=== PATIENT | male | born 1955 | race Hispanic/Latino ===

== ENCOUNTER 2017-06-09 18:10 | Emergency (ER) | payer BC, OTHER ==
[~2017-06-09 18:10] MED LIST: ISOVUE-370 76%-LOCM 1 ML ONE
[2017-06-09 18:44] LABS: #Basophils 0.1 thou/uL (0.0-0.2); #Eosinphils 0.1 thou/uL (0.0-0.7); #Lymphocytes 2.6 thou/uL (1.20-3.40); #Monocytes 0.5 thou/uL (0.11-0.59); #Neutrophils 3.2 thou/uL (1.40-6.50); %Basophils 1.1 % (0.0-1.0); %Eosinophils 1.5 % (0.0-10.0); Mean Platelet Volume 8.3 fL (7.4-10.4); Red Blood Cell (RBC) Count 4.06 mill/uL (4.70-6.10); White Blood Cell (WBC) Count 6.4 thou/uL (4.8-10.8)
[2017-06-09] MEDS ORDERED: Ondansetron HCl/PF 4 MG/2 ML Vial ONE ×2 (18:57→20:51)
[2017-06-09] MEDS ORDERED: Morphine 4 MG/ML VIAL ONE (18:57)
[2017-06-09 19:00] LABS: Bilirubin Negative (Negative); Blood, Urine Negative (Negative); Glucose, Urine (Dipstick) 100 mg/dL (Negative); Ketone, Urine Negative (Negative); Nitrite Negative (Negative); Protein, Urine (Dipstick) Negative (Neg-Trace)
--- NOTE | 2017-06-09 19:00 | RAD ---
CHEST ONE VIEW 06/09/17 HISTORY: Chest pain. COMPARISON: 05/25/14. FINDINGS: The cardiac silhouette and pulmonary vasculature are unremarkable. Mediastinum is midline with aortic calcification and a single lead left subclavian cardiac electronic device. No lobar consolidation or evidence of pneumothorax. IMPRESSION: No active cardiopulmonary abnormalities are demonstrated. POS: [facility]
[2017-06-09 19:09] LABS: ALT (SGPT) 24 U/L (8-55); AST (SGOT) 17 U/L (5-34); Alkaline Phosphatase 68 U/L (40-150); Anion Gap 15 mmol/L (10-20); BUN (Urea Nitrogen) 16 mg/dL (8.4-25.7); Bilirubin, Total 0.4 mg/dL (0.2-1.2); CK (CPK) 75 U/L (30-200); Calc. Creatinine Clearance 0 mL/min (70-130); Calcium 9.5 mg/dL (7.8-10.44); Carbon Dioxide 24 mmol/L (23-31); Chloride 105 mmol/L (98-107); Estimated GFR-MDRD 87; Globulin 3.6 g/dL (2.4-3.5); Protein, Total 7.7 g/dL (5.8-8.1)
[2017-06-09 19:19] LABS: Troponin I Less than 0.010 ng/mL (< 0.028)
[2017-06-09 19:45] LABS: Magnesium 2.2 mg/dL (1.6-2.6)
--- NOTE | 2017-06-09 20:04 | CT ---
CT ABDOMEN AND PELVIS WITH IV CONTRAST 06/09/17 HISTORY: Abdominal pain. FINDINGS: Compared to 12/04/15. The lung bases are clear. Several tiny calcific densities are present at the level of the common bile duct which is not significantly dilated. No stones are apparent within the gallbladder lumen. The sp kathie, kidneys, adrenal glands and pancreas are within normal limits. Urinary bladder is unremarkable. Lack of oral contrast limits evaluation of the bowel. There is no evidence of obstruction. IMPRESSION: Tiny calcific densities at the expected location of the nondilated common duct. Clinical correlation regarding other signs and symptoms of biliary colic and choledocholithiasis is required. POS: [facility]
[2017-06-09] MEDS ORDERED: Morphine 2 mg/2ml in 0.9% NaCl PF SYRINGE ONE (20:51)
--- NOTE | 2017-07-16 13:40 | EKG ---
Test Reason : Blood Pressure : / mmHG Vent. Rate : 084 BPM Atrial Rate : 084 BPM P-R Int : 132 ms QRS Dur : 082 ms QT Int : 348 ms P-R-T Axes : 058 -39 043 degrees QTc Int : 411 ms Sinus rhythm with Premature atrial complexes Left axis deviation Possible Anterior infarct , age undetermined Abnormal ECG Confirmed by DENIZ WRIGHT ([id number]), scientific editor THIEN CLANCY ([id number]) on 07/16/2017 1:40:16 PM Referred By: Confirmed By:DENIZ WRIGHT
== END 2017-06-09 21:40 | disposition home or self-care (01) ==
LOC: ERS 18:10
DX: M54.41 Lumbago with sciatica, right side (principal); R10.31 Right lower quadrant pain; I10 Essential (primary) hypertension; J45.909 Unspecified asthma, uncomplicated; F31.9 Bipolar disorder, unspecified; Z87.891 Personal history of nicotine dependence; Z79.82 Long term (current) use of aspirin; Z79.899 Other long term (current) drug therapy
CPT/HCPCS: 36415; 71010; 74177; 80053; 81003; 82553; 83690; 83735; 84484; 85025; 93005; 94760; 96374; 96375; 96376; J2270; J2405

== ENCOUNTER 2017-07-16 18:26 | Emergency (ER) | payer BC, OTHER ==
[2017-07-16 21:47] LABS: #Basophils 0.1 thou/uL (0.0-0.2); #Eosinphils 0.1 thou/uL (0.0-0.7); #Lymphocytes 1.9 thou/uL (1.20-3.40); #Monocytes 0.5 thou/uL (0.11-0.59); %Eosinophils 1.3 % (0.0-10.0); %Monocytes 8.3 % (0.0-10.0); %Neutrophils 54.4 % (42.0-75.0); Hemoglobin 15.2 g/dL (14.0-18.0); Mean Corpuscular HGB CONC 35.2 g/dL (32.0-36.0); Mean Corpuscular Hemoglobin 36.1 pg (27.0-31.0); Mean Platelet Volume 7.9 fL (7.4-10.4); Platelet Count 179 thou/uL (130-400); RBC Distribution Width 12.1 % (11.5-14.5); White Blood Cell (WBC) Count 5.5 thou/uL (4.8-10.8)
--- NOTE | 2017-07-16 21:51 | RAD ---
CHEST TWO VIEWS 07/16/17 HISTORY: Cough. COMPARISON: 02/02/14, 06/09/17. FINDINGS: Chest two views: Stable single lead defibrillator. Atherosclerosis of the aorta is noted. Normal cardiac silhouette. P ulmonary vessels and hilum are normal. Costophrenic angles are clear. No masses or consolidation. No pneumothorax or osseous abnormalities. IMPRESSION: No acute cardiopulmonary process. POS: [facility]
[2017-07-16 22:07] LABS: ALT (SGPT) 27 U/L (8-55); AST (SGOT) 19 U/L (5-34); Albumin 4.5 g/dL (3.4-4.8); Alkaline Phosphatase 72 U/L (40-150); Anion Gap 12 mmol/L (10-20); BUN (Urea Nitrogen) 19 mg/dL (8.4-25.7); Bilirubin, Total 0.8 mg/dL (0.2-1.2); Calc. Creatinine Clearance 0 mL/min (70-130); Calcium 9.5 mg/dL (7.8-10.44); Carbon Dioxide 26 mmol/L (23-31); Chloride 103 mmol/L (98-107); Estimated GFR-MDRD 88; Globulin 3.5 g/dL (2.4-3.5); Glucose 120 mg/dL (80-115); Lipase 120 U/L (8-78); Potassium 3.7 mmol/L (3.5-5.1); Sodium 137 mmol/L (136-145)
[2017-07-16 22:12] LABS: CKMB 1.7 ng/mL (0-6.6); Troponin I Less than 0.010 ng/mL (< 0.028)
--- NOTE | 2017-08-10 22:41 | EKG ---
Test Reason : Blood Pressure : / mmHG Vent. Rate : 065 BPM Atrial Rate : 065 BPM P-R Int : 144 ms QRS Dur : 086 ms QT Int : 386 ms P-R-T Axes : 065 -52 033 degrees QTc Int : 401 ms Normal sinus rhythm Left axis deviation Cannot rule out Inferior infarct , age undetermined Abnormal ECG Confirmed by DENIZ WRIGHT ([id number]), assignment editor RANJIT BARCLAY ([id number]) on 08/10/2017 10:40:31 PM Referred By: Confirmed By:DENIZ WRIGHT
== END 2017-07-16 23:25 | disposition home or self-care (01) ==
LOC: ERS 18:26
DX: J11.1 Influenza due to unidentified influenza virus with other respiratory manifestations (principal); E11.9 Type 2 diabetes mellitus without complications; I10 Essential (primary) hypertension; J45.909 Unspecified asthma, uncomplicated; M10.9 Gout, unspecified; F31.9 Bipolar disorder, unspecified; Z87.891 Personal history of nicotine dependence
CPT/HCPCS: 36415; 71046; 80053; 82553; 83605; 83690; 84484; 85025; 85379; 93005

== ENCOUNTER 2017-08-07 07:29 | Observation (INO) | payer BC, OTHER ==
[2017-08-07 08:02] LABS: #Eosinphils 0.1 thou/uL (0.0-0.7); #Lymphocytes 1.5 thou/uL (1.20-3.40); #Monocytes 0.6 thou/uL (0.11-0.59); #Neutrophils 8.3 thou/uL (1.40-6.50); %Basophils 0.3 % (0.0-1.0); %Eosinophils 0.6 % (0.0-10.0); %Lymphocytes 14.3 % (21.0-51.0); %Monocytes 6.1 % (0.0-10.0); %Neutrophils 78.7 % (42.0-75.0); Hemoglobin 15.9 g/dL (14.0-18.0); Mean Corpuscular HGB CONC 34.1 g/dL (32.0-36.0); Mean Corpuscular Hemoglobin 34.7 pg (27.0-31.0); Mean Platelet Volume 8.4 fL (7.4-10.4); Platelet Count 187 thou/uL (130-400); RBC Distribution Width 11.7 % (11.5-14.5); White Blood Cell (WBC) Count 10.6 thou/uL (4.8-10.8)
--- NOTE | 2017-08-07 08:13 | RAD ---
CHEST ONE VIEW: History: Chest and back pain. Comparison: 07-16-17 FINDINGS: Cardiac silhouette is magnified by projection. Pulmonary vasculature is unremarkable. Mediastinum is midline with a single lead left subclavian cardiac defibrillator. There is no lobar consolidation or evidence of pneumothorax. lunchroom monitor leads overlie the chest. IMPRESSION: 1. No active cardiopulmonary abnormalities are demonstrated. POS: [facility]
[2017-08-07 08:18] LABS: ALT (SGPT) 29 U/L (8-55); AST (SGOT) 17 U/L (5-34); Albumin 4.4 g/dL (3.4-4.8); Alkaline Phosphatase 72 U/L (40-150); Anion Gap 14 mmol/L (10-20); BUN (Urea Nitrogen) 13 mg/dL (8.4-25.7); CK (CPK) 65 U/L (30-200); Calc. Creatinine Clearance 0 mL/min (70-130); Calcium 9.7 mg/dL (7.8-10.44); Carbon Dioxide 24 mmol/L (23-31); Chloride 104 mmol/L (98-107); Estimated GFR-MDRD 90; Globulin 3.4 g/dL (2.4-3.5); Glucose 183 mg/dL (80-115); Potassium 3.9 mmol/L (3.5-5.1); Protein, Total 7.8 g/dL (5.8-8.1); Sodium 138 mmol/L (136-145)
[2017-08-07 08:23] LABS: CKMB 1.4 ng/mL (0-6.6); Troponin I Less than 0.010 ng/mL (< 0.028)
[2017-08-07 08:47] LABS: Bilirubin Negative (Negative); Blood, Urine Negative (Negative); Clarity CLEAR (Clear); Glucose, Urine (Dipstick) 250 mg/dL (Negative); Leukocyte Negative (Negative); Nitrite Negative (Negative); Protein, Urine (Dipstick) Negative (Neg-Trace); Specific Gravity, Urine 1.022 (1.002-1.036); Urobilinogen 0.2 mg/dL (0.2-1.0)
[2017-08-07] MEDS ORDERED: Aspirin 325 MG TAB ONE (08:51)
[2017-08-07] MEDS ORDERED: diphenhydrAMINE 50 MG/ML VIAL ONE (08:51)
[2017-08-07] MEDS ORDERED: Metoclopramide HCl 10 MG/2 ML VIAL ONE (08:51)
[2017-08-07 08:56] LABS: Medtox Reader # READER 4; THC/Cannabinoid Screen Detected (NotDetected); Tricyclic Screen Detected (NotDetected)
[2017-08-07 08:57] LABS: Amphetamine Not Detected (NotDetected); Barbiturates Screen Not Detected (NotDetected); Benzodiazepine Screen Not Detected (NotDetected); Cocaine Metabolite Screen Not Detected (NotDetected); Medtox Control Line Valid? VALID (VALID); Methadone Not Detected (NotDetected); Methamphetamine Not Detected (NotDetected); Opiate Screen Detected (NotDetected); Oxycodone Screen Not Detected (NotDetected); Phencyclidine (PCP) Not Detected (NotDetected)
--- NOTE | 2017-08-07 09:17 | CT ---
CT BRAIN WITHOUT CONTRAST: HISTORY: Headache. Pain. Migraine. COMPARISON: CT brain 2007. FINDINGS: No acute hemorrhage or infarct. No midline shift or mass effect. Ventricular size and extraaxial CS F spaces are normal. There are benign senile calcifications of the basal ganglia. The calvarium is intact. Paranasal sin uses and mastoids are clear. IMPRESSION: No acute intracranial abnormality. No significant change. POS: [facility]
[2017-08-07 12:08] LABS: Troponin I Less than 0.010 ng/mL (< 0.028)
[2017-08-07] MEDS ORDERED: Dextrose 5% in Water 1,000 ML IV PRN (12:59)
[2017-08-07] MEDS ORDERED: Dextrose 50% Abboject 50 ML SYRINGE SLOW IVP PRN (12:59)
[2017-08-07] MEDS ORDERED: HumaLOG 300 UNITS/3 ML VIAL SC PRN ×2 (12:59)
[2017-08-07] MEDS ORDERED: Nitroglycerin 0.4 MG TAB (25 Tab Bottle) PO PRN (12:59)
[2017-08-07 13:16] VITALS: BMI 25.0
[2017-08-07] MEDS: Sodium Chloride 0.9% 1,000 ML IV SCH ×2 (13:30→20:57)
[2017-08-07] MEDS: Acetaminophen 325 MG TAB PO PRN (13:43)
[2017-08-07] MEDS ORDERED: FLU VACC QS2017-18 36 mo. & older 0.5 ML SYRINGE IM ONE (13:45)
[2017-08-07 15:31] LABS: Troponin I Less than 0.010 ng/mL (< 0.028)
[2017-08-07] MEDS ORDERED: Clopidogrel Bisulfate 300 MG TAB PO SCH (17:00)
--- NOTE | 2017-08-07 19:40 | HP ---
CHIEF COMPLAINT: Chest pain. HISTORY OF PRESENT ILLNESS: Mr. Kim is a pleasant 61-year-old male patient who beginning s everal days ago having chest pain and shortness of breath. This became particularly worse during the last 48 hours when he was having upper chest pain, left arm pain that radiated into his upper and po sterior neck. This became acutely worse at 3 o'clock this morning and kept him up most of the night. By the food product inspector, he was in enough discomfort. He asked his family to bring him to the emergen cy room. Of note is the fact that Mr. Kim evidently had a heart catheterization in 2013 following an abnormal stress test. He, however, at that time did not receive any stents are certainly did not have bypass . He was lost to follow up after that time. PHYSICAL EXAMINATION: VITAL SIGNS: His blood pressure is 137/80, he is afebrile, his pulse rate is 73 and regular, respira tions 16, his room air O2 sat is 98%. GENERAL: He is awake, alert, pleasant, in no acute distress. EARS, NOSE, AND THROAT: No erythema or exudate. NECK: Supple. There is no JVD. No carotid bruits. CARDIAC: His heart rhythm is regular. No gallop. No murmur noted. LUNGS: Clear to auscultation without rales or wheezes. ABDOMEN: Flat and soft. No guarding, rebound or rigidity. EXTREMITIES: No cyanosis or edema. NEUROLOGIC: No focal deficits. LABORATORY DATA: CBC: White count is 10,600, hemoglobin 15.9, hematocrit is 46.7 with an MCV of 102 . Chemistries: Sodium 138, potassium 3.9, chloride 104, bicarbonate 24, BUN 13, creatinine 0.86. R andom glucose 183. His troponins are less than 0.01 x3. Liver enzymes are normal. Toxicology scree n is positive for opiates, tricyclics, and cannabinoids. EKG shows no acute ST segment changes. No significant ischemic changes. ASSESSMENT: Atypical chest pain in a patient with history of abnormal stress test and cardiac cathet erization in 2013. PLAN: Admit. We will consult Cardiology as they may want to go ahead catheterization this gentleman in the morning. Currently, he is clinically stable.
[2017-08-07] MEDS: Ibuprofen 800 MG TAB PO PRN (20:20)
[2017-08-07] MEDS ORDERED: Ondansetron ODT 4 MG TAB PO PRN (20:29)
[2017-08-07] MEDS ORDERED: Ondansetron HCl/PF 4 MG/2 ML Vial IVP PRN (20:29)
[2017-08-07] MEDS ORDERED: Insulin Detemir 100 UNITS/ML 18 UNITS in Pre-Filled Syringe 1 EACH SC SCH (21:00)
--- NOTE | 2017-08-07 21:27 | CON ---
DATE OF CONSULTATION: 08/07/2017 HISTORY OF PRESENT ILLNESS: This is a very unfortunate 61-year-old gentleman who apparently had a sy ncopal episode about 6 days ago. He did not report to the hospital at that time. He now has reporte d to the hospital after awakening this morning with neck pain. He describes being sharp pain to the neck, radiating to the chest area. He has had some pain yesterday as well as the day before. He als o complains of shortness of breath and some mild diaphoresis associated with the pain. He also compl ains occasions some left hand numbness and tingling with radiation of pain up the arm and into the ch est area. He has been seen in the past and underwent cardiac catheterization in 01/[address] Joan boyce, at which time he was found to have a normal left main with the left anterior descending artery as well as the left circumflex, obtuse marginal branch, and the right coronary were all 30% occluded. Thad croft also has small distal vessels. Ejection fraction at that time was about 55%. Apparently, he has n ot followed up very well. He did also undergo an AICD implant in 2008. This also has not been seen in followup for the last couple of years and was interrogated today and was found to have normal func tion, but has only less than 2 years left on the device. He has had 3 episodes in the past of V-tach range; however, the last event was, I believe, in 04/2017. His events were pace terminated. Otherw ise, he has had no significant complaints or problems associated with the AICD. He has had no shocks from the device. PAST MEDICAL HISTORY: Significant for hypertension, diabetes, hypercholesterolemia, asthma, apparent ly he had ventricular arrhythmias for which he underwent an AICD implant. He has coronary artery dis ease. He has had right hand surgery. SOCIAL HISTORY: He denies any tobacco abuse, but he was positive for cannabis. ALLERGIES: He is allergic to SENG INHIBITORS, METFORMIN, PENICILLIN, ABILIFY. REVIEW OF SYSTEMS: He complains of occasional blurred vision. He has frequent nausea. Otherwise, 1 2 point review of systems unremarkable except what was noted in the history of present illness. MEDICATIONS PRIOR TO ADMISSION: Included Seroquel, Norvasc, Lantus insulin and also nebulizer inhale r. He has also been taking pain pills for his right wrist. He did have a positive drug screen for o piates, tricyclics, and cannabis. PHYSICAL EXAMINATION: VITAL SIGNS: Reveals a blood pressure 137/79, heart rate is 73. He is afebrile. HEENT: Shows head to be normocephalic and atraumatic. Carotid pulses are present. There were no br uits. No JVD. Thyroid is not enlarged. CHEST: Clear to auscultation without rales, rhonchi or wheezing. There is a well-healed surgical in cision on the left infraclavicular area after an AICD implant. His chest is clear to auscultation. CARDIOVASCULAR: Regular rate and rhythm. Normal S1, S2. I cannot hear any significant murmurs, hea ves, thrills, bruits or rubs. ABDOMEN: Soft and nontender. Positive bowel sounds are present. EXTREMITIES: Showed no clubbing, cyanosis or edema. Pedal pulses are present. NEUROLOGIC: The patient appears to be intact. SKIN: Warm and dry. LABORATORY: EKG indicates a normal sinus rhythm with no acute changes. No indication for ischemia. Cardiac enzymes also were negative for any evidence of myocardial infarction. His remaining laborat ory data is unremarkable for any acute abnormalities. He does have evidence of diabetes. The blood sugar was 183. Chest x-ray was unremarkable. IMPRESSION: 1. A 61-year-old gentleman with known coronary artery disease with small distal vessels and 30% sten osis in all major arteries. He may need to undergo repeat cardiac catheterization as a definitive to ol to evaluate his coronary artery status, but again, there is no indication that this is a myocardia l infarction. Enzymes remained negative and we will discuss this with Dr. Martinez when he sees the marcela hendrickson. He can make that decision. We will keep patient n.p.o. tonight for possible cardiac catheter ization tomorrow. His ejection fraction was normal in the past in 2013. 2. History of ventricular arrhythmias, for which he underwent an AICD implant in 2008, interrogation today showed the device to be functioning normally and he will need to get reestablishment with the fuse cup expander for continuing care of the AICD. 3. Diabetes, will be dealt by the primary care service. 4. Hypertension. This is under good control at this time. We will continue the same medications.
--- NOTE | 2017-08-08 00:05 | HP-2 ---
DATE OF ADMISSION: 08/07/2017 RESIDENT: Rodger Neff D.O. ATTENDING: Johann Garcia MD PRIMARY CARE PHYSICIAN: [facility]. CODE STATUS: FULL. CHIEF COMPLAINT: Chest pain, headaches. HISTORY OF PRESENT ILLNESS: The patient is a 61-year-old male with past medical history of dysrhythmia, status post AICD in 2009, type 2 diabetes, and hypertension presenting with chest pain. The patient reports chest pain started about 8 days ago. He was at his job stocking shelves at [employer] when he was sitting on the ground and felt dizzy and passed out. The patient is not sure how long he was out but denies any aura or any seizing per coworkers who had gathered around. Denies any head trauma as well. He reports he experienced chest pain during this episode, which was described as midsternal, squeezing, radiating to the right neck. The patient reports continued chest pain since that time throughout the day randomly, sometimes at rest, sometimes during activities. Pain will always improve with Nitrostat. The patient also reports 2 days ago his AICD was "acting funny" with associated tingling down his left arm. He also reports shortness of breath last night. The patient was last seen at [facility] on 08/01/2017. During that visit, the patient tested positive for cocaine in his urine. The patient also was treated for influenza last month and was treated with Tamiflu. EMERGENCY ROOM COURSE: Aspirin 324 mg, Reglan 10 mg, Benadryl 125 mg. PAST MEDICAL HISTORY: Hypertension, type 2 diabetes, arrhythmias, bipolar depression. PAST SURGICAL HISTORY: 1. AICD in 2009. 2. Cardiac catheterization, 01/2014. 3. Wrist surgery for fracture of his right wrist. ALLERGIES: ABILIFY, SENG INHIBITORS, METFORMIN, PENICILLIN. MEDICATIONS: 1. Lantus 18 units at bedtime. 2. Seroquel 100 mg p.o. at bedtime. 3. Norvasc 10 mg p.o. daily. 4. Nitrostat sublingual p.r.n. FAMILY HISTORY: Mom, type 2 diabetes; both parents of various cancers, the patient is unable to verbalize any further. SOCIAL HISTORY: The patient is a former tobacco smoker, 1 pack per week for 35 years, quit approximately 10 years ago. Alcohol 2-3 beers per night. Drug use , denies. Occupation, [employer]. REVIEW OF SYSTEMS: GENERAL: Denies fevers or chills. EYES: Endorses blurry vision and he is scheduled to see an eye doctor but has not been yet. RESPIRATORY: Endorses shortness of breath. CARDIOVASCULAR: Endorses chest pain. GASTROINTESTINAL: Endorses nausea, denies vomiting or diarrhea. SKIN: Denies lesions or itching. MUSCULOSKELETAL: Endorses right foot swelling. NEUROLOGIC: Endorses numbness, syncope, and headaches. PSYCHIATRIC: Denies suicidal ideation or homicidal ideation, though he reports he has had two attempts in the past, none in the last year. PHYSICAL EXAMINATION: VITAL SIGNS: Blood pressure 147/70, pulse 82, respiratory rate 20, T-max 98.7, pulse ox 99% on room air. Current weight 76 kilograms. GENERAL: Alert and oriented x3, in no acute distress, appropriately interactive. EYES: PERRLA, EOMI. ENT: Oropharynx within normal limits. NECK: Supple with no lymphadenopathy, no JVD. CARDIOVASCULAR: Regular rate and rhythm with no murmurs or gallops. Radial and pedal pulses symmetric bilaterally. RESPIRATORY: Normal effort, no retractions, clear to auscultation bilaterally. ABDOMEN: Soft and nontender with bowel sounds in all 4 quadrants. MUSCULOSKELETAL: Structure and tone within normal limits. Full range of motion in all joints. NEUROLOGIC: No focal deficits. Sensation is within normal limits. LABORATORY DATA: 1. White count 10.6, hemoglobin 15.9, hematocrit 46.7, platelets 187. 2. Sodium 138, potassium 3.9, chloride 104, bicarbonate 24, BUN 13, creatinine 0.86, glucose 183, calcium 0.17. 3. Protein 7.8, albumin 4.4, total bilirubin 1.0, AST 17, ALT 29, alkaline phosphatase 72. 4. CK 65, CK-MB 1.4, troponin 0.010. 5. UA negative except for glucose which was 250. 6. UDS positive for TCAs, opiates, THC. IMAGING STUDIES: EKG: No ST segment changes or T-wave inversions. Chest x-ray : No acute cardiopulmonary process. CT of the head shows no acute process. ASSESSMENT AND PLAN: This is a 61-year-old male presenting with: 1. Typical chest pain. With the patient's history of catheterization 3-2 years ago, we will consult Cardiology to determine catheterization versus stress test. We will continue to trend troponins with a negative troponin initially. 2. Dysrhythmia with AICD. We will request interrogation and Cardiology has been consulted. EKG shows regular rate and rhythm at this time. 3. Polysubstance abuse, possibly source of his chest pain with a positive UDS of cocaine approximately 1 week ago in our clinic records. We will director counseling bureau for cessation and warn about adverse effects. 4. Hypertension. Continue home medications. We will hold any beta blockers at this time. 5. Type 2 diabetes. Hemoglobin A1c in the office last week was 6.9. We will continue with Levemir 18 units at bedtime, mild sliding scale, and Accu-Cheks q.c. and at bedtime as the patient was initially elevated at 183 glucose. 6. Psychiatric history of bipolar. We will continue Seroquel. 7. Deep vein thrombosis prophylaxis. We will start on sequential compression devices and Lovenox. DISPOSITION AND LENGTH OF HOSPITAL STAY: Telemetry observation for possibly one day. Symptomatic measures will be provided. History and physical exam, as well as management, discussed with Dr. Garcia. NOE
[2017-08-08 04:40] LABS: Anion Gap 9 mmol/L (10-20); BUN (Urea Nitrogen) 11 mg/dL (8.4-25.7); Calc. Creatinine Clearance 103 mL/min (70-130); Carbon Dioxide 26 mmol/L (23-31); Cardiac Risk 3.4 (Less than 4.5); Chloride 108 mmol/L (98-107); Cholesterol 105 mg/dl (< 200 Desired); Estimated GFR-MDRD Greater than 90; Glucose 138 mg/dL (80-115); HDL Cholesterol 31 mg/dL (>60 Neg Risk); LDL Cholesterol, Calculated 55 mg/dL; Potassium 4.2 mmol/L (3.5-5.1); Sodium 139 mmol/L (136-145); Triglycerides 97 mg/dL (Less than 150)
[2017-08-08] MEDS: Sodium Chloride 0.9% 1,000 ML IV SCH ×2 (05:22→14:06)
[2017-08-08] MEDS: Ibuprofen 800 MG TAB PO PRN (07:35)
[2017-08-08] MEDS ORDERED: Aspirin 325 MG TAB PO SCH (09:00)
[2017-08-08] MEDS ORDERED: Amlodipine 5 MG TAB PO SCH (09:00)
[2017-08-08] MEDS ORDERED: Clopidogrel Bisulfate 75 MG TAB PO SCH (09:00)
--- NOTE | 2017-08-08 11:00 | PDOC.FM ---
- Subjective Subjective: Patient slept well overnight. Only complaint is QUINN. Neck pain still present, but improved. No SOB, CP, N/V at this time. - Objective MAR Reviewed: Yes Vital Signs & Weight: Vital Signs (12 hours) Temp Pulse Resp BP BP Pulse Ox 08/08/17 07:35 69 141/78 H 08/08/17 07:30 97.3 F L 69 16 08/08/17 07:10 97.3 F L 70 18 141/78 H 100 08/08/17 03:01 98.4 F 69 16 115/54 L 95 08/07/17 23:00 74 15 129/71 99 Weight Weight 76.702 kg I&O: 08/07/17 08/08/17 08/09/17 06:59 06:59 06:59 Intake Total 203 Output Total 525 Balance 1510 Result Diagrams: 08/07/17 07:50 08/08/17 03:55 <Rodger Neff - Last Filed: 08/08/17 10:58> - Objective Vital Signs & Weight: Vital Signs (12 hours) Temp Pulse Resp BP BP Pulse Ox 08/08/17 07:35 69 141/78 H 08/08/17 07:30 97.3 F L 69 16 08/08/17 07:10 97.3 F L 70 18 141/78 H 100 08/08/17 03:01 98.4 F 69 16 115/54 L 95 Weight Weight 76.702 kg I&O: 08/07/17 08/08/17 08/09/17 06:59 06:59 06:59 Intake Total 2034 Output Total 525 Balance 1510 Result Diagrams: 08/07/17 07:50 08/08/17 03:55 <Lauryn Welch - Last Filed: 08/08/17 11:07> Phys Exam - Physical Examination Constitutional: NAD Respiratory: no wheezing, clear to auscultation bilateral Cardiovascular: RRR, no significant murmur Gastrointestinal: soft, non-tender, positive bowel sounds Musculoskeletal: no edema, pulses present Neurological: normal sensation, moves all 4 limbs Psychiatric: normal affect, A&O x 3 <Rodger Neff - Last Filed: 08/08/17 10:58> Dx/Plan (1) Chest pain, rule out acute myocardial infarction Code(s): R07.9 - CHEST PAIN, UNSPECIFIED Status: Acute Plan: Dr. Haddad consulted, recs appreciated Patient to get stress test today (2) CAD (coronary artery disease) Code(s): I25.10 - ATHSCL HEART DISEASE OF [place] CORONARY ARTERY W/O ANG PCTRS Status: Chronic (3) Hyperlipidemia Code(s): E78.5 - HYPERLIPIDEMIA, UNSPECIFIED Status: Chronic (4) Hypertensive disease Code(s): I10 - ESSENTIAL (PRIMARY) HYPERTENSION Status: Chronic Plan: continue home meds (5) Type 2 diabetes mellitus Status: Chronic Plan: continue home regimen mild ssi accuchecks qACHS <Rodger Neff - Last Filed: 08/08/17 10:58> Attending Addendum - Attending Addendum I personally evaluated the patient and discussed the management with Dr. Neff. I agree with the History, Examination, Assessment and Plan documented above with any addition or exceptions noted below. The patient is seen at stress test. Appreciate cardiology recs. Further management pending stress test results. <Lauryn Welch - Last Filed: 08/08/17 11:07>
[2017-08-08] MEDS ORDERED: Regadenoson 0.4 MG/5 ML SYRINGE ONE (12:17)
--- NOTE | 2017-08-08 13:40 | NM ---
NUCLEAR MEDICINE CARDIAC STRESS WITH EJECTION FRACTION AND WALL MOTION: HISTORY: Chest pain. COMPARISON: 02/25/15. TECHNIQUE: The patient was administered 9 mCi of technetium-99m sestamibi for rest imaging and 27 mCi of technet ium-99m sestamibi for stress imaging. Cardiac gating is performed. FINDINGS: There is homogeneous distribution of the radiotracer in the left ventricle on the stress images. Ther e is no evidence of reversibility. No evidence of a fixed defect. TID is 1.06. End-diastolic volume is 101 mL. End-systolic volume is 46 mL. CARDIAC GATING: Normal motion and thickening. Ejection fraction is 55%. IMPRESSION: 1. No reversibility. No fixed defect. 2. Ejection fraction is 55%. POS: [facility]
[2017-08-08] MEDS: Acetaminophen 325 MG TAB PO PRN (15:07)
[2017-08-08 15:43] VITALS: BP 148/78; TEMP 97.9
--- NOTE | 2017-08-08 17:39 | PRG ---
DATE OF SERVICE: 08/08/2017 SUBJECTIVE: Mr. Kim is doing better, not having chest pain. He has headache. Overall, feels well, however. Stress test was normal. OBJECTIVE: VITAL SIGNS: Blood pressure 148/78, pulse 66 regular. LUNGS: Clear. CARDIAC: Normal S1 and S2. I have reviewed the patient's records, he did undergo cardiac catheterization in 01/2014 and at that time, he was found to have nonobstructive plaque in the coronaries, but slow antegrade flow likely co mpatible with microvascular disease. The patient had no ischemia on stress testing today. ASSESSMENT: 1. Chest pain, possibly related to microvascular angina. 2. No evidence of any flow-limiting disease on stress testing. 3. Diabetes. 4. Hypertension. PLAN: 1. Resume amlodipine. He was on that previously, but it stopped. 2. Continue to treat diabetes. 3. We would recommend statin therapy. You know that his LDL cholesterol is not elevated. It is 55. He does have some mild atherosclerosis and there is some benefit in all likelihood to driving it fu rther lower. 4. Aspirin. 5. Plavix. 6. See him in 3 or 4 weeks if chest pain continues, could repeat cardiac catheterization, but most l ikely this represents microvascular angina based on the above.
[2017-08-08] MEDS ORDERED: Rosuvastatin 10 MG TAB PO SCH (21:00)
--- NOTE | 2017-08-09 17:29 | DIS-2 ---
DATE OF ADMISSION: 08/07/2017 DATE OF DISCHARGE: 08/08/2017 RESIDENT: Rodger Neff D.O. ADMITTING ATTENDING: Johann Garcia M.D. DISCHARGE ATTENDING: Lauryn Welch M.D. CONSULTATIONS: Dr. Haddad and Dr. Martinez of Cardiology. PROCEDURES: Stress test showing no reversible ischemia. PRIMARY DIAGNOSIS: Chest pain, rule out acute coronary syndrome. SECONDARY DIAGNOSES: Coronary artery disease status post automatic implantable cardioverter defibrillator, bipolar disorder, history of ventricular tachycardia , asthma, type 2 diabetes, elevated triglycerides, hypertension, gout, and polysubstance abuse. DISCHARGE MEDICATIONS: 1. Rosuvastatin 20 mg p.o. daily 2. Quetiapine fumarate 150 mg p.o. at bedtime. 3. Nitrostat 0.4 mg p.o. q. 5 minutes p.r.n. chest pain. 4. [id number] units subcutaneous at bedtime. 5. Amlodipine 5 mg p.o. daily. 6. Ranexa 500 mg p.o. t.i.d. 7. Plavix 75 mg p.o. daily. 8. Tylenol with codeine #3 one to two tabs p.o. p.r.n. pain. DISCONTINUED MEDICATIONS: None. HISTORY OF PRESENT ILLNESS AND HOSPITAL COURSE: The patient is a 61-year-old male, who presented with 8-day history of chest pain due to his history of ventricular tachycardia with AICD placement as well as a cardiac catheterization back in 2013 as well as patient's history with Cardiology team here at [place]. Dr. Haddad was consulted as patient had been previously cathed by Dr. Martinez. Dr. Martinez evaluated the patient the following day, indeterminate stress test to be most beneficial. Stress test was unremarkable. Therefore, patient was discharged home on Ranexa as well as Crestor and Plavix as well as his other blood pressure medications including beta lópez. During hospitalization, patient's troponins were trended and negative x3. Additionally, EKG findings were unremarkable. It is worth noting the patient had a urine drug screen, which was positive for opiates, tricyclics, and cannabinoids. Also worth noting at [facility], a UDS had been performed a week before admission at [facility] and had cocaine in the urine. This could have possibly contributed to current episode. Also of note, the patient had an A1c 6.9 at least clinic visit or the week before this hospital visit. DISPOSITION: Stable. DISCHARGE INSTRUCTIONS: 1. Location: Home. 2. Diet: Heart healthy and consistent carbohydrates. 3. Activity: As tolerated. 4. Followup: Followup visit with [facility] in the next 7-[address] Martinez in the next 2-3 weeks. NOE
== END 2017-08-08 19:00 | disposition home or self-care (01) ==
LOC: ERS 07:29 → 2SW 11:48
PROVIDERS: ADMIT Family Medicine; ATTEND Family Medicine
DX: R07.2 Precordial pain (principal); I25.10 Atherosclerotic heart disease of native coronary artery without angina pectoris; F31.9 Bipolar disorder, unspecified; J45.909 Unspecified asthma, uncomplicated; E11.9 Type 2 diabetes mellitus without complications; E78.1 Pure hyperglyceridemia; I10 Essential (primary) hypertension; E78.00 Pure hypercholesterolemia, unspecified; F19.10 Other psychoactive substance abuse, uncomplicated; E66.9 Obesity, unspecified; Z68.25 Body mass index [BMI] 25.0-25.9, adult; Z87.891 Personal history of nicotine dependence; Z79.01 Long term (current) use of anticoagulants; Z79.4 Long term (current) use of insulin; Z79.899 Other long term (current) drug therapy; Z88.0 Allergy status to penicillin; Z88.8 Allergy status to other drugs, medicaments and biological substances; Z80.9 Family history of malignant neoplasm, unspecified; Z95.810 Presence of automatic (implantable) cardiac defibrillator; Z98.890 Other specified postprocedural states
CPT/HCPCS: 36415; 36416; 70450; 71045; 78452; 80048; 80053; 80061; 80306; 80307; 81003; 82553; 84484; 85025; 90471; 90682; 93005; 93017; 94760; 96361; 96365; 96375; A9500; G0008; G0378; J1200; J1815; J2405; J2765; J2785; Q2036

== ENCOUNTER 2017-11-19 09:51 | Emergency (ER) | payer BC, OTHER ==
[2017-11-19] MEDS ORDERED: Ketorolac Tromethamine 30 MG/ML VIAL ONE (11:03)
[2017-11-19] MEDS ORDERED: HYDROcodone/Acetaminophen 5/325 mg Tablet ONE (11:03)
[2017-11-19 11:09] LABS: #Basophils 0.1 thou/uL (0.0-0.2); #Eosinphils 0.1 thou/uL (0.0-0.7); #Lymphocytes 1.9 thou/uL (1.20-3.40); #Monocytes 0.4 thou/uL (0.11-0.59); #Neutrophils 4.8 thou/uL (1.40-6.50); %Eosinophils 2.1 % (0.0-10.0); %Lymphocytes 26.2 % (21.0-51.0); %Monocytes 5.2 % (0.0-10.0); %Neutrophils 65.6 % (42.0-75.0); Hemoglobin 14.2 g/dL (14.0-18.0); Mean Corpuscular HGB CONC 35.2 g/dL (32.0-36.0); Mean Corpuscular Hemoglobin 35.4 pg (27.0-31.0); Mean Platelet Volume 8.6 fL (7.4-10.4); Platelet Count 149 thou/uL (130-400); RBC Distribution Width 12.2 % (11.5-14.5); Red Blood Cell (RBC) Count 4.02 mill/uL (4.70-6.10); White Blood Cell (WBC) Count 7.3 thou/uL (4.8-10.8)
--- NOTE | 2017-11-19 11:37 | RAD ---
THREE VIEWS OF THE LEFT WRIST: COMPARISON: 12/15/12. HISTORY: Left wrist pain that radiates to the left arm. FINDINGS: Three views left wrist show no evidence of acute fracture or dislocation. There are small stable ero sions involving the carpal bones. Mild surrounding soft tissue swelling is seen. IMPRESSION: 1. No evidence of acute osseous abnormality. 2. Nonspecific erosions involving the carpal bones could be secondary to an inflammatory arthropathy . POS: [facility]
[2017-11-19 11:46] LABS: ALT (SGPT) 16 U/L (8-55); AST (SGOT) 17 U/L (5-34); Albumin 4.2 g/dL (3.4-4.8); Alkaline Phosphatase 73 U/L (40-150); Anion Gap 14 mmol/L (10-20); BUN (Urea Nitrogen) 16 mg/dL (8.4-25.7); Bilirubin, Total 0.6 mg/dL (0.2-1.2); Calc. Creatinine Clearance 0 mL/min (70-130); Calcium 9.3 mg/dL (7.8-10.44); Carbon Dioxide 22 mmol/L (23-31); Chloride 106 mmol/L (98-107); Estimated GFR-MDRD 88; Globulin 3.1 g/dL (2.4-3.5); Glucose 129 mg/dL (80-115); Protein, Total 7.3 g/dL (5.8-8.1); Sodium 138 mmol/L (136-145); Uric Acid 4.5 mg/dL (3.5-7.2)
== END 2017-11-19 13:06 | disposition home or self-care (01) ==
LOC: ERS 09:51
DX: M79.89 Other specified soft tissue disorders (principal); E11.9 Type 2 diabetes mellitus without complications; I10 Essential (primary) hypertension; J45.909 Unspecified asthma, uncomplicated; Z87.891 Personal history of nicotine dependence; Z79.899 Other long term (current) drug therapy
CPT/HCPCS: 36415; 80053; 84550; 85025; 96372; J1885

== ENCOUNTER 2018-01-25 11:18 | Emergency (ER) | payer BC, OTHER ==
[2018-01-25] MEDS ORDERED: ISOVUE-370 76%-LOCM 1 ML ONE (12:25)
[2018-01-25 12:37] LABS: #Eosinphils 0.1 thou/uL (0.0-0.7); #Lymphocytes 1.6 thou/uL (1.20-3.40); #Monocytes 0.4 thou/uL (0.11-0.59); #Neutrophils 2.8 thou/uL (1.40-6.50); %Eosinophils 1.3 % (0.0-10.0); %Lymphocytes 33.1 % (21.0-51.0); %Monocytes 7.9 % (0.0-10.0); %Neutrophils 56.7 % (42.0-75.0); Hemoglobin 15.5 g/dL (14.0-18.0); Mean Corpuscular HGB CONC 36.4 g/dL (32.0-36.0); Mean Corpuscular Hemoglobin 36.1 pg (27.0-31.0); Mean Platelet Volume 8.1 fL (7.4-10.4); Platelet Count 148 thou/uL (130-400); RBC Distribution Width 11.9 % (11.5-14.5); White Blood Cell (WBC) Count 4.9 thou/uL (4.8-10.8)
[2018-01-25 12:47] LABS: ALT (SGPT) 21 U/L (8-55); AST (SGOT) 13 U/L (5-34); Albumin 4.4 g/dL (3.4-4.8); Alkaline Phosphatase 68 U/L (40-150); Anion Gap 12 mmol/L (10-20); BUN (Urea Nitrogen) 15 mg/dL (8.4-25.7); Bilirubin, Total 1.1 mg/dL (0.2-1.2); Calc. Creatinine Clearance 0 mL/min (70-130); Calcium 9.8 mg/dL (7.8-10.44); Carbon Dioxide 25 mmol/L (23-31); Chloride 102 mmol/L (98-107); Estimated GFR-MDRD Greater than 90; Globulin 3.1 g/dL (2.4-3.5); Glucose 286 mg/dL (80-115); Potassium 3.9 mmol/L (3.5-5.1); Protein, Total 7.5 g/dL (5.8-8.1); Sodium 135 mmol/L (136-145)
[2018-01-25 12:52] LABS: CKMB 1.7 ng/mL (0-6.6); Troponin I Less than 0.010 ng/mL (< 0.028)
--- NOTE | 2018-01-25 13:47 | RAD ---
PORTABLE CHEST: Date: 01/25/18 PROVIDED CLINICAL HISTORY: Cough. FINDINGS: Comparison with 08/07/17. Cardiac and mediastinal silhouette is within normal limits. Lungs appear clear. No pleural fluid or p neumothorax apparent. Left subclavian cardiac pacing device is again noted. IMPRESSION: No evidence for an acute cardiopulmonary process. POS: [facility]
--- NOTE | 2018-01-25 13:47 | RAD ---
RIGHT SHOULDER 3 VIEWS: Date: 01/25/18 HISTORY: 62-year-old male with history of bilateral shoulder pain for 3 months. FINDINGS: AC and glenohumeral joint arthrosis changes are noted. No fracture or dislocation. IMPRESSION: Degenerative changes without fracture or dislocation. POS: [facility]
--- NOTE | 2018-01-25 13:48 | RAD ---
LEFT SHOULDER 3 VIEWS: Date: 01/25/18 PROVIDED CLINICAL HISTORY: Shoulder pain. FINDINGS: No evidence for fracture or other acute osseous abnormality. Subacromial space appears preserved. Gle nohumeral relationship appears normal. Visualized left lung field appears clear. Acromioclavicular abdon int osteoarthrosis is noted. IMPRESSION: No evidence for an acute osseous abnormality. If there is persistent clinical concern, conservative m anagement and follow-up imaging advised. POS: [facility]
--- NOTE | 2018-01-25 14:37 | CT ---
CT PULMONARY ANGIOGRAM WITH IV CONTRAST AND 3D MIP RECONSTRUCTIONS: Date: 01/25/18 PROVIDED CLINICAL HISTORY: Dyspnea. FINDINGS: There is no evidence for central or segmental pulmonary embolus. The systemic arterial system is not sufficiency opacified for comment. Vascular calcification including coronary calcium is seen. The dez gs are free of significant opacity. There is no pleural fluid or pneumothorax apparent. The airway ap pears patent and of normal caliber. There is no evidence for thoracic lymph node enlargement. The vi sualized portions of the upper abdomen appear unremarkable. The osseous structures demonstrate no lyt ic or blastic lesions. Left subclavian cardiac pacing device is noted with lead tip within the right ventricle. IMPRESSION: No evidence for central or segmental pulmonary embolus. POS: [facility]
== END 2018-01-25 14:20 | disposition home or self-care (01) ==
LOC: ERS 11:18
DX: M25.512 Pain in left shoulder (principal); M25.511 Pain in right shoulder; I10 Essential (primary) hypertension; E11.9 Type 2 diabetes mellitus without complications; M10.9 Gout, unspecified; Z87.891 Personal history of nicotine dependence; Z79.899 Other long term (current) drug therapy
CPT/HCPCS: 71045; 71275; 80053; 82553; 83880; 84484; 85025; 85379; 93005

== ENCOUNTER 2018-03-19 10:48 | Inpatient (IN) | payer BC, OTHER ==
--- NOTE | 2018-03-19 11:59 | RAD ---
SINGLE VIEW CHEST: Date: 03/19/18 COMPARISON: 01/25/18. HISTORY: Chest pain and shoulder pain. FINDINGS: Single view of the chest shows a normal sized cardiomediastinal silhouette. A pacemaker is seen with its lead in the right ventricle. There is no evidence of consolidation, mass, or pleural effusion. IMPRESSION: No evidence of acute cardiopulmonary disease. POS: [facility]
[2018-03-19 12:08] LABS: #Basophils 0.1 thou/uL (0.0-0.2); #Eosinphils 0.1 thou/uL (0.0-0.7); #Lymphocytes 1.6 thou/uL (1.20-3.40); #Monocytes 0.4 thou/uL (0.11-0.59); #Neutrophils 2.9 thou/uL (1.40-6.50); %Basophils 1.1 % (0.0-1.0); %Eosinophils 1.4 % (0.0-10.0); %Lymphocytes 32.4 % (21.0-51.0); %Monocytes 7.9 % (0.0-10.0); %Neutrophils 57.3 % (42.0-75.0); Hemoglobin 15.4 g/dL (14.0-18.0); Mean Corpuscular HGB CONC 35.9 g/dL (32.0-36.0); Mean Corpuscular Hemoglobin 36.4 pg (27.0-31.0); Mean Platelet Volume 9.5 fL (7.4-10.4); Platelet Count 142 thou/uL (130-400); RBC Distribution Width 11.5 % (11.5-14.5); Red Blood Cell (RBC) Count 4.24 mill/uL (4.70-6.10)
[2018-03-19 12:29] LABS: ALT (SGPT) 22 U/L (8-55); AST (SGOT) 18 U/L (5-34); Albumin 4.4 g/dL (3.4-4.8); Alkaline Phosphatase 66 U/L (40-150); Anion Gap 13 mmol/L (10-20); BUN (Urea Nitrogen) 15 mg/dL (8.4-25.7); Bilirubin, Total 1.6 mg/dL (0.2-1.2); CK (CPK) 210 U/L (30-200); Calc. Creatinine Clearance 0 mL/min (70-130); Calcium 9.3 mg/dL (7.8-10.44); Carbon Dioxide 22 mmol/L (23-31); Chloride 105 mmol/L (98-107); Estimated GFR-MDRD 88; Globulin 3.1 g/dL (2.4-3.5); Glucose 174 mg/dL (80-115); Potassium 3.9 mmol/L (3.5-5.1); Protein, Total 7.5 g/dL (5.8-8.1); Sodium 136 mmol/L (136-145)
[2018-03-19 12:33] LABS: CKMB 3.3 ng/mL (0-6.6); Troponin I Less than 0.010 ng/mL (< 0.028)
[2018-03-19] MEDS ORDERED: Ondansetron HCl/PF 4 MG/2 ML Vial ONE (12:48)
[2018-03-19 15:16] LABS: Troponin I Less than 0.010 ng/mL (< 0.028)
[2018-03-19] MEDS ORDERED: HYDROcodone/Acetaminophen 5/325 mg Tablet ONE (16:33)
--- NOTE | 2018-03-19 17:55 | PDOC.FPRHP ---
- History of Present Illness Chief Complaint: Chest pain History of Present Illness: 62 year old male with a 4 day history of intermittent chest pain. Pain relieved with time. Patient never took any medications. Pain described as pressure in center of chest extending to epigastric region. The pain is worse with deep breath. He also complains of worsening bilateral shoulder pain and some associated weakness in upper extremities at times. Pain in chest was reportedly 10/10 this AM. Patient states he was given "some pain medications last time" which helped relieve his pain. He states he does have an ICD due to arrhythmias. It has been in place for 10 years. He has never had it interrogated. Patient has presented to the ED on several occasions with chest pain. He was told to follow up for a cardiac workup outpatient and failed to do so. He does not follow with a PCP or willower. He takes no medications. He has a history of DM, HTN. He is a former smoker but quit 10 years ago. ED Course: [place] 5/325 mg, Zofran 4 mg IV - Allergies/Adverse Reactions Allergies Allergy/AdvReac Type Severity Reaction Status Date / Time Penicillins Allergy Mild Stomach Verified 03/19/18 19:27 Ache SENG Inhibitors Allergy Verified 03/19/18 19:27 aripiprazole [From Abilify] Allergy Verified 03/19/18 19:27 aspirin Allergy Verified 03/19/18 19:27 metformin Allergy Verified 03/19/18 19:27 - Home Medications Medication Instructions Recorded Confirmed Type QUEtiapine Fumarate [SEROquel] 150 mg PO HS 05/25/14 03/19/18 History - History PMHx: DM, HTN, Migraines, Hx of arrhythmia s/p AICD placement, Asthma, Previous inpatient psych admissions PSHx: ICD placement 10 years ago, Right hand surgery, Cardiac cath 01/2014 FHx: FH lung cancer, liver cancer, and esophageal cancer Social: Patient quit smoking 10 years ago. He smoked 2 packs per week for 20 years. He endorses occasional alcohol use. He denies drug use. - Review of Systems General: denies: fever/chills, weight/appetite/sleep changes Eyes: denies: eye pain ENT: denies: nasal congestion, rhinorrhea Respiratory: reports: cough (with bloody sputum), congestion. denies: shortness of breath Cardiovascular: reports: chest pain. denies: palpitation, edema, paroxysmal nocturnal dyspnea Gastrointestinal: denies: nausea, vomiting, diarrhea, constipation, abdominal pain Genitourinary: denies: incontinence, polyuria Skin: denies: rashes, lesions Musculoskeletal: reports: pain, tenderness, stiffness, arthritis/arthralgias Neurological: reports: numbness, weakness (upper extremities). denies: syncope , seizure Psychological: denies: depression - Vital signs BP: 131/76 HR: 69 RR: 20 Tmax: 98.7 F Pox: 98% on RA Wt: 75.251 kg - Physical Exam Constitutional: NAD, awake, alert and oriented, well developed HEENT: PERRLA, EOMI Neck: supple -Chest: Tender to palpation over mid chest and in bilateral shoulder joints Heart: RRR, no murmurs/rubs/gallops Lungs: CTAB, no respiratory distress, no wheezing Abdomen: soft, non-tender, bowel sounds present, no masses/distention -Musculoskeletal: Strength 5/5 in upper extremities with good effort; exam limited due to pain Neurological: no focal deficit Skin: capillary refill <2 seconds Heme/Lymphatic: no unusual bruising or bleeding -Psychiatric: Poor insight FMR H&P: Results - Labs Result Diagrams: 03/19/18 11:56 03/19/18 11:56 Lab results: WBC 5.0 thou/uL (4.8-10.8) 03/19/18 11:56 Hgb 15.4 g/dL (14.0-18.0) 03/19/18 11:56 Hct 43.0 % (42.0-52.0) 03/19/18 11:56 MCV 102.0 fL (78.0-98.0) H 03/19/18 11:56 Plt Count 142 thou/uL (130-400) 03/19/18 11:56 Neutrophils % 57.3 % (42.0-75.0) 03/19/18 11:56 Sodium 136 mmol/L (136-145) 03/19/18 11:56 Potassium 3.9 mmol/L (3.5-5.1) 03/19/18 11:56 Chloride 105 mmol/L (98-107) 03/19/18 11:56 Carbon Dioxide 22 mmol/L (23-31) L 03/19/18 11:56 BUN 15 mg/dL (8.4-25.7) 03/19/18 11:56 Creatinine 0.88 mg/dL (0.6-1.3) 03/19/18 11:56 Glucose 174 mg/dL (80-115) H 03/19/18 11:56 Calcium 9.3 mg/dL (7.8-10.44) 03/19/18 11:56 Total Bilirubin 1.6 mg/dL (0.2-1.2) H 03/19/18 11:56 AST 18 U/L (5-34) 03/19/18 11:56 ALT 22 U/L (8-55) 03/19/18 11:56 Alkaline Phosphatase 66 U/L (40-150) 03/19/18 11:56 Creatine Kinase 180 U/L (30-200) 03/19/18 14:38 CK-MB (CK-2) 3.3 ng/mL (0-6.6) 03/19/18 11:56 Serum Total Protein 7.5 g/dL (5.8-8.1) 03/19/18 11:56 Albumin 4.4 g/dL (3.4-4.8) 03/19/18 11:56 - EKG Interpretation EKG: Sinus rhythms with PVCs - Radiology Interpretation Chest x-ray Status: image reviewed by me, report reviewed by me Additional comment: No acute respiratory disease FMR H&P: A/P - Problem List (1) Atypical chest pain Current Visit: No Status: Acute Code(s): R07.89 - OTHER CHEST PAIN (2) HTN (hypertension) Current Visit: No Status: Chronic Code(s): I10 - ESSENTIAL (PRIMARY) HYPERTENSION (3) Asthma Current Visit: No Status: Chronic Code(s): J45.909 - UNSPECIFIED ASTHMA, UNCOMPLICATED (4) Osteoarthritis Current Visit: No Status: Chronic Code(s): M19.90 - UNSPECIFIED OSTEOARTHRITIS, UNSPECIFIED SITE (5) Type 2 diabetes mellitus Current Visit: No Status: Chronic - Plan 62 year old male with history of AICD placement for arrhythmia, HTN, DM type II that presents with chest pain and shortness of breath 1. Atypical chest pain - Patient admitted 07/2017 for chest pain - Stress test done 07/2017; No ischemia - Seen by Dr. Martinez 07/2017; recommendations at that time were to resume amlodipine, treat DM, statin therapy, ASA, Plavix. Recommendations at that time were to possibly repeat cardiac cath but thought the chest pain was microvascular angia - Cardiac cath in 01/2014 found to have nonobstructive plaque in the coronaries, but slow antegrade flow likely compatible with microvascular disease - Patient non-compliant with medications - Consider cardiology consult in AM vs suggesting further workup as outpatient; possible stress test AM - Heart score of 3 - GI cocktail for possible GERD - Pantoprazole IV - Troponin neg x3 - EKG sinus rhythm with PVC's - Risk stratification labs (HgA1c, TSH, FLP, Mg, P) - NPO at midnight - HH diet - Check lipase 2. Hemoptysis - Questionable based on patient's history; may represent more of hematemesis, patient with epigastric pain - CXR showed no consolidations or infiltrates - FOBT pending for possible hematemesis - Denies alcohol use or taking NSAIDs 3. Osteoarthritis - Bilateral shoulder pain, worse with movement - Bilateral shoulder xrays performed 01/2018 which showed some degenerative changes - Weakness in upper extremities may represent degree of stenosis in cervical spine - Spurling's not performed; may evaluate tomorrow 4. HTN - IV BP medications PRN for SBP >180 mmHg 5. DM type II - Mild SSI - HgA1c - ACHS Accuchecks - CC carb diet - Depending on patient's insulin needs, will start on medication 6. Tobacco use disorder hx - Quit 10 years ago - Screening for AAA recommended 7. Elevated total bilirubin - Will order direct bilirubin to further investigate Dispo: Stable. Obs/tele. Anticipate LOS <48 hours. FMR H&P: Upper Level - Plan Date/Time: 03/19/18 [id number] I, [], have evaluated this patient and agree with findings/plan as outlined by product development intern resident. Pertinent changes/additions are listed here. Attending Addendum - Attending Addendum Date/Time: 03/19/182126 I personally evaluated the patient and discussed the management with Dr. Mota. I agree with the History, Examination, Assessment and Plan documented above with any addition or exceptions noted below. Patient notes pain in neck and shoulder and arms that sounds like nerve impingement related pain. He has been referred to neuro but hasn't been able to secure an appt. Advised out patient follow-up with the PCP of his choice to help arrange diagnosis and treatment of his neck and shoulder pain. For now cardiac workup in place.
[2018-03-19 18:19] LABS: Troponin I Less than 0.010 ng/mL (< 0.028)
[2018-03-19 19:04] VITALS: BMI 24.5
[2018-03-19] MEDS ORDERED: Ondansetron HCl/PF 4 MG/2 ML Vial IVP PRN (19:11)
[2018-03-19] MEDS ORDERED: Ondansetron ODT 4 MG TAB SL PRN (19:11)
[2018-03-19] MEDS ORDERED: Acetaminophen 325 MG TAB PO PRN (19:11)
[2018-03-19] MEDS ORDERED: hydrALAZINE 20 MG/ML VIAL SLOW IVP PRN (19:22)
[2018-03-19] MEDS ORDERED: HumaLOG 300 UNITS/3 ML VIAL SC PRN ×2 (19:22)
[2018-03-19] MEDS ORDERED: Dextrose 5% in Water 1,000 ML IV PRN (19:22)
[2018-03-19] MEDS ORDERED: Nitroglycerin 0.4 MG TAB (25 Tab Bottle) SL PRN (19:22)
[2018-03-19] MEDS ORDERED: Dextrose 50% Abboject 50 ML SYRINGE SLOW IVP PRN (19:22)
[2018-03-19] MEDS ORDERED: Lidocaine 2% Viscous Solution 10 ML, Aluminum & Magnesium Hydroxide 30 ML SSW SCH (19:30)
[2018-03-19] MEDS ORDERED: Enoxaparin Sodium 30 MG/0.3 ML SYRINGE SC SCH (19:30)
[2018-03-19 20:17] LABS: Bilirubin, Direct 0.5 mg/dL (0.1-0.3); Magnesium 2.1 mg/dL (1.6-2.6); Phosphorus 2.7 mg/dL (2.3-4.7)
[2018-03-19 20:33] LABS: Hemoglobin A1c 6.8 % (4.0-6.0)
[2018-03-19 20:56] LABS: Amphetamine Not Detected (NotDetected); Barbiturates Screen Not Detected (NotDetected); Benzodiazepine Screen Not Detected (NotDetected); Cocaine Metabolite Screen Not Detected (NotDetected); Medtox Control Line Valid? VALID (VALID); Medtox Reader # READER 1; Methadone Not Detected (NotDetected); Methamphetamine Not Detected (NotDetected); Opiate Screen Detected (NotDetected); Oxycodone Screen Not Detected (NotDetected); Phencyclidine (PCP) Not Detected (NotDetected); THC/Cannabinoid Screen Detected (NotDetected); Tricyclic Screen Detected (NotDetected)
[2018-03-19 21:17] LABS: Troponin I Less than 0.010 ng/mL (< 0.028)
[2018-03-19] MEDS: traMADol HCl 50 MG TAB PO PRN (22:14)
[2018-03-20 05:03] LABS: Anion Gap 11 mmol/L (10-20); BUN (Urea Nitrogen) 18 mg/dL (8.4-25.7); Calc. Creatinine Clearance 85 mL/min (70-130); Calcium 8.9 mg/dL (7.8-10.44); Carbon Dioxide 24 mmol/L (23-31); Cardiac Risk 4.6 (Less than 4.5); Chloride 105 mmol/L (98-107); Cholesterol 137 mg/dl (< 200 Desired); Estimated GFR-MDRD 80; Glucose 131 mg/dL (80-115); HDL Cholesterol 30 mg/dL (>60 Neg Risk); LDL Cholesterol, Calculated 67 mg/dL; Potassium 3.7 mmol/L (3.5-5.1); Sodium 136 mmol/L (136-145); Triglycerides 198 mg/dL (Less than 150)
[2018-03-20 05:41] LABS: Band 1 % (5-11); Eosinophils 1 % (0-10); Hemoglobin 14.4 g/dL (14.0-18.0); Lymphocytes 61 % (21-51); MDiff Complete? YES; Mean Corpuscular HGB CONC 36.3 g/dL (32.0-36.0); Mean Corpuscular Hemoglobin 36.9 pg (27.0-31.0); Mean Platelet Volume 9.4 fL (7.4-10.4); Monocytes 4 % (0-10); Neutrophil 32 % (42-75); PLT Morphology Comment Appears Adequate; Platelet Count 124 thou/uL (130-400); RBC Distribution Width 11.5 % (11.5-14.5); Red Blood Cell (RBC) Count 3.89 mill/uL (4.70-6.10); White Blood Cell (WBC) Count 4.6 thou/uL (4.8-10.8)
[2018-03-20] MEDS: traMADol HCl 50 MG TAB PO PRN ×3 (05:44→18:36)
--- NOTE | 2018-03-20 06:48 | PDOC.FM ---
- Subjective Subjective: Patient doing well this AM. He states he is still having chest pain, although it is improved. He has not gotten any nitro since being admitted. He states the chest pain was associated with shortness of breath and dizziness. 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 It is located in the center of his chest but does not radiate. - Objective MAR Reviewed: Yes Vital Signs & Weight: Vital Signs (12 hours) Temp Pulse Resp BP BP Pulse Ox 03/20/18 04:22 98.3 F 73 14 115/69 97 03/19/18 20:00 98.7 F 69 20 03/19/18 18:47 98.7 F 69 20 131/76 98 Weight Weight 74.661 kg I&O: 03/18/18 03/19/18 03/20/18 06:59 06:59 06:59 Intake Total 450 Output Total 350 Balance 100 Result Diagrams: 03/20/18 04:05 03/20/18 04:05 EKG Reviewed by me: Yes Radiology Reviewed by me: Yes <Rosetta Whyte - Last Filed: 03/20/18 12:58> - Objective Vital Signs & Weight: Vital Signs (12 hours) Temp Pulse Resp BP BP Pulse Ox 03/20/18 08:20 98.3 F 73 14 128/77 97 03/20/18 04:22 98.3 F 73 14 115/69 97 Weight Weight 74.661 kg I&O: 03/19/18 03/20/18 03/21/18 06:59 06:59 06:59 Intake Total 450 Output Total 350 Balance 100 Result Diagrams: 03/20/18 04:05 03/20/18 04:05 <Brijesh Resendiz - Last Filed: 03/20/18 16:21> Phys Exam - Physical Examination Constitutional: NAD HEENT: moist MMs Neck: supple Respiratory: clear to auscultation bilateral Cardiovascular: RRR Gastrointestinal: soft, positive bowel sounds Musculoskeletal: no edema Neurological: non-focal Psychiatric: A&O x 3 Skin: cap refill <2 seconds <Rosetta Whyte - Last Filed: 03/20/18 12:58> Dx/Plan (1) Atypical chest pain Code(s): R07.89 - OTHER CHEST PAIN Status: Acute (2) HTN (hypertension) Code(s): I10 - ESSENTIAL (PRIMARY) HYPERTENSION Status: Chronic (3) Asthma Code(s): J45.909 - UNSPECIFIED ASTHMA, UNCOMPLICATED Status: Chronic (4) Osteoarthritis Code(s): M19.90 - UNSPECIFIED OSTEOARTHRITIS, UNSPECIFIED SITE Status: Chronic (5) Type 2 diabetes mellitus Status: Chronic - Plan Plan: 62 year old male with history of AICD placement for arrhythmia, HTN, DM type II that presents with chest pain and shortness of breath 1. Atypical chest pain - Patient admitted 07/2017 for chest pain - Stress test done 07/2017; No ischemia - Seen by Dr. Martinez 07/2017; recommendations at that time were to resume amlodipine, treat DM, statin therapy, ASA, Plavix. Recommendations at that time were to possibly repeat cardiac cath but thought the chest pain was microvascular angia - Cardiac cath in 01/2014 found to have nonobstructive plaque in the coronaries, but slow antegrade flow likely compatible with microvascular disease - Patient non-compliant with medications - Heart score of 3 - GI cocktail for possible GERD - Pantoprazole IV - Troponin neg x3 - EKG sinus rhythm with PVC's - Risk stratification labs (HgA1c 6.8, TSH 1.37, FLP wnl, Mg 2.1, P 2.7) - Lipase 17 - Stress test 12/2017 negative for any reversible ischemia - UDS positive for opiates, cannabinoids, and trycyclics - Cardiology consulted; appreciate recs 2. Hemoptysis - Questionable based on patient's history; may represent more of hematemesis, patient with epigastric pain - CXR showed no consolidations or infiltrates - FOBT pending for possible hematemesis - Denies alcohol use or taking NSAIDs 3. Osteoarthritis - Bilateral shoulder pain, worse with movement - Bilateral shoulder xrays performed 01/2018 which showed some degenerative changes - Weakness in upper extremities may represent degree of stenosis in cervical spine - Tramadol PRN for pain 4. HTN - IV BP medications PRN for SBP >180 mmHg - Start patient back on amlodipine 5. DM type II - Mild SSI - HgA1c 6.8 - ACHS Accuchecks - CC carb diet - Will start on metformin 6. Tobacco use disorder hx - Quit 10 years ago - Screening for AAA recommended 7. Elevated total bilirubin - Total 1.5, direct 0.5 Dispo: Stable. Obs/tele. Cardiology consulted. Plan for cath today per cardiology. <Rosetta Whyte - Last Filed: 03/20/18 12:58> Attending Addendum - Attending Addendum Date/Time: 03/20/18 1620 I personally evaluated the patient and discussed the management with Dr. Whyte. I agree with and repeated the History, Examination, Assessment and Plan documented above with any addition or exceptions noted below. CP a/w nausea/diaphoresis/sob/lightheadedness. Will consult cardiology. <Brijesh Resendiz - Last Filed: 03/20/18 16:21>
[2018-03-20] MEDS: Pantoprazole 40 MG VIAL IVP SCH (10:54)
[2018-03-20] MEDS ORDERED: Fentanyl 100 MCG/2 ML VIAL ONE (12:53)
[2018-03-20] MEDS ORDERED: Lidocaine 1% (PF) 30 ML VIAL ONE (12:53)
[2018-03-20] MEDS ORDERED: Midazolam HCl 2 mg/2 ml Vial ONE (12:53)
[2018-03-20] MEDS ORDERED: Diazepam 5 MG TAB PO SCH (13:00)
[2018-03-20] MEDS ORDERED: Communication Order-Pharmacy FS SCH (13:00)
[2018-03-20] MEDS ORDERED: Nitroglycerin 100MG/250ML BOT 250 ML ONE (13:49)
[2018-03-20] MEDS ORDERED: Iopamidol 370 76% 100 ML VIAL ONE (13:51)
[2018-03-20] MEDS ORDERED: Acetaminophen/Codeine 30-300mg Tablet PO PRN (14:17)
[2018-03-20] MEDS ORDERED: Nitroglycerin 0.4 MG TAB (25 Tab Bottle) SL PRN (14:17)
[2018-03-20] MEDS ORDERED: traMADol HCl 50 MG TAB PO PRN (14:17)
[2018-03-20] MEDS ORDERED: Sodium Chloride 0.9% 200 ML IV SCH (14:30)
--- NOTE | 2018-03-20 17:21 | CON ---
DATE OF CONSULTATION: 03/20/2018 REASON FOR CONSULTATION: Intractable chest pain. HISTORY OF PRESENT ILLNESS: Mr. Cornelio Kim is a 62-year-old man. He previously underwent cardiac cat heterization in 2013 and was found to have nonobstructive disease in the epicardial vessels with slow flow indicating microvascular angina. The patient has not been very good about taking his medicines over the years. He was in the hospital in July with chest pain and had a normal stress test. He said he has been doing relatively well and he works at [employer], sometimes doing physical exertion an d has not been having chest pain, but for the last few days, especially since Saturday, he has been hav ing severe pain in the middle of his chest and across his chest. Finally, he came here to the [facility]. The patient was taking no medications. He was prescribed statins and clopidogrel and also blood pres sure medicine, but he is not taking any medicine. He has not followed up with a physician. REVIEW OF SYSTEMS: Constitutional: Positive for weakness and fatigue. Vision: No changes. Hearin g: No changes. Pulmonary: No cough or wheezing. Cardiac: As outlined above. Gastrointestinal: No nausea, vomiting, diarrhea. Skin: No rashes. Neurologic: No unilateral weakness or numbness. Psychiatric: No unusual depression or anxiety. ALLERGIES: 1.He said he is "allergic" to ASPIRIN, but when asked about what he means by that, he means it upsets his stomach and causes burning. 2. SENG INHIBITORS. 3. PENICILLIN. 4. METFORMIN. PHYSICAL EXAMINATION: GENERAL: This is a thin 62-year-old gentleman in no distress in terms of severe pain, but he is stil l having ongoing chest pain. VITAL SIGNS: Blood pressure is 115/69, pulse 72 and regular. EYES: Sclerae are nonicteric. MOUTH: Mucous membranes are moist. NECK: Supple. No lymphadenopathy. LUNGS: Clear. CARDIOVASCULAR: Normal S1, normal S2. There is no murmur, rub or gallop. ABDOMEN: Soft, nontender. EXTREMITIES: There is no edema. IMAGING: EKG did not show acute changes, but there were some Q waves in inferior leads. ASSESSMENT: 1. History of chest pain with microvascular angina. 2. Diabetes. 3. Mild epicardial vessel disease from his coronaries in 2013. 4. Recurrent chest pain requiring sublingual nitroglycerin. PLAN: At this time, we will proceed to repeat cardiac catheterization. Discussed risks of stroke, h eart attack, iodine allergy, loss of blood supply to the leg or kidney, stent thrombosis, stent reste nosis. He understands and wishes to proceed. Unless there is a critical stenosis, I am reluctant to place a stent in this gentleman as he has been noncompliant with medications. The patient is noncom pliant with medications and do not take the antiplatelet drugs are at very high risk of stent thrombo sis and . Therefore, only in the case of a critical lesion would the stent be indicated. The p atient understands and wishes to proceed. Also, we will use statin therapy. Consideration for Ranex a as well. Nitroglycerin did not seem to be very helpful in his chest pain.
[2018-03-20] MEDS ORDERED: Atorvastatin Calcium 40 MG TAB PO SCH (21:00)
[2018-03-20] MEDS ORDERED: Enoxaparin Sodium 30 MG/0.3 ML SYRINGE SC SCH (21:00)
--- NOTE | 2018-03-20 22:42 | CON ---
DATE OF CONSULTATION: 03/20/2018 ELECTROPHYSIOLOGY CONSULTATION REASON FOR CONSULTATION: ICD at elective replacement interval. HISTORY OF PRESENT ILLNESS: Mr. Kim is a 62-year-old gentleman who presented to the emergency room with intermittent chest pain that had been persisting for 4 days. The pain has subsided with time an d was previously described as central chest pain that extended to the epigastric region that worsened with deep inspiration and radiated to bilateral shoulders. He did not take any medication to try to alleviate his symptoms. He also reports that he has had some associated upper extremity weakness in termittently in the recent past. While he was being evaluated, he had his ICD interrogated, which wa s placed in 03/2009 by interrogation. He denies having ever followed up regarding his device and has never had it interrogated since it was placed. He has a history of type 2 diabetes and hypertension , but denies current tobacco use. Since he was hospitalized, he underwent left heart catheterization , which revealed an ejection fraction of 60% and [id number] nonobstructive coronary artery dise ase, slightly progressed since his last catheterization in 2013. This was performed by Dr. Martinez. We have been consulted regarding his ICD, which is at [employer]. This is originally implanted by Dr. Liliane parnell as mentioned in 03/2009 and his device interrogation reports that his device reached BRENNA on 12/13 of this year. REVIEW OF SYSTEMS: A 12-point review of systems was conducted and is negative except that listed abo ve in the HPI. Also, patient denies heart racing, palpitations, syncope, near syncope, or stroke, st roke-like symptoms. Positive for chest pain as detailed above. PAST MEDICAL HISTORY: Type 2 diabetes, hypertension, migraines, ventricular tachycardia prompting si ngle chamber AICD placement, asthma, inpatient psychiatric admissions in the past. FAMILY HISTORY: Positive for lung cancer, liver cancer, and esophageal cancer. SOCIAL HISTORY: Negative for current tobacco use, quit 10 years ago, but with a 50-hkat-liip history . Positive for occasional alcohol consumption. Denies illicit drug use. PHYSICAL EXAMINATION: VITAL SIGNS: Temperature 98.3, pulse 73, respirations 14, BP 115/69, oxygen is 97% on room air. GENERAL: Patient is alert and oriented. Speech is clear. Affect is appropriate. He is a well deve loped. HEENT: His pupils are equal, round, reactive and accommodating to light. EOMs are intact. NECK: Supple without jugular venous distention. Thyroid is not palpable. CARDIOVASCULAR: His heart rate is regularly regular, without murmur, rub, or gallop. The device sea jade at the left infraclavicular fossa without swelling, bruising, inversion, or drainage. LUNGS: Clear to auscultation bilaterally. Respirations are even and unlabored. ABDOMEN: Benign without palpable masses. EXTREMITIES: Hepatojugular reflux is negative. NEUROLOGIC: Grossly intact and nonfocal and his gait was not assessed. DATABASE: Recent laboratory all were personally reviewed. Creatinine is 0.95, otherwise unremarkabl e. Device interrogation reveals at [facility] current single-chamber ICD, date of implant was 03/25/2009. Battery voltage is 2.38. BRENNA was at 2.45 volts, which was reached in 12/24/2017. RV c apture threshold is 0.75 volts at 0.5 milliseconds. There is adequate sensing. Lead impedance is st able at 340 ohms. Current mode is VVI with a base rate of 40. VT less than 1%. PAST SURGICAL HISTORY: Patient has had an episode of ventricular tachycardia that occurred on 2017 that was successfully terminated by ATP therapies. DATABASE: Overall, device is functioning normally, but has reached BRENNA some time ago and no sustaine d arrhythmias were detected other than the 11-second episode of VT that was successfully terminated w ith the ICD therapies. Telemetry and EKG reviewed all were personally reviewed and reveals sinus rhythm with occasional ecto py with rate averaging in the 60-70 beats per minute range. IMPRESSION: 1. History of ventricular tachycardia prompting implantable cardioverter-defibrillator placement in 2008 that has never been interrogated and patient has not followed up since that time. Interrogation of this device reveals a single 11-second episode of ventricular tachycardia that was successfully t erminated with ATP therapy on the first attempt that was in October of this year. Otherwise, no arrhyt hmias have been detected. 2. Single-chamber implantable cardioverter-defibrillator with normal operation, but at elective repl acement interval, which was reached approximately 3 months ago and is likely nearing end of life. 3. Nonobstructive coronary artery disease by left heart catheterization this hospitalization. 4. Atypical chest pain. PLAN: We will schedule Mr. Kim for an ICD generator change as an outpatient in the very near future , likely early next week. We discussed risks, benefits, and alternatives to generator change. Risks include pain, swelling, bruising, infection at the implant site. He understands this is an outpatie nt procedure. He will be on antibiotics for a week afterwards. All questions were answered. Ben collier voices understanding and agrees with the plan of care. We will see him early next week for generat or change. Thank you for allowing us to participate in the care of this patient.
[2018-03-21] MEDS: Acetaminophen/Codeine 30-300mg Tablet PO PRN ×2 (02:33→10:43)
--- NOTE | 2018-03-21 06:17 | PDOC.FM ---
- Subjective Subjective: Patient doing well this AM. No significant overnight events. Patient has some mild CP this AM, but states he took "pain medication" and it resolved. He is under the impression that he will get AICD replaced today. - Objective MAR Reviewed: Yes Vital Signs & Weight: Vital Signs (12 hours) Temp Pulse Resp BP Pulse Ox 03/21/18 04:10 98.1 F 83 16 119/72 03/20/18 20:00 96.3 F L 77 18 161/91 H 03/20/18 19:45 98.3 F 72 18 139/91 H 97 Weight Weight 74.661 kg I&O: 03/19/18 03/20/18 03/21/18 06:59 06:59 06:59 Intake Total 450 785 Output Total 350 575 Balance 100 210 Result Diagrams: 03/20/18 04:05 03/20/18 04:05 EKG Reviewed by me: Yes Radiology Reviewed by me: Yes <Rosetta Whyte - Last Filed: 03/21/18 12:15> - Objective Vital Signs & Weight: Vital Signs (12 hours) Temp Pulse Resp BP Pulse Ox 03/21/18 10:41 98.7 F 85 16 132/83 96 03/21/18 07:23 98.1 F 71 16 125/75 94 L 03/21/18 07:22 98.1 F 71 16 94 L 03/21/18 04:10 98.1 F 83 16 119/72 Weight Weight 74.661 kg I&O: 03/20/18 03/21/18 03/22/18 06:59 06:59 06:59 Intake Total 450 785 480 Output Total 350 575 Balance 100 210 480 Result Diagrams: 03/20/18 04:05 03/20/18 04:05 <Brijesh Resendiz - Last Filed: 03/21/18 13:18> Phys Exam - Physical Examination Constitutional: NAD HEENT: moist MMs, sclera anicteric Neck: supple Respiratory: clear to auscultation bilateral Cardiovascular: RRR Gastrointestinal: soft, non-tender Musculoskeletal: no edema, pulses present Neurological: non-focal Psychiatric: A&O x 3 Skin: no rash, cap refill <2 seconds <Rosetta Whyte - Last Filed: 03/21/18 12:15> Dx/Plan (1) Atypical chest pain Code(s): R07.89 - OTHER CHEST PAIN Status: Acute (2) HTN (hypertension) Code(s): I10 - ESSENTIAL (PRIMARY) HYPERTENSION Status: Chronic (3) Asthma Code(s): J45.909 - UNSPECIFIED ASTHMA, UNCOMPLICATED Status: Chronic (4) Osteoarthritis Code(s): M19.90 - UNSPECIFIED OSTEOARTHRITIS, UNSPECIFIED SITE Status: Chronic (5) Type 2 diabetes mellitus Status: Chronic - Plan Plan: 62 year old male with history of AICD placement for arrhythmia, HTN, DM type II that presents with chest pain and shortness of breath 1. Atypical chest pain - Patient admitted 07/2017 for chest pain - Stress test done 07/2017; No ischemia - Seen by Dr. Martinez 07/2017; recommendations at that time were to resume amlodipine, treat DM, statin therapy, ASA, Plavix. Recommendations at that time were to possibly repeat cardiac cath but thought the chest pain was microvascular [place] - Cardiac cath in 01/2014 found to have nonobstructive plaque in the coronaries, but slow antegrade flow likely compatible with microvascular disease - Patient non-compliant with medications - Heart score of 3 - Pantoprazole IV - Troponin neg x3 - EKG sinus rhythm with PVC's - Risk stratification labs (HgA1c 6.8, TSH 1.37, FLP wnl, Mg 2.1, P 2.7) - Lipase 17 - Stress test 12/2017 negative for any reversible ischemia - UDS positive for opiates, cannabinoids, and trycyclics - Cardiology consulted; appreciate recs - Cardiac cath showed worsening microvascuar disease with normal EF. Medical management recommended with addition of statin therapy. 2. Hemoptysis, resolved - Questionable based on patient's history; may represent more of hematemesis, patient with epigastric pain - CXR showed no consolidations or infiltrates - Denies alcohol use or taking NSAIDs 3. Osteoarthritis - Bilateral shoulder pain, worse with movement - Bilateral shoulder xrays performed 01/2018 which showed some degenerative changes - Weakness in upper extremities may represent degree of stenosis in cervical spine - Tylenol #3 for pain 4. HTN - IV BP medications PRN for SBP >180 mmHg 5. DM type II - Mild SSI - HgA1c 6.8 - ACHS Accuchecks - CC carb diet - Recommend outpatient follow up 6. Tobacco use disorder hx - Quit 10 years ago - Screening for AAA recommended 7. Elevated total bilirubin - Total 1.5, direct 0.5 Dispo: Stable. Cardiology consulted. Plan for AICD replacement. Likely as outpatient. Possible d/c today. <Rosetta Whyte - Last Filed: 03/21/18 12:15> Attending Addendum - Attending Addendum Date/Time: 03/21/18 1317 I personally evaluated the patient and discussed the management with Dr. Whyte. I agree with and repeated the History, Examination, Assessment and Plan documented above with any addition or exceptions noted below. <Brijesh Resendiz - Last Filed: 03/21/18 13:18>
[2018-03-21] MEDS: Pantoprazole 40 MG VIAL IVP SCH (09:32)
--- NOTE | 2018-03-21 09:51 | PRG ---
DATE OF SERVICE: 03/21/2018 Mr. Kim is feeling fine today. He is not having chest pain. OBJECTIVE: VITAL SIGNS: Blood pressure 125/75, pulse 70 regular. LUNGS: Clear. CARDIAC: Normal S1, normal S2. ASSESSMENT: 1. Coronary artery disease, mild to moderate, but not yet obstructive. 2. Hypercholesterolemia, mild. 3. Diabetes. PLAN: 1. Aspirin 81 mg a day. 2. Recommend statin therapy and the target LDLs likely less than 50 in this gentleman. 3. Okay to be released home. The patient's pain does not appear to be of cardiac origin at this derrick e, but does need risk factor modification.
[2018-03-21 10:42] VITALS: BP 132/83; TEMP 98.7
[2018-03-22] MEDS ORDERED: Aspirin 81 mg Enteric Coated Tablet PO SCH (09:00)
== END 2018-03-21 15:26 | disposition home or self-care (01) | DRG 313 ==
LOC: ERS 10:48 → 2SW 17:36 → OBSVTOIN 17:36 → 2NO 03-20 20:35
PROVIDERS: ADMIT Family Medicine; ATTEND Family Medicine
PROC: 4B02XTZ Measurement of Cardiac Defibrillator, External Approach (ICD-10-PCS; principal; 2018-03-20)
DX: R07.89 Other chest pain (principal); Z95.810 Presence of automatic (implantable) cardiac defibrillator; E11.9 Type 2 diabetes mellitus without complications; I10 Essential (primary) hypertension; Z87.891 Personal history of nicotine dependence; Z91.19 Patient's noncompliance with other medical treatment and regimen; Z88.0 Allergy status to penicillin; Z88.8 Allergy status to other drugs, medicaments and biological substances; J45.909 Unspecified asthma, uncomplicated; M19.012 Primary osteoarthritis, left shoulder; M19.011 Primary osteoarthritis, right shoulder; I25.10 Atherosclerotic heart disease of native coronary artery without angina pectoris; Z91.14 Patient's other noncompliance with medication regimen; F12.90 Cannabis use, unspecified, uncomplicated; F11.90 Opioid use, unspecified, uncomplicated; F19.90 Other psychoactive substance use, unspecified, uncomplicated; Z79.84 Long term (current) use of oral hypoglycemic drugs; E78.00 Pure hypercholesterolemia, unspecified; Z79.82 Long term (current) use of aspirin
CPT/HCPCS: 36415; 36416; 71045; 76942; 80048; 80053; 80061; 80306; 82248; 82550; 82553; 82607; 82747; 83036; 83690; 83735; 84100; 84443; 84484; 85025; 93005; 93458; 96374; 99152; A4216; C1769; C9113; J1644; J1650; J2001; J2250; J2405; J3010; Q0162

== ENCOUNTER 2018-03-28 12:17 | Day surgery (SDC) | payer BC ==
[~2018-03-28 12:17] MED LIST changes: -ISOVUE-370 76%-LOCM 1 ML ONE; +PHENYLEPHRINE-NS 100 MCG/ML 10 ML SYRINGE ONE; +PROPOFOL 200 MG/20 ML VIAL ONE
[2018-03-28] MEDS ORDERED: Propofol 500 MG/50 ML VIAL ONE ×2 (14:58→15:39)
[2018-03-28] MEDS ORDERED: CEFAZOLIN/Water 2 GM/20 ML SYRINGE ONE (15:00)
[2018-03-28] MEDS ORDERED: Clindamycin/D5W 600 mg/50 ml Premix Bag ONE (15:11)
[2018-03-28] MEDS ORDERED: Lidocaine 1% (PF) 30 ML VIAL ONE (15:14)
[2018-03-28] MEDS ORDERED: Fentanyl 100 MCG/2 ML VIAL ONE (16:41)
[2018-03-28] MEDS ORDERED: Acetaminophen/Codeine 30-300mg Tablet PO PRN ×2 (17:45)
--- NOTE | 2018-03-28 20:01 | RAD ---
CHEST ONE VIEW 03/28/18 HISTORY: Generator exchange. COMPARISON: Radiograph 03/19/18. FINDINGS: Single lead defibrillator is present. No pneumothorax. Lungs are slightly hypoinflated. IMPRESSION: No pneumothorax. POS: MARIAH
[2018-03-28] MEDS ORDERED: Cephalexin 250 MG CAP PO SCH (21:00)
== END 2018-03-28 18:19 | disposition home or self-care (01) ==
LOC: CCL 12:17 → MERGE 16:07 → CCL 18:19
PROVIDERS: ATTEND Internal Medicine Cardiovascular Disease
PROC: 0JPT0PZ Removal of Cardiac Rhythm Related Device from Trunk Subcutaneous Tissue and Fascia, Open Approach (ICD-10-PCS; principal; 2018-03-28)
PROC: 0JH608Z Insertion of Defibrillator Generator into Chest Subcutaneous Tissue and Fascia, Open Approach (ICD-10-PCS; principal; 2018-03-28)
DX: Z45.010 Encounter for checking and testing of cardiac pacemaker pulse generator [battery] (principal); I25.10 Atherosclerotic heart disease of native coronary artery without angina pectoris; I50.22 Chronic systolic (congestive) heart failure; I47.2 Ventricular tachycardia; E11.9 Type 2 diabetes mellitus without complications; I11.0 Hypertensive heart disease with heart failure; I42.0 Dilated cardiomyopathy; Z88.0 Allergy status to penicillin; Z87.891 Personal history of nicotine dependence; Z79.899 Other long term (current) drug therapy
CPT/HCPCS: 33223; 33263; 71045; 93642; 96374; C1722; J2001; J2704; J3010; J3490

== ENCOUNTER 2018-07-12 12:39 | Emergency (ER) | payer BC, OTHER ==
[2018-07-12 13:09] LABS: #Basophils 0.1 thou/uL (0.0-0.2); #Eosinphils 0.1 thou/uL (0.0-0.7); #Lymphocytes 1.7 thou/uL (1.20-3.40); #Monocytes 0.4 thou/uL (0.11-0.59); #Neutrophils 2.4 thou/uL (1.40-6.50); %Basophils 2.1 % (0.0-1.0); %Eosinophils 1.4 % (0.0-10.0); %Lymphocytes 37.5 % (21.0-51.0); %Monocytes 7.6 % (0.0-10.0); %Neutrophils 51.5 % (42.0-75.0); Hemoglobin 14.6 g/dL (14.0-18.0); Mean Corpuscular HGB CONC 36.1 g/dL (32.0-36.0); Mean Corpuscular Hemoglobin 35.7 pg (27.0-31.0); Mean Platelet Volume 9.1 fL (7.4-10.4); Platelet Count 146 thou/uL (130-400); RBC Distribution Width 11.8 % (11.5-14.5); Red Blood Cell (RBC) Count 4.08 mill/uL (4.70-6.10); White Blood Cell (WBC) Count 4.6 thou/uL (4.8-10.8)
[2018-07-12] MEDS ORDERED: Acetaminophen 325 MG TAB ONE (13:16)
[2018-07-12 13:29] LABS: ALT (SGPT) 19 U/L (8-55); AST (SGOT) 15 U/L (5-34); Albumin 4.1 g/dL (3.4-4.8); Alkaline Phosphatase 67 U/L (40-150); Anion Gap 15 mmol/L (10-20); BUN (Urea Nitrogen) 16 mg/dL (8.4-25.7); Bilirubin, Total 0.8 mg/dL (0.2-1.2); CK (CPK) 95 U/L (30-200); Calc. Creatinine Clearance 0 mL/min (70-130); Calcium 8.8 mg/dL (7.8-10.44); Carbon Dioxide 22 mmol/L (23-31); Chloride 103 mmol/L (98-107); Estimated GFR-MDRD 76; Globulin 3.3 g/dL (2.4-3.5); Glucose 323 mg/dL (80-115); Lipase 38 U/L (8-78); Potassium 3.7 mmol/L (3.5-5.1); Protein, Total 7.4 g/dL (5.8-8.1); Sodium 136 mmol/L (136-145)
--- NOTE | 2018-07-12 15:32 | RAD ---
CHEST ONE VIEW: 07/12/18 HISTORY: Cough. COMPARISON: 03/28/18. FINDINGS: The cardiac silhouette and pulmonary vasculature are unremarkable. Mediastinum is midline with aortic calcification and a single lead left subclavian defibrillator. No confluent air space consolidation or evidence of pneumothorax. IMPRESSION: No active cardiopulmonary abnormalities are demonstrated. POS: YUE
== END 2018-07-12 15:08 | disposition home or self-care (01) ==
LOC: ERS 12:39
DX: M25.512 Pain in left shoulder (principal); G89.29 Other chronic pain; R05 Cough; E11.9 Type 2 diabetes mellitus without complications; I10 Essential (primary) hypertension; M10.9 Gout, unspecified; J45.909 Unspecified asthma, uncomplicated; Z87.891 Personal history of nicotine dependence; Z79.899 Other long term (current) drug therapy
CPT/HCPCS: 36415; 71045; 80053; 82550; 83605; 83690; 85025; 87040; 93005; 96360; 96361

== ENCOUNTER 2019-02-05 18:16 | Observation (INO) | payer BC, OTHER ==
[2019-02-05 18:48] LABS: #Eosinphils 0.1 thou/uL (0.0-0.7); #Lymphocytes 1.7 thou/uL (1.20-3.40); #Monocytes 0.3 thou/uL (0.11-0.59); #Neutrophils 2.3 thou/uL (1.40-6.50); %Basophils 0.7 % (0.0-1.0); %Eosinophils 1.5 % (0.0-10.0); %Lymphocytes 38.2 % (21.0-51.0); %Monocytes 7.6 % (0.0-10.0); Hemoglobin 15.4 g/dL (14.0-18.0); Mean Corpuscular HGB CONC 35.4 g/dL (32.0-36.0); Mean Corpuscular Hemoglobin 34.9 pg (27.0-31.0); Mean Corpuscular Volume 98.7 fL (78.0-98.0); Mean Platelet Volume 9.4 fL (7.4-10.4); Platelet Count 143 thou/uL (130-400); RBC Distribution Width 12.1 % (11.5-14.5); Red Blood Cell (RBC) Count 4.43 mill/uL (4.70-6.10); White Blood Cell (WBC) Count 4.3 thou/uL (4.8-10.8)
--- NOTE | 2019-02-05 18:54 | RAD ---
EXAM: CHEST ONE VIEW: 02/05/19 HISTORY: Chest pain. COMPARISON: 07/12/18. FINDINGS: Left ICD. Monitor leads overlie the chest. Heart size is within normal limits. The lungs are clear o f acute process. IMPRESSION: No acute intrathoracic disease. Stable from prior study. POS: RRE
[2019-02-05] MEDS ORDERED: Aspirin Chewable 81 MG TAB ONE (18:55)
[2019-02-05 19:14] LABS: ALT (SGPT) 22 U/L (8-55); AST (SGOT) 17 U/L (5-34); Albumin 4.4 g/dL (3.4-4.8); Alkaline Phosphatase 71 U/L (40-150); Anion Gap 14 mmol/L (10-20); BUN (Urea Nitrogen) 17 mg/dL (8.4-25.7); Bilirubin, Total 0.9 mg/dL (0.2-1.2); CK (CPK) 149 U/L (30-200); Calc. Creatinine Clearance 0 mL/min (70-130); Calcium 9.9 mg/dL (7.8-10.44); Carbon Dioxide 23 mmol/L (23-31); Chloride 103 mmol/L (98-107); Estimated GFR-MDRD 68; Globulin 3.4 g/dL (2.4-3.5); Glucose 227 mg/dL (80-115); Lipase 21 U/L (8-78); Protein, Total 7.8 g/dL (5.8-8.1); Sodium 136 mmol/L (136-145)
--- NOTE | 2019-02-05 19:24 | PDOC.FPRHP ---
- History of Present Illness Chief Complaint: Chest Pain History of Present Illness: 63 yo male with hx of CAD, HTN (uncontrolled), DM (uncontrolled) and bipolar depression presents to ER for evaluation for chest pain. Patient reports he was seen in clinic today. Reports pain in his arm starting last week that progressed to his chest. Pain was substernal and left-sided. Referred to as pressure-type. Radiated to back between shoulder blades. [place] like he was going to past out. Associated with SOB, nausea, and sweating. Improved some with rest. Unable to take nitro due to financial issues. Patient states chest pain is spontaneous and can occur while at rest. Chest pain presents abruptly on occasions. One episode recited by patient reports getting up from watching TV. Pain came on suddenly, took his breath away, and caused dizziness. This episode was one of the worse he has experienced this week. Reports 3 episodes this week that have become progressively worse each time and lasting longer. Was unable to make it to ER due to lack of transportation. Was scheduled in clinic today and therefore describe the above events. Pt reports associated intermittent nausea, palpitations, and diaphoresis at times with these events. He denies any syncope, LOC, vomiting, abdominal pain. Pt had a heart cath in March of 2018 which showed microvascular angina, LVEF 60% and mild-moderate non obstructive CAD. Pt states he was never put on medications following this event. Cards: Dr. Tidwell and Dr. Sharma. Pt also notes history of HTN however states this is currently untreated due to not having a PCP until recently. ED Course: ED: Zofran, nitro, ASA. CXR negative, EKG stable, initial trop negative - Allergies/Adverse Reactions Allergies Allergy/AdvReac Type Severity Reaction Status Date / Time SENG Inhibitors Allergy Severe swelling Verified 02/05/19 22:02 metformin Allergy Intermediate SOB Verified 02/05/19 22:02 aripiprazole [From Abilify] Allergy Mild Nausea Verified 02/05/19 22:02 Penicillins Allergy Mild Stomach Verified 02/05/19 22:02 Ache - Home Medications Medication Instructions Recorded Confirmed Type QUEtiapine Fumarate [SEROquel] 100 mg PO HS 05/25/14 02/06/19 History Insulin Glargine,Hum.Rec.Anlog 18 units SQ HS 02/05/19 02/05/19 History [Lantus] - History PMHx: CAD (microvascular dz), HTN (hasn't been on meds for several months), unspecified arrhythmia, Bipolar d/o, DM (uncontrolled) PSHx: Pacer/DeFIB, Left foot and right hand surgery for gout, LHC ( microvascular dz, 03/2018) FHx:mother: DM, Cancer (unknown), ; father: Lung and Throat Cancer, Social: Remote history of smoking x2 years, denies alcohol or drugs, clinic records show history of cocaine use - Review of Systems General: reports: fatigue. denies: fever/chills, weight/appetite/sleep changes , night sweats Eyes: reports: vision changes (cloudy/blurry vision to right, progressive.). denies: eye pain ENT: reports: other (ringing in ears). denies: nasal congestion, rhinorrhea Respiratory: reports: shortness of breath, exercise intolerance. denies: cough , congestion Cardiovascular: reports: chest pain, palpitation, edema (left foot swelling - present since surgery, no change from baseline) Gastrointestinal: reports: nausea. denies: vomiting, diarrhea, constipation, abdominal pain, GI bleeding Musculoskeletal: reports: pain, other (shoulder pain, see HPI). denies: tenderness, stiffness, swelling - Vital signs BP: 148/95, Pulse: 70, Resp: 20, Temp: 98.9 (Oral), Pain: 0, O2 sat: 98 on Room Air, Time: 02/05/2019 20:57. - Physical Exam Constitutional: NAD, awake, alert and oriented, well developed HEENT: normocephalic and atraumatic, EOMI Neck: supple, no JVD Chest: no-tender to palpation, no lesions Heart: RRR, normal S1/S2, no murmurs/rubs/gallops, pulses present, no edema Lungs: CTAB, no respiratory distress, good air movement, no rales/rhonchi, no wheezing Abdomen: soft, non-tender, bowel sounds present, no masses/distention Musculoskeletal: normal structure, normal tone, ROM grossly normal Neurological: no focal deficit, CN II-XII intact Skin: no rash/lesions, capillary refill <2 seconds, no jaundice Heme/Lymphatic: no unusual bruising or bleeding Psychiatric: normal mood and affect, good judgment and insight, intact recent and remote memory FMR H&P: Results - Labs Result Diagrams: 02/05/19 18:29 02/05/19 18:29 Lab results: WBC 4.3 thou/uL (4.8-10.8) L 02/05/19 18:29 Hgb 15.4 g/dL (14.0-18.0) 02/05/19 18: Hct 43.7 % (42.0-52.0) 02/05/19 18: MCV 98.7 fL (78.0-98.0) H 02/05/19 18:29 Plt Count 143 thou/uL (130-400) 02/05/19 18: Neutrophils % 52.0 % (42.0-75.0) 02/05/19 18: Sodium 136 mmol/L (136-145) 02/05/19 18: Potassium 4.0 mmol/L (3.5-5.1) 02/05/19 18: Chloride 103 mmol/L (98-107) 02/05/19 18: Carbon Dioxide 23 mmol/L (23-31) 02/05/19 18: BUN 17 mg/dL (8.4-25.7) 02/05/19 18: Creatinine 1.09 mg/dL (0.7-1.3) 02/05/19 18: Glucose 227 mg/dL (80-115) H 02/05/19 18: Calcium 9.9 mg/dL (7.8-10.44) 02/05/19 18: Total Bilirubin 0.9 mg/dL (0.2-1.2) 02/05/19 18: AST 17 U/L (5-34) 02/05/19 18: ALT 22 U/L (8-55) 02/05/19 18: Alkaline Phosphatase 71 U/L (40-150) 02/05/19 18: Creatine Kinase 149 U/L (30-200) 02/05/19 18: Serum Total Protein 7.8 g/dL (5.8-8.1) 02/05/19 18: Albumin 4.4 g/dL (3.4-4.8) 02/05/19 18: Lipase 21 U/L (8-78) 02/05/19 18:29 - EKG Interpretation EK lead EKG shows normal sinus rhythm, Rate (beats per minute): 83, with unifocal premature ventricular complexes, Conduction normal, ST segments normal , T waves normal, [place], left, Other findings include:, inferior infarct age undetermined, possible anterior infarct age undetermined., Clinical impression: , non-specific EKG, Pr interval 128 ms, QRS duration 88 ms, QT/Qtc 378/444 ms - Radiology Interpretation Chest x-ray Status: report reviewed by me (No acute process) FMR H&P: A/P - Problem List (1) Atypical chest pain Current Visit: No Status: Acute Code(s): R07.89 - OTHER CHEST PAIN (2) CAD (coronary artery disease) Current Visit: No Status: Chronic Code(s): I25.10 - ATHSCL HEART DISEASE OF [place] CORONARY ARTERY W/O ANG PCTRS (3) HTN (hypertension) Current Visit: No Status: Chronic Code(s): I10 - ESSENTIAL (PRIMARY) HYPERTENSION (4) Hyperlipidemia Current Visit: No Status: Chronic Code(s): E78.5 - HYPERLIPIDEMIA, UNSPECIFIED (5) Type 2 diabetes mellitus Current Visit: No Status: Chronic Qualifiers: Diabetes mellitus fpc insulin use: without fpc use - Plan Chest Pain - ACS vs stable angina vs musculoskeletal Risk factors: HTN, HLD, DM -Admit to tele obs for CP r/o -Initial troponin in ED negative, continue to trend -Heart score of 4 -No recent labs so will risk stratify with FLP and HbA1c -Exercise stress and Echo tomorrow -NPO at midnight -PRN nitro available Diabetes Type II - uncontrolled, insulin dependent -A1c tonight = 10.8 -Bedtime sliding scale -Start oral hypoglycemic Hypertension -Elevated BP in the ED -PRN hydralazine available -Will start on Metoprolol following Hypercholesterolemia -No recent FLP so ordered for am labs -Due to cardiac risk factors should be on statin, will start on DC Condition: Stable Fluids: None VTE: None Dispo: Admit to tele obs for cardiac r/o, expect LOS < 48 hrs Code status: Full FMR H&P: Upper Level - Pertinent history 63 year old male with history of microvascular angina, HLD, DM type II presents with chest pain. Patient sent over from clinic with high suspicion for ACS. Patient reports left sided and substernal crushing chest pain worse with exertion and improved with rest. Associated with SOB, diaphoresis. Pt had a heart cath in March of 2018 which showed microvascular angina, LVEF 60% and mild-moderate non obstructive CAD. Pt states he was never put on medications following this event. Cards: Dr. Tidwell and Dr. Sharma. Pt also notes history of HTN however states this is currently untreated due to not having a PCP until recently. - Pertinent findings General: Alert and oriented x3. NAD. HEENT: EOMI. Card: RRR. No murmurs. Resp: No acute respiratory distress. CTA. Abdomen: Soft, nontender Ext: No edema, pulses palpable - Plan Date/Time: 02/05/191923 I, Rosetta Whyte, have evaluated this patient and agree with findings/plan as outlined by newsroom intern resident. Pertinent changes/additions are listed here. Typical chest pain - Stress test in AM - Hold BB - Microvascular angina with EF 60% on cardiac catheterization 03/2018 - Echo pending - Risk stratification: HgA1c, FLP, TSH, Mg, P - PRN nitro - Heart score of 4 - Trend troponin - Patient needs BB, SENG-I, high intensity statin Diabetes Type II - uncontrolled, insulin dependent - A1c 10.8 - Bedtime sliding scale - Recommend starting medication Hypertension - Elevated BP in the ED - PRN hydralazine available - Will start on Metoprolol following stress test Hypercholesterolemia - FLP pending - Start high intensity statin given risk factors VTE: SCD's Code status: Full Dispo: Obs on telemetry. Addendum - Attending - Attending Attestation Date/Time: 02/05/191926 I personally evaluated the patient and discussed the management with Dr. Strong I agree with the History, Examination, Assessment and Plan documented above with any addition or exceptions noted below. 63 yo male with hx of nonobstructive CAD, uncontrolled HTN/HLD/DM, bipolar d/o and hx of VT presents to ER for evaluation of progressive chest pain. Patient has been evaluated and hospitalized in the past for similar chest pain. Last LHC was performed in March 2018. Patient was found to have microvascular/ nonobstructive disease that had progressed from 2013 to 2018. Patient has not followed up with cardiology as instructed and also has difficulty following up with PCP. Has not been treated for DM, HTN, HLD for several months vs year. Today patient presented to clinic with complaint of worsening CP. Pain was substernal with radiation to left-side of chest and back to between his shoulder blades. Pain was press in nature. Associated with SOB, CARNEY, nausea, palpitations, and diaphoresis. Improved with rest. States in the past pain was relieved with nitro but has been out. Patient denies predictability of CP and reports it is spontaneous. Has been so severe this week that "it takes my breath away." States the reason he has not been evaluated sooner is because of lack of transportation. Denies firing of AICD. Vitals, labs, imaging, and medical record reviewed. Agree with documented PE. AICD in place. Will place patient on tele obs overnight. Appears to have stable angina that is likely progressing due to untreated risk factors. However, patient with known nonobstructive CAD, will repeat stress in AM. Modify risk factors. Will restart treatment for HTN/DM/HLD. Restart ASA daily. Will add 325 mg while in hospital but decrease to 81 mg out patient after addressing side effects. Based on symptoms of palpitations will attempt to interrogate AICD to make sure arrhythymias not playing into progression of CP. Some symptoms of HF present along with risk. BNP added due to SOB, CARNEY and intermittent edema. Unable to take ACEI and metformin. Unable to afford SGLT2 and GLP1. Will need to work with patient financially at time of d/c to help with medication compliance. DM education prior to d/c. Cards as needed but likely ok to follow up outpatient. Nitro as needed. Trend trop. Aung
[2019-02-05] MEDS ORDERED: Ondansetron PF 4 MG/2 ML Vial ONE (19:35)
[2019-02-05] MEDS ORDERED: Nitroglycerin 2% Ointment 1 INCH/1 GM Packet ONE (19:35)
[2019-02-05 21:33] VITALS: BMI 24.1
[2019-02-05] MEDS ORDERED: Ondansetron PF 4 MG/2 ML Vial IVP PRN (21:37)
[2019-02-05] MEDS ORDERED: Ondansetron ODT 4 MG TAB SL PRN (21:37)
[2019-02-05] MEDS ORDERED: Sodium Chloride 0.9% 1,000 ML IV SCH (21:45)
[2019-02-05 22:03] LABS: Troponin I Less than 0.010 ng/mL (< 0.028)
[2019-02-05] MEDS ORDERED: Ondansetron ODT 4 MG TAB PO PRN (22:04)
[2019-02-05] MEDS ORDERED: Nitroglycerin 0.4 MG TAB (25 Tab Bottle) PO PRN (22:04)
[2019-02-05] MEDS ORDERED: Famotidine 20 MG TAB PO PRN (22:04)
[2019-02-05] MEDS ORDERED: HumaLOG 300 UNITS/3 ML VIAL SC PRN (22:12)
[2019-02-05] MEDS ORDERED: Dextrose 5% in Water 1,000 ML IV PRN (22:12)
[2019-02-05] MEDS ORDERED: Dextrose 50% Abboject 50 ML SYRINGE SLOW IVP PRN (22:12)
[2019-02-05] MEDS ORDERED: hydrALAZINE 20 MG/ML VIAL SLOW IVP PRN (22:31)
[2019-02-05 23:08] LABS: Hemoglobin A1c 10.8 % (4.0-6.0)
[2019-02-05] MEDS: Atorvastatin Calcium 40 MG TAB PO SCH (23:32)
[2019-02-05] MEDS ORDERED: Albuterol Sulfate 2.5 mg/3 ml Neb NEB PRN (23:44)
[2019-02-06 00:08] LABS: Medtox Reader # READER 1
[2019-02-06 00:09] LABS: Amphetamine Not Detected (NotDetected); Barbiturates Screen Not Detected (NotDetected); Benzodiazepine Screen Not Detected (NotDetected); Cocaine Metabolite Screen Not Detected (NotDetected); Medtox Control Line Valid? VALID (VALID); Methadone Not Detected (NotDetected); Methamphetamine Not Detected (NotDetected); Opiate Screen Detected (NotDetected); Oxycodone Screen Not Detected (NotDetected); Phencyclidine (PCP) Not Detected (NotDetected); THC/Cannabinoid Screen Detected (NotDetected); Tricyclic Screen Detected (NotDetected)
[2019-02-06] MEDS: Acetaminophen 325 MG TAB PO PRN ×2 (02:49→15:38)
[2019-02-06 02:51] LABS: Troponin I Less than 0.010 ng/mL (< 0.028)
[2019-02-06 02:56] LABS: Cardiac Risk 4.2 (Less than 4.5)
--- NOTE | 2019-02-06 05:39 | PDOC.FM ---
- Subjective Subjective: Overnight, patient in sinus rhythm 50-60 all night. BP 157-132 systolic/81-70 diastolic. Patient reports one episode of his typical chest pain and was given medicine. Has nausea w/ the chest pain. Denies fever, sweats. Reports left leg pain and points to proximal leg (femoral) which started yesterday. It hurts to walk. - Objective MAR Reviewed: Yes Vital Signs & Weight: Vital Signs (12 hours) Temp Pulse Resp BP Pulse Ox 02/06/19 02:50 97.8 F 88 15 139/77 98 02/05/19 23:22 98.1 F 66 20 132/70 97 02/05/19 22:04 98 02/05/19 21:30 97.7 F 66 16 157/81 H 98 Weight Weight 74.208 kg Result Diagrams: 02/05/19 18:29 02/06/19 11:29 EKG Reviewed by me: Yes (left axis dev, unipolar PVCs, nonspecific changes) Radiology Reviewed by me: Yes Phys Exam - Physical Examination Constitutional: NAD HEENT: moist MMs, sclera anicteric Respiratory: clear to auscultation bilateral (except for some expiratory wheezing heard over L lower lobe) Cardiovascular: RRR, no significant murmur Gastrointestinal: soft, non-tender, positive bowel sounds Musculoskeletal: no edema (tender to palpation over L proximal, lateral leg) Psychiatric: normal affect, A&O x 3 Dx/Plan (1) Chest pain, rule out acute myocardial infarction Code(s): R07.9 - CHEST PAIN, UNSPECIFIED Status: Acute (2) CAD (coronary artery disease) Code(s): I25.10 - ATHSCL HEART DISEASE OF [place] CORONARY ARTERY W/O ANG PCTRS Status: Chronic (3) Bipolar 2 disorder Code(s): F31.81 - BIPOLAR II DISORDER Status: Chronic (4) Hyperlipidemia Code(s): E78.5 - HYPERLIPIDEMIA, UNSPECIFIED Status: Chronic Qualifiers: Hyperlipidemia type: mixed hyperlipidemia Qualified Code(s): E78.2 - Mixed hyperlipidemia (5) Type 2 diabetes mellitus Status: Chronic Qualifiers: Diabetes mellitus intermission coordinator insulin use: without intermission coordinator use (6) HTN (hypertension) Code(s): I10 - ESSENTIAL (PRIMARY) HYPERTENSION Status: Chronic (7) Gastroesophageal reflux disease Code(s): K21.9 - GASTRO-ESOPHAGEAL REFLUX DISEASE WITHOUT ESOPHAGITIS Status: Chronic (8) Asthma Code(s): J45.909 - UNSPECIFIED ASTHMA, UNCOMPLICATED Status: Chronic - Plan Plan: 63-y.o. male w/ CAD w/ AICD placement, and uncontrolled HTN and Type 2 DM, Bipolar disorder: 1. Typical Chest Pain - Troponins negative x3. - Heart score of 4 - Exercise stress and Echo today: pending - Heart Healthy, carb consistent diet s/p testing - PRN nitro available 2. Diabetes Type II - uncontrolled, insulin dependent - A1c tonight = 10.8 - Lantus 20 Units nightly, insulin sliding scale 3. Hypertension - Uncontrolled. Patient lost insurance, & subsequently meds. - PRN hydralazine available - Metoprolol s/p testing to start today 4. Hypercholesterolemia, hypertriglyceridemia - TG 158, Cholesterol 152, LDL 84, HDL 36. - Atorvastatin 40mg daily 5. Bipolar disorder - Continue home meds, seroquel 6. Positive UDS - Positive opiates, tricyclics, and cannabinoids Deysi Dunlap MD PGY-1 Addendum - Attending - Attending Attestation Date/Time: 02/06/19 8439 I personally evaluated the patient and discussed the management with Dr. Dunlap. I agree with the History, Examination, Assessment and Plan documented above with any addition or exceptions noted below. Await study results, dispo pending.
[2019-02-06] MEDS ORDERED: Insulin Glargine 20 UNITS in Pre-Filled Syringe 1 EACH SC SCH (09:00)
[2019-02-06] MEDS ORDERED: Aspirin 325 mg Enteric Coated Tablet PO SCH (09:00)
[2019-02-06] MEDS ORDERED: ADENOSINE 60 MG/20 ML VIAL ONE (10:16)
--- NOTE | 2019-02-06 11:37 | NM ---
EXAM: CARDIAC SPECT HISTORY: Chest pain TECHNIQUE: A myocardial perfusion scan was performed using the single isotope 1 day protocol with iman hnetium 99m sestamibi. [10 mCi] was injected intravenously for the rest exam followed by 30 mCi for the stress study. Followed by stress with adenosine was monitored and interpreted by Yumiko Navarro, nurse practitioner FINDINGS: Homogeneous tracer distribution is seen in the myocardial segments on stress and rest image s without fixed or reversible defects. Gated SPECT LVEF: 52% Wall motion exam: Normal IMPRESSION: Normal myocardial perfusion scan
[2019-02-06 12:03] LABS: Anion Gap 12 mmol/L (10-20); BUN (Urea Nitrogen) 15 mg/dL (8.4-25.7); Calc. Creatinine Clearance 76 mL/min (70-130); Calcium 9.9 mg/dL (7.8-10.44); Carbon Dioxide 28 mmol/L (23-31); Chloride 99 mmol/L (98-107); Estimated GFR-MDRD 72; Glucose 330 mg/dL (80-115); Potassium 4.2 mmol/L (3.5-5.1); Sodium 135 mmol/L (136-145)
[2019-02-06] MEDS: HumaLOG 300 UNITS/3 ML VIAL SC PRN ×2 (12:12→17:44)
[2019-02-06] MEDS ORDERED: Enoxaparin Sodium 40 MG/0.4 ML SYRINGE SC SCH (12:15)
[2019-02-06 19:49] VITALS: BP 157/94; TEMP 98.2
[2019-02-06] MEDS: Atorvastatin Calcium 40 MG TAB PO SCH (20:32)
[2019-02-06] MEDS ORDERED: Metoprolol Tartrate 25 MG TAB PO SCH (21:00)
[2019-02-07] MEDS ORDERED: Enoxaparin Sodium 40 MG/0.4 ML SYRINGE SC SCH (09:00)
--- NOTE | 2019-02-09 11:16 | DIS ---
DATE OF ADMISSION: 02/05/2019 DATE OF DISCHARGE: 02/06/2019 ADMITTING ATTENDING: Dr. Hess DISCHARGE ATTENDING: Dr. Ana Resendiz CONSULTS: None. PROCEDURES: 1. Chest x-ray. 2. Stress test. 3. Echocardiogram. 4. Electrocardiogram. PRIMARY DIAGNOSIS: 1. Typical chest pain, r/o myocardial infarction 2. Nonobstructive CAD SECONDARY DIAGNOSES: 1. Hypertension. 2. Hypercholesterolemia. 3. Hypertriglyceridemia. 4. Type 2 diabetes, uncontrolled, insulin-dependent. 5. Bipolar disorder. 6. Positive urine drug screen. DISCHARGE MEDICATIONS: 1. Aspirin 325 mg oral daily. 2. Atorvastatin 40 mg oral at bedtime. 3. Insulin glargine 20 units subcutaneous every morning. 4. Metoprolol 12.5 mg oral twice daily. 5. Nitroglycerin 0.4 mg oral every 5 minutes as needed. 6. Prefilled syringe. 7. Quetiapine 100 mg oral at bedtime. DISCONTINUED MEDICATIONS: None. HISTORY OF PRESENT ILLNESS/HOSPITAL COURSE: This 63-year-old male with history of nonobstructive coronary artery disease, uncontrolled hypertension, uncontrolled diabetes type 2, and bipolar disorder, presented to the emergency room for evaluation of his chest pain. He reported pain in his arm and substernal chest pain. He said the pain felt like a pressure that radiated between his shoulder blades. He also felt lightheaded like he was going to pass out. Associated with this pain was shortness of breath, nausea, and sweating. He states the pain improved with rest. He was unable to take nitroglycerin, which he was previously prescribed, because he recently lost his insurance. The patient stated his chest pain episodes were progressively becoming worse, and he previously could not make it to the emergency room due to lack of transportation. The patient's last heart catheterization was in March 2018. This showed microvascular angina with a left ventricular ejection fraction of 60% and mild to moderate nonobstructive coronary artery disease, not amenable to stents. Upon admission, the patient was found to be hypertensive and afebrile. He was admitted to telemetry for observation as a chest pain rule out. His troponins were negative x3. He had a HEART score of 4. His hemoglobin A1c was found to be 10.1%. His fasting lipid panel showed triglycerides 158, cholesterol 152, LDL 84, and HDL 36. Urine drug screen was obtained; it was positive for opiates, tricyclics and cannabinoids. Note, the patient does take Seroquel for his bipolar disorder. His chest x-ray on admission revealed no acute intrathoracic disease. His nuclear stress test showed normal myocardial perfusion. His echocardiogram showed an ejection fraction estimated at 40% to 45%. He was noted to have pacemaker/AICD. He had mild mitral regurgitation and mild tricuspid regurgitation. His left atrium was also mildly dilated. His EKG in the emergency room showed regular rate, left axis deviation and possible inferior and anterior infarcts of an undetermined age. All other findings were normal. The day of the patient's stress test, he was feeling better and not having chest pain. He was discharged with medications and instructed to follow up w/ PCP. DISPOSITION: Stable. DISCHARGE INSTRUCTIONS: 1. Location: Home. 2. Diet: Heart healthy and carbohydrate consistent. 3. Activity: As tolerated. 4. Followup: With PCP, Dr. Michael Simeon within 1 week. With Cardiology within 1 week. Deysi Dunlap MD PGY-1 Job ID: [id number] [facility]
== END 2019-02-06 20:39 | disposition home or self-care (01) ==
LOC: ERS 18:16 → 2SW 21:24
PROVIDERS: ADMIT Student in an Organized Health Care Education/Training Program; ATTEND Student in an Organized Health Care Education/Training Program
DX: R07.2 Precordial pain (principal); I25.10 Atherosclerotic heart disease of native coronary artery without angina pectoris; I10 Essential (primary) hypertension; E78.00 Pure hypercholesterolemia, unspecified; E11.9 Type 2 diabetes mellitus without complications; F31.81 Bipolar II disorder; E78.2 Mixed hyperlipidemia; K21.9 Gastro-esophageal reflux disease without esophagitis; J45.909 Unspecified asthma, uncomplicated; Z87.891 Personal history of nicotine dependence; Z79.4 Long term (current) use of insulin; Z79.899 Other long term (current) drug therapy; Z88.0 Allergy status to penicillin; Z88.8 Allergy status to other drugs, medicaments and biological substances; Z95.810 Presence of automatic (implantable) cardiac defibrillator; Z98.890 Other specified postprocedural states
CPT/HCPCS: 36415; 36416; 71045; 78452; 80048; 80053; 80061; 80306; 82550; 83036; 83690; 83880; 84443; 84484; 85025; 93005; 93017; 93306; 94760; 96372; 96374; 99406; A9500; G0378; J0153; J1650; J1815; J2405

== ENCOUNTER 2019-08-10 13:33 | Observation (INO) | payer OTHER ==
--- NOTE | 2019-08-10 14:02 | RAD ---
EXAM: Single view of the chest HISTORY: Chest pain COMPARISON: 02/05/2019 FINDINGS: Single view of the chest shows a normal sized cardiomediastinal silhouette. The pacemaker is unchanged in position. There is no evidence of consolidation, mass, or pleural effusion. The bones are unremarkable. IMPRESSION: No evidence of acute cardiopulmonary disease
[2019-08-10 14:03] LABS: #Basophils 0.1 thou/uL (0.0-0.2); #Eosinphils 0.1 thou/uL (0.0-0.7); #Lymphocytes 1.7 thou/uL (1.20-3.40); #Monocytes 0.4 thou/uL (0.11-0.59); %Basophils 1.1 % (0.0-1.0); %Eosinophils 1.6 % (0.0-10.0); %Lymphocytes 32.6 % (21.0-51.0); %Monocytes 7.4 % (0.0-10.0); %Neutrophils 57.3 % (42.0-75.0); Mean Corpuscular Hemoglobin 34.3 pg (27.0-31.0); Mean Corpuscular Volume 97.9 fL (78.0-98.0); Mean Platelet Volume 9.2 fL (7.4-10.4); Platelet Count 173 thou/uL (130-400); RBC Distribution Width 11.7 % (11.5-14.5); Red Blood Cell (RBC) Count 4.97 mill/uL (4.70-6.10); White Blood Cell (WBC) Count 5.1 thou/uL (4.8-10.8)
[2019-08-10 14:26] LABS: ALT (SGPT) 28 U/L (8-55); AST (SGOT) 16 U/L (5-34); Albumin 4.9 g/dL (3.4-4.8); Alkaline Phosphatase 80 U/L (40-110); Anion Gap 15 mmol/L (10-20); BUN (Urea Nitrogen) 24 mg/dL (8.4-25.7); Bilirubin, Total 1.4 mg/dL (0.2-1.2); Calc. Creatinine Clearance 0 mL/min (70-130); Calcium 9.8 mg/dL (7.8-10.44); Carbon Dioxide 22 mmol/L (23-31); Chloride 100 mmol/L (98-107); Estimated GFR-MDRD 59; Globulin 3.6 g/dL (2.4-3.5); Glucose 384 mg/dL (80-115); Potassium 4.1 mmol/L (3.5-5.1); Protein, Total 8.5 g/dL (5.8-8.1); Sodium 133 mmol/L (136-145)
[2019-08-10] MEDS ORDERED: Aspirin Chewable 81 MG TAB ONE (16:22)
[2019-08-10 18:09] LABS: Troponin I Less than 0.010 ng/mL (< 0.028)
[2019-08-10] MEDS ORDERED: Nitroglycerin 0.4 MG TAB (25 Tab Bottle) PO PRN (19:10)
[2019-08-10] MEDS ORDERED: Acetaminophen 650 MG Suppository PR PRN (19:23)
[2019-08-10] MEDS ORDERED: HumaLOG 300 UNITS/3 ML VIAL SC PRN (19:26)
[2019-08-10] MEDS ORDERED: Dextrose 50% Abboject 50 ML SYRINGE SLOW IVP PRN (19:26)
[2019-08-10] MEDS ORDERED: Dextrose 5% in Water 1,000 ML IV PRN (19:26)
[2019-08-10] MEDS ORDERED: Albuterol Sulfate 2.5 mg/3 ml Neb NEB PRN (19:30)
--- NOTE | 2019-08-10 19:46 | PDOC.HHP ---
Hospitalist HPI - History of Present Illness Chest pain History of Present Illness: 63/M with PMH of CAD, AICD, HTN, DMII, HLD, and asthma Patient presented to the ER because the clinic that monitors his AICD had called his daughter and recommended that he go to the ER secondary to an arrhythmia. Reports chest pain for 1 week, worsening over past couple days. Reports his last episode of chest pain was this morning, around noon, states it was located substernally, radiating to left upper extremity, left side of neck and left scapula, lasting 1-5 minutes, exacerbated and relieved by nothing. Reports associated heart palpitations and SOB. Denies light headedness, nausea, vomiting , diaphoresis and cough or wheezing. Reports taking albuterol inhaler, thinking it was his asthma "acting up", but reports it seemed to make his symptoms worse. Reports some generalized weakness and intermittent blurred vision, denies any changes in speech or focal weakness. Currently, he denies any chest pain at this time. Denies any fever, chills. Patient know to Dr. Martinez and Zachary. 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 His AICD was replaced also. ED Course: EKG NSR, 85 bpm Troponins negative x 2 CXR negative for acute cardiopulmonary process Given ASA 324. Hospitalist ROS - Review of Systems Constitutional: denies: fever, chills Eyes: reports: vision change (blurred vision) ENT: denies: ear pain, ear discharge, nose pain, nose discharge, nose congestion , mouth pain, mouth swelling, throat pain, throat swelling, other Respiratory: reports: shortness of breath. denies: cough, wheezing Cardiovascular: reports: chest pain, palpitations. denies: edema Gastrointestinal: reports: nausea. denies: vomiting, abdominal pain, diarrhea Genitourinary: denies: dysuria, frequency, incontinence, hematuria, retention, other Skin: denies: rash, lesions Neurological: reports: weakness (generalized). denies: incoordination, change in speech Hospitalist History - Past Medical History Cardiac: reports: CAD, CHF, HTN, Hyperlipidemia Pulmonary: reports: asthma Psych: reports: Bipolar, Depression Rheumatologic: reports: Gout Endocrine: reports: Diabetes - Past Surgical History Past Surgical History: reports: Other (Bilateral knee scoped, Left great toe, AICD) - Family History Family History: reports: cancer (lung), diabetes mellitus, hypertension - Social History Smoking Status: Former smoker (quit 1 year ago) Alcohol: reports: Occassional Drugs: reports: none Living Situation: With Family (Lives with daughter in [place]) Occupation: Retired from [employer], disabled Activity level: independent ambulation - Exam General Appearance: NAD, awake alert Eye: PERRL, anicteric sclera ENT: normocephalic atraumatic Neck: supple, no JVD, no thyromegaly Heart: RRR, no murmur, no gallops, no rubs Heart - other findings: AICD implanted on left chest wall, skin CDI Respiratory: CTAB, no wheezes, no rales, no ronchi Gastrointestinal: soft, non-tender, non-distended, normal bowel sounds, no hepatomegaly, no splenomegaly Extremities: no cyanosis, no clubbing, no edema Skin: no lesions, no rashes Neurological: cranial nerve grossly intact, no focal deficits Musculoskeletal: normal tone Hospitalist Results - Labs Result Diagrams: 08/10/19 13:53 08/10/19 13:53 Lab results: WBC 5.1 thou/uL (4.8-10.8) 08/10/19 13:53 Hgb 17.0 g/dL (14.0-18.0) 08/10/19 13:53 Hct 48.7 % (42.0-52.0) 08/10/19 13:53 MCV 97.9 fL (78.0-98.0) 08/10/19 13:53 Plt Count 173 thou/uL (130-400) 08/10/19 13:53 Neutrophils % 57.3 % (42.0-75.0) 08/10/19 13:53 Sodium 133 mmol/L (136-145) L 08/10/19 13:53 Potassium 4.1 mmol/L (3.5-5.1) 08/10/19 13:53 Chloride 100 mmol/L (98-107) 08/10/19 13:53 Carbon Dioxide 22 mmol/L (23-31) L 08/10/19 13:53 BUN 24 mg/dL (8.4-25.7) 08/10/19 13:53 Creatinine 1.24 mg/dL (0.7-1.3) 08/10/19 13:53 Glucose 384 mg/dL (80-115) H 08/10/19 13:53 Calcium 9.8 mg/dL (7.8-10.44) 08/10/19 13:53 Total Bilirubin 1.4 mg/dL (0.2-1.2) H 08/10/19 13:53 AST 16 U/L (5-34) 08/10/19 13:53 ALT 28 U/L (8-55) 08/10/19 13:53 Alkaline Phosphatase 80 U/L (40-110) 08/10/19 13:53 Troponin I Less than 0.010 ng/mL (< 0.028) 08/10/19 17:33 Serum Total Protein 8.5 g/dL (5.8-8.1) H 08/10/19 13:53 Albumin 4.9 g/dL (3.4-4.8) H 08/10/19 13:53 - EKG Interpretation EKG: NSR 85 bpm - Radiology Interpretation Chest x-ray Status: report reviewed by me Hospitalist H&P A/P - Plan Plan: Impression: Unstable angina CAD HTN HLD DMII CKD III Asthma Bipolar Depression Plan: library monitor Trend troponins Continue ASA Interrogate AICD Consult Dr. Martinez Get BNP and Mg+ level restart home medications obtain lipid profile Start sliding scale and monitor blood sugars Full Code HEIDI Laguerre, .
[2019-08-10 20:18] LABS: Troponin I Less than 0.010 ng/mL (< 0.028)
[2019-08-10] MEDS: Famotidine/PF 20 mg/2ml Vial SLOW IVP SCH (21:02)
[2019-08-10 22:04] VITALS: BMI 24.5
[2019-08-10] MEDS: Sodium Chloride 0.9% 1,000 ML IV SCH (23:52)
[2019-08-11 04:53] LABS: #Eosinphils 0.1 thou/uL (0.0-0.7); #Lymphocytes 2.9 thou/uL (1.20-3.40); #Monocytes 0.5 thou/uL (0.11-0.59); %Basophils 0.5 % (0.0-1.0); %Eosinophils 2.1 % (0.0-10.0); %Lymphocytes 43.3 % (21.0-51.0); %Neutrophils 46.2 % (42.0-75.0); Mean Corpuscular HGB CONC 34.3 g/dL (32.0-36.0); Mean Corpuscular Hemoglobin 33.6 pg (27.0-31.0); Mean Corpuscular Volume 97.8 fL (78.0-98.0); Platelet Count 152 thou/uL (130-400); RBC Distribution Width 11.7 % (11.5-14.5); Red Blood Cell (RBC) Count 4.48 mill/uL (4.70-6.10); White Blood Cell (WBC) Count 6.6 thou/uL (4.8-10.8)
[2019-08-11 05:16] LABS: ALT (SGPT) 21 U/L (8-55); AST (SGOT) 13 U/L (5-34); Alkaline Phosphatase 65 U/L (40-110); Anion Gap 10 mmol/L (10-20); BUN (Urea Nitrogen) 21 mg/dL (8.4-25.7); Bilirubin, Total 0.9 mg/dL (0.2-1.2); Calc. Creatinine Clearance 75 mL/min (70-130); Carbon Dioxide 25 mmol/L (23-31); Cardiac Risk 4.6 (Less than 4.5); Chloride 103 mmol/L (98-107); Cholesterol 164 mg/dl (< 200 Desired); Estimated GFR-MDRD 69; Glucose 270 mg/dL (80-115); HDL Cholesterol 36 mg/dL (>60 Neg Risk); LDL Cholesterol, Calculated 75 mg/dL; Potassium 4.2 mmol/L (3.5-5.1); Sodium 134 mmol/L (136-145); Triglycerides 264 mg/dL (Less than 150)
[2019-08-11] MEDS: Aspirin 81 mg Enteric Coated Tablet PO SCH (09:18)
[2019-08-11] MEDS: Famotidine/PF 20 mg/2ml Vial SLOW IVP SCH (09:18)
[2019-08-11] MEDS: Acetaminophen 325 MG TAB PO PRN ×2 (12:21→18:19)
--- NOTE | 2019-08-11 13:51 | PDOC.HOSPP ---
- Subjective Encounter Date: 08/11/19 Encounter Time: 13:50 Subjective: no chest pain, etc - Objective Vital Signs & Weight: Vital Signs (12 hours) Temp Pulse Resp BP Pulse Ox 08/11/19 11:48 98 F 88 18 147/89 H 98 08/11/19 07:43 97.9 F 71 16 136/84 97 08/11/19 05:01 98.3 F 80 16 154/82 H 94 L Weight Weight 166 lb 1.6 oz I&O: 08/10/19 08/11/19 08/12/19 06:59 06:59 06:59 Intake Total 901 Balance 901 Result Diagrams: 08/11/19 04:40 08/11/19 04:40 Additional Labs: Accuchecks 08/11/19 08/11/19 08/10/19 11:04 05:59 20:21 POC Glucose 294 H 246 H 328 H Hospitalist ROS - Medication Medications: Active Medications Generic Name Dose Route Start Last Admin Trade Name Freq PRN Reason Stop Dose Admin Acetaminophen 650 mg 08/10/19 19:23 08/11/19 12:21 Tylenol PO 650 mg Q4H PRN Administration Headache/Fever/Mild Pain (1-3) Aspirin 81 mg 08/11/19 09:00 08/11/19 09:18 Ecotrin PO 81 mg DAILY NETO Administration Famotidine 20 mg 08/10/19 21:00 08/11/19 09:18 Pepcid SLOW IVP 20 mg Q12HR NETO Administration Sodium Chloride 1,000 mls @ 70 mls/hr 08/10/19 23:55 08/10/19 23:52 Normal Saline 0.9% IV 1,000 mls .[id number] NETO Administration Insulin Human Lispro 0 units 08/10/19 19:26 08/10/19 21:02 Humalog SC 4 unit .BEDTIME SLIDING SC PRN Administration Bedtime Correctional Scale Nitroglycerin 0.4 mg 08/10/19 19:10 08/10/19 21:01 Nitrostat PO 1 tab Q5MIN PRN Administration Chest Pain Sodium Chloride 10 ml 08/10/19 21:00 08/11/19 09:19 Flush - Normal Saline IVF Not Given Q12HR NETO - Exam General Appearance: awake alert Neck: no JVD Heart: RRR, no murmur Respiratory: CTAB Gastrointestinal: soft, normal bowel sounds Extremities: no edema Hosp A/P (1) Chest pain Code(s): R07.9 - CHEST PAIN, UNSPECIFIED Status: Acute Qualifiers: Chest pain type: precordial pain Qualified Code(s): R07.2 - Precordial pain (2) CAD (coronary artery disease) Code(s): I25.10 - ATHSCL HEART DISEASE OF [place] CORONARY ARTERY W/O ANG PCTRS Status: Chronic Qualifiers: Coronary Disease-Associated Artery/Lesion type: [place] artery [place] vs. transplanted heart: [place] heart Associated angina: with unspecified angina Qualified Code(s): I25.119 - Atherosclerotic heart disease of [place] coronary artery with unspecified angina pectoris (3) Diabetes mellitus Code(s): E11.9 - TYPE 2 DIABETES MELLITUS WITHOUT COMPLICATIONS Status: Chronic Qualifiers: Diabetes mellitus type: type 2 Diabetes mellitus manager terminal insulin use: with manager terminal use Diabetes mellitus complication status: without complication Qualified Code(s): E11.9 - Type 2 diabetes mellitus without complications; Z79.4 - manager terminal (current) use of insulin (4) HTN (hypertension) Code(s): I10 - ESSENTIAL (PRIMARY) HYPERTENSION Status: Chronic Qualifiers: Hypertension type: essential hypertension Qualified Code(s): I10 - Essential (primary) hypertension (5) Hyperlipidemia Code(s): E78.5 - HYPERLIPIDEMIA, UNSPECIFIED Status: Chronic Qualifiers: Hyperlipidemia type: mixed hyperlipidemia Qualified Code(s): E78.2 - Mixed hyperlipidemia (6) Asthma Code(s): J45.909 - UNSPECIFIED ASTHMA, UNCOMPLICATED Status: Chronic (7) Bipolar 2 disorder Code(s): F31.81 - BIPOLAR II DISORDER Status: Chronic
[2019-08-11] MEDS ORDERED: Regadenoson 0.4 MG/5 ML SYRINGE ONE (15:33)
[2019-08-11] MEDS: Sodium Chloride 0.9% 1,000 ML IV SCH (16:05)
[2019-08-11] MEDS: HumaLOG 300 UNITS/3 ML VIAL SC PRN (17:40)
--- NOTE | 2019-08-11 17:54 | PRG ---
DATE OF SERVICE: 08/11/2019 SUBJECTIVE: Mr. Edge came to the hospital, complaining of some chest pain in various locations in his chest, atypical for angina. The patient had a cardiac catheterization done in March 2018, showing minimal nonobstructive plaque. He did have an ostial lesion in the diagonal branch and medical therapy is the only treatment for that. OBJECTIVE: VITAL SIGNS: Blood pressure is 162/88, pulse 88 and regular. LUNGS: Clear. CARDIAC: Normal S1, normal S2. He does complain of some shortness of breath as well. BNP however is less than 10. OptiVol is normal. ASSESSMENT: Stable cardiac status. PLAN: Okay with me to be released home tomorrow morning and follow up with sales recruiter as an outpatient. Suspect that the tachycardia is probably SVT. He does not have syncope or near-syncope. Job ID: [id number]
[2019-08-11] MEDS ORDERED: FLU VACC QS2019-20(6MOS UP)/PF 60 MCG/0.5 ML SYRINGE IM ONE (21:00)
[2019-08-11] MEDS: Famotidine 20 MG TAB PO SCH (21:26)
[2019-08-12] MEDS: HumaLOG 300 UNITS/3 ML VIAL SC PRN (06:07)
--- NOTE | 2019-08-12 07:23 | NM ---
EXAM: Nuclear medicine cardiac perfusion examination with ejection fraction HISTORY: Chest pain TECHNIQUE: Stress images: 33 mCi of technetium 9M sestamibi; Lexiscan COMPARISON: None FINDINGS: Tomographic images: No perfusion defects with stress. Gated images: Normal wall motion and ejection fraction of 47%. EDV: 85 mL LHR: 0.3 IMPRESSION: No perfusion defects with stress
[2019-08-12 08:13] VITALS: BP 150/95; TEMP 97.5
[2019-08-12] MEDS: Aspirin 81 mg Enteric Coated Tablet PO SCH (08:58)
[2019-08-12] MEDS: Famotidine 20 MG TAB PO SCH (08:58)
--- NOTE | 2019-08-12 09:25 | DIS ---
DATE OF ADMISSION: 08/10/2019 DATE OF DISCHARGE: 08/12/2019 PRIMARY CARE PROVIDER: None. DISCHARGE DIAGNOSES: 1. Noncardiac chest pain. 2. Coronary artery disease. 3. Hypertension. 4. Supraventricular tachycardia. 5. Dyslipidemia. 6. Diabetes mellitus type 2. 7. Bipolar disorder. DISCHARGE MEDICATIONS: 1. Seroquel 100 mg at bedtime. 2. Aspirin 81 mg a day. 3. Insulin glargine 18 units subcu q.a.m. 4. Nitroglycerin 0.4 mg q.4 hours p.r.n. ALLERGIES: SENG INHIBITORS, METFORMIN, ABILIFY, PENICILLINS. CODE STATUS: Full. DIET: Diabetic. HOSPITAL COURSE: The patient was referred to the emergency room after dictaphone technician noted an abnormal rhythm on the patient's pacemaker memory. The patient complained of some vague chest pain. EKG was unrevealing. Cardiac enzymes were normal. Comprehensive metabolic profile showed only an elevated blood sugar. CBC was unremarkable. Dr. Martinez saw the patient in consultation SVT from the exercise Cardiolite stress test was done, which showed no evidence of ischemia. The patient is being discharged home. He has been told he needs a PCP and to follow up in 3 days. Follow up with Dr. Sharam for his pacemaker will be arranged. Job ID: [id number]
== END 2019-08-12 10:33 | disposition home or self-care (01) ==
LOC: ERS 13:33 → 2SW 19:35
PROVIDERS: ADMIT Emergency Medicine; ATTEND Emergency Medicine
DX: R07.89 Other chest pain (principal); I25.10 Atherosclerotic heart disease of native coronary artery without angina pectoris; I13.0 Hypertensive heart and chronic kidney disease with heart failure and stage 1 through stage 4 chronic kidney disease, or unspecified chronic kidney disease; E11.22 Type 2 diabetes mellitus with diabetic chronic kidney disease; N18.3 Chronic kidney disease, stage 3 (moderate); I50.9 Heart failure, unspecified; I47.1 Supraventricular tachycardia; E78.5 Hyperlipidemia, unspecified; F31.81 Bipolar II disorder; J45.909 Unspecified asthma, uncomplicated; M10.9 Gout, unspecified; Z87.891 Personal history of nicotine dependence; Z79.4 Long term (current) use of insulin; Z79.82 Long term (current) use of aspirin; Z79.899 Other long term (current) drug therapy; Z88.0 Allergy status to penicillin; Z88.8 Allergy status to other drugs, medicaments and biological substances; Z95.810 Presence of automatic (implantable) cardiac defibrillator
CPT/HCPCS: 36415; 36416; 71045; 78452; 80053; 80061; 83735; 83880; 84484; 85025; 90471; 90686; 93005; 93017; 94760; 96361; 96374; 96376; A9500; G0008; G0378; J2785; S0028

== ENCOUNTER 2019-09-18 15:48 | Emergency (ER) | payer OTHER ==
[2019-09-18] MEDS ORDERED: Ketorolac Tromethamine 30 MG/ML VIAL ONE (17:59)
--- NOTE | 2019-09-18 18:01 | RAD ---
XR Lumbar Spine Min 4 View: 09/18/2019 5:35 PM Low back pain COMPARISON: None FINDINGS: Fracture: None. Alignment: Spinal alignment appears within normal limits. Degenerative Change: There is advanced disc degenerative disease at L1-L2. There is moderate multile kody disc degenerative disease at the remaining lumbar intervertebral levels. There is a transitional lumbosacral vertebra with lumbarization of S1. Bone Mineralization:Normal Soft tissues: No acute abnormality. IMPRESSION: Moderate lumbar spondylosis. No acute fracture or subluxation demonstrated.
== END 2019-09-18 18:23 | disposition home or self-care (01) ==
LOC: ERS 15:48
DX: M54.5 Low back pain (principal); F31.9 Bipolar disorder, unspecified; M10.9 Gout, unspecified; J45.909 Unspecified asthma, uncomplicated; E11.9 Type 2 diabetes mellitus without complications; I10 Essential (primary) hypertension; Z87.891 Personal history of nicotine dependence; Z79.899 Other long term (current) drug therapy; Z79.4 Long term (current) use of insulin; Z79.82 Long term (current) use of aspirin
CPT/HCPCS: 72110; 96372; J1885

== ENCOUNTER 2019-11-20 20:11 | Emergency (ER) | payer OTHER ==
[2019-11-20] MEDS ORDERED: Ondansetron PF 4 MG/2 ML Vial ONE (21:20)
[2019-11-20] MEDS ORDERED: Morphine 4 MG/ML VIAL ONE (21:20)
--- NOTE | 2019-11-20 21:39 | CT ---
CT abdomen and pelvis noncontrast HISTORY: Left flank pain. COMPARISON: 12/04/2015. FINDINGS: Each renal collecting system, ureter, and urinary bladder are decompressed without stone ev ident. Lack of contrast limits evaluation for other abnormalities. Liver is diffusely hypodense. Calcified g ranulomata at the lower chest and upper abdomen are consistent with healed granulomatous disease. Small hyperdense focus is noted within the appendiceal lumen. No evidence of obstruction or inflammat ion. IMPRESSION : No CT evidence of urinary tract obstruction or calcification. Hepato-steatosis.
[2019-11-20 21:46] LABS: #Basophils 0.1 thou/uL (0.0-0.2); #Eosinphils 0.1 thou/uL (0.0-0.7); #Lymphocytes 1.8 thou/uL (1.20-3.40); #Monocytes 0.4 thou/uL (0.11-0.59); %Basophils 1.5 % (0.0-1.0); %Eosinophils 1.1 % (0.0-10.0); %Lymphocytes 33.7 % (21.0-51.0); %Monocytes 6.6 % (0.0-10.0); %Neutrophils 57.1 % (42.0-75.0); Hemoglobin 16.7 g/dL (14.0-18.0); Mean Corpuscular HGB CONC 35.5 g/dL (32.0-36.0); Mean Corpuscular Hemoglobin 34.7 pg (27.0-31.0); Mean Corpuscular Volume 97.7 fL (78.0-98.0); Mean Platelet Volume 8.8 fL (7.4-10.4); Platelet Count 173 thou/uL (130-400); Red Blood Cell (RBC) Count 4.81 mill/uL (4.70-6.10); White Blood Cell (WBC) Count 5.3 thou/uL (4.8-10.8)
[2019-11-20 22:10] LABS: ALT (SGPT) 36 U/L (8-55); AST (SGOT) 16 U/L (5-34); Albumin 4.4 g/dL (3.4-4.8); Alkaline Phosphatase 81 U/L (40-110); Anion Gap 17 mmol/L (10-20); BUN (Urea Nitrogen) 13 mg/dL (8.4-25.7); CK (CPK) 61 U/L (30-200); Calc. Creatinine Clearance 0 mL/min (70-130); Calcium 9.5 mg/dL (7.8-10.44); Carbon Dioxide 23 mmol/L (23-31); Chloride 100 mmol/L (98-107); Estimated GFR-MDRD 70; Globulin 3.5 g/dL (2.4-3.5); Glucose 323 mg/dL (80-115); Potassium 3.7 mmol/L (3.5-5.1); Protein, Total 7.9 g/dL (5.8-8.1); Sodium 136 mmol/L (136-145)
[2019-11-20 22:16] LABS: Bacteria/HPF None Seen HPF (None Seen); Bilirubin Negative (Negative); Blood, Urine Negative (Negative); Clarity Clear (Clear); Glucose, Urine (Dipstick) Greater than 1000 mg/dL (Negative); Leukocyte Negative Leu/uL (Negative); Nitrite Negative (Negative); Protein, Urine (Dipstick) 30 mg/dL (Neg-Trace); RBC/HPF 0-3 HPF (0-3); Squamous Epithelial 0-3 HPF (0-3); Urobilinogen Normal mg/dL (Less than 2); WBC/HPF 0-3 HPF (0-3)
== END 2019-11-20 23:50 | disposition home or self-care (01) ==
LOC: ERS 20:11
DX: M54.5 Low back pain (principal); E11.9 Type 2 diabetes mellitus without complications; I10 Essential (primary) hypertension; J45.909 Unspecified asthma, uncomplicated; M19.90 Unspecified osteoarthritis, unspecified site; I25.10 Atherosclerotic heart disease of native coronary artery without angina pectoris; M10.9 Gout, unspecified; F31.9 Bipolar disorder, unspecified; Z87.891 Personal history of nicotine dependence; Z79.82 Long term (current) use of aspirin; Z79.4 Long term (current) use of insulin
CPT/HCPCS: 74176; 80053; 81003; 81015; 82550; 85025; 96374; 96375; J2270; J2405

== ENCOUNTER 2019-12-08 21:25 | Emergency (ER) | payer OTHER ==
[2019-12-08] MEDS ORDERED: Morphine 4 MG/ML VIAL ONE (21:49)
[2019-12-08] MEDS ORDERED: Ondansetron PF 4 MG/2 ML Vial ONE (21:59)
[2019-12-08] MEDS ORDERED: Ketorolac Tromethamine 30 MG/ML VIAL ONE (21:59)
[2019-12-08 22:20] LABS: #Basophils 0.1 thou/uL (0.0-0.2); #Eosinphils 0.1 thou/uL (0.0-0.7); #Lymphocytes 2.1 thou/uL (1.20-3.40); #Monocytes 0.5 thou/uL (0.11-0.59); #Neutrophils 3.5 thou/uL (1.40-6.50); %Basophils 1.8 % (0.0-1.0); %Eosinophils 1.4 % (0.0-10.0); %Lymphocytes 33.3 % (21.0-51.0); %Monocytes 7.6 % (0.0-10.0); Hemoglobin 16.6 g/dL (14.0-18.0); Mean Corpuscular HGB CONC 35.2 g/dL (32.0-36.0); Mean Corpuscular Hemoglobin 34.2 pg (27.0-31.0); Mean Corpuscular Volume 97.4 fL (78.0-98.0); Mean Platelet Volume 10.1 fL (7.4-10.4); Platelet Count 166 thou/uL (130-400); Red Blood Cell (RBC) Count 4.84 mill/uL (4.70-6.10); White Blood Cell (WBC) Count 6.2 thou/uL (4.8-10.8)
[2019-12-08 22:25] LABS: Bilirubin Negative (Negative); Blood, Urine Negative (Negative); Clarity Clear (Clear); Glucose, Urine (Dipstick) Greater than 1000 mg/dL (Negative); Leukocyte Negative Leu/uL (Negative); Nitrite Negative (Negative); Protein, Urine (Dipstick) Negative (Neg-Trace); Urobilinogen Normal mg/dL (Less than 2)
[2019-12-08 22:34] LABS: ALT (SGPT) 36 U/L (8-55); AST (SGOT) 20 U/L (5-34); Albumin 4.4 g/dL (3.4-4.8); Alkaline Phosphatase 83 U/L (40-110); Anion Gap 18 mmol/L (10-20); BUN (Urea Nitrogen) 17 mg/dL (8.4-25.7); Bilirubin, Total 0.8 mg/dL (0.2-1.2); Calc. Creatinine Clearance 0 mL/min (70-130); Calcium 9.4 mg/dL (7.8-10.44); Carbon Dioxide 19 mmol/L (23-31); Chloride 97 mmol/L (98-107); Estimated GFR-MDRD 52; Globulin 4.1 g/dL (2.4-3.5); Glucose 487 mg/dL (80-115); Potassium 3.9 mmol/L (3.5-5.1); Protein, Total 8.5 g/dL (5.8-8.1); Sodium 130 mmol/L (136-145)
--- NOTE | 2019-12-09 08:59 | CT ---
CT ABDOMEN AND PELVIS: DATE: 12/08/2019. COMPARISON: 11/20/2019. HISTORY: Left flank pain, history of kidney stones. TECHNIQUE: Axial CT imaging at 5 mm intervals from the lung bases through the pubic symphysis without contrast. Coronal and sagittal reformatted imaging obtained. FINDINGS: The lack of contrast media limits assessment of the viscera, bowel vascular structures and for lympha denopathy. The imaged lung bases are unremarkable. No free intraperitoneal air or fluid is noted. The hepatic parenchyma is hypodense suggesting steatosis. Limited assessment of the gallbladder, spl een, pancreas, and adrenal glands appears unremarkable. No nephrolithiasis and hydronephrosis is not ed on either side. No evidence for obstructive uropathy is apparent on either side. Limited evaluation of the bowel demonstrates no evidence for inflammatory change or obstruction. The re is an appendicolith noted within the appendix on image 58. No inflammatory change is seen to sugg est the presence of appendicitis. Review of the osseous structures demonstrates multilevel degenerative change within the spine, most p rominent within the upper lumbar spine. IMPRESSION: No evidence for nephrolithiasis or obstructive uropathy. POS: [facility]
== END 2019-12-08 23:26 | disposition home or self-care (01) ==
LOC: ERS 21:25
DX: M54.5 Low back pain (principal); E11.9 Type 2 diabetes mellitus without complications; I10 Essential (primary) hypertension; M10.9 Gout, unspecified; M19.90 Unspecified osteoarthritis, unspecified site; I25.10 Atherosclerotic heart disease of native coronary artery without angina pectoris; F31.9 Bipolar disorder, unspecified; J45.909 Unspecified asthma, uncomplicated; Z87.891 Personal history of nicotine dependence; Z79.82 Long term (current) use of aspirin; Z79.4 Long term (current) use of insulin; Z79.899 Other long term (current) drug therapy
CPT/HCPCS: 74176; 80053; 81003; 85025; 96374; 96375; J1885; J2270; J2405

== ENCOUNTER 2020-01-26 17:54 | Inpatient (IN) | payer OTHER ==
[~2020-01-26 17:54] MED LIST changes: +Iopamidol-370 76% 500 ML 1 ML ONE; -PHENYLEPHRINE-NS 100 MCG/ML 10 ML SYRINGE ONE; -PROPOFOL 200 MG/20 ML VIAL ONE
[2020-01-26 18:55] LABS: Hemoglobin 16.4 g/dL (14.0-18.0); Mean Corpuscular Hemoglobin 35.9 pg (27.0-31.0); Mean Corpuscular Volume 94.3 fL (78.0-98.0); Mean Platelet Volume 9.5 fL (7.4-10.4); Platelet Count 160 thou/uL (130-400); RBC Distribution Width 12.2 % (11.5-14.5); Red Blood Cell (RBC) Count 4.58 mill/uL (4.70-6.10); White Blood Cell (WBC) Count 6.9 thou/uL (4.8-10.8)
[2020-01-26 19:14] LABS: #Lymphocytes 2.1 thou/uL (1.20-3.40); #Monocytes 0.5 thou/uL (0.11-0.59); #Neutrophils 4.3 thou/uL (1.40-6.50); %Basophils 0.3 % (0.0-1.0); %Eosinophils 0.6 % (0.0-10.0); %Lymphocytes 30.1 % (21.0-51.0); %Monocytes 6.6 % (0.0-10.0); %Neutrophils 62.4 % (42.0-75.0)
[2020-01-26 19:45] LABS: Albumin 4.4 g/dL (3.4-4.8)
[2020-01-26 19:47] LABS: Calcium 9.5 mg/dL (7.8-10.44); Chloride 99 mmol/L (98-107); Sodium 130 mmol/L (136-145)
[2020-01-26 19:48] LABS: Globulin 4.8 g/dL (2.4-3.5); Glucose 230 mg/dL (80-115); Protein, Total 9.2 g/dL (5.8-8.1)
[2020-01-26 19:49] LABS: Anion Gap 15 mmol/L (10-20); Carbon Dioxide 20 mmol/L (23-31)
[2020-01-26 19:50] LABS: Bilirubin, Total 1.1 mg/dL (0.2-1.2)
[2020-01-26 19:51] LABS: Alkaline Phosphatase 86 U/L (40-110); Calc. Creatinine Clearance 0 mL/min (70-130); Estimated GFR-MDRD 82
[2020-01-26 19:52] LABS: BUN (Urea Nitrogen) 15 mg/dL (8.4-25.7)
[2020-01-26 19:53] LABS: AST (SGOT) 24 U/L (5-34)
[2020-01-26 19:54] LABS: ALT (SGPT) 30 U/L (8-55)
[2020-01-26] MEDS ORDERED: Morphine 4 MG/ML VIAL ONE (20:38)
[2020-01-26] MEDS ORDERED: Ondansetron PF 4 MG/2 ML Vial ONE (20:38)
--- NOTE | 2020-01-26 21:31 | CT ---
CT SCAN ABDOMEN AND PELVIS WITH IV CONTRAST: 01/26/20 INDICATIONS: Left sided abdominal pain. Comparison made to recent CT abdomen and pelvis performed without IV contrast on 12/08/19. FINDINGS: Lung bases clear. The liver, spleen, pancreas, remain unremarkable. There is a calcification seen in the norma hepatis region which is stable possibly representing a calcified lymph node. Adrenal glands normal. Kidneys unremarkable. Review of the small bowel reveals a loop of mildly dilated small bowel in the l eft mid abdomen. This loop of dilated small bowel exhibits a luminal narrowing and mural thickening. The more distal small bowel loops have a normal caliber. Colon is unremarkable. Appendix appears norm al. Aorta normal caliber. No adenopathy or mass. No free fluid. Images of the pelvis show mildly distended urinary bladder. Prostate is unremarkable. IMPRESSION: 1. Abnormal loop of jejunum in the left mid abdomen. There is luminal narrowing and mural thicke garret. Etiology such as neoplasm are not excluded. Recommend GI consultation and follow-up and conside r further small bowel evaluation. 2. No other acute process or interval change noted. POS: [facility]
[2020-01-26 21:40] LABS: Bilirubin Negative (Negative); Blood, Urine Negative (Negative); Clarity Clear (Clear); Glucose, Urine (Dipstick) Greater than 1000 mg/dL (Negative); Ketone, Urine 10 mg/dL (Negative); Leukocyte Negative Leu/uL (Negative); Nitrite Negative (Negative); Protein, Urine (Dipstick) 20 mg/dL (Neg-Trace); Urobilinogen Normal mg/dL (Less than 2); pH, Urine 5.5 (5.0-9.0)
[2020-01-26] MEDS ORDERED: Piperacillin/Tazobactam 4.5 GM VIAL ONE (21:52)
[2020-01-26] MEDS ORDERED: Ondansetron ODT 4 MG TAB PO PRN (22:56)
[2020-01-26] MEDS ORDERED: Senokot S 8.6-50 MG TAB PO PRN (22:56)
[2020-01-26] MEDS ORDERED: Fentanyl 100 MCG/2 ML VIAL ONE (23:35)
[2020-01-26] MEDS ORDERED: metroNIDAZOLE 500 MG in Premix Bag 1 BAG IVPB SCH (23:45)
[2020-01-27] MEDS: Lactated Ringer's 1,000 ML IV SCH ×4 (00:15→22:21)
[2020-01-27 00:34] VITALS: BMI 25.5
[2020-01-27 01:14] LABS: Medtox Reader # READER 1; THC/Cannabinoid Screen Detected (NotDetected)
[2020-01-27 01:15] LABS: Amphetamine Not Detected (NotDetected); Barbiturates Screen Not Detected (NotDetected); Benzodiazepine Screen Not Detected (NotDetected); Cocaine Metabolite Screen Not Detected (NotDetected); Medtox Control Line Valid? VALID (VALID); Methadone Not Detected (NotDetected); Methamphetamine Not Detected (NotDetected); Opiate Screen Detected (NotDetected); Oxycodone Screen Not Detected (NotDetected); Phencyclidine (PCP) Not Detected (NotDetected); Tricyclic Screen Detected (NotDetected)
[2020-01-27] MEDS ORDERED: hydrALAZINE 20 MG/ML VIAL SLOW IVP PRN (01:25)
[2020-01-27] MEDS ORDERED: Dextrose 50% Abboject 50 ML SYRINGE SLOW IVP PRN (01:43)
[2020-01-27] MEDS ORDERED: Dextrose 5% in Water 1,000 ML IV PRN (01:43)
[2020-01-27] MEDS ORDERED: HumaLOG 300 UNITS/3 ML VIAL SC PRN (01:43)
--- NOTE | 2020-01-27 02:29 | PDOC.FPRHP ---
- History of Present Illness Chief Complaint: Left Flank Pain History of Present Illness: Mr. Kim is a 64 yo male with PMH of IDDMII, HTN, and Bipolar disorder who presents to the ED with complaints of left flank pain. He reports that he has been experiencing this pain for several months, but over the last 3 days the pain has become increasingly worse. He describes the pain as stabbing in nature and rates it a 10/10. Pt reports N/V with decreased PO intake during this 3 day period. He also notes that he has had streaks of blood in his stool. Reports QUINN , dizziness. Denies fever, chills, dysuria. ED Course: CT while in ED. Surgery consulted. Given one dose of Zosyn. - Allergies/Adverse Reactions Allergies Allergy/AdvReac Type Severity Reaction Status Date / Time SENG Inhibitors Allergy Severe swelling Verified 01/27/20 00:32 metformin Allergy Intermediate SOB Verified 01/27/20 00:32 aripiprazole [From Abilify] Allergy Mild Nausea Verified 01/27/20 00:32 Penicillins Allergy Mild Stomach Verified 01/27/20 00:32 Ache - Home Medications Medication Instructions Recorded Confirmed Type Nitroglycerin [Nitrostat] 0.4 mg PO Q5MIN PRN #30 tab 02/06/19 01/27/20 Rx QUEtiapine Fumarate [SEROquel] 100 mg PO HS #30 tab 02/06/19 01/27/20 Rx Aspirin [Ecotrin Regular Strength] 81 mg PO DAILY 08/10/19 01/27/20 History Insulin Glargine [Lantus Vial] 18 units SC QAM 08/10/19 01/27/20 History - History PMHx: IDDMII, HTN, Bipolar, CAD with AICD PSHx: Knee and foot FHx: Mother - DM, lung cancer; Dad - lung cancer Social: lives w/ daughter in [place]. Quit smoking tobacco products ~10 years ago. Drinks socially on holidays. Stopped smoking marijuana 1 month ago. - Review of Systems General: reports: weight/appetite/sleep changes. denies: fever/chills Eyes: denies: vision changes ENT: denies: nasal congestion Respiratory: denies: cough, congestion Cardiovascular: denies: chest pain, edema Gastrointestinal: reports: nausea, vomiting, GI bleeding Genitourinary: denies: dysuria Skin: denies: rashes Musculoskeletal: reports: pain Psychological: denies: depression - Vital signs BP: 163/94 HR: 78 RR: 14 Tmax: 98.3 Pox: 97% on RA Wt: 73.48 kg - Physical Exam Constitutional: awake, alert and oriented HEENT: normocephalic and atraumatic, PERRLA, EOMI, grossly normal vision, grossly normal hearing Heart: RRR, normal S1/S2 Lungs: CTAB, no respiratory distress Abdomen: soft -Abdomen: tender to palpation, guarding present Musculoskeletal: normal structure, normal tone, ROM grossly normal Neurological: no focal deficit, CN II-XII intact Skin: no rash/lesions Heme/Lymphatic: no unusual bruising or bleeding Psychiatric: normal mood and affect, good judgment and insight, intact recent and remote memory FMR H&P: Results - Labs Result Diagrams: 01/27/20 03:42 01/27/20 03:42 Lab results: WBC 6.9 thou/uL (4.8-10.8) 01/26/20 18:33 Hgb 16.4 g/dL (14.0-18.0) 01/26/20 18:33 Hct 43.2 % (42.0-52.0) 01/26/20 18:33 MCV 94.3 fL (78.0-98.0) 01/26/20 18:33 Plt Count 160 thou/uL (130-400) 01/26/20 18:33 Neutrophils % 62.4 % (42.0-75.0) 01/26/20 18:33 Sodium 130 mmol/L (136-145) L 01/26/20 19:21 Potassium 4.0 mmol/L (3.5-5.1) 01/26/20 19:21 Chloride 99 mmol/L (98-107) 01/26/20 19:21 Carbon Dioxide 20 mmol/L (23-31) L 01/26/20 19:21 BUN 15 mg/dL (8.4-25.7) 01/26/20 19:21 Creatinine 0.93 mg/dL (0.7-1.3) 01/26/20 19:21 Glucose 230 mg/dL (80-115) H 01/26/20 19:21 Lactic Acid 0.8 mmol/L (0.5-2.2) 01/26/20 21:55 Calcium 9.5 mg/dL (7.8-10.44) 01/26/20 19:21 Total Bilirubin 1.1 mg/dL (0.2-1.2) 01/26/20 19:21 AST 24 U/L (5-34) 01/26/20 19:21 ALT 30 U/L (8-55) 01/26/20 19:21 Alkaline Phosphatase 86 U/L (40-110) 01/26/20 19:21 Serum Total Protein 9.2 g/dL (5.8-8.1) H 01/26/20 19:21 Albumin 4.4 g/dL (3.4-4.8) 01/26/20 19:21 Lipase 52 U/L (8-78) 01/26/20 20:25 Urine Ketones 10 mg/dL (Negative) A 01/26/20 21:20 Urine Blood Negative (Negative) 01/26/20 21:20 Urine Nitrite Negative (Negative) 01/26/20 21:20 Ur Leukocyte Esterase Negative Yasmine/uL (Negative) 01/26/20 21:20 - EKG Interpretation EKG: Sinus rhythm with some PVCs in the 80s - Radiology Interpretation CT scan - abdomen Status: image reviewed by me, report reviewed by me Additional comment: 1. Abnormal loop of jejunum in the left mid abdomen. Luminal narrowing and mural thickening. Etiology such as neoplasm are not excluded. Recommend GI consult and f/u and consider further small bowel evaluation. 2. No other acute process or interval change noted FMR H&P: A/P - Problem List (1) Partial small bowel obstruction Current Visit: Yes Status: Acute Code(s): K56.600 - PARTIAL INTESTINAL OBSTRUCTION, UNSPECIFIED TO CAUSE (2) Bipolar 2 disorder Current Visit: No Status: Chronic Code(s): F31.81 - BIPOLAR II DISORDER (3) Diabetes mellitus Current Visit: No Status: Chronic Code(s): E11.9 - TYPE 2 DIABETES MELLITUS WITHOUT COMPLICATIONS Qualifiers: Diabetes mellitus type: type 2 Diabetes mellitus retirement insulin use: with retirement use Diabetes mellitus complication status: without complication Qualified Code(s): E11.9 - Type 2 diabetes mellitus without complications; Z79.4 - skilled nursing (current) use of insulin (4) Hypertensive disease Current Visit: No Status: Chronic Code(s): I10 - ESSENTIAL (PRIMARY) HYPERTENSION - Plan 64 yo male with PMH of IDDMII, HTN, Bipolar who is admitted for partial small bowel obstruction. Small bowel obstruction -CT scan showed luminal narrowing and mural thickening in the Jejunum; neoplasm could not be ruled out -Surgery was consulted in the ED, will consult tomorrow -On Zosyn and Flagyl -NPO as of now -LR at 115mls/hr IDDMII -accu-chek q6 while NPO -hypoglycemic protocol in place -will hold home lantus while NPO -mild SS insulin in place Bipolar Disorder -continue home seroquel HTN -pt reports that he is not taking any antihypertensives at home -hydralazine PRN for SBP >180 while in the hospital -f/u BP with PCP Diet: NPO IVF: LR 115mls/hr PPx: SCDs and protonix Code: Full PCP: Germán Attending: Chucky Dispo: will admit to Onc. Expected length of stay >48 hrs. FMR H&P: Upper Level - Plan Date/Time: 01/27/20 0223 IJaz, have evaluated this patient and agree with findings/plan as outlined by corporate communications intern resident. Pertinent changes/additions are listed here. 64YOM with a PMH notable for HTN, bipolar disorder & IDDMII who presented to the ER for progressively worsening left flank & abdominal pain for the last 3 days. Per the patient he has had similar episodes like this before but this has been the worst yet. He reports associated subjective fever, nausea with decreased PO intake & blood in his stool x2 since yesterday. On exam the patient was noted to be hypertensive but all other VS were WNLs. His exam was notable for left-sided abdominal TTP w/ some guarding but no rebound tenderness. It was otherwise unremarkable. His ER workup was notable for a Na of 130 & an abdominal CT which showed an abnormal loop of jejunum w/ associated luminal narrowing & mural thickening. General surgery was consulted who recommended startin IV abx & reported that they would see the patient in the AM. He was given 50mcg of fentanyl, 8mg morphine, 4mg zofran, 4.5g of zosyn & 1L of NS in the ER. Plan will be to admit to the medical unit under inpatient status for continued IV abx pending general surgery recs. Will keep NPO & start on GI bleed PPX w/ IV protonix BID. Will continue zosyn with the addition of IV flagyl. PRN morphine for pain control. For his chronic medical conditions, will allow meds with sips but given his NPO status will start on mild SSI only for now for hyperglycemic control. Addendum - Attending - Attending Attestation Date/Time: 01/27/20 0824 I personally evaluated the patient and discussed the management with Dr. Otto on 01/26/2020 I agree with the History, Examination, Assessment and Plan documented above with any addition or exceptions noted below - 64YOM with a h/o HTN, bipolar disorder, and Type 2 DM who presented to the ER for progressively worsening left flank & abdominal pain for the last 3 days. Per the patient he has had similar episodes like this before but this has been the worst yet. Seen in ER in November x 2for similar pain. He reports associated subjective fever, nausea with decreased PO intake & blood in his stool x2 since yesterday. (+) flatus. Decreased po intake. States that feels sick when he tried to eat. PMH/PSH/Meds/ SH reviewed and agree with resident's documentation. Afebrile VSS Exam repeated by me and agree with resident's findings. Labs: WBC=6.9, H/H=16.4/43.2, Sta=907 , Qn=800, K=4.0, BUN/Cr=15/0.93, Enhj=292. CTA abd/pelvis- abnormal loop of jejunum in left mi abdomen; luminal narrowing and mural thickening. A/P: 1) Abd pain with ?partial SBO- Admit to medical. Started on abx per surgery recommendation who were consulted from ER. Will see in AM. 2) DM - NPO for now; use sliding scale. 3) HTN- no on any meds; will use hydralazine for now and then transition to po meds.
[2020-01-27] MEDS: Morphine 4 MG/ML VIAL SLOW IVP PRN ×3 (03:43→20:50)
[2020-01-27 03:56] LABS: #Eosinphils 0.1 thou/uL (0.0-0.7); #Lymphocytes 1.9 thou/uL (1.20-3.40); #Monocytes 0.4 thou/uL (0.11-0.59); #Neutrophils 4.1 thou/uL (1.40-6.50); %Basophils 0.4 % (0.0-1.0); %Eosinophils 1.3 % (0.0-10.0); %Lymphocytes 28.8 % (21.0-51.0); %Monocytes 6.4 % (0.0-10.0); %Neutrophils 63.2 % (42.0-75.0); Hemoglobin 14.8 g/dL (14.0-18.0); Mean Corpuscular HGB CONC 36.1 g/dL (32.0-36.0); Mean Corpuscular Hemoglobin 34.4 pg (27.0-31.0); Mean Corpuscular Volume 95.3 fL (78.0-98.0); Mean Platelet Volume 8.8 fL (7.4-10.4); Platelet Count 146 thou/uL (130-400); RBC Distribution Width 12.2 % (11.5-14.5); Red Blood Cell (RBC) Count 4.31 mill/uL (4.70-6.10); White Blood Cell (WBC) Count 6.5 thou/uL (4.8-10.8)
[2020-01-27 04:17] LABS: Anion Gap 16 mmol/L (10-20); BUN (Urea Nitrogen) 11 mg/dL (8.4-25.7); Calc. Creatinine Clearance 96 mL/min (70-130); Calcium 8.7 mg/dL (7.8-10.44); Carbon Dioxide 19 mmol/L (23-31); Chloride 102 mmol/L (98-107); Estimated GFR-MDRD 90; Glucose 231 mg/dL (80-115); Potassium 3.9 mmol/L (3.5-5.1); Sodium 133 mmol/L (136-145)
[2020-01-27] MEDS: Piperacillin/Tazobactam 4.5 GM in Sodium Chloride 0.9% 100 ML IVPB SCH ×3 (05:39→22:17)
[2020-01-27] MEDS: Ondansetron PF 4 MG/2 ML Vial IVP PRN ×3 (05:45→20:28)
--- NOTE | 2020-01-27 06:36 | PDOC.FM ---
- Subjective Subjective: No acute overnight events. Patient still very uncomfortable with his L sided abdominal pain, which has been ongoing for over one month and acutely worsened in the past 3 days. He continues to have nausea, improved but not fully relieved by zofran. States the pain makes his nausea worse. No vomiting since admission, has had vomiting at home in the 3 days prior to admission. No BM today, last BM yesterday. Reports he has had blood in his stool. - Objective Vital Signs & Weight: Vital Signs (12 hours) Temp Pulse Resp BP BP Pulse Ox 01/27/20 03:50 98.7 F 78 20 154/88 H 99 01/27/20 00:30 97 01/27/20 00:20 98.5 F 70 18 164/92 H 97 Weight Weight 78.471 kg I&O: 01/25/20 01/26/20 01/27/20 06:59 06:59 06:59 Output Total 300 Balance -300 Result Diagrams: 01/27/20 03:42 01/27/20 03:42 Phys Exam - Physical Examination appears uncomfortable laying in bed HEENT: PERRLA, moist MMs Neck: no nodes, supple, full ROM Respiratory: no wheezing, no rales, no rhonchi, clear to auscultation bilateral Cardiovascular: RRR, no significant murmur Gastrointestinal: no distention, positive bowel sounds Moderate tenderness, worst in LUQ with involuntary guarding, no rebound Musculoskeletal: no edema, pulses present Neurological: moves all 4 limbs Psychiatric: normal affect, A&O x 3 Skin: no rash Dx/Plan (1) Partial small bowel obstruction Code(s): K56.600 - PARTIAL INTESTINAL OBSTRUCTION, UNSPECIFIED TO CAUSE Status: Acute (2) Bipolar 2 disorder Code(s): F31.81 - BIPOLAR II DISORDER Status: Chronic (3) Diabetes mellitus Code(s): E11.9 - TYPE 2 DIABETES MELLITUS WITHOUT COMPLICATIONS Status: Chronic Qualifiers: Diabetes mellitus type: type 2 Diabetes mellitus mcc insulin use: with mcc use Diabetes mellitus complication status: without complication Qualified Code(s): E11.9 - Type 2 diabetes mellitus without complications; Z79.4 - terminal operator (current) use of insulin (4) HTN (hypertension) Code(s): I10 - ESSENTIAL (PRIMARY) HYPERTENSION Status: Chronic Qualifiers: Hypertension type: essential hypertension Qualified Code(s): I10 - Essential (primary) hypertension - Plan Plan: 64 y/o M with PMHx T2DM, bipolar disorder, CAD, AICD, HTN who presented for worsening abdominal/L flank pain. Small bowel obstruction, possible, partial -CT scan showed luminal narrowing and mural thickening in the Jejunum; neoplasm could not be ruled out -Surgery was consulted in the ED, f/u recs -On Zosyn and Flagyl -NPO as of now -LR at 115mls/hr -Consider GI consult for evaluation with endoscopy, pending surgery recs IDDMII -accu-chek q6 while NPO -hypoglycemic protocol in place -will hold home lantus while NPO -mild SS insulin in place Bipolar Disorder -continue home seroquel HTN -pt reports that he is not taking any antihypertensives at home -hydralazine PRN for SBP >180 while in the hospital -SENG inhibitor allergy -Start amlodipine 5mg daily -f/u BP with PCP Diet: NPO IVF: LR 115mls/hr PPx: SCDs and protonix Code: Full PCP: Germán Attending: Chucky Dispo: will admit to Onc. Expected length of stay >48 hrs. Addendum - Attending - Attending Attestation Date/Time: 01/27/20 8572 I personally evaluated the patient and discussed the management with Dr. Baez. I agree with the History, Examination, Assessment and Plan documented above with any addition or exceptions noted below. GI consulted per Gen surg recs. continue pain control. adjust SSI and BP meds.
[2020-01-27] MEDS: metroNIDAZOLE 500 MG in Premix Bag 1 BAG IVPB SCH ×3 (07:57→23:32)
[2020-01-27] MEDS ORDERED: Enoxaparin Sodium 40 MG/0.4 ML SYRINGE SC SCH (09:00)
[2020-01-27] MEDS: Amlodipine 5 MG TAB PO SCH (10:08)
[2020-01-27] MEDS: Acetaminophen 325 MG TAB PO PRN ×2 (10:08→14:22)
[2020-01-27] MEDS: HumaLOG 300 UNITS/3 ML VIAL SC PRN ×2 (12:13→18:17)
--- NOTE | 2020-01-27 16:50 | CON ---
DATE OF CONSULTATION: 01/27/2020 REASON FOR CONSULTATION: Abdominal pain. HISTORY OF PRESENT ILLNESS: Mr. Julio Edge is a 64-year-old man, who presented to the hospital with a 3-month history of left-sided abdominal pain, which has gotten worse over the past three days. He has actually been into the ER three times in the past few months for this problem and has had three CT scans. They had never seen anything before, but he did not receive contrast for the previous scans. On his most recent scan, he received IV contrast and they noted thickening and dilation of his proximal jejunum. He also reports that he has seen streaks of blood in his stool a couple of times recently. He denies any diarrhea or weight loss. He said that his weight goes up and down, but he has not had any food fear or progressive weight loss. For the past three days, however, he has not been able to eat because when he does eat, he just throws it back up. He has not had any fevers or chills. He denies any personal or family history of GI malignancy or inflammatory bowel disease. He has a cardiac history of arrhythmias and has an AICD pacemaker in place. He states that Dr. Martinez is his regular liquor gallery operator and that they are managing his heart disease medically and that he has only minor narrowing of his coronary arteries. On review of his chart, he did have a stress test back in July, which was negative for reversible ischemia, and a heart catheterization in 2013, which showed mild disease, nothing more than 30% stenosis. The pain that he is having is intermittent and crampy and not necessarily associated with eating; although it may get a little bit worse after eating, mostly it is the nausea and vomiting that get worse with eating. PAST MEDICAL HISTORY: Diabetes type 2, now on insulin; hypertension; bipolar; coronary artery disease; and arrhythmias. He was also told last year that he may have had some mini strokes. ALLERGIES: HE HAS ALLERGIES OR ADVERSE DRUG REACTIONS TO SENG INHIBITORS, METFORMIN, ARIPIPRAZOLE, AND PENICILLINS. MEDICATIONS: Include; 1. Amlodipine 5 mg p.o. daily. 2. Sliding scale insulin. 3. Flagyl. 4. Zosyn. 5. Protonix. 6. Seroquel. 7. Multiple p.r.n. Home medications include; 1. Aspirin. 2. Nitroglycerin tablets. 3. Glargine insulin 18 units subcu q.a.m. 4. Seroquel. PAST SURGICAL HISTORY: Orthopedic surgery on his knee and his foot, and an AICD pacemaker. FAMILY HISTORY: Lung cancer in both parents and diabetes in his mother. REVIEW OF SYSTEMS: Ten system review of systems is negative except per HPI. PHYSICAL EXAMINATION: VITAL SIGNS: The patient has been afebrile since his admission. His vital signs are normal. Blood pressure is a little bit high. Room air saturations are good. HEENT: Unremarkable. NECK: Supple without lymphadenopathy or thyroid nodules. GENERAL: Reveals a healthy-appearing man, in no acute distress. He is not flushed or toxic. He is not jaundiced or icteric. Every once in a while, he will grimace and hold his left side. HEART: Regular in its rate and rhythm without murmurs, rubs, or gallops. LUNGS: Clear to auscultation bilaterally. ABDOMEN: Soft and nondistended. He has no tenderness to palpation on the right side. He does have diffuse tenderness to palpation on the left side and left flank and has some voluntary guarding, but does not exhibit rigidity or rebound. No palpable masses or hernias. EXTREMITIES: Warm and well perfused. No edema. NEUROLOGIC: No focal deficits. PSYCHIATRIC: Alert, oriented, and appropriate. LABORATORY DATA: White count is normal. He does not have a left shift. Electrolytes are unremarkable. CT images were reviewed and I agree with the written report. His vessels look like they are widely patent with good flow. He does have thickening of the proximal jejunum, beginning shortly after the ligament of Treitz. The bowel distal to the proximal jejunum appears grossly normal. On examination of his CT scan from 12/07, it appears that this segment of bowel looks a little thickened too, although it is a little more difficult to say with no IV or p.o. contrast administered at that time. He had a CT scan at the beginning of November, which, however, shows that the mural thickness is normal in this region of bowel as it was distended with food at the time of his CT scan. ASSESSMENT: Abdominal pain and focal thickening of the proximal jejunum. Differential diagnosis includes ischemic, inflammatory, infectious, and malignant etiologies. Of these, I feel that inflammatory is the most likely, as this has been indolent for several months, slowly getting worse, and he has not received significant improvement in his symptoms with Zosyn since last night. He has not had any fevers or chills and he does not have a leukocytosis or a left shift. Infectious etiologies are still within the differential diagnosis, but I feel this is less likely. Given the lack of food fear or weight loss, and the normal appearance of his vessels on CT, I think that ischemic causes are also less likely. In addition, this is not a typical area to see regional ischemia. He has had some blood in his stool, but he states that his stools have been well formed and otherwise normal and the blood was on the outside of the stool, so this is more likely to be an anal or rectal etiology for the blood streaking. Malignancy cannot be completely excluded, but there is nothing masslike in the appearance of the small bowel segment; there is a fairly long segment that is involved, which would be atypical for adenocarcinoma of the bowel, although it could be seen in other etiologies such as lymphoma. I recommend Gastroenterology consultation for push enteroscopy. I think they should be able to reach the proximal jejunum, which is where some of the abnormal changes begin, although it becomes more abnormal about 10 to 20 cm distal to the ligament of Treitz, which may be more difficult to reach. I would recommend continuing with the IV antibiotics, IV fluids, and bowel rest. I will defer to Gastroenterology whether they feel that they would recommend steroids or other treatment for inflammatory bowel disease. No surgical indication at this time, but I will continue to follow. Job ID: [id number] MTDD
[2020-01-28 04:20] LABS: #Basophils 0.1 thou/uL (0.0-0.2); #Lymphocytes 1.9 thou/uL (1.20-3.40); #Monocytes 0.5 thou/uL (0.11-0.59); #Neutrophils 3.6 thou/uL (1.40-6.50); %Eosinophils 0.8 % (0.0-10.0); %Lymphocytes 31.4 % (21.0-51.0); %Monocytes 7.8 % (0.0-10.0); %Neutrophils 58.9 % (42.0-75.0); Hemoglobin 14.7 g/dL (14.0-18.0); Mean Corpuscular HGB CONC 34.1 g/dL (32.0-36.0); Mean Corpuscular Hemoglobin 33.5 pg (27.0-31.0); Mean Corpuscular Volume 98.3 fL (78.0-98.0); Mean Platelet Volume 8.7 fL (7.4-10.4); Platelet Count 154 thou/uL (130-400); RBC Distribution Width 12.6 % (11.5-14.5); Red Blood Cell (RBC) Count 4.41 mill/uL (4.70-6.10); White Blood Cell (WBC) Count 6.1 thou/uL (4.8-10.8)
[2020-01-28 04:43] LABS: Anion Gap 13 mmol/L (10-20); BUN (Urea Nitrogen) 8 mg/dL (8.4-25.7); Calc. Creatinine Clearance 86 mL/min (70-130); Carbon Dioxide 26 mmol/L (23-31); Chloride 102 mmol/L (98-107); Estimated GFR-MDRD 79; Glucose 133 mg/dL (80-115); Potassium 3.7 mmol/L (3.5-5.1); Sodium 137 mmol/L (136-145)
[2020-01-28] MEDS: Piperacillin/Tazobactam 4.5 GM in Sodium Chloride 0.9% 100 ML IVPB SCH ×3 (05:40→21:28)
--- NOTE | 2020-01-28 05:59 | PDOC.FM ---
- Subjective Subjective: Overnight, became nauseated after morphine administration. At next dose of morphine, he was pre-medicated with zofran, but still developed nausea and diaphoresis, had one episode of dry heaving/vomiting phlegm. Pain regimen was updated from PRN morphine to PRN fentanyl, although he has not yet needed another dose of pain medication. Reports his abdominal pain today is the same as yesterday, although he is able to tolerate it better today after getting good sleep last night. He reports mild nausea this AM as well. Denies any chest pain, SOB, headache, edema. - Objective Vital Signs & Weight: Vital Signs (12 hours) Temp Pulse Resp BP BP Pulse Ox 01/28/20 04:00 98.8 F 100 01/27/20 23:38 99.3 F 86 16 124/78 99 01/27/20 19:30 98.5 F 80 16 152/85 H 100 Weight Admit Weight 78.471 kg Weight 78.471 kg I&O: 01/26/20 01/27/20 01/28/20 06:59 06:59 06:59 Intake Total 2385 Output Total 300 Balance -300 2385 Result Diagrams: 01/28/20 04:08 01/28/20 04:08 Phys Exam - Physical Examination Constitutional: NAD HEENT: PERRLA, moist MMs Neck: no nodes, supple, full ROM Respiratory: no wheezing, no rales, no rhonchi, clear to auscultation bilateral Cardiovascular: RRR, no significant murmur Gastrointestinal: soft, no distention, positive bowel sounds tenderness to light palpation, worst LUQ, some guarding, no rebound Musculoskeletal: no edema, pulses present Neurological: moves all 4 limbs Psychiatric: normal affect, A&O x 3 Skin: no rash Dx/Plan (1) Partial small bowel obstruction Code(s): K56.600 - PARTIAL INTESTINAL OBSTRUCTION, UNSPECIFIED TO CAUSE Status: Acute (2) Bipolar 2 disorder Code(s): F31.81 - BIPOLAR II DISORDER Status: Chronic (3) Diabetes mellitus Code(s): E11.9 - TYPE 2 DIABETES MELLITUS WITHOUT COMPLICATIONS Status: Chronic Qualifiers: Diabetes mellitus type: type 2 Diabetes mellitus intermediate designer insulin use: with jail use Diabetes mellitus complication status: without complication Qualified Code(s): E11.9 - Type 2 diabetes mellitus without complications; Z79.4 - assistant terminal manager (current) use of insulin (4) HTN (hypertension) Code(s): I10 - ESSENTIAL (PRIMARY) HYPERTENSION Status: Chronic Qualifiers: Hypertension type: essential hypertension Qualified Code(s): I10 - Essential (primary) hypertension - Plan Plan: Small bowel obstruction, possible, partial -DDx: neoplasm vs inflammatory/IBD vs infection -CT scan showed luminal narrowing and mural thickening in the Jejunum; neoplasm could not be ruled out -Surgery was consulted in the ED, recommend GI evaluation -GI consulted, EGD to be performed today -On Zosyn and Flagyl -NPO as of now; pending EGD results, may advance to clear liquids after EGD -LR at 115mls/hr IDDMII -accu-chek q6 while NPO -hypoglycemic protocol in place -will hold home lantus while NPO -aggressive SS insulin in place Bipolar Disorder -continue home seroquel HTN -pt reports that he is not taking any antihypertensives at home -hydralazine PRN for SBP >180 while in the hospital -SENG inhibitor allergy -Start amlodipine 5mg daily -f/u BP with PCP Diet: NPO IVF: LR 115mls/hr PPx: SCDs and protonix Code: Full PCP: Germán Attending: Chucky Dispo: will admit to Onc. Expected length of stay >48 hrs Addendum - Attending - Attending Attestation Date/Time: 01/28/20 9636 I personally evaluated the patient and discussed the management with Dr. Baez. I agree with the History, Examination, Assessment and Plan documented above with any addition or exceptions noted below. EGD today. F/u specialist recs. continue pain control.
[2020-01-28] MEDS: Ondansetron PF 4 MG/2 ML Vial IVP PRN ×2 (06:56→22:33)
--- NOTE | 2020-01-28 07:56 | CON ---
DATE OF CONSULTATION: FAMILY PRACTICE SERVICE: Dr. Hernandez. REASON FOR CONSULTATION: Abdominal pain, nausea, and vomiting. HISTORY OF PRESENT ILLNESS: Mr. Cornelio Edge is a very pleasant 64-year-old Latin-Eth[place]ian male with history of abdominal pain, nausea, and vomiting. Symptoms began approximately 2 months ago. The pain actually starts over the left flank and comes on to the epigastric area and also the left upper quadrant. The pain is sharp in nature. The pain is worse with intake of food. He has had episodes of nausea and vomiting off and on. The pain is actually made worse with intake of food and he is trying to avoid eating. He has history of weight loss of 15 pounds. He had an abdominal CAT scan done as an outpatient in November of 2019, that CAT scan was basically negative. The patient came to the ER because of worsening abdominal pain and intermittent nausea and vomiting. He had an abdominal CAT scan done with contrast. Contrast study shows area of narrowing in the jejunum with some inflammatory changes. There is a possibility of mass lesion. His vascular structure appears healthy. His SMA and celiac trunk appear to be free of any occlusion. The patient has had no diarrhea. No hematuria. There is no history of frequent urination or dysphagia. The patient has had negative colonoscopy in the past. He does continue to see mild hematochezia off and on and some constipation recently. Most of the time, he has regular bowel movements, but recently has been constipated. It has been because of decreasing oral intake. There is no history of fever or chills. He had no relevant history. ALLERGIES: ALLERGIC TO SENG INHIBITORS, ABILIFY, METFORMIN, AND PENICILLIN. SOCIAL HISTORY: The patient is a former smoker. He does drink alcohol socially. He was also smoking some marijuana off and on, stopped smoking a month ago. MEDICAL ILLNESSES: 1. Diabetes mellitus. 2. Hypertension. 3. Cardiac arrhythmia. 4. Bipolar disorder. PAST SURGICAL HISTORY: He has had right knee surgery and also the left foot surgery. He has had a pacemaker - AICD placement done in the past. MEDICATIONS LIST: Reviewed; 1. Nitroglycerin. 2. Seroquel. 3. Aspirin. 4. Lantus 18 units every morning. FAMILY HISTORY: Mother, diabetes mellitus and lung cancer. Father, lung cancer. REVIEW OF SYSTEMS: Ten-point system reviewed. CONSTITUTIONAL: History of weight loss. No history of fever or chills. No history of any change in exercise tolerance. HEAD: No chronic headache. EYES: No impaired vision. No diplopia. EARS: No hearing loss. No discharge. NOSE: No nose bleed. THROAT: No sore throat. No dysphagia. NECK: No stiffness or any limitation of movement. LUNGS: No chronic coughing, hemoptysis, or dyspnea. CARDIOVASCULAR SYSTEM: No chest pain. No palpitation. No dyspnea, orthopnea, or PND. GI: Abdominal pain mostly postprandial. The pain is over the upper abdomen going towards the left flank. He had nausea and vomiting. History of weight loss and mild hematochezia. : No dysuria or hematuria. MUSCULOSKELETAL: No chronic arthralgias or myalgias. NEUROLOGIC: No weakness. No TIA. No syncope. NEUROPSYCHIATRY: No depression or anxiety. PHYSICAL EXAMINATION: GENERAL: Appears comfortable, in no acute distress. He is awake, alert, and communicative. VITAL SIGNS: Afebrile. Pulse is 78 and blood pressure is 160/90. HEENT: Conjunctivae are clear. NECK: Supple. No adenitis or thyromegaly noted. CARDIOVASCULAR SYSTEM: Normal heart sounds. LUNGS: Clear to auscultation. ABDOMEN: Soft. Abdomen is tender over the epigastric area, left upper quadrant, also left lumbar area, and also left renal angle. Somewhat there is some fullness over the same area. No definite masses felt. Liver is not enlarged. Bowel sounds are active. EXTREMITIES: Reveal no edema. LABORATORY DATA: On admission; WBC 6900, hemoglobin 16.4, hematocrit 43.2, MCV 94.3, platelet count 160,000. Polymorphs, differential count normal. Lytes; sodium 130, potassium 4, chloride 99, bicarb is 20, BUN is 15, creatinine 0.93, glucose 230, calcium is 9.5, bilirubin 1.1, AST 24, ALT 30, alkaline phosphatase 86, total protein 9.2, albumin is 4.4, and lipase 52. Urinalysis negative. Abdominal CAT scan shows an area of narrowing after the esophageal lumen with some possibly a mass lesion. CLINICAL IMPRESSION: 1. A 64-year-old Latin-Eth[place]ian male with abdominal pain, nausea, and vomiting off and on over the last 2 months. The pain is worse after meals. Because of pain after meals, he has been cutting down his eating. Weight loss of 15 pounds. Abdominal CAT scan does show a lesion in the duodenum, which is more located over the left upper quadrant bowel dilatation. 2. Diabetes mellitus. 3. Hypertension. 4. Bipolar disorder. 5. Status post automatic implantable cardioverter-defibrillator/pacemaker placement. I did talk to Dr. Daryn Martin, who has seen the patient not really sure what is causing his abdominal pain and nausea and vomiting. There is a possibility of possibly a stricture, could be malignant, or possibility that could have something like lymphoma or some other unusual pathology. I did talk to Mr. Edge about having the EGD - endoscopy. Hopefully, the lesion can be reached with the colonoscopy. Dr. Cliff Parekh on-call for me tomorrow and Dr. Parekh will perform procedure tomorrow. This was explained to the patient and he fully understands the procedure well. Job ID: [id number]
[2020-01-28] MEDS: Amlodipine 5 MG TAB PO SCH (08:12)
[2020-01-28] MEDS: metroNIDAZOLE 500 MG in Premix Bag 1 BAG IVPB SCH ×3 (08:12→23:54)
[2020-01-28] MEDS: Fentanyl 100 MCG/2 ML VIAL SLOW IVP PRN ×3 (08:13→20:26)
[2020-01-28] MEDS: Lactated Ringer's 1,000 ML IV SCH ×2 (10:23→12:16)
[2020-01-28] MEDS: HumaLOG 300 UNITS/3 ML VIAL SC PRN ×2 (12:16→18:02)
[2020-01-28] MEDS ORDERED: PROPOFOL 200 MG/20 ML VIAL ONE (12:21)
[2020-01-28 13:30] LABS: SARS-CoV-2 MS2 Positive; SARS-CoV-2 N Gene Negative; SARS-CoV-2 S Gene Negative; SARS-CoV-2 orf1ab Negative
--- NOTE | 2020-01-28 17:09 | OP ---
DATE OF PROCEDURE: 01/28/2020 PROCEDURES PERFORMED: 1. Esophagogastroduodenoscopy with biopsy. 2. Push enteroscopy. PREOPERATIVE DIAGNOSES: 1. Abnormal CT scan of the abdomen, showing thickening of the jejunum in the left upper quadrant with narrowing of the lumen in that area. 2. Nausea and vomiting. DESCRIPTION OF PROCEDURE: Informed consent was obtained from the patient. He was sedated with total intravenous anesthesia. A bite block was placed and the colonoscope was advanced well into the proximal jejunum. The esophagus was normal. The GE junction was unremarkable. The stomach was normal including retroflexed views. Biopsies were obtained from the antrum and body to rule out H pylori. There was erosive duodenitis with multiple erosions, measuring 3 to 5 mm, in the first portion of the duodenum and proximal second portion of the duodenum. The remainder of the duodenal mucosa and mucosa of the proximal jejunum were normal. IMPRESSION: 1. Erosive duodenitis in the first portion and proximal second portion of the duodenum. Duodenal biopsies were obtained. 2. Exam was otherwise normal well into the proximal jejunum. Gastric biopsies were obtained as well. RECOMMENDATIONS: 1. Await histopathology. 2. CT enterography. Another option would be to proceed directly to laparoscopy. I will discuss with Dr. Martin. Job ID: [id number]
[2020-01-29] MEDS ORDERED: Acetaminophen 500 MG TAB PO PRN (00:57)
[2020-01-29] MEDS: Lactated Ringer's 1,000 ML IV SCH ×3 (04:12→19:46)
[2020-01-29] MEDS: Fentanyl 100 MCG/2 ML VIAL SLOW IVP PRN (04:19)
[2020-01-29 04:26] LABS: #Eosinphils 0.1 thou/uL (0.0-0.7); #Lymphocytes 1.7 thou/uL (1.20-3.40); #Monocytes 0.5 thou/uL (0.11-0.59); #Neutrophils 3.9 thou/uL (1.40-6.50); %Basophils 0.2 % (0.0-1.0); %Eosinophils 2.1 % (0.0-10.0); %Lymphocytes 27.5 % (21.0-51.0); %Neutrophils 62.2 % (42.0-75.0); Hemoglobin 14.1 g/dL (14.0-18.0); Mean Corpuscular HGB CONC 34.2 g/dL (32.0-36.0); Mean Corpuscular Hemoglobin 33.8 pg (27.0-31.0); Mean Corpuscular Volume 98.9 fL (78.0-98.0); Mean Platelet Volume 8.7 fL (7.4-10.4); Platelet Count 148 thou/uL (130-400); RBC Distribution Width 12.5 % (11.5-14.5); Red Blood Cell (RBC) Count 4.17 mill/uL (4.70-6.10); White Blood Cell (WBC) Count 6.3 thou/uL (4.8-10.8)
[2020-01-29 04:53] LABS: Anion Gap 11 mmol/L (10-20); BUN (Urea Nitrogen) 8 mg/dL (8.4-25.7); Calc. Creatinine Clearance 94 mL/min (70-130); Calcium 8.6 mg/dL (7.8-10.44); Carbon Dioxide 26 mmol/L (23-31); Chloride 104 mmol/L (98-107); Estimated GFR-MDRD 87; Glucose 152 mg/dL (80-115); Potassium 3.4 mmol/L (3.5-5.1); Sodium 138 mmol/L (136-145)
--- NOTE | 2020-01-29 05:37 | PDOC.FM ---
- Subjective Subjective: No acute overnight events. Was advanced to clear liquid diet yesterday, and reports his nausea has improved since he has been allowed some intake. No vomiting. Also had BM last night, loose to semi-formed without blood. - Objective Vital Signs & Weight: Vital Signs (12 hours) Temp Pulse Resp BP BP Pulse Ox 01/29/20 04:15 98.8 F 01/28/20 23:58 99.3 F 01/28/20 20:10 99.4 F 92 18 151/88 H 98 01/28/20 17:47 84 169/86 H Weight Admit Weight 78.471 kg Weight 78.471 kg I&O: 01/27/20 01/28/20 01/29/20 06:59 06:59 06:59 Intake Total 2385 3334 Output Total 300 Balance -300 2385 3334 Result Diagrams: 01/29/20 04:11 01/29/20 04:11 Phys Exam - Physical Examination Constitutional: NAD HEENT: PERRLA, moist MMs Neck: no nodes, supple, full ROM Respiratory: no wheezing, no rales, no rhonchi, clear to auscultation bilateral Cardiovascular: RRR, no significant murmur Gastrointestinal: soft, positive bowel sounds moderate tenderness to palpation, worst LUQ, some guarding, no rebound Musculoskeletal: no edema, pulses present Neurological: moves all 4 limbs Psychiatric: normal affect, A&O x 3 Skin: no rash Dx/Plan (1) Partial small bowel obstruction Code(s): K56.600 - PARTIAL INTESTINAL OBSTRUCTION, UNSPECIFIED TO CAUSE Status: Acute (2) Bipolar 2 disorder Code(s): F31.81 - BIPOLAR II DISORDER Status: Chronic (3) Diabetes mellitus Code(s): E11.9 - TYPE 2 DIABETES MELLITUS WITHOUT COMPLICATIONS Status: Chronic Qualifiers: Diabetes mellitus type: type 2 Diabetes mellitus penitentiary insulin use: with penitentiary use Diabetes mellitus complication status: without complication Qualified Code(s): E11.9 - Type 2 diabetes mellitus without complications; Z79.4 - FDC (current) use of insulin (4) HTN (hypertension) Code(s): I10 - ESSENTIAL (PRIMARY) HYPERTENSION Status: Chronic Qualifiers: Hypertension type: essential hypertension Qualified Code(s): I10 - Essential (primary) hypertension - Plan Plan: Small bowel obstruction, possible, partial -DDx: neoplasm vs inflammatory/IBD vs infection -CT scan showed luminal narrowing and mural thickening in the Jejunum; neoplasm could not be ruled out -Procalcitonin 0.03, added to blood draw from 01/25, low suspicion for infection , will d/c zosyn & flagyl -LR at 115mls/hr -EGD 01/27 revealed erosive duodenitis, awaiting histopath results -will increase protonix to BID for ulcers -GI recommends CT enteropathy vs laparoscopy, pending discussion with surgery, Dr. Martin -Advanced to clear liquid diet and tolerating well IDDMII -holding home lantus -aggressive SSI, including while NPO -continue to monitor BS as diet is changed from NPO to clear liquids -will adjust insulin as needed Bipolar Disorder -continue home seroquel HTN -pt reports that he is not taking any antihypertensives at home -hydralazine PRN for SBP >180 while in the hospital -SENG inhibitor allergy -Started amlodipine 5mg daily 01/26 -BP remains somewhat elevated, continue to monitor -f/u BP with PCP Diet: clear liquid IVF: LR 115mls/hr PPx: SCDs and protonix Code: Full PCP: Germán Attending: Chucky Dispo: will admit to Onc. Expected length of stay >48 hrs Addendum - Attending - Attending Attestation Date/Time: 01/29/20 1212 I personally evaluated the patient and discussed the management with Dr. Baez. I agree with the History, Examination, Assessment and Plan documented above with any addition or exceptions noted below. CT today per GI. Possible exploratory laparascopy pending results. path pending. BID protonix. D/c abx.
[2020-01-29] MEDS: Piperacillin/Tazobactam 4.5 GM in Sodium Chloride 0.9% 100 ML IVPB SCH (05:51)
[2020-01-29] MEDS: Ondansetron PF 4 MG/2 ML Vial IVP PRN ×2 (08:19→22:59)
[2020-01-29] MEDS: metroNIDAZOLE 500 MG in Premix Bag 1 BAG IVPB SCH (08:20)
[2020-01-29] MEDS: HumaLOG 300 UNITS/3 ML VIAL SC PRN ×2 (08:20→20:15)
[2020-01-29] MEDS: Amlodipine 5 MG TAB PO SCH (08:21)
--- NOTE | 2020-01-29 12:19 | PRG ---
DATE OF SERVICE: 01/29/2020 SUBJECTIVE: Mr. Julio Edge feels better today. No abdominal pain or nausea. OBJECTIVE: VITAL SIGNS: Temperature is 98.9, pulse 72, blood pressure 148/84. GENERAL: He is in no acute distress. Alert and oriented x3. LUNGS: Clear to auscultation bilaterally. HEART: Regular rate and rhythm without murmur. ABDOMEN: Soft, nontender, nondistended. Bowel sounds are present. EXTREMITIES: No lower extremity edema. LABORATORY DATA: Hemoglobin is 14.1. Creatinine 0.88. IMPRESSION: Abnormal CT scan of the abdomen showing a focal area of thickening and luminal narrowing concerning for inflammatory process or possible mass in the left upper quadrant. Push enteroscopy did not reach this area. This site could be a mass or a site of inflammatory process or ischemic process or infectious process. Could be just an area of nondistention with contrast. RECOMMENDATIONS: CT enterography today. If that shows that the lesion appears to have more of a mass type of appearance than laparoscopy is likely the next step. If this area appears to have returned to normal, then no further intervention should be necessary. Job ID: [id number]
--- NOTE | 2020-01-29 15:05 | PDOC.GSPN ---
Surgery Progress Note: Subj - Subjective Narrative: Patient is feeling better today but still quite tender to palpation in the left upper quadrant. His nausea and vomiting have improved. He is passing gas and had a couple bowel movements which were mixed solid and liquid. He is afebrile and his vital signs are okay. The proximal jejunum looked normal on enteroscopy but the scope just may not have reached to the area of concern. He has a CT enterography ordered for today and we will await that result. He was instructed not to have anything to drink after his CT until I have reviewed the results with him, in case laparoscopy is necessary. Surgery Progress Note: Obj - Vital signs Vital signs: Vital Signs - Most Recent Temp Pulse Resp BP Pulse Ox 98.9 F 92 16 148/84 H 98 01/29/20 08:00 01/29/20 08:21 01/29/20 08:00 01/29/20 08:00 01/29/20 08:00 Surgery Progress Note: Results - Labs Result Diagrams: 01/29/20 04:11 01/29/20 04:11 Lab results: Laboratory Results - last 24 hr 01/29/20 01/29/20 01/29/20 04:11 04:11 07:53 WBC 6.3 RBC 4.17 L Hgb 14.1 Hct 41.3 L MCV 98.9 H MCH 33.8 H MCHC 34.2 RDW 12.5 Plt Count 148 MPV 8.7 Neutrophils % 62.2 Lymphocytes % 27.5 Monocytes % 8.0 Eosinophils % 2.1 Basophils % 0.2 Neutrophils # 3.9 Lymphocytes # 1.7 Monocytes # 0.5 Eosinophils # 0.1 Basophils # 0.0 Sodium 138 Potassium 3.4 L Chloride 104 Carbon Dioxide 26 Anion Gap 11 BUN 8 L Creatinine 0.88 Estimated GFR (MDRD) 87 Glucose 152 H POC Glucose 217 H Calcium 8.6 01/29/20 11:28 WBC RBC Hgb Hct MCV MCH MCHC RDW Plt Count MPV Neutrophils % Lymphocytes % Monocytes % Eosinophils % Basophils % Neutrophils # Lymphocytes # Monocytes # Eosinophils # Basophils # Sodium Potassium Chloride Carbon Dioxide Anion Gap BUN Creatinine Estimated GFR (MDRD) Glucose POC Glucose 181 H Calcium - Radiology Interpretation CT scan - abdomen Status: image reviewed by me, report reviewed by me
--- NOTE | 2020-01-29 16:23 | CT ---
CT ABDOMEN AND PELVIS WITH AND WITHOUT IV CONTRAST: (CT Enterography) 01/29/20 HISTORY: Nausea, vomiting, left sided abdominal pain. FINDINGS: Comparison is made with the contrast enhanced CT scan of 01/26/20. The lung bases are unremarkable. There is fatty infiltration of the liver. The spleen, pancreas, adre nal glands and kidneys are normal. No free air, free fluid, or lymphadenopathy is seen in the abdomen or pelvis. There are vascular calcifications without evidence of aneurysmal dilatation of the abdomi nal aorta. There are degenerative changes in the spine. The small bowel loops are not abnormally dilated. No definite thickening of the schilling of the small karina wel loops are seen. No abnormal postcontrast enhancement is seen in the bowel. A normal appearing nilo endix is noted. There is vicarious excretion of contrast in the gallbladder. Small fat containing ing uinal hernia are seen, larger on the left. IMPRESSION: 1. Fatty liver. 2. Normal CT Enterography. POS: MZA
--- NOTE | 2020-01-29 17:04 | PDOC.GSPN ---
Surgery Progress Note: Subj - Subjective Narrative: Patient is back from his CT enterography. He had some nausea and a small amount of emesis with the contrast but had otherwise been tolerating his clear liquid diet and even had a bowel movement this morning. His pain is slightly improved and he has less tender to palpation on the left abdomen. The radiologist feels that the bowel has a normal appearance on CT enterography. On my reading of the images there is still an area that looks a little bit thickened compared to the rest of the jejunum but I do not see anything that looks like a mass and there is no evidence of obstruction or other abnormal process. Since the patient seems to be improving symptomatically I favor continued observation at this time. I am restarting his clear liquid diet and if he tolerates this he can be advanced to full liquids. If he tolerates full liquids I would send him home on a full liquid diet to advance slowly to GI soft and then regular as tolerated. He should probably follow-up in the gastroenterology clinic for consideration of capsule enteroscopy if his symptoms do not completely resolve. Dr. Salazar will be following the patient this weekend. Surgery Progress Note: Obj - Vital signs Vital signs: Vital Signs - Most Recent Temp Pulse Resp BP Pulse Ox 98.9 F 92 16 148/84 H 98 01/29/20 08:00 01/29/20 08:21 01/29/20 08:00 01/29/20 08:00 01/29/20 08:00 Surgery Progress Note: Results - Labs Result Diagrams: 01/29/20 04:11 01/29/20 04:11 Lab results: Laboratory Results - last 24 hr 01/29/20 01/29/20 01/29/20 07:53 11:28 16:19 POC Glucose 217 H 181 H 226 H - Radiology Interpretation CT scan - abdomen Status: image reviewed by me, report reviewed by me
[2020-01-29] MEDS: HYDROcodone/Acetaminophen 5/325 mg Tablet PO PRN ×2 (19:23→23:01)
--- NOTE | 2020-01-30 02:05 | PRG ---
DATE OF SERVICE: 01/29/2020 SUBJECTIVE: The patient was seen this evening during rounds. He was lying in bed, asleep, with no signs of acute distress. Nursing reported no acute events. The Trauma Team is seeing the patient this weekend with Dr. Salazar while Dr. Martin is out of town. Nursing reported the patient had 2 bowel movements today and his abdominal pain is improving. OBJECTIVE: VITAL SIGNS: Temperature 98.7, pulse 70, respirations 16, oxygen saturation 98% on room air, blood pressure 160/91. GENERAL: A well-appearing elderly male, lying in bed, asleep, with no signs of acute distress. PULMONARY: Equal chest rise and fall. No signs of acute respiratory distress. ASSESSMENT: 1. Possible partial small bowel obstruction with persistent abdominal pain, now improving. 2. History of hypertension, bipolar disorder, diabetes, coronary artery disease, and arthritis. PLAN: Continue current diet. Continue IV fluid. Dr. Salazar will re-evaluate the patient in the morning and likely advance his diet. We will hold off until that time. Job ID: [id number]
[2020-01-30] MEDS: Lactated Ringer's 1,000 ML IV SCH (05:11)
--- NOTE | 2020-01-30 05:41 | PDOC.FM ---
- Subjective Subjective: No acute overnight events. has been having good BMs, no more N/V. His abdominal pain is improving. He has been tolerating clear liquids well. Denies any headache, SOB, chest pain, edema. - Objective Vital Signs & Weight: Vital Signs (12 hours) Temp Pulse Resp BP Pulse Ox 01/29/20 19:28 98.7 F 70 16 160/91 H 98 Weight Admit Weight 78.471 kg Weight 78.471 kg I&O: 01/28/20 01/29/20 01/30/20 06:59 06:59 06:59 Intake Total 2385 3334 2265 Balance 2385 3334 2265 Result Diagrams: 01/30/20 06:32 01/30/20 06:32 Phys Exam - Physical Examination Constitutional: NAD HEENT: PERRLA, moist MMs Neck: supple, full ROM Respiratory: no wheezing, no rales, no rhonchi, clear to auscultation bilateral Cardiovascular: RRR, no significant murmur Gastrointestinal: soft, no distention, positive bowel sounds mild tenderness over LUQ Musculoskeletal: no edema, pulses present Neurological: non-focal, moves all 4 limbs Psychiatric: normal affect, A&O x 3 Skin: no rash Dx/Plan (1) Partial small bowel obstruction Code(s): K56.600 - PARTIAL INTESTINAL OBSTRUCTION, UNSPECIFIED TO CAUSE Status: Acute (2) Bipolar 2 disorder Code(s): F31.81 - BIPOLAR II DISORDER Status: Chronic (3) Diabetes mellitus Code(s): E11.9 - TYPE 2 DIABETES MELLITUS WITHOUT COMPLICATIONS Status: Chronic Qualifiers: Diabetes mellitus type: type 2 Diabetes mellitus buttermaker continuous churn insulin use: with longterm use Diabetes mellitus complication status: without complication Qualified Code(s): E11.9 - Type 2 diabetes mellitus without complications; Z79.4 - MCFP (current) use of insulin (4) HTN (hypertension) Code(s): I10 - ESSENTIAL (PRIMARY) HYPERTENSION Status: Chronic Qualifiers: Hypertension type: essential hypertension Qualified Code(s): I10 - Essential (primary) hypertension - Plan Plan: Small bowel obstruction, possible, partial -DDx: neoplasm vs inflammatory/IBD vs infection -CT scan showed luminal narrowing and mural thickening in the Jejunum; neoplasm could not be ruled out -Procalcitonin 0.03, added to blood draw from 01/25, low suspicion for infection , d/c zosyn & flagyl on 01/28 -EGD 01/27 revealed erosive duodenitis, awaiting histopath results -increase protonix to BID for ulcers -CT enteropathy without sign of mass, surgery following, appreciate recs -Advanced to clear liquid diet and tolerating well IDDMII -BS has been poorly controlled on SSI -will resume home lantus today -continue to monitor Bipolar Disorder -continue home seroquel HTN -pt reports that he is not taking any antihypertensives at home -hydralazine PRN for SBP >180 while in the hospital -SENG inhibitor allergy -Started amlodipine 5mg daily 01/26 -BP remains somewhat elevated, continue to monitor -f/u BP with PCP Diet: clear liquid IVF: SL PPx: SCDs and protonix Code: Full PCP: Germán Attending: Chucky Dispo: stable, likely DC to home today pending surgery recs this AM
[2020-01-30 06:53] LABS: #Basophils 0.1 thou/uL (0.0-0.2); #Eosinphils 0.2 thou/uL (0.0-0.7); #Lymphocytes 2.3 thou/uL (1.20-3.40); #Monocytes 0.5 thou/uL (0.11-0.59); #Neutrophils 2.3 thou/uL (1.40-6.50); %Eosinophils 3.1 % (0.0-10.0); %Lymphocytes 43.7 % (21.0-51.0); %Monocytes 8.9 % (0.0-10.0); %Neutrophils 43.4 % (42.0-75.0); Hemoglobin 15.5 g/dL (14.0-18.0); Mean Corpuscular HGB CONC 34.2 g/dL (32.0-36.0); Mean Corpuscular Hemoglobin 33.7 pg (27.0-31.0); Mean Corpuscular Volume 98.3 fL (78.0-98.0); Mean Platelet Volume 8.9 fL (7.4-10.4); Platelet Count 160 thou/uL (130-400); RBC Distribution Width 12.3 % (11.5-14.5); Red Blood Cell (RBC) Count 4.59 mill/uL (4.70-6.10); White Blood Cell (WBC) Count 5.3 thou/uL (4.8-10.8)
[2020-01-30 07:03] LABS: Anion Gap 13 mmol/L (10-20); BUN (Urea Nitrogen) 6 mg/dL (8.4-25.7); Calc. Creatinine Clearance 94 mL/min (70-130); Calcium 9.1 mg/dL (7.8-10.44); Carbon Dioxide 24 mmol/L (23-31); Chloride 103 mmol/L (98-107); Estimated GFR-MDRD 87; Glucose 127 mg/dL (80-115); Potassium 3.3 mmol/L (3.5-5.1); Sodium 137 mmol/L (136-145)
[2020-01-30] MEDS ORDERED: Nitroglycerin 0.4 MG TAB (25 Tab Bottle) SL PRN (07:44)
[2020-01-30] MEDS ORDERED: Potassium Chloride 20 MEQ TAB PO SCH (08:15)
[2020-01-30 08:27] VITALS: BP 153/89; TEMP 98.5
[2020-01-30] MEDS: Amlodipine 5 MG TAB PO SCH (08:32)
[2020-01-30] MEDS: HYDROcodone/Acetaminophen 5/325 mg Tablet PO PRN (08:34)
[2020-01-30] MEDS ORDERED: Insulin Glargine 18 UNITS in Pre-Filled Syringe 1 EACH SC SCH (09:00)
[2020-01-30] MEDS ORDERED: Aspirin 81 mg Enteric Coated Tablet PO SCH (09:00)
[2020-01-30] MEDS ORDERED: HumaLOG 300 UNITS/3 ML VIAL SC PRN (12:30)
--- NOTE | 2020-01-30 16:17 | PRG ---
DATE OF SERVICE: 01/30/2020 SUBJECTIVE: I am seeing Mr. Julio Edge on behalf of Dr. Martin. The patient was recently evaluated for abdominal pain and suspicious for small bowel obstruction. CT angiography has been performed and no evidence of obstruction. The patient is seen this morning. Denies any nausea within last 24 hours. He is tolerating liquid diet. He is having bowel movement and passing flatus. He has no abdominal complaints this morning. OBJECTIVE: VITAL SIGNS: This morning include blood pressure 153/89, pulse 76, respiratory rate is 18, temperature 98.5 degrees Fahrenheit, oxygen saturation 96% on room air. ABDOMEN: Soft, nontender, nondistended. NEUROLOGIC: Reveals no focal deficits present. LABORATORY FINDINGS: Today include a CBC with 5,300 white blood cells, hemoglobin and hematocrit stable at 15.5 and 45.1 respectively. The platelet count is also stable at 160,000. Metabolic profile; sodium 137, potassium 3.3, chloride is 103, bicarb is 24, BUN is 6, creatinine 0.88, glucose 127. IMPRESSION: Resolved acute partial small bowel obstruction. RECOMMENDATION: No further surgical indication for this patient at this time. He may advance his diet as tolerated. He follows up with Gastroenterology for outpatient capsule endoscopy. The patient indicates understanding of the information provided. I have answered his questions. Job ID: [id number]
--- NOTE | 2020-01-30 17:46 | PRG ---
DATE OF SERVICE: 01/30/2020 SUBJECTIVE: The patient is dramatically improved, eating better, wants to advance diet, normal bowel movements, less pain. His cardiac workup came back normal and as long as it is okay with surgery, will be able to be discharged today. Job ID: [id number]
--- NOTE | 2020-01-31 22:56 | DIS ---
DATE OF ADMISSION: 01/26/2020 DATE OF DISCHARGE: 01/30/2020 RESIDENT: Angella Baez DO ADMITTING ATTENDING: Yanet Locke MD DISCHARGE ATTENDING: Miguel Kothari MD CONSULTS: 1. GI, Dr. Parekh. 2. Surgery, Dr. Martin. PROCEDURES: 1. CT of the abdomen and pelvis, abnormal loop of jejunum in the left mid abdomen. Luminal narrowing and mural thickening. Etiology such as neoplasms are not excluded. No other acute process or interval change. 2. EGD, erosive duodenitis in the first portion and proximal second portion of the duodenum. Duodenal biopsies were obtained. Exam otherwise normal well into the proximal jejunum. Gastric biopsies obtained. 3. CT enterography, normal CT enterography. Small bowel loops not abnormally dilated. No definite thickening of the schilling of the small bowel loops are seen, fatty liver. PRIMARY DIAGNOSES: Partial small bowel obstruction. SECONDARY DIAGNOSES: 1. Hypertension. 2. Type 2 diabetes. 3. Coronary artery disease. 4. Bipolar disorder. DISCHARGE MEDICATIONS: 1. Nitrostat 0.4 mg p.o. q.5 minutes p.r.n. 2. Seroquel 100 mg p.o. at bedtime. 3. Aspirin 81 mg daily. 4. Lantus 18 units q.a.m. 5. Amlodipine 5 mg daily. 6. Zofran 4 mg p.o. q.6 hours p.r.n. 7. Omeprazole 20 mg p.o. b.i.d. DISCONTINUED MEDICATIONS: None. HOSPITAL COURSE: This 64-year-old male with past medical history of type 2 diabetes, hypertension, CAD, and bipolar disorder, presented to the ED for left-sided flank and abdominal pain that has been present for several months, acutely worsening in last 3 days prior to presentation. He endorsed nausea, vomiting, decent p.o. intake, and streaks of blood in the stool. Vitals were stable. He was afebrile. CT of the abdomen and pelvis performed in the ED revealed abnormal loop of jejunum in the left mid abdomen. Luminal narrowing and mural thickening. Etiology such as neoplasms are not excluded. Surgery was consulted from the ED and recommended GI consultation first. He was admitted with Zosyn, Flagyl, maintenance IV fluids, and Protonix and was kept n.p.o. GI was consulted and EGD was performed revealing erosive duodenitis. Pathology results of biopsies are still pending at the time of writing this note. The patient continued to have significant pain, for which he was given morphine. On one occasion, morphine worsened his nausea symptoms. On the next administration, he was pretreated with Zofran which did not help. A few minutes after administration of the morphine, he developed nausea and vomiting. This was documented as an allergy to morphine in the EMR, although it is not likely a true allergic reaction. He was otherwise treated with a combination of Tylenol and [place]. Ultimately, his pain was partially relieved by having several movements and advancing to clear liquid diet. On recommendation from GI and Surgery, CT enterography was performed which did not reveal any narrowing of the lumen or thickening of the schilling previously noted on the CT of the abdomen and pelvis in the ED. Procalcitonin was added to the blood drawn on his admission and was negative at 0.03. In the setting of low procalcitonin, no leukocytosis and no fever. The patient's antibiotics were discontinued. He continued to improve symptomatically and was advanced to a full-liquid diet which he tolerated well. Additional issues throughout his admission include poorly-controlled hypertension and type 2 diabetes. He was started on amlodipine for his hypertension. No adjustments were made to his insulin regimen, although he did require an aggressive sliding scale to supplement his long-acting insulin. Recommend close followup with his PCP for further titration of these medications. Upon discharge, the patient was stable with mild abdominal pain and no nausea or vomiting. He was discharged in stable condition and plans to follow up with GI, Dr. Parekh, if his symptoms persist. He was prescribed a small amount of Zofran and a PPI for duodenal ulcers. He also requested an additional prescription for pain medications, but left the hospital before a prescription for Tylenol No. 3 could be given to him. Multiple attempts were made to contact the patient to pick this up, but were unsuccessful. DISPOSITION: Stable. DISCHARGE INSTRUCTIONS: Location: Home. Diet: Slow advancement from full liquids to GI soft to regular diet as tolerated. Activity: As tolerated. Followup: Follow up with PCP, Dr. Dunlap, at [facility] within 3 days and with GI, Dr. Parekh, within 14 days if symptoms persist. Job ID: [id number]
--- NOTE | 2020-02-02 14:24 | PQF ---
CLINICAL DOCUMENTATION CLARIFICATION FORM: Dear Dr. DR. DIMAS Date / Time: 02/02/20200 Please exercise your independent, professional judgment in responding to the clarification form. Clinical indicators are provided on the bottom of this form for your review. Please check appropriate box(es): [ x ] Hyponatremia please specify etiology, if known __likely poor oral intake_ [ ] Hyponatremia due to SIADH (Syndrome of Inappropriate Secretion of Antidiuretic Hormone) [ ] Other diagnosis [ ] Unable to determine In addition, please specify: Present on Admission (POA): [x ] Yes [ ] No [ ] Unable to determine For continuity of documentation, please document condition throughout progress notes and discharge summary. Thank You. To be completed by CDI/Coding staff for physician review: CLINICAL INDICATORS - SIGNS / SYMPTOMS / LABS / RESULTS AND LOCATION IN EMR 01/25 SODIUM 130 01/26 SODIUM 133 01/25 H&P ( VICKIE) PT REPORTS N/V WITH DECREASED PO INTAKE DURING THIS 3 DAY PERIOD RISK FACTORS / RESULTS AND LOCATION IN EMR PARTIAL SMALL BOWEL OBSTURCTION TREATMENTS / RESULTS AND LOCATION IN EMR (01/25-01/18) IV FLUIDS LACTATED RINGERS (01/25-01/29) SERIAL LABS Thank you! Monalisa CDS Signature: Monalisa Murdock Phone #: [phone] Date : 02/02/2020 1410 This is a permanent part of the Medical Record [facility]
== END 2020-01-30 15:10 | disposition home or self-care (01) | DRG 389 ==
LOC: ERS 17:54 → ONC 22:17
PROVIDERS: ADMIT Family Medicine; ATTEND Family Medicine
PROC: 0DB98ZX Excision of Duodenum, Via Natural or Artificial Opening Endoscopic, Diagnostic (ICD-10-PCS; principal; 2020-01-28)
PROC: 0DB78ZX Excision of Stomach, Pylorus, Via Natural or Artificial Opening Endoscopic, Diagnostic (ICD-10-PCS; 2020-01-28)
DX: K56.600 Partial intestinal obstruction, unspecified as to cause (principal); E87.1 Hypo-osmolality and hyponatremia; I10 Essential (primary) hypertension; E11.9 Type 2 diabetes mellitus without complications; I25.10 Atherosclerotic heart disease of native coronary artery without angina pectoris; I48.91 Unspecified atrial fibrillation; M10.9 Gout, unspecified; M19.90 Unspecified osteoarthritis, unspecified site; I25.84 Coronary atherosclerosis due to calcified coronary lesion; F31.9 Bipolar disorder, unspecified; K29.80 Duodenitis without bleeding; Z95.810 Presence of automatic (implantable) cardiac defibrillator; Z79.01 Long term (current) use of anticoagulants; Z87.891 Personal history of nicotine dependence; Z79.4 Long term (current) use of insulin; Z88.0 Allergy status to penicillin; Z88.8 Allergy status to other drugs, medicaments and biological substances
CPT/HCPCS: 36415; 36416; 74177; 74178; 80048; 80053; 80306; 81003; 83605; 83690; 84145; 84484; 85025; 87635; 88305; 88312; 93005; 96361; 96365; 96375; J0360; J1815; J2270; J2405; J2543; J2704; J3010; J3490; Q0162; Q9967; U0003

== ENCOUNTER 2020-04-17 10:02 | Inpatient (IN) | payer OTHER ==
[2020-04-17] MEDS ORDERED: Vancomycin 1 GM in Premix Bag 1 BAG IVPB SCH (11:30)
[2020-04-17 11:33] LABS: #Monocytes 0.3 thou/uL (0.11-0.59); #Neutrophils 3.8 thou/uL (1.40-6.50); %Basophils 0.4 % (0.0-1.0); %Eosinophils 0.8 % (0.0-10.0); %Lymphocytes 19.9 % (21.0-51.0); %Monocytes 5.8 % (0.0-10.0); %Neutrophils 73.1 % (42.0-75.0); Hemoglobin 13.6 g/dL (14.0-18.0); Mean Corpuscular HGB CONC 34.4 g/dL (32.0-36.0); Mean Corpuscular Hemoglobin 34.7 pg (27.0-31.0); Mean Platelet Volume 9.3 fL (7.4-10.4); Platelet Count 120 thou/uL (130-400); RBC Distribution Width 11.7 % (11.5-14.5); Red Blood Cell (RBC) Count 3.91 mill/uL (4.70-6.10); White Blood Cell (WBC) Count 5.2 thou/uL (4.8-10.8)
[2020-04-17 11:59] LABS: ALT (SGPT) 20 U/L (8-55); AST (SGOT) 11 U/L (5-34); Albumin 3.6 g/dL (3.4-4.8); Alkaline Phosphatase 57 U/L (40-110); Anion Gap 13 mmol/L (10-20); BUN (Urea Nitrogen) 13 mg/dL (8.4-25.7); Calc. Creatinine Clearance 0 mL/min (70-130); Calcium 8.7 mg/dL (7.8-10.44); Carbon Dioxide 24 mmol/L (23-31); Chloride 102 mmol/L (98-107); Estimated GFR-MDRD Greater than 90; Glucose 301 mg/dL (80-115); Potassium 3.7 mmol/L (3.5-5.1); Protein, Total 6.6 g/dL (5.8-8.1); Sodium 135 mmol/L (136-145)
[2020-04-17 12:07] LABS: CRP (Inflammatory) 14.22 mg/dL (= or < 0.5)
[2020-04-17] MEDS ORDERED: Acetaminophen 325 MG TAB PO PRN (12:35)
[2020-04-17] MEDS ORDERED: Dextrose 50% Abboject 50 ML SYRINGE SLOW IVP PRN (12:35)
[2020-04-17] MEDS ORDERED: HumaLOG 300 UNITS/3 ML VIAL SC PRN (12:35)
[2020-04-17] MEDS ORDERED: Senokot S 8.6-50 MG TAB PO PRN (12:35)
[2020-04-17] MEDS ORDERED: Dextrose 5% in Water 1,000 ML IV PRN (12:35)
[2020-04-17] MEDS ORDERED: Bisacodyl 5 MG TAB PO PRN (12:35)
--- NOTE | 2020-04-17 12:35 | PDOC.FPRHP ---
- History of Present Illness Chief Complaint: L wrist pain History of Present Illness: Patient is a 64 yo male, PMHx of Type II DM, HTN, OA, CAD, Bipolar Disorder who presents to the ED with complaints of left wrist and arm pain since x3 days. States the pain started in the wrist and is now going up to the shoulder. Notes that he went to the ER 2 days ago and was sent home with naproxen and tylenol 3 which did not help the pain. He notes last night the swelling in his wrist got worse in addition to worsening redness of the wrist that has gone up his forearm. He denies any trauma or bug bite that may have caused the redness. He states he is unable to move his wrist due to the pain. He denies fever or chills, chest pain or shortness of breath, pain or swelling in other joints. He reports hx of IDDM, but that he has been out of insulin for 3 months and has not been taking it. He has had infections in his feet due to ulcers and uncontrolled sugars, but has not had any amputations. ED Course: fentanyl and 1g Vancomycin in ED - Allergies/Adverse Reactions Allergies Allergy/AdvReac Type Severity Reaction Status Date / Time SENG Inhibitors Allergy Verified 03/11/20 14:34 aripiprazole [From Abilify] Allergy Verified 03/11/20 14:34 metformin Allergy Verified 03/11/20 14:34 morphine Allergy Verified 03/11/20 14:34 Penicillins Allergy Verified 03/11/20 14:34 tramadol Allergy Verified 03/11/20 14:34 - Home Medications Medication Instructions Recorded Confirmed Type Amlodipine [Norvasc] 5 mg PO DAILY 03/11/20 04/17/20 History Insulin Glargine,Hum.Rec.Anlog 18 units SC DAILY 03/11/20 04/17/20 History [Lantus] QUEtiapine Fumarate [SEROquel] 150 mg PO HS 03/11/20 04/17/20 History - History PMHx: DMII, Cocaine Abuse, Bipolar, KHALIF, HTN, CAD, OA PSHx: AICD placement, Surgery on Toes for infection FHx: DM, Lung cancer (both parents) Social: denies alcohol, states he smoked for around 25-30 years, 3 packs a week before stopping 25-30 years ago - Review of Systems General: denies: fever/chills, weight/appetite/sleep changes Eyes: denies: eye pain, vision changes ENT: denies: nasal congestion, rhinorrhea Respiratory: denies: cough, congestion Cardiovascular: denies: chest pain, palpitation Gastrointestinal: denies: nausea, vomiting, abdominal pain Genitourinary: denies: incontinence, dysuria Skin: denies: rashes, lesions Musculoskeletal: reports: pain, tenderness, swelling Neurological: denies: numbness, syncope Psychological: denies: anxiety, depression - Vital signs BP: 143/88, Pulse: 93, Resp: 16, O2 sat: 97 on RA, Wt: 73kg - Physical Exam Constitutional: NAD HEENT: normocephalic and atraumatic, PERRLA, EOMI Neck: supple, FROM -Chest: Defibrillator noticeable under skin on L chest wall Heart: RRR, pulses present Lungs: CTAB, no respiratory distress Abdomen: soft, non-tender, bowel sounds present -Musculoskeletal: L Wrist: Edema of the left hand and wrist, erythema extending mid forearm, warmth to touch, very sensitive to touch, no active or passive Flexion or Extension due to pain, significant pain along both flexor and extensor sheaths, tenderness to palpation of the forearm and upper arm, pulses intact Neurological: no focal deficit, CN II-XII intact Skin: no rash/lesions Heme/Lymphatic: no unusual bruising or bleeding, no purpura Psychiatric: normal mood and affect, good judgment and insight FMR H&P: Results - Labs Result Diagrams: 04/17/20 11:11 04/17/20 11:11 Lab results: WBC 5.2 thou/uL (4.8-10.8) 04/17/20 11:11 Hgb 13.6 g/dL (14.0-18.0) L 04/17/20 11:11 Hct 39.5 % (42.0-52.0) L 04/17/20 11:11 MCV 101.0 fL (78.0-98.0) H 04/17/20 11:11 Plt Count 120 thou/uL (130-400) L 04/17/20 11:11 Neutrophils % 73.1 % (42.0-75.0) 04/17/20 11:11 ESR Westergren 26 mm/hr (Less than 20) 04/17/20 11:11 Sodium 135 mmol/L (136-145) L 04/17/20 11:11 Potassium 3.7 mmol/L (3.5-5.1) 04/17/20 11:11 Chloride 102 mmol/L (98-107) 04/17/20 11:11 Carbon Dioxide 24 mmol/L (23-31) 04/17/20 11:11 BUN 13 mg/dL (8.4-25.7) 04/17/20 11:11 Creatinine 0.83 mg/dL (0.7-1.3) 04/17/20 11:11 Glucose 301 mg/dL (80-115) H 04/17/20 11:11 Lactic Acid 0.9 mmol/L (0.5-2.2) 04/17/20 11:31 Calcium 8.7 mg/dL (7.8-10.44) 04/17/20 11:11 Total Bilirubin 1.0 mg/dL (0.2-1.2) 04/17/20 11:11 AST 11 U/L (5-34) 04/17/20 11:11 ALT 20 U/L (8-55) 04/17/20 11:11 Alkaline Phosphatase 57 U/L (40-110) 04/17/20 11:11 Creatine Kinase 78 U/L (30-200) 04/17/20 11:11 C-Reactive Protein 14.22 mg/dL (= or < 0.5) H 04/17/20 11:11 Serum Total Protein 6.6 g/dL (5.8-8.1) 04/17/20 11:11 Albumin 3.6 g/dL (3.4-4.8) 04/17/20 11:11 FMR H&P: A/P - Plan LUE Cellulitis vs. Suspected Tenosynovitis ESR 14.2 (2.5 on 04/15) CRP 16 (8 on 04/15) WBC wnl, vitals stable XR L Wrist and XR L Forearm on 04/15: degenerative changes without evidence of acute osseous abnormality Patient unable to flex or extend due to pain, causing suspicion of tenosynovitis - Will treat with Vanc/Ceftriaxone - Dr. Newman (ortho) consulted, appreciate recs - Will wait for additional imaging (MRI) until after we see response to antibiotics tomorrow - uric acid ordered - procal ordered - 5/325 [place] Q6hr PRN for pain management - continue to monitor vitals - am CBC DMII BG 300s, uncontrolled patient has not been taking Lantus x 3 months Hx of infections in toes, no amputations - moderate SSI - hypoglycemia protocol - ACHS glucose checks Bipolar Disorder - resume home meds HTN - resume home meds Hx OA - aware Hx CAD - aware, defibrillator in place Hx of Cocaine Abuse - urine drug screen ordered Diet: normal Code: FULL Diet: CC Dispo: medical, obs Case discussed with Dr. Simeon FMR H&P: Upper Level - Plan Date/Time: 04/17/20 1233 I, Carmen Pizano, have evaluated this patient and agree with findings/plan as outlined by general internal medicine doctor resident. Pertinent changes/additions are listed here. This is a 64yo M with PMH of IDDM2, HTN, gout, CAD with defibrillator, and OA here with complaints of left wrist pain. He reports that the pain/swelling in his left wrist started on . He went to the ER 2 days ago and was sent home. He returned today for worsening pain and swelling. He denies any trauma, injury, animal bits, IV drug use. He denies a hx of gout, but this was found in his records from clinic. He states that he is unable to move his wrist up or down. Denies any numbness/tingling, fever, sick contacts, NVD. He reports hx of IDDM, but that he has been out of insulin for 3 months and has not been taking i t. He has had infections in his feet due to ulcers and uncontrolled sugars, but has not had any amputations. Patient has been afebrile while in the ER. He was started on vanc and given fentanyl and fluids. Ortho was consulted from the ER and recommended a uric acid. X ray two days ago showed no bone involvement. CRP 14.22. On exam, the patient did have significant swelling to his left wrist and hand. Redness extending from left hand to mid forearm. Patient with pain upon passive flexion and extension. Significant pain along the course of both flexor and extensor sheaths. Sensation intact. Will admit patient to medical floor. Suspect tenosynovitis based on exam vs cellulitis. Appreciate ortho recs. Will get uric acid, procal. MRI pending. Will continue vancomycin and add rocephin. Blood cx pending. [place] for pain. A1c pending. Will do mod SS. Diabetes education. Monitor VS. Tylenol PRN for fever. Code: FULL Diet: CC Dispo: medical, obs Case discussed with Dr. Simeon Addendum - Attending - Attending Attestation Date/Time: 04/17/20 5397 I personally evaluated the patient and discussed the management with Dr. Torres/Harinder. I agree with the History, Examination, Assessment and Plan documented above with any addition or exceptions noted below. Patient here with acute pain and redness of wrist, associated with restricted ROM and pain reproducible with active/passive ROM of digits. He has no systemic s/sx of infection. He denies trauma. Has uncontrolled chronic health problems. Vitals stable, labs c/w hyperglycemia and inflammatory process but no other acute changes from his chronic lab changes. XR from 2 days ago does not reveal major bony abnormalitiy. Patient will be admitted for suspected cellulitis versus septic wrist versus tenosynovitis. Continue broad spectrum abx, cultures obtained. Ortho has been consulted. Consider MRI if no/minimal improvement overnight. Monitor neurovascular status. Control HTN and DM to promote wound healing.
[2020-04-17] MEDS ORDERED: cefTRIAXone\\ROCEPHIN 2 GM in Sodium Chloride 0.9% 100 ML IVPB SCH (13:15)
[2020-04-17 13:25] LABS: Hemoglobin A1c 10.6 % (4.0-6.0)
[2020-04-17] MEDS ORDERED: Fentanyl 100 MCG/2 ML VIAL ONE (13:42)
[2020-04-17] MEDS ORDERED: Ondansetron PF 4 MG/2 ML Vial IVP PRN (14:11)
[2020-04-17] MEDS ORDERED: Ondansetron ODT 4 MG TAB PO PRN (14:11)
[2020-04-17 14:19] VITALS: BMI 25.1
[2020-04-17] MEDS ORDERED: HYDROcodone/Acetaminophen 5/325 mg Tablet PO PRN (15:20)
[2020-04-17] MEDS: HumaLOG 300 UNITS/3 ML VIAL SC PRN (15:53)
--- NOTE | 2020-04-17 19:39 | CON ---
DATE OF CONSULTATION: 04/17/2020 CHIEF COMPLAINT: Left wrist pain. HISTORY OF PRESENT ILLNESS: Mr. Kim is a 64-year-old male, who is right-hand dominant. The patient reports that 2 to 3 days ago, he began having discomfort in his hand and wrist. He came to the emergency department on Saturday night. He was given anti-inflammatory medications and a wrist brace. He has worsened since then. He woke up this morning with increased swelling, redness, and increased pain. He has had difficulty with movement of the hand. He has a history of arthritis and has had surgery for arthritis on his right hand, but no acute symptoms like this in the past. He has no history of gout he reports. He has been afebrile at home. He came back to the emergency department today since he was worsening. PAST MEDICAL HISTORY: Positive for diabetes, hypertension, history of coronary artery disease, and osteoarthritis. PAST SURGICAL HISTORY: Includes right hand surgeries for arthritis. ALLERGIES: TO SENG INHIBITORS, ARIPIPRAZOLE, METFORMIN, MORPHINE, PENICILLIN, AND TRAMADOL. FAMILY MEDICAL HISTORY: Noncontributory. REVIEW OF SYSTEMS: Positive for left wrist and hand pain as per HPI. Otherwise, negative 10-point review of systems. SOCIAL HISTORY: The patient drinks alcohol occasionally. Denies tobacco or drug use. PHYSICAL EXAMINATION: VITAL SIGNS: The patient is currently afebrile. He is normotensive, 98% on room air. GENERAL: He is alert, sitting upright, in no apparent distress. RESPIRATORY: Breathing comfortably. HEENT: Normocephalic, atraumatic. ABDOMEN: Soft, nontender, nondistended. MUSCULOSKELETAL: The patient's left upper extremity has erythema of the wrist, dorsal hand, and distal forearm. There is edema of the forearm and hand. He has difficulty with flexion of the wrist as well as the fingers. He does have sensation intact in the distal aspect of the hand. He has 2-second capillary refill. He has good elbow flexion and extension. LABORATORY STUDIES: ESR is within normal limits at 26. CRP is elevated at 14. White blood cell count is 5.2. IMAGING: X-rays of the wrist are currently not available, but pending. IMPRESSION: Left wrist and hand cellulitis with extension into the forearm. PLAN: At this point, I think the patient will need to come to the hospital for intravenous antibiotics, given he has had a progressive cellulitis. This could possibly represent underlying gout or inflammatory arthritis, although I think this is less likely. We will continue to monitor him for improvement. At this point, I do not think he will need surgical intervention as it does not seem to be a focal abscess or drainable fluid collection. If he continues to worsen, MRI would be appropriate to look for deep abscess. He should be allowed to eat and drink today. Continue intravenous antibiotics. Continue pain control. Continue elevation of the hand, and Orthopedics will continue to follow. Job ID: [id number]
[2020-04-17] MEDS ORDERED: Ibuprofen 600 MG TAB PO PRN (20:34)
[2020-04-17] MEDS: HYDROcodone/Acetaminophen 5/325 mg Tablet PO PRN (20:52)
[2020-04-17 22:08] LABS: Amphetamine Not Detected (NotDetected); Barbiturates Screen Not Detected (NotDetected); Benzodiazepine Screen Not Detected (NotDetected); Cocaine Metabolite Screen Not Detected (NotDetected); Medtox Control Line Valid? VALID (VALID); Medtox Reader # READER 4; Methadone Not Detected (NotDetected); Methamphetamine Not Detected (NotDetected); Opiate Screen Detected (NotDetected); Oxycodone Screen Not Detected (NotDetected); Phencyclidine (PCP) Not Detected (NotDetected); THC/Cannabinoid Screen Detected (NotDetected); Tricyclic Screen Detected (NotDetected)
[2020-04-18] MEDS: Vancomycin HCl 1.25 GM in Sodium Chloride 0.9% 250 ML 250 ML IVPB SCH ×2 (00:31→12:52)
[2020-04-18] MEDS: HYDROcodone/Acetaminophen 5/325 mg Tablet PO PRN ×5 (00:40→21:10)
[2020-04-18] MEDS: HumaLOG 300 UNITS/3 ML VIAL SC PRN ×3 (05:37→17:43)
[2020-04-18 05:42] LABS: #Basophils 0.1 thou/uL (0.0-0.2); #Eosinphils 0.1 thou/uL (0.0-0.7); #Lymphocytes 1.8 thou/uL (1.20-3.40); #Monocytes 0.3 thou/uL (0.11-0.59); #Neutrophils 2.2 thou/uL (1.40-6.50); %Basophils 1.5 % (0.0-1.0); %Eosinophils 1.6 % (0.0-10.0); %Lymphocytes 41.1 % (21.0-51.0); %Monocytes 7.3 % (0.0-10.0); %Neutrophils 48.6 % (42.0-75.0); Mean Corpuscular HGB CONC 35.2 g/dL (32.0-36.0); Mean Corpuscular Hemoglobin 35.5 pg (27.0-31.0); Mean Platelet Volume 9.5 fL (7.4-10.4); Platelet Count 127 thou/uL (130-400); RBC Distribution Width 11.8 % (11.5-14.5); Red Blood Cell (RBC) Count 3.67 mill/uL (4.70-6.10); White Blood Cell (WBC) Count 4.5 thou/uL (4.8-10.8)
[2020-04-18 06:18] LABS: ALT (SGPT) 18 U/L (8-55); AST (SGOT) 12 U/L (5-34); Albumin 3.3 g/dL (3.4-4.8); Alkaline Phosphatase 53 U/L (40-110); Anion Gap 11 mmol/L (10-20); BUN (Urea Nitrogen) 12 mg/dL (8.4-25.7); Bilirubin, Total 0.6 mg/dL (0.2-1.2); Calc. Creatinine Clearance 82 mL/min (70-130); Calcium 8.4 mg/dL (7.8-10.44); Carbon Dioxide 26 mmol/L (23-31); Chloride 102 mmol/L (98-107); Estimated GFR-MDRD 75; Globulin 2.9 g/dL (2.4-3.5); Glucose 274 mg/dL (80-115); Potassium 3.8 mmol/L (3.5-5.1); Protein, Total 6.2 g/dL (5.8-8.1); Sodium 135 mmol/L (136-145)
--- NOTE | 2020-04-18 06:53 | PDOC.FM ---
- Subjective Subjective: No acute overnight events. Persistent hand pain, controlled with medication. Swelling is improving. States he had trouble moving fingers yesterday but he is able to bend his fingers today, although still unable to move his wrist well. Denies abd pain, n/v. Was supposed to have outpatient CT abd today per Dr. Redmond. - Objective Vital Signs & Weight: Vital Signs (12 hours) Temp Pulse Resp BP BP Pulse Ox 04/18/20 04:00 98.4 F 64 20 123/70 97 04/18/20 01:18 98.4 F 74 20 139/85 98 04/17/20 20:00 98.2 F 78 18 151/80 H 98 04/17/20 19:35 98 Weight Weight 77.292 kg I&O: 04/16/20 04/17/20 04/18/20 06:59 06:59 06:59 Intake Total 1780 Balance 1780 Result Diagrams: 04/18/20 05:12 04/18/20 05:12 Phys Exam - Physical Examination Constitutional: NAD HEENT: moist MMs, sclera anicteric Respiratory: clear to auscultation bilateral Cardiovascular: RRR, no significant murmur Gastrointestinal: soft, non-tender, no distention, positive bowel sounds Musculoskeletal: pulses present swelling of L hand, limited ROM L wrist 2/2 pain and swelling no LE edema Neurological: moves all 4 limbs Psychiatric: normal affect, A&O x 3 Deviation from normal: erythema of L hand extending to elbow, tender, warm Dx/Plan - Plan Plan: LUE Cellulitis vs. Suspected Tenosynovitis ESR 14.2 (2.5 on 04/15) CRP 16 (8 on 04/15) WBC wnl, vitals stable XR L Wrist and XR L Forearm on 04/15: degenerative changes without evidence of acute osseous abnormality Patient unable to flex or extend due to pain, causing suspicion of tenosynovitis - Improving with Vanc/Ceftriaxone - Dr. Newman (ortho) consulted, appreciate recs - uric acid neg - procal neg - 5/325 [place] Q4hr PRN for pain management - continue to monitor vitals - am CBC DMII BG 300s, uncontrolled patient has not been taking Lantus x 3 months Hx of infections in toes, no amputations - resumed home lantus - moderate SSI - hypoglycemia protocol - ACHS glucose checks Bipolar Disorder - resume home meds HTN - resume home meds Hx OA - aware Hx CAD - aware, defibrillator in place Hx of Cocaine Abuse - urine drug screen positive for cannabinoids, tricyclics, opiates Diet: normal Code: FULL Diet: CC Dispo: medical, obs Addendum - Attending - Attending Attestation Date/Time: 04/18/20 1102 I personally evaluated the patient and discussed the management with Dr. Baez. I agree with the History, Examination, Assessment and Plan documented above with any addition or exceptions noted below.
[2020-04-18] MEDS ORDERED: FLU VACC QS2020-21(6MOS UP)/PF 60 MCG/0.5 ML SYRINGE IM ONE (09:00)
[2020-04-18] MEDS: cefTRIAXone\\ROCEPHIN 2 GM in Sodium Chloride 0.9% 100 ML IVPB SCH (09:14)
[2020-04-18] MEDS: Insulin Glargine 18 UNITS in Pre-Filled Syringe 1 EACH SC SCH (09:15)
[2020-04-18] MEDS: Amlodipine 5 MG TAB PO SCH (09:15)
[2020-04-18 14:01] LABS: SARS-CoV-2 MS2 Positive; SARS-CoV-2 N Gene Negative; SARS-CoV-2 S Gene Negative; SARS-CoV-2 by NAA Not Detected (NotDetected); SARS-CoV-2 orf1ab Negative
[2020-04-19] LABS: Vancomycin, Trough 8.9 ug/mL
[2020-04-19] MEDS: Vancomycin HCl 1.25 GM in Sodium Chloride 0.9% 250 ML 250 ML IVPB SCH ×3 (00:50→15:36)
[2020-04-19] MEDS: HYDROcodone/Acetaminophen 5/325 mg Tablet PO PRN ×4 (00:50→16:49)
[2020-04-19] MEDS: HumaLOG 300 UNITS/3 ML VIAL SC PRN ×3 (05:18→23:35)
--- NOTE | 2020-04-19 07:09 | PDOC.FM ---
- Subjective Subjective: No acute overnight events. Swelling and pain are improving this AM. Reports he is able to move fingers much better, has some increase of ROM in L wrist. No fever, chills, chest pain, SOB. Reports he cannot take ibuprofen 2/2 nausea. - Objective Vital Signs & Weight: Vital Signs (12 hours) Temp Pulse Resp BP Pulse Ox 04/18/20 19:43 98.7 F 82 18 152/91 H 96 Weight Admit Weight 77.292 kg Weight 77.292 kg I&O: 04/18/20 04/19/20 04/20/20 06:59 06:59 06:59 Intake Total 1780 1570 Balance 1780 1570 Result Diagrams: 04/18/20 05:12 04/18/20 05:12 Phys Exam - Physical Examination Constitutional: NAD HEENT: moist MMs, sclera anicteric Respiratory: clear to auscultation bilateral Cardiovascular: RRR, no significant murmur Gastrointestinal: soft, non-tender, no distention, positive bowel sounds Musculoskeletal: no edema, pulses present L wrist ROM limited due to pain, swelling; full ROM L fingers Neurological: non-focal, moves all 4 limbs Psychiatric: normal affect, A&O x 3 Deviation from normal: mild erythema below elbow Dx/Plan - Plan Plan: LUE Cellulitis more likely vs. possible Tenosynovitis ESR 14.2 (2.5 on 04/15) CRP 16 (8 on 04/15) WBC wnl, vitals stable XR L Wrist and XR L Forearm on 04/15: degenerative changes without evidence of acute osseous abnormality Patient initially unable to flex or extend due to pain, causing suspicion of tenosynovitis - Improving with Vanc/Ceftriaxone - Dr. Newman (ortho) consulted, appreciate recs - uric acid neg - procal neg - 5/325 [place] Q6hr PRN for pain management - continue to monitor vitals - am CBC DMII BG 300s, uncontrolled patient has not been taking Lantus x 3 months Hx of infections in toes, no amputations - resumed home lantus, titrate as needed - moderate SSI - hypoglycemia protocol - ACHS glucose checks Bipolar Disorder - resume home meds HTN - resume home meds Hx OA - aware Hx CAD - aware, defibrillator in place Hx of Cocaine Abuse - urine drug screen positive for cannabinoids, tricyclics, opiates Diet: normal Code: FULL Diet: CC Dispo: medical, obs Addendum - Attending - Attending Attestation Date/Time: 04/19/20 8622 I personally evaluated the patient and discussed the management with Dr. Baez. I agree with the History, Examination, Assessment and Plan documented above with any addition or exceptions noted below. Patient continues to improve. Continue IV abx, suspect we may be able to discharge home tomorrow. Continue glycemic control. Pain control optimization.
[2020-04-19] MEDS: Amlodipine 5 MG TAB PO SCH (07:52)
[2020-04-19] MEDS: Insulin Glargine 18 UNITS in Pre-Filled Syringe 1 EACH SC SCH (07:58)
[2020-04-19] MEDS: Insulin Glargine 22 UNITS in Pre-Filled Syringe 1 EACH SC SCH ×2 (09:35→09:38)
[2020-04-19] MEDS: cefTRIAXone\\ROCEPHIN 2 GM in Sodium Chloride 0.9% 100 ML IVPB SCH (10:30)
[2020-04-19] MEDS ORDERED: Naproxen 500 MG TAB PO SCH (12:00)
[2020-04-19] MEDS: Naproxen 500 MG TAB PO SCH (20:24)
[2020-04-19 23:46] LABS: Vancomycin, Trough 15.7 ug/mL
[2020-04-20] MEDS: HYDROcodone/Acetaminophen 5/325 mg Tablet PO PRN ×2 (00:59→08:47)
[2020-04-20] MEDS: Vancomycin HCl 1.25 GM in Sodium Chloride 0.9% 250 ML 250 ML IVPB SCH ×2 (01:01→09:04)
--- NOTE | 2020-04-20 07:03 | PDOC.FM ---
- Subjective Subjective: No acute overnight events. Continues to have improvement in pain, swelling, and redness of L hand and wrist. He feels comfortable going home with PO abx and pain control today. He denies any additional complaints this AM. - Objective Vital Signs & Weight: Vital Signs (12 hours) Temp Pulse Resp BP Pulse Ox 04/20/20 04:59 98.3 F 62 16 133/79 99 04/20/20 04:17 98 04/20/20 00:55 20 04/19/20 20:15 99 04/19/20 19:58 98.8 F 77 17 157/86 H 99 Weight Admit Weight 77.292 kg Weight 77.292 kg I&O: 04/19/20 04/20/20 04/21/20 06:59 06:59 06:59 Intake Total 1570 960 Balance 1570 960 Result Diagrams: 04/18/20 05:12 04/18/20 05:12 Phys Exam - Physical Examination Constitutional: NAD HEENT: moist MMs Respiratory: clear to auscultation bilateral Cardiovascular: RRR, no significant murmur Gastrointestinal: soft, non-tender Musculoskeletal: no edema, pulses present decreased ROM L wrist 2/2 pain, mild swelling, mild erythema surrounding Neurological: non-focal, moves all 4 limbs Psychiatric: normal affect, A&O x 3 Deviation from normal: mild erythema over L wrist, lower forearm, non-tender Dx/Plan - Plan Plan: LUE Cellulitis more likely vs. possible Tenosynovitis ESR 14.2 (2.5 on 04/15) CRP 16 (8 on 04/15) WBC wnl, vitals stable XR L Wrist and XR L Forearm on 04/15: degenerative changes without evidence of acute osseous abnormality Patient initially unable to flex or extend due to pain, causing suspicion of tenosynovitis - Improving with Vanc/Ceftriaxone - Dr. Newman (ortho) consulted, appreciate recs - uric acid neg - procal neg - refused naprosyn overnight - will switch to PO abx and DC to home today with tylenol #3 for pain control DMII BG 300s, uncontrolled patient has not been taking Lantus x 3 months Hx of infections in toes, no amputations - resumed home lantus, titrate as needed - moderate SSI - hypoglycemia protocol - ACHS glucose checks Bipolar Disorder - resume home meds HTN - resume home meds Hx OA - aware Hx CAD - aware, defibrillator in place Hx of Cocaine Abuse - urine drug screen positive for cannabinoids, tricyclics, opiates Diet: normal Code: FULL Diet: CC Dispo: DC to home Addendum - Attending - Attending Attestation Date/Time: 04/20/20 [id number] I personally evaluated the patient and discussed the management with Dr. Baez. I agree with the History, Examination, Assessment and Plan documented above with any addition or exceptions noted below. Patient cellulitis improved, has good ROM in wrist. He is stable for discharge with continued PO abx to complete full course.
[2020-04-20] MEDS: Amlodipine 5 MG TAB PO SCH (08:48)
[2020-04-20] MEDS: Insulin Glargine 22 UNITS in Pre-Filled Syringe 1 EACH SC SCH (08:49)
[2020-04-20] MEDS: Naproxen 500 MG TAB PO SCH (08:54)
[2020-04-20] MEDS: cefTRIAXone\\ROCEPHIN 2 GM in Sodium Chloride 0.9% 100 ML IVPB SCH (08:56)
[2020-04-20 11:48] VITALS: BP 147/86; TEMP 98.6
--- NOTE | 2020-04-21 14:14 | DIS ---
DATE OF ADMISSION: 04/17/2020 DATE OF DISCHARGE: 04/20/2020 CONSULTATION: Dr. Trent Fonseca. PROCEDURES PERFORMED: None. PRIMARY DIAGNOSIS: Left upper extremity cellulitis. SECONDARY DIAGNOSES: Type 2 diabetes, bipolar disorder, hypertension, osteoarthritis, coronary artery disease, history of cocaine abuse. DISCHARGE MEDICATIONS: 1. Bactrim Double Strength one tablet p.o. b.i.d. for 7 days. 2. Lantus 22 units subcutaneous daily. 3. Amlodipine 5 mg p.o. daily. 4. Seroquel 150 mg p.o. at bedtime. Discontinued medications: Lantus 18 units subcutaneous daily. HOSPITAL COURSE: This is a 64-year-old male with past medical history of diabetes; hypertension; coronary artery disease, status post defibrillator; bipolar disorder; and history of substance use; who presented for left hand and wrist pain that was ascending up his arm and was ultimately found to have cellulitis. Two days prior to admission, he presented to the ED for this pain. At that time, x-ray imaging of the wrist and forearm was negative for any acute fractures. Surgical resection of the trapezium was noted on the film, and the patient verifies this history. Per record review, mild swelling was noted on exam and otherwise was unremarkable during this trip to the ER. He was discharged to home with naproxen and Tylenol No. 3. His symptoms worsened over the next few days and he developed redness, warmth, and swelling of the left hand, wrist, and forearm. His pain was severe and he had difficulty moving his wrist or fingers due to the pain and swelling. Orthopedics was consulted from the ER due to suspicion for possible tendon involvement or septic arthritis. He was admitted and treated with IV vancomycin and Rocephin. His symptoms improved significantly with antibiotics alone and no further imaging or surgical intervention was pursued. He was discharged with a 7-day course of Bactrim and a 3-day supply of Tylenol No. 3 for his pain. He is instructed to follow up in the clinic soon. Of note, he has been out of his medications including his insulin for a couple of months. He missed his appointment in our clinic due to this hospitalization. One-month supply of his home medications was also refilled upon discharge. DISPOSITION: Stable. DISCHARGE INSTRUCTIONS: 1. Location, home. 2. Diet, carb consistent heart healthy diet. 3. Activity as tolerated. 4. Followup with your PCP within one week and with Dr. Newman in one month. Job ID: [id number]
--- NOTE | 2020-04-22 19:15 | PQF ---
Dear : Michael Nickerson Date 04/22/20 Please exercise your independent, professional judgment in responding to the clarification form. Clinical indicators are provided on the bottom of this form for your review Can you please further clarify he diagnosis of the patient? Please check appropriate box(s): [ ] Cellulitis due to type 2 DM [ ] Cellulitis not due to type 2 DM [ ] Other diagnosis please specify [ ] Unable to determine To be completed by CDI/Coding staff for physician review: Present Clinical Indicators - Signs / Symptoms / Labs Results and Location in Medical Record [ x ] Complaints of left wrist pain x 3 days H and P pg.1 [ x ] Reports hx of IDDM, but that he has been out of insulin for 3 months and not been taking it H and P pg.1 [ x ] He has had infections in his feet due to ulcer and controlled sugars H and P pg.1 [ x ] Cellulitis vs suspected tenosynovitis H and P pg.3 [ x ] DMII, BG 300s, uncontrolled H and P pg.1 [ x ] LUE cellulitis more likely vs possible tenosynovitis Hospitalist PN pg.2 Present Risk Factors Results and Location in Medical Record [ x ] Hx of type 2 DM H and P pg.1 [ x ] HTN H and P pg.1 [ x ] OA H and P pg.1 [ x ] CAD H and P pg.1 [ x ] Smoked for around 25-30 years H and P pg.2 [ x ] Gout H and P pg.3 Present Treatments Results and Location in Medical Record [ x ] Vancomycin 1 gm IV MAR [ x ] Surgical consult Dr. Thao 04/17 [ x ] IV Fluids MAR [ x ] Glucose Monitoring Laboratory [ x ] Glucagon 1gm IM MAR [ x ] HumaLOG sc MAR [ x ] Rocephin 2gm IV MAR CDS/Line Up Examiner Signature: Vinny Vengeas Phone #: ext [phone] Date 04/22/20 This is a permanent part of the Medical Record [facility]
== END 2020-04-20 13:17 | disposition home or self-care (01) | DRG 603 ==
LOC: ERS 10:02 → MERGE 12:34 → OBSVTOIN 12:34 → T4-B 12:34
PROVIDERS: ADMIT Student in an Organized Health Care Education/Training Program; ATTEND Student in an Organized Health Care Education/Training Program
PROC: 3E0234Z Introduction of Serum, Toxoid and Vaccine into Muscle, Percutaneous Approach (ICD-10-PCS; principal; 2020-04-17)
PROC: 3E02340 Introduction of Influenza Vaccine into Muscle, Percutaneous Approach (ICD-10-PCS; 2020-04-17)
DX: L03.114 Cellulitis of left upper limb (principal); Z20.828 Contact with and (suspected) exposure to other viral communicable diseases; Z23 Encounter for immunization; I10 Essential (primary) hypertension; M19.90 Unspecified osteoarthritis, unspecified site; I25.10 Atherosclerotic heart disease of native coronary artery without angina pectoris; F31.9 Bipolar disorder, unspecified; F41.1 Generalized anxiety disorder; E78.5 Hyperlipidemia, unspecified; E11.65 Type 2 diabetes mellitus with hyperglycemia; F17.210 Nicotine dependence, cigarettes, uncomplicated; Z79.4 Long term (current) use of insulin; Z88.0 Allergy status to penicillin; Z88.8 Allergy status to other drugs, medicaments and biological substances; Z79.899 Other long term (current) drug therapy; Z95.810 Presence of automatic (implantable) cardiac defibrillator; Z79.82 Long term (current) use of aspirin
CPT/HCPCS: 36415; 36416; 80053; 80202; 80306; 82550; 83036; 83605; 84145; 84484; 84550; 85025; 85652; 86140; 87040; 87635; 90471; 90662; 90732; 93005; 96361; 96365; 96366; 96367; 96372; 96375; 96376; G0008; G0009; G0378; J0696; J1815; J1885; J3010; J3370; J3490; J7050; U0003

== ENCOUNTER 2020-09-28 08:33 | Emergency (ER) | payer BC, OTHER ==
[2020-09-28] MEDS ORDERED: Ketorolac Tromethamine 30 MG/ML VIAL ONE (08:57)
[2020-09-28] MEDS ORDERED: Ondansetron PF 4 MG/2 ML Vial ONE (08:57)
[2020-09-28 09:08] LABS: #Basophils 0.1 thou/uL (0.0-0.2); #Eosinphils 0.1 thou/uL (0.0-0.7); #Lymphocytes 1.9 thou/uL (1.20-3.40); #Monocytes 0.4 thou/uL (0.11-0.59); #Neutrophils 3.5 thou/uL (1.40-6.50); %Eosinophils 1.9 % (0.0-10.0); %Lymphocytes 31.9 % (21.0-51.0); %Monocytes 6.2 % (0.0-10.0); Hemoglobin 16.3 g/dL (14.0-18.0); Mean Corpuscular HGB CONC 36.4 g/dL (32.0-36.0); Mean Corpuscular Volume 98.8 fL (78.0-98.0); Mean Platelet Volume 9.3 fL (7.4-10.4); Platelet Count 141 thou/uL (130-400); Red Blood Cell (RBC) Count 4.53 mill/uL (4.70-6.10)
[2020-09-28 09:33] LABS: ALT (SGPT) 34 U/L (8-55); AST (SGOT) 20 U/L (5-34); Albumin 4.2 g/dL (3.4-4.8); Alkaline Phosphatase 79 U/L (40-110); Anion Gap 15 mmol/L (10-20); BUN (Urea Nitrogen) 15 mg/dL (8.4-25.7); Bilirubin, Total 1.4 mg/dL (0.2-1.2); Calc. Creatinine Clearance 0 mL/min (70-130); Calcium 9.2 mg/dL (7.8-10.44); Carbon Dioxide 23 mmol/L (23-31); Chloride 99 mmol/L (98-107); Globulin 3.4 g/dL (2.4-3.5); Glucose 386 mg/dL (80-115); Lipase 33 U/L (8-78); Potassium 3.9 mmol/L (3.5-5.1); Protein, Total 7.6 g/dL (5.8-8.1); Sodium 133 mmol/L (136-145)
[2020-09-28] MEDS ORDERED: Iopamidol 370 76% 100 ML VIAL ONE (10:03)
[2020-09-28 10:21] LABS: Bilirubin Negative (Negative); Blood, Urine Negative (Negative); Clarity Clear (Clear); Glucose, Urine (Dipstick) Greater than 1000 mg/dL (Negative); Ketone, Urine Negative (Negative); Leukocyte Negative Leu/uL (Negative); Nitrite Negative (Negative); Protein, Urine (Dipstick) Negative (Neg-Trace); Urobilinogen Normal mg/dL (Less than 2)
== END 2020-09-28 11:36 | disposition home or self-care (01) ==
LOC: ERS 08:33
DX: R10.9 Unspecified abdominal pain (principal); E11.9 Type 2 diabetes mellitus without complications; I10 Essential (primary) hypertension; M10.9 Gout, unspecified; J45.909 Unspecified asthma, uncomplicated; M19.90 Unspecified osteoarthritis, unspecified site; I25.10 Atherosclerotic heart disease of native coronary artery without angina pectoris; Z87.891 Personal history of nicotine dependence; Z79.82 Long term (current) use of aspirin; Z79.4 Long term (current) use of insulin; Z79.899 Other long term (current) drug therapy
CPT/HCPCS: 74177; 80053; 81003; 83690; 85025; 96374; 96375; J1885; J2405; Q9967

== ENCOUNTER 2020-11-01 16:00 | Emergency (ER) | payer OTHER ==
[2020-11-01 17:26] LABS: #Lymphocytes 1.9 thou/uL (1.20-3.40); #Monocytes 0.5 thou/uL (0.11-0.59); #Neutrophils 4.6 thou/uL (1.40-6.50); %Basophils 0.6 % (0.0-1.0); %Eosinophils 0.6 % (0.0-10.0); %Lymphocytes 26.4 % (21.0-51.0); %Monocytes 6.8 % (0.0-10.0); %Neutrophils 65.4 % (42.0-75.0); Hemoglobin 15.9 g/dL (14.0-18.0); Mean Corpuscular HGB CONC 34.7 g/dL (32.0-36.0); Mean Corpuscular Hemoglobin 33.9 pg (27.0-31.0); Mean Corpuscular Volume 97.8 fL (78.0-98.0); Mean Platelet Volume 9.2 fL (7.4-10.4); Platelet Count 159 thou/uL (130-400); RBC Distribution Width 11.9 % (11.5-14.5); Red Blood Cell (RBC) Count 4.68 mill/uL (4.70-6.10); White Blood Cell (WBC) Count 7.1 thou/uL (4.8-10.8)
[2020-11-01 17:57] LABS: ALT (SGPT) 28 U/L (8-55); AST (SGOT) 18 U/L (5-34); Albumin 4.3 g/dL (3.4-4.8); Alkaline Phosphatase 87 U/L (40-110); Anion Gap 16 mmol/L (10-20); BUN (Urea Nitrogen) 17 mg/dL (8.4-25.7); Bilirubin, Total 0.9 mg/dL (0.2-1.2); CK (CPK) 71 U/L (30-200); Calc. Creatinine Clearance 0 mL/min (70-130); Calcium 9.5 mg/dL (7.8-10.44); Carbon Dioxide 23 mmol/L (23-31); Chloride 96 mmol/L (98-107); Globulin 3.7 g/dL (2.4-3.5); Glucose 442 mg/dL (80-115); Lipase 32 U/L (8-78); Potassium 4.5 mmol/L (3.5-5.1); Sodium 130 mmol/L (136-145)
[2020-11-01] MEDS ORDERED: Fentanyl 100 MCG/2 ML VIAL ONE ×2 (18:53→19:47)
[2020-11-01] MEDS ORDERED: Ondansetron PF 4 MG/2 ML Vial ONE (18:53)
[2020-11-01 19:37] LABS: Bilirubin Negative (Negative); Blood, Urine Negative (Negative); Clarity Clear (Clear); Glucose, Urine (Dipstick) Greater than 1000 mg/dL (Negative); Ketone, Urine Negative (Negative); Leukocyte Negative Leu/uL (Negative); Nitrite Negative (Negative); Protein, Urine (Dipstick) Negative (Neg-Trace); Specific Gravity, Urine 1.036 (1.002-1.036); Urobilinogen Normal mg/dL (Less than 2); pH, Urine 5.5 (5.0-9.0)
[2020-11-01] MEDS ORDERED: Insulin Regular 300 UNITS/3 ML VIAL ONE (19:50)
== END 2020-11-01 20:43 | disposition home or self-care (01) ==
LOC: ERS 16:00
DX: K52.9 Noninfective gastroenteritis and colitis, unspecified (principal); E11.9 Type 2 diabetes mellitus without complications; I10 Essential (primary) hypertension; M10.9 Gout, unspecified; J45.909 Unspecified asthma, uncomplicated; Z79.82 Long term (current) use of aspirin; Z79.4 Long term (current) use of insulin; Z79.899 Other long term (current) drug therapy
CPT/HCPCS: 36415; 71045; 74177; 80053; 81003; 82550; 83690; 84484; 85025; 93005; 96374; 96375; 96376; J1815; J2405; J3010; Q9967

== ENCOUNTER 2021-07-05 16:44 | Observation (INO) | payer MEDICARE, MEDICAID ==
[~2021-07-05 16:44] MED LIST changes: +ISOVUE-370 76%-LOCM 1 ML ONE; -Iopamidol-370 76% 500 ML 1 ML ONE
[2021-07-05 17:38] LABS: #Eosinphils 0.1 thou/uL (0.0-0.7); #Lymphocytes 1.7 thou/uL (1.20-3.40); #Monocytes 0.4 thou/uL (0.11-0.59); %Basophils 0.1 % (0.0-1.0); %Eosinophils 0.9 % (0.0-10.0); %Lymphocytes 27.2 % (21.0-51.0); %Monocytes 5.7 % (0.0-10.0); %Neutrophils 66.1 % (42.0-75.0); Hemoglobin 15.8 g/dL (14.0-18.0); Mean Corpuscular HGB CONC 35.3 g/dL (32.0-36.0); Mean Corpuscular Hemoglobin 34.3 pg (27.0-31.0); Mean Corpuscular Volume 97.2 fL (78.0-98.0); Mean Platelet Volume 8.8 fL (7.4-10.4); Platelet Count 166 thou/uL (130-400); RBC Distribution Width 11.4 % (11.5-14.5); Red Blood Cell (RBC) Count 4.61 mill/uL (4.70-6.10); White Blood Cell (WBC) Count 6.1 thou/uL (4.8-10.8)
[2021-07-05 17:45] LABS: PTT 26.7 sec (22.9-36.1); Prothrombin Time 12.8 sec (12.0-14.7)
[2021-07-05 17:50] LABS: ALT (SGPT) 27 U/L (8-55); AST (SGOT) 15 U/L (5-34); Albumin 4.2 g/dL (3.4-4.8); Alkaline Phosphatase 83 U/L (40-110); Anion Gap 15 mmol/L (10-20); BUN (Urea Nitrogen) 16 mg/dL (8.4-25.7); Bilirubin, Total 0.9 mg/dL (0.2-1.2); Calc. Creatinine Clearance 0 mL/min (70-130); Calcium 9.3 mg/dL (7.8-10.44); Carbon Dioxide 23 mmol/L (23-31); Chloride 98 mmol/L (98-107); Globulin 3.5 g/dL (2.4-3.5); Lipase 29 U/L (8-78); Potassium 4.2 mmol/L (3.5-5.1); Protein, Total 7.7 g/dL (5.8-8.1); Sodium 132 mmol/L (136-145)
[2021-07-05 18:07] LABS: Glucose 568 mg/dL (80-115)
[2021-07-05] MEDS ORDERED: Aspirin 325 MG TAB ONE (18:23)
[2021-07-05] MEDS ORDERED: Insulin Regular 300 UNITS/3 ML VIAL ONE (18:23)
[2021-07-05] MEDS ORDERED: Dextrose 5% in Water 1,000 ML IV PRN (20:24)
[2021-07-05] MEDS ORDERED: Dextrose 50% Abboject 50 ML SYRINGE SLOW IVP PRN (20:24)
[2021-07-05] MEDS ORDERED: Calcium Carbonate 500 MG ChewTAB PO PRN (20:30)
[2021-07-05] MEDS ORDERED: HumaLOG 300 UNITS/3 ML VIAL SC PRN ×2 (20:35)
[2021-07-05] MEDS ORDERED: Nitroglycerin 0.4 MG TAB (25 Tab Bottle) SL PRN (20:35)
[2021-07-05 20:49] LABS: Troponin I Less than 0.010 ng/mL (< 0.028)
[2021-07-05 20:56] VITALS: BMI 23.8
[2021-07-05] MEDS ORDERED: Acetaminophen 500 MG TAB PO PRN (21:27)
[2021-07-05] MEDS: Diclofenac 1% 100 GM GEL TP PRN (22:09)
[2021-07-06 05:25] LABS: #Lymphocytes 2.1 thou/uL (1.20-3.40); #Monocytes 0.4 thou/uL (0.11-0.59); %Basophils 0.1 % (0.0-1.0); %Eosinophils 1.1 % (0.0-10.0); %Lymphocytes 46.7 % (21.0-51.0); %Monocytes 8.2 % (0.0-10.0); Hemoglobin 14.1 g/dL (14.0-18.0); Mean Corpuscular HGB CONC 36.1 g/dL (32.0-36.0); Mean Corpuscular Hemoglobin 35.5 pg (27.0-31.0); Mean Corpuscular Volume 98.4 fL (78.0-98.0); Mean Platelet Volume 8.6 fL (7.4-10.4); Platelet Count 139 thou/uL (130-400); RBC Distribution Width 11.7 % (11.5-14.5); Red Blood Cell (RBC) Count 3.97 mill/uL (4.70-6.10); White Blood Cell (WBC) Count 4.5 thou/uL (4.8-10.8)
[2021-07-06 05:42] LABS: Anion Gap 11 mmol/L (10-20); BUN (Urea Nitrogen) 14 mg/dL (8.4-25.7); Calc. Creatinine Clearance 78 mL/min (70-130); Calcium 8.9 mg/dL (7.8-10.44); Carbon Dioxide 23 mmol/L (23-31); Chloride 104 mmol/L (98-107); Glucose 388 mg/dL (80-115); Potassium 3.6 mmol/L (3.5-5.1); Sodium 134 mmol/L (136-145)
[2021-07-06] MEDS: Enoxaparin Sodium 30 MG/0.3 ML SYRINGE SC SCH ×2 (09:33→10:57)
[2021-07-06] MEDS: Amlodipine 5 MG TAB PO SCH ×2 (09:33→10:58)
[2021-07-06] MEDS: Aspirin 81 mg Enteric Coated Tablet PO SCH ×2 (09:33→10:58)
[2021-07-06] MEDS: Lantus 1000 UNITS/10 ML VIAL SC SCH ×2 (09:33→13:18)
[2021-07-06] MEDS: Diclofenac 1% 100 GM GEL TP PRN (10:56)
[2021-07-06 11:27] LABS: SARS-CoV-2 PCR by NAA Not Detected (NotDetected)
[2021-07-06] MEDS ORDERED: Regadenoson 0.4 MG/5 ML SYRINGE ONE (13:19)
[2021-07-06] MEDS ORDERED: Lidocaine 1% (PF) 30 ML VIAL SC SCH (14:45)
[2021-07-06 16:39] VITALS: BP 145/80; TEMP 97.1
== END 2021-07-06 17:48 | disposition home or self-care (01) ==
LOC: ERS 16:44 → 2SW 19:44
PROVIDERS: ADMIT Emergency Medicine; ATTEND Emergency Medicine
PROC: 0S9C3ZZ Drainage of Right Knee Joint, Percutaneous Approach (ICD-10-PCS; principal; 2021-07-05)
DX: M17.11 Unilateral primary osteoarthritis, right knee (principal); M25.461 Effusion, right knee; I25.119 Atherosclerotic heart disease of native coronary artery with unspecified angina pectoris; I10 Essential (primary) hypertension; E11.65 Type 2 diabetes mellitus with hyperglycemia; I49.9 Cardiac arrhythmia, unspecified; M10.9 Gout, unspecified; E78.2 Mixed hyperlipidemia; Z87.891 Personal history of nicotine dependence; Z79.4 Long term (current) use of insulin; Z79.82 Long term (current) use of aspirin; Z79.899 Other long term (current) drug therapy; Z88.0 Allergy status to penicillin; Z88.5 Allergy status to narcotic agent; Z88.8 Allergy status to other drugs, medicaments and biological substances; Z95.810 Presence of automatic (implantable) cardiac defibrillator; Z98.890 Other specified postprocedural states; Z20.822 Contact with and (suspected) exposure to COVID-19
CPT/HCPCS: 20610; 71045; 71275; 73564; 78452; 80048; 80053; 82962 ×2; 83690; 83880; 84484 ×2; 84550; 84560; 85025 ×2; 85610; 85730; 87070; 87205; 89060; 93005; 93017; 93971; 94760; 96374; 99285; A9500; U0003; U0005; 36415; 36416; 96372; G0378; J1650; J1815; J2001; J2785; Q9966

== ENCOUNTER 2021-08-03 08:15 | Emergency (ER) | payer MEDICARE, OTHER | END 2021-08-03 09:07 | disposition home or self-care (01) | LOC: ERS 08:15 | DX: S46.912A Strain of unspecified muscle, fascia and tendon at shoulder and upper arm level, left arm, initial encounter (principal); I10 Essential (primary) hypertension; E11.9 Type 2 diabetes mellitus without complications; M10.9 Gout, unspecified; I25.10 Atherosclerotic heart disease of native coronary artery without angina pectoris; M19.90 Unspecified osteoarthritis, unspecified site; F17.210 Nicotine dependence, cigarettes, uncomplicated; Z79.82 Long term (current) use of aspirin ==

== ENCOUNTER 2022-02-06 09:53 | Emergency (ER) | payer MEDICARE, MEDICAID | END 2022-02-06 12:41 | disposition home or self-care (01) | LOC: ERS 09:53 | DX: K05.10 Chronic gingivitis, plaque induced (principal); K08.89 Other specified disorders of teeth and supporting structures; Z79.899 Other long term (current) drug therapy; Z79.4 Long term (current) use of insulin; Z79.82 Long term (current) use of aspirin; E11.9 Type 2 diabetes mellitus without complications; I10 Essential (primary) hypertension; M10.9 Gout, unspecified; J45.909 Unspecified asthma, uncomplicated; M19.90 Unspecified osteoarthritis, unspecified site; I25.10 Atherosclerotic heart disease of native coronary artery without angina pectoris; Z72.0 Tobacco use | CPT/HCPCS: 99282 ==

== ENCOUNTER 2022-02-23 11:12 | Emergency (ER) | payer OTHER, MEDICAID ==
[2022-02-23] MEDS ORDERED: Acetaminophen 325 MG TAB ONE (12:38)
[2022-02-23 13:23] LABS: ALT (SGPT) 29 U/L (8-55); AST (SGOT) 20 U/L (5-34); Albumin 4.3 g/dL (3.4-4.8); Alkaline Phosphatase 74 U/L (40-110); Anion Gap 16 mmol/L (10-20); BUN (Urea Nitrogen) 16 mg/dL (8.4-25.7); Bilirubin, Total 1.3 mg/dL (0.2-1.2); Calc. Creatinine Clearance 0 mL/min (70-130); Calcium 9.7 mg/dL (7.8-10.44); Carbon Dioxide 24 mmol/L (23-31); Chloride 97 mmol/L (98-107); Estimated GFR 91; Globulin 3.5 g/dL (2.4-3.5); Glucose 337 mg/dL (80-115); Potassium 4.4 mmol/L (3.5-5.1); Protein, Total 7.8 g/dL (5.8-8.1); Sodium 133 mmol/L (136-145)
== END 2022-02-23 14:25 | disposition home or self-care (01) ==
LOC: ERS 11:12
DX: I70.202 Unspecified atherosclerosis of native arteries of extremities, left leg (principal); M77.8 Other enthesopathies, not elsewhere classified; E11.40 Type 2 diabetes mellitus with diabetic neuropathy, unspecified; G57.92 Unspecified mononeuropathy of left lower limb; I48.91 Unspecified atrial fibrillation; M10.9 Gout, unspecified; I25.10 Atherosclerotic heart disease of native coronary artery without angina pectoris; Z79.82 Long term (current) use of aspirin; Z79.899 Other long term (current) drug therapy
CPT/HCPCS: 36415; 80053; 99285

== ENCOUNTER 2022-03-11 14:57 | Emergency (ER) | payer OTHER ==
[2022-03-11] MEDS ORDERED: Acetaminophen 500 MG TAB ONE (16:01)
== END 2022-03-11 18:39 | disposition home or self-care (01) ==
LOC: ERS 14:57
DX: M79.662 Pain in left lower leg (principal); E11.9 Type 2 diabetes mellitus without complications; M10.9 Gout, unspecified; Z79.82 Long term (current) use of aspirin; Z79.899 Other long term (current) drug therapy

== ENCOUNTER 2022-04-06 08:13 | Emergency (ER) | payer OTHER | END 2022-04-06 10:20 | disposition home or self-care (01) | LOC: ERS 08:13 | DX: E11.40 Type 2 diabetes mellitus with diabetic neuropathy, unspecified (principal); M79.672 Pain in left foot; I10 Essential (primary) hypertension; M10.9 Gout, unspecified | CPT/HCPCS: 99283 ==

== ENCOUNTER 2022-06-13 10:28 | Emergency (ER) | payer MEDICARE, OTHER ==
[2022-06-13 12:25] LABS: SARS-CoV-2 NAA Rapid Test Not Detected (NotDetected)
== END 2022-06-13 13:00 | disposition home or self-care (01) ==
LOC: ERS 10:28
DX: J06.9 Acute upper respiratory infection, unspecified (principal); I25.10 Atherosclerotic heart disease of native coronary artery without angina pectoris; E11.9 Type 2 diabetes mellitus without complications; I10 Essential (primary) hypertension; Z20.822 Contact with and (suspected) exposure to COVID-19; Z95.810 Presence of automatic (implantable) cardiac defibrillator
CPT/HCPCS: 0241U; 87081; 87430; 99283

== ENCOUNTER 2022-08-31 15:42 | Observation (INO) | payer OTHER, MEDICAID ==
[2022-08-31 16:17] LABS: #Lymphocytes 1.8 thou/uL (1.20-3.40); #Monocytes 0.4 thou/uL (0.11-0.59); #Neutrophils 3.7 thou/uL (1.40-6.50); %Basophils 0.7 % (0.0-1.0); %Eosinophils 0.8 % (0.0-10.0); %Lymphocytes 29.9 % (21.0-51.0); %Monocytes 7.2 % (0.0-10.0); %Neutrophils 61.4 % (42.0-75.0); Hemoglobin 16.6 g/dL (14.0-18.0); Mean Corpuscular HGB CONC 35.9 g/dL (32.0-36.0); Mean Corpuscular Hemoglobin 35.5 pg (27.0-31.0); Mean Corpuscular Volume 98.8 fl (78.0-98.0); Mean Platelet Volume 9.5 fL (7.4-10.4); Platelet Count 150 10x3/uL (130-400); RBC Distribution Width 12.2 % (11.5-14.5); Red Blood Cell (RBC) Count 4.69 mill/uL (4.70-6.10)
[2022-08-31 16:40] LABS: ALT (SGPT) 23 U/L (8-55); AST (SGOT) 15 U/L (5-34); Albumin 4.8 g/dL (3.4-4.8); Alkaline Phosphatase 78 U/L (40-110); Anion Gap 14 mmol/L (10-20); BUN (Urea Nitrogen) 19 mg/dL (8.4-25.7); Bilirubin, Total 1.1 mg/dL (0.2-1.2); Calc. Creatinine Clearance 0 mL/min (70-130); Carbon Dioxide 26 mmol/L (23-31); Chloride 98 mmol/L (98-107); Estimated GFR 72; Globulin 4.1 g/dL (2.4-3.5); Glucose 345 mg/dL (80-115); Lipase 49 U/L (8-78); Potassium 4.1 mmol/L (3.5-5.1); Protein, Total 8.9 g/dL (5.8-8.1); Sodium 134 mmol/L (136-145)
[2022-08-31] MEDS ORDERED: Aspirin Chewable 81 MG TAB ONE (17:30)
[2022-08-31] MEDS ORDERED: Nitroglycerin 2% Ointment 1 INCH/1 GM Packet ONE (19:57)
[2022-08-31] MEDS ORDERED: Fentanyl 100 MCG/2 ML VIAL ONE (19:57)
[2022-08-31] MEDS ORDERED: Acetaminophen 325 MG TAB PO PRN ×2 (20:00→23:59)
[2022-08-31] MEDS ORDERED: Ondansetron ODT 4 MG TAB SL PRN (20:00)
[2022-08-31] MEDS ORDERED: Ondansetron PF 4 MG/2 ML Vial IVP PRN (20:00)
[2022-08-31 20:41] LABS: Troponin I Less than 0.010 ng/mL (< 0.028)
[2022-08-31 22:55] VITALS: BMI 25.3
[2022-08-31] MEDS ORDERED: Acetaminophen 650 MG Suppository PR PRN (23:22)
[2022-08-31] MEDS ORDERED: Dextrose 50% Abboject 50 ML SYRINGE SLOW IVP PRN (23:24)
[2022-08-31] MEDS ORDERED: Dextrose 5% in Water 1,000 ML IV PRN (23:24)
[2022-08-31] MEDS ORDERED: Gabapentin 300 MG CAP PO SCH (23:30)
[2022-08-31] MEDS ORDERED: Insulin Glargine 30 UNITS/0.3 ML VIAL SC SCH (23:30)
[2022-08-31] MEDS ORDERED: QUEtiapine 100 MG TAB PO SCH (23:30)
[2022-09-01 00:19] LABS: Troponin I Less than 0.010 ng/mL (< 0.028)
[2022-09-01] MEDS: HumaLOG 300 UNITS/3 ML VIAL SC PRN ×4 (00:36→21:33)
[2022-09-01] MEDS ORDERED: Fentanyl 100 MCG/2 ML VIAL SLOW IVP PRN (00:45)
[2022-09-01] MEDS ORDERED: Acetaminophen 500 MG TAB PO SCH ×3 (00:47→09:00)
[2022-09-01 05:22] LABS: #Eosinphils 0.1 thou/uL (0.0-0.7); #Lymphocytes 2.5 thou/uL (1.20-3.40); #Monocytes 0.4 thou/uL (0.11-0.59); %Basophils 0.9 % (0.0-1.0); %Eosinophils 1.8 % (0.0-10.0); %Lymphocytes 49.7 % (21.0-51.0); %Monocytes 8.5 % (0.0-10.0); %Neutrophils 39.2 % (42.0-75.0); Hemoglobin 14.4 g/dL (14.0-18.0); Mean Corpuscular HGB CONC 35.4 g/dL (32.0-36.0); Mean Corpuscular Hemoglobin 35.2 pg (27.0-31.0); Mean Corpuscular Volume 99.5 fl (78.0-98.0); Mean Platelet Volume 9.1 fL (7.4-10.4); Platelet Count 130 10x3/uL (130-400); Red Blood Cell (RBC) Count 4.07 mill/uL (4.70-6.10); White Blood Cell (WBC) Count 5.1 10x3/uL (4.8-10.8)
[2022-09-01 05:43] LABS: Anion Gap 11 mmol/L (10-20); BUN (Urea Nitrogen) 17 mg/dL (8.4-25.7); Calc. Creatinine Clearance 99 mL/min (70-130); Calcium 9.1 mg/dL (7.8-10.44); Carbon Dioxide 24 mmol/L (23-31); Chloride 105 mmol/L (98-107); Estimated GFR 97; Glucose 181 mg/dL (80-115); Potassium 3.7 mmol/L (3.5-5.1); Sodium 136 mmol/L (136-145)
[2022-09-01] MEDS: Aspirin 81 mg Enteric Coated Tablet PO SCH (08:40)
[2022-09-01] MEDS: busPIRone HCl 5 MG TAB PO SCH (08:40)
[2022-09-01] MEDS: Amlodipine 5 MG TAB PO SCH (08:40)
[2022-09-01] MEDS: Gabapentin 300 MG CAP PO SCH ×4 (08:41→21:32)
[2022-09-01] MEDS: Insulin Glargine 30 UNITS/0.3 ML VIAL SC SCH ×2 (08:41→21:33)
[2022-09-01] MEDS: Acetaminophen 500 MG TAB PO SCH ×4 (08:41→21:30)
[2022-09-01] MEDS: Nitroglycerin 0.4 MG TAB (25 Tab Bottle) SL PRN ×3 (10:51→11:02)
[2022-09-01] MEDS: Fentanyl 100 MCG/2 ML VIAL SLOW IVP PRN ×2 (11:17→17:34)
[2022-09-01] MEDS ORDERED: QUEtiapine 100 MG TAB PO SCH (21:00)
[2022-09-01] MEDS: Nitroglycerin 2% Ointment 1 INCH/1 GM Packet TOP SCH (21:33)
[2022-09-02] MEDS ORDERED: Sodium Chloride 0.9% 250 ML IV SCH (00:45)
[2022-09-02] MEDS: Fentanyl 100 MCG/2 ML VIAL SLOW IVP PRN (04:47)
[2022-09-02 05:49] LABS: #Basophils 0.1 thou/uL (0.0-0.2); #Eosinphils 0.1 thou/uL (0.0-0.7); #Lymphocytes 2.1 thou/uL (1.20-3.40); #Monocytes 0.6 thou/uL (0.11-0.59); #Neutrophils 2.1 thou/uL (1.40-6.50); %Basophils 1.2 % (0.0-1.0); %Eosinophils 2.5 % (0.0-10.0); %Lymphocytes 42.4 % (21.0-51.0); %Monocytes 11.1 % (0.0-10.0); %Neutrophils 42.8 % (42.0-75.0); Hemoglobin 15.7 g/dL (14.0-18.0); Mean Corpuscular HGB CONC 35.1 g/dL (32.0-36.0); Mean Corpuscular Volume 99.9 fl (78.0-98.0); Mean Platelet Volume 9.2 fL (7.4-10.4); Platelet Count 147 10x3/uL (130-400); RBC Distribution Width 12.1 % (11.5-14.5); Red Blood Cell (RBC) Count 4.47 mill/uL (4.70-6.10); White Blood Cell (WBC) Count 4.9 10x3/uL (4.8-10.8)
[2022-09-02 06:10] LABS: Anion Gap 12 mmol/L (10-20); BUN (Urea Nitrogen) 16 mg/dL (8.4-25.7); Calc. Creatinine Clearance 96 mL/min (70-130); Carbon Dioxide 25 mmol/L (23-31); Chloride 103 mmol/L (98-107); Estimated GFR 97; Glucose 171 mg/dL (80-115); Potassium 3.5 mmol/L (3.5-5.1); Sodium 136 mmol/L (136-145)
[2022-09-02] MEDS: Gabapentin 300 MG CAP PO SCH (07:54)
[2022-09-02] MEDS: Amlodipine 5 MG TAB PO SCH (07:55)
[2022-09-02] MEDS: busPIRone HCl 5 MG TAB PO SCH (07:55)
[2022-09-02] MEDS: Aspirin 81 mg Enteric Coated Tablet PO SCH (07:55)
[2022-09-02] MEDS: Acetaminophen 500 MG TAB PO SCH (07:56)
[2022-09-02] MEDS: Nitroglycerin 2% Ointment 1 INCH/1 GM Packet TOP SCH (07:57)
[2022-09-02] MEDS: Insulin Glargine 30 UNITS/0.3 ML VIAL SC SCH (07:59)
[2022-09-02 08:03] VITALS: BP 137/76; TEMP 98.3
[2022-09-02] MEDS ORDERED: Empagliflozin 25 MG TAB PO SCH (09:00)
[2022-09-03] MEDS ORDERED: FLU VACC QS2022-23(65YR UP)/PF 240 MCG/0.7 ML SYRINGE IM ONE (09:00)
== END 2022-09-02 10:21 | disposition home or self-care (01) ==
LOC: ERS 15:42 → 2SW 19:21
PROVIDERS: ADMIT Internal Medicine; ATTEND Internal Medicine
DX: G89.29 Other chronic pain (principal); R07.9 Chest pain, unspecified; E11.9 Type 2 diabetes mellitus without complications; I25.10 Atherosclerotic heart disease of native coronary artery without angina pectoris; I11.0 Hypertensive heart disease with heart failure; I50.20 Unspecified systolic (congestive) heart failure; J45.909 Unspecified asthma, uncomplicated; M19.90 Unspecified osteoarthritis, unspecified site; F12.11 Cannabis abuse, in remission; I08.2 Rheumatic disorders of both aortic and tricuspid valves; Z79.4 Long term (current) use of insulin; Z79.82 Long term (current) use of aspirin; Z79.84 Long term (current) use of oral hypoglycemic drugs; Z79.899 Other long term (current) drug therapy; Z88.0 Allergy status to penicillin; Z88.5 Allergy status to narcotic agent; Z88.6 Allergy status to analgesic agent; Z88.8 Allergy status to other drugs, medicaments and biological substances; Z95.810 Presence of automatic (implantable) cardiac defibrillator; Z20.822 Contact with and (suspected) exposure to COVID-19
CPT/HCPCS: 71045; 80048 ×2; 80053; 82962 ×3; 83690; 83880; 84484 ×2; 85025 ×3; 85379; 93005; 93306; 96374; 96376 ×2; 99285; G0378 ×4; U0003; U0005; 36415; 36416; J1815; J3010; J7030; Q0162

== ENCOUNTER 2022-11-06 17:07 | Inpatient (IN) | payer OTHER, MEDICAID ==
[~2022-11-06 17:07] MED LIST changes: -ISOVUE-370 76%-LOCM 1 ML ONE; +Iopamidol-370 76% 500 ML MDV (1 ML CHARGE) ONE
[2022-11-06 18:09] LABS: #Eosinphils 0.1 thou/uL (0.0-0.7); #Lymphocytes 1.6 thou/uL (1.20-3.40); #Monocytes 0.4 thou/uL (0.11-0.59); %Basophils 0.9 % (0.0-1.0); %Eosinophils 1.2 % (0.0-10.0); %Lymphocytes 31.3 % (21.0-51.0); %Monocytes 7.1 % (0.0-10.0); %Neutrophils 59.5 % (42.0-75.0); Hemoglobin 15.1 g/dL (14.0-18.0); Mean Corpuscular HGB CONC 35.7 g/dL (32.0-36.0); Mean Corpuscular Hemoglobin 35.2 pg (27.0-31.0); Mean Corpuscular Volume 98.5 fl (78.0-98.0); Platelet Count 157 10x3/uL (130-400); Red Blood Cell (RBC) Count 4.29 mill/uL (4.70-6.10)
[2022-11-06 18:32] LABS: ALT (SGPT) 27 U/L (8-55); AST (SGOT) 18 U/L (5-34); Albumin 4.4 g/dL (3.4-4.8); Alkaline Phosphatase 66 U/L (40-110); Anion Gap 12 mmol/L (10-20); BUN (Urea Nitrogen) 18 mg/dL (8.4-25.7); Calc. Creatinine Clearance 0 mL/min (70-130); Calcium 9.5 mg/dL (7.8-10.44); Carbon Dioxide 25 mmol/L (23-31); Chloride 101 mmol/L (98-107); Estimated GFR 81; Globulin 3.5 g/dL (2.4-3.5); Glucose 301 mg/dL (80-115); Lipase 218 U/L (8-78); Magnesium 2.2 mg/dL (1.6-2.6); Potassium 4.4 mmol/L (3.5-5.1); Protein, Total 7.9 g/dL (5.8-8.1); Sodium 134 mmol/L (136-145)
[2022-11-06] MEDS ORDERED: Acetaminophen 325 MG TAB ONE (18:36)
[2022-11-06] MEDS ORDERED: Mag-Al 1200 mg/1200 mg/30 ML UDCUP ONE (19:20)
[2022-11-06] MEDS ORDERED: Lidocaine Viscous Sol 2% 15 ml UD Cup ONE (19:20)
[2022-11-06] MEDS ORDERED: fentaNYL 50 mcg/mL 1 mL Vial ONE ×2 (20:52→23:26)
[2022-11-06] MEDS ORDERED: Ondansetron PF 4 MG/2 ML Vial IVP PRN (22:03)
[2022-11-06] MEDS ORDERED: Acetaminophen 325 MG TAB PO PRN (22:03)
[2022-11-06] MEDS ORDERED: Nitroglycerin 0.4 MG TAB (25 Tab Bottle) SL PRN (22:04)
[2022-11-06 22:28] LABS: Troponin I Less than 0.010 ng/mL (< 0.028)
[2022-11-06] MEDS ORDERED: fentaNYL 50 mcg/mL 1 mL Vial SLOW IVP SCH (23:30)
[2022-11-06] MEDS ORDERED: QUEtiapine 200 MG TAB PO SCH (23:45)
[2022-11-07 01:18] LABS: Troponin I Less than 0.010 ng/mL (< 0.028)
[2022-11-07] MEDS ORDERED: Nitroglycerin 2% Ointment 1 INCH/1 GM Packet TOP SCH (02:15)
[2022-11-07] MEDS ORDERED: fentaNYL 50 mcg/mL 1 mL Vial SLOW IVP SCH (02:15)
[2022-11-07] MEDS ORDERED: Dextrose 50% Abboject 50 ML SYRINGE SLOW IVP PRN (02:16)
[2022-11-07] MEDS ORDERED: Dextrose 5% in Water 1,000 ML IV PRN (02:16)
[2022-11-07] MEDS ORDERED: HumaLOG 300 UNITS/3 ML VIAL SC PRN ×3 (02:16→14:24)
[2022-11-07] MEDS ORDERED: Nitroglycerin 2% Ointment 1 INCH/1 GM Packet ONE ×2 (02:18→10:32)
[2022-11-07] MEDS ORDERED: fentaNYL 50 mcg/mL 1 mL Vial ONE (05:33)
[2022-11-07] MEDS ORDERED: Fentanyl 100 MCG/2 ML VIAL SLOW IVP SCH (05:45)
[2022-11-07 07:25] LABS: #Basophils 0.1 thou/uL (0.0-0.2); #Eosinphils 0.1 thou/uL (0.0-0.7); #Lymphocytes 2.1 thou/uL (1.20-3.40); #Monocytes 0.5 thou/uL (0.11-0.59); #Neutrophils 2.7 thou/uL (1.40-6.50); %Basophils 1.2 % (0.0-1.0); %Eosinophils 1.5 % (0.0-10.0); %Lymphocytes 39.5 % (21.0-51.0); %Monocytes 8.3 % (0.0-10.0); %Neutrophils 49.5 % (42.0-75.0); Hemoglobin 15.1 g/dL (14.0-18.0); Mean Corpuscular HGB CONC 36.3 g/dL (32.0-36.0); Mean Corpuscular Hemoglobin 35.4 pg (27.0-31.0); Mean Corpuscular Volume 97.6 fl (78.0-98.0); Platelet Count 141 10x3/uL (130-400); RBC Distribution Width 12.1 % (11.5-14.5); Red Blood Cell (RBC) Count 4.26 mill/uL (4.70-6.10); White Blood Cell (WBC) Count 5.4 10x3/uL (4.8-10.8)
[2022-11-07 07:49] LABS: Cardiac Risk 4.4 (Less than 4.5)
[2022-11-07 07:53] LABS: Anion Gap 13 mmol/L (10-20); BUN (Urea Nitrogen) 13 mg/dL (8.4-25.7); Calc. Creatinine Clearance 0 mL/min (70-130); Calcium 9.2 mg/dL (7.8-10.44); Carbon Dioxide 23 mmol/L (23-31); Chloride 102 mmol/L (98-107); Estimated GFR 90; Glucose 271 mg/dL (80-115); Lipase 43 U/L (8-78); Potassium 4.1 mmol/L (3.5-5.1); Sodium 134 mmol/L (136-145)
[2022-11-07] MEDS ORDERED: Aspirin 325 MG TAB ONE (08:58)
[2022-11-07] MEDS: Aspirin 325 mg Enteric Coated Tablet PO SCH (09:23)
[2022-11-07] MEDS ORDERED: Amlodipine 5 MG TAB PO SCH (10:00)
[2022-11-07] MEDS ORDERED: Communication Order-Pharmacy FS SCH (10:00)
[2022-11-07] MEDS ORDERED: Acetaminophen 325 MG Suppository ONE (10:12)
[2022-11-07] MEDS ORDERED: Acetaminophen 325 MG TAB ONE ×2 (10:12→10:13)
[2022-11-07] MEDS ORDERED: Amlodipine 5 MG TAB ONE (10:17)
[2022-11-07] MEDS: Nitroglycerin 2% Ointment 1 INCH/1 GM Packet TOP SCH ×3 (10:33→21:08)
[2022-11-07] MEDS: Rosuvastatin 20 MG TAB PO SCH (12:25)
[2022-11-07] MEDS ORDERED: HumaLOG 300 UNITS/3 ML VIAL ONE (12:46)
[2022-11-07] MEDS ORDERED: Insulin Glargine 30 UNITS/0.3 ML VIAL SC SCH (15:00)
[2022-11-07] MEDS: QUEtiapine 100 MG TAB PO SCH (20:13)
[2022-11-08] MEDS: Rosuvastatin 20 MG TAB PO SCH (05:25)
[2022-11-08] MEDS: Aspirin 325 mg Enteric Coated Tablet PO SCH (05:26)
[2022-11-08] MEDS: Nitroglycerin 2% Ointment 1 INCH/1 GM Packet TOP SCH ×3 (05:26→21:17)
[2022-11-08 05:28] LABS: #Eosinphils 0.1 thou/uL (0.0-0.7); #Lymphocytes 2.5 thou/uL (1.20-3.40); #Monocytes 0.5 thou/uL (0.11-0.59); #Neutrophils 3.2 thou/uL (1.40-6.50); %Basophils 0.8 % (0.0-1.0); %Eosinophils 1.3 % (0.0-10.0); %Lymphocytes 39.8 % (21.0-51.0); %Monocytes 7.5 % (0.0-10.0); %Neutrophils 50.6 % (42.0-75.0); Hemoglobin 15.5 g/dL (14.0-18.0); Mean Corpuscular HGB CONC 35.1 g/dL (32.0-36.0); Mean Corpuscular Hemoglobin 34.5 pg (27.0-31.0); Mean Corpuscular Volume 98.2 fl (78.0-98.0); Platelet Count 145 10x3/uL (130-400); RBC Distribution Width 11.8 % (11.5-14.5); Red Blood Cell (RBC) Count 4.51 mill/uL (4.70-6.10); White Blood Cell (WBC) Count 6.3 10x3/uL (4.8-10.8)
[2022-11-08] MEDS: Sodium Chloride 0.9% 1,000 ML IV SCH ×2 (05:28→08:31)
[2022-11-08 05:58] LABS: Anion Gap 14 mmol/L (10-20); BUN (Urea Nitrogen) 19 mg/dL (8.4-25.7); Calc. Creatinine Clearance 71 mL/min (70-130); Calcium 9.2 mg/dL (7.8-10.44); Carbon Dioxide 25 mmol/L (23-31); Chloride 100 mmol/L (98-107); Estimated GFR 75; Glucose 268 mg/dL (80-115); Sodium 135 mmol/L (136-145)
[2022-11-08] MEDS ORDERED: fentaNYL 50 mcg/mL 1 mL Vial ONE (06:15)
[2022-11-08] MEDS ORDERED: Midazolam HCl 2 mg/2 ml Vial ONE (06:15)
[2022-11-08] MEDS ORDERED: Nitroglycerin 50 MG/250 ML BOT 250 ML ONE (06:16)
[2022-11-08] MEDS ORDERED: Lidocaine 1% (PF) 30 ML VIAL ONE (06:16)
[2022-11-08] MEDS ORDERED: Metoprolol Tartrate 5 MG/5 ML VIAL ONE (07:40)
[2022-11-08] MEDS ORDERED: Norepinephrine 4 MG/4 ML VIAL ONE (07:41)
[2022-11-08] MEDS ORDERED: PHENYLEPHRINE-NS 100 MCG/ML 10 ML SYRINGE ONE (07:50)
[2022-11-08] MEDS ORDERED: Heparin 10,000 UNITS/ 10 ML VIAL ONE (08:03)
[2022-11-08] MEDS ORDERED: Nitroglycerin 0.4 MG TAB (25 Tab Bottle) SL PRN (08:37)
[2022-11-08] MEDS ORDERED: Sodium Chloride 0.9% 200 ML IV PRN (08:37)
[2022-11-08] MEDS ORDERED: Amlodipine 5 MG TAB PO SCH (09:00)
[2022-11-08] MEDS ORDERED: Iopamidol 370 76% 100 ML VIAL ONE (10:47)
[2022-11-08] MEDS ORDERED: Insulin Glargine 30 UNITS/0.3 ML VIAL SC SCH ×2 (12:00→21:00)
[2022-11-08 12:01] LABS: Hemoglobin A1c 9.5 % (4.0-6.0)
[2022-11-08] MEDS: QUEtiapine 100 MG TAB PO SCH (21:18)
[2022-11-08] MEDS: Metoprolol Tartrate 25 MG TAB PO SCH (21:18)
[2022-11-09] MEDS ORDERED: CEFAZOLIN 2 GM in Sodium Chloride 0.9% 100 ML IVPB SCH (00:30)
[2022-11-09] MEDS: Nitroglycerin 2% Ointment 1 INCH/1 GM Packet TOP SCH (06:30)
[2022-11-09] MEDS: Metoprolol Tartrate 25 MG TAB PO SCH (06:32)
[2022-11-09] MEDS ORDERED: Communication Order-Pharmacy FS PRN (09:00)
[2022-11-09] MEDS ORDERED: Aspirin 81 mg Enteric Coated Tablet PO SCH (09:00)
[2022-11-09] MEDS ORDERED: Albumin 5% 500 ML ONE (09:13)
[2022-11-09] MEDS ORDERED: PHENYLEPHRINE-NS 100 MCG/ML 10 ML SYRINGE ONE (09:13)
[2022-11-09] MEDS ORDERED: Heparin 10,000 UNITS/1 ML VIAL 30,000 UNITS in Sodium Chloride 0.9% 1,000 ML FS SCH (09:15)
[2022-11-09] MEDS ORDERED: Lidocaine 1% MPF 2 ML VIAL ONE (10:17)
[2022-11-09] MEDS ORDERED: Midazolam HCl 2 mg/2 ml Vial ONE ×3 (10:36→12:11)
[2022-11-09] MEDS ORDERED: Fentanyl 250 MCG/5 ML VIAL ONE (11:45)
[2022-11-09] MEDS ORDERED: Clindamycin/D5W 900 mg/50 ml Premix Bag ONE (12:32)
[2022-11-09] MEDS ORDERED: Levofloxacin 500 mg/D5W 100 ml Premix Bag ONE (12:32)
[2022-11-09] MEDS ORDERED: Potassium Chloride 60 MEQ/30 ML VIAL ONE (12:51)
[2022-11-09] MEDS ORDERED: Cardioplegic Soln 1,000 ML BAG ONE (12:51)
[2022-11-09] MEDS ORDERED: Magnesium 5 GM/10 ML VIAL ONE (12:51)
[2022-11-09] MEDS ORDERED: Vancomycin 1 GM VIAL ONE (12:51)
[2022-11-09] MEDS ORDERED: Ondansetron PF 4 MG/2 ML Vial ONE (12:51)
[2022-11-09] MEDS ORDERED: Heparin 5,000 UNITS/ML VIAL ONE (12:51)
[2022-11-09] MEDS ORDERED: Protamine Sulfate 250 MG/25 ML VIAL ONE (12:51)
[2022-11-09] MEDS ORDERED: Vecuronium 10 MG VIAL ONE (12:51)
[2022-11-09] MEDS ORDERED: Papaverine 60 MG/2 ML VIAL ONE (12:51)
[2022-11-09] MEDS ORDERED: Mannitol 12.5 GM/50 ML ONE (12:51)
[2022-11-09] MEDS ORDERED: Calcium Chloride 1 GM/10 ML Abboject SYRINGE ONE ×2 (12:51→15:52)
[2022-11-09] MEDS ORDERED: Sodium Bicarb 50 MEQ/50 ML Abboject 8.4% SYRINGE ONE (12:51)
[2022-11-09] MEDS ORDERED: Lidocaine 2% PF 100 mg/5 ml Syringe ONE (12:51)
[2022-11-09] MEDS ORDERED: Aminocaproic Acid 5 GM/20 ML VIAL ONE (12:51)
[2022-11-09] MEDS ORDERED: Heparin 30,000 units/30 ml VIAL ONE (12:51)
[2022-11-09] MEDS ORDERED: Thrombin 5000 UNITS/5 ML VIAL ONE (12:51)
[2022-11-09] MEDS ORDERED: Heparin 10,000 UNITS/ 10 ML VIAL ONE (13:17)
[2022-11-09] MEDS ORDERED: Protamine Sulfate 50 MG/5 ML VIAL ONE (14:48)
[2022-11-09] MEDS ORDERED: Guaifenesin DM 100-10/5 ML UDCUP PO PRN (15:18)
[2022-11-09] MEDS ORDERED: Bisacodyl 5 MG TAB PO PRN (15:18)
[2022-11-09] MEDS ORDERED: Bisacodyl 10 MG SUPP PR PRN (15:18)
[2022-11-09] MEDS ORDERED: niCARdipine 25 MG in Sodium Chloride 0.9% 250 ML 250 ML IVPB PRN (15:18)
[2022-11-09] MEDS ORDERED: Hetastarch 6% 500 ML 500 ML IVPB PRN (15:18)
[2022-11-09] MEDS ORDERED: NOREPINEPHRINE 8 MG/250 ML-D5W 250 ML IVPB PRN (15:18)
[2022-11-09] MEDS ORDERED: Morphine 2 MG/ML VIAL SLOW IVP PRN (15:18)
[2022-11-09] MEDS ORDERED: Acetaminophen 325 MG TAB PO PRN (15:18)
[2022-11-09] MEDS ORDERED: Post-Op Insulin Drip Protocol IVPB ONE (15:18)
[2022-11-09] MEDS ORDERED: DOPamine 400 MG/D5W 250 ML 250 ML IVPB PRN (15:18)
[2022-11-09] MEDS ORDERED: hydrALAZINE 20 MG/ML VIAL SLOW IVP PRN (15:18)
[2022-11-09] MEDS ORDERED: Mag-Al 1200 mg/1200 mg/30 ML UDCUP PO PRN (15:18)
[2022-11-09] MEDS ORDERED: Nitroglycerin 50 MG/250 ML BOT 250 ML IVPB PRN (15:18)
[2022-11-09] MEDS ORDERED: Ipratropium/Albuterol 3 ML NEB NEB PRN (15:18)
[2022-11-09] MEDS ORDERED: fentaNYL 50 mcg/mL 1 mL Vial SLOW IVP PRN (15:30)
[2022-11-09] MEDS: Lactated Ringer's 1,000 ML IV SCH (15:39)
[2022-11-09] MEDS ORDERED: Dextrose 50% Abboject 50 ML SYRINGE SLOW IVP PRN (15:45)
[2022-11-09] MEDS ORDERED: HUMULIN R 100 UNITS in Sodium Chloride 0.9% 100 ML IVPB SCH (15:45)
[2022-11-09] MEDS ORDERED: Dextrose 5% in Water 1,000 ML IV PRN (15:45)
[2022-11-09 15:49] LABS: Actual Bicarbonate (HCO3a) 21.5 mEq/L (22-28); Base Excess (BEa) -3.5 mEq/L (-2.0 to +3.0); CO2 Tension 38.7 mmHg (35.0-45.0); Carboxyhemoglobin (COHb) 0.4 gm% (0.0-3.0); Hematocrit-ABG 37 % (42.0-52.0); Hemoglobin (Hb) 12.5 g/dL (14.0-18.0); O2 Tension (PaO2), arterial 98.6 mmHg (> 80.0); pH, Arterial 7.362 (7.35-7.45)
[2022-11-09] MEDS ORDERED: Calcium Chloride 1 GM/10 ML Abboject SYRINGE IVP SCH (15:50)
[2022-11-09 15:51] LABS: ALV-art Gradient 138.225 mmHg (0-20); Puncture Site Arterial Line
[2022-11-09] MEDS ORDERED: Phenylephrine 10 MG/ML VIAL ONE (15:51)
[2022-11-09 15:59] LABS: #Eosinphils 0.1 thou/uL (0.0-0.7); #Lymphocytes 2.4 thou/uL (1.20-3.40); #Monocytes 0.6 thou/uL (0.11-0.59); #Neutrophils 6.3 thou/uL (1.40-6.50); %Basophils 0.3 % (0.0-1.0); %Eosinophils 0.7 % (0.0-10.0); %Lymphocytes 25.7 % (21.0-51.0); %Neutrophils 67.2 % (42.0-75.0); Hemoglobin 12.1 g/dL (14.0-18.0); Mean Corpuscular HGB CONC 36.1 g/dL (32.0-36.0); Mean Corpuscular Volume 99.7 fl (78.0-98.0); Platelet Count 108 10x3/uL (130-400); RBC Distribution Width 11.8 % (11.5-14.5); Red Blood Cell (RBC) Count 3.37 mill/uL (4.70-6.10); White Blood Cell (WBC) Count 9.4 10x3/uL (4.8-10.8)
[2022-11-09 16:10] LABS: INR-International Normal Ratio 1.3; PTT 30.2 sec (22.9-36.1); Prothrombin Time 16.5 sec (12.0-14.7)
[2022-11-09 16:22] LABS: Anion Gap 12 mmol/L (10-20); BUN (Urea Nitrogen) 13 mg/dL (8.4-25.7); Calc. Creatinine Clearance 102 mL/min (70-130); Calcium 8.5 mg/dL (7.8-10.44); Carbon Dioxide 19 mmol/L (23-31); Chloride 111 mmol/L (98-107); Estimated GFR 99; Glucose 98 mg/dL (80-115); Potassium 4.3 mmol/L (3.5-5.1); Sodium 138 mmol/L (136-145)
[2022-11-09] MEDS: fentaNYL 50 mcg/mL 1 mL Vial SLOW IVP PRN ×2 (16:33→18:41)
[2022-11-09 16:55] LABS: Actual Bicarbonate (HCO3a) 15.3 mEq/L (22-28); Base Excess (BEa) -8.6 mEq/L (-2.0 to +3.0); CO2 Tension 27.4 mmHg (35.0-45.0); Calcium, Ionized (arterial) 1.29 mmol/L (1.12-1.30); Carboxyhemoglobin (COHb) 0.2 gm% (0.0-3.0); Hematocrit-ABG 37 % (42.0-52.0); Hemoglobin (Hb) 12.6 g/dL (14.0-18.0); O2 Tension (PaO2), arterial 149.6 mmHg (> 80.0); Potassium - ABG Lab 3.86 mmol/L (3.70-5.30); pH, Arterial 7.364 (7.35-7.45)
[2022-11-09 17:05] LABS: Puncture Site Arterial Line
[2022-11-09] MEDS: Ketorolac Tromethamine 30 MG/ML VIAL IVP SCH (18:19)
[2022-11-09] MEDS: Clindamycin/D5W 900 MG in Premix Bag 1 BAG IVPB SCH (18:19)
[2022-11-09] MEDS: Ondansetron PF 4 MG/2 ML Vial IVP PRN (18:38)
[2022-11-09] MEDS: HYDROcodone/Acetaminophen 5/325 mg Tablet PO PRN (20:39)
[2022-11-09] MEDS: QUEtiapine 100 MG TAB PO SCH (20:45)
[2022-11-09] MEDS: Famotidine/PF 20 mg/2ml Vial SLOW IVP SCH (20:45)
[2022-11-09] MEDS: Insulin Regular 300 UNITS/3 ML VIAL SC PRN (20:56)
[2022-11-09] MEDS ORDERED: Atorvastatin Calcium 20 MG TAB PO SCH (21:00)
[2022-11-09 21:35] LABS: Hemoglobin 12.1 g/dL (14.0-18.0)
[2022-11-09 21:48] LABS: Potassium 4.5 mmol/L (3.5-5.1)
[2022-11-10] MEDS: Ketorolac Tromethamine 30 MG/ML VIAL IVP SCH ×5 (00:30→23:11)
[2022-11-10] MEDS: Clindamycin/D5W 900 MG in Premix Bag 1 BAG IVPB SCH ×3 (00:32→12:59)
[2022-11-10 04:37] LABS: #Lymphocytes 0.8 thou/uL (1.20-3.40); #Monocytes 0.5 thou/uL (0.11-0.59); %Basophils 0.2 % (0.0-1.0); %Eosinophils 0.2 % (0.0-10.0); %Lymphocytes 11.1 % (21.0-51.0); %Neutrophils 81.5 % (42.0-75.0); Hemoglobin 10.3 g/dL (14.0-18.0); Mean Corpuscular HGB CONC 36.2 g/dL (32.0-36.0); Mean Corpuscular Hemoglobin 36.4 pg (27.0-31.0); Mean Platelet Volume 9.3 fL (7.4-10.4); Platelet Count 110 10x3/uL (130-400); RBC Distribution Width 11.9 % (11.5-14.5); Red Blood Cell (RBC) Count 2.83 mill/uL (4.70-6.10); White Blood Cell (WBC) Count 7.3 10x3/uL (4.8-10.8)
[2022-11-10 04:56] LABS: Anion Gap 14 mmol/L (10-20); BUN (Urea Nitrogen) 15 mg/dL (8.4-25.7); Calc. Creatinine Clearance 83 mL/min (70-130); Calcium 8.5 mg/dL (7.8-10.44); Carbon Dioxide 19 mmol/L (23-31); Chloride 109 mmol/L (98-107); Estimated GFR 90; Glucose 93 mg/dL (80-115); Potassium 3.9 mmol/L (3.5-5.1); Sodium 138 mmol/L (136-145)
[2022-11-10] MEDS: Lactated Ringer's 1,000 ML IV SCH ×2 (05:13→18:21)
[2022-11-10] MEDS: HYDROcodone/Acetaminophen 5/325 mg Tablet PO PRN ×5 (05:30→23:12)
[2022-11-10] MEDS: busPIRone HCl 5 MG TAB PO SCH (08:11)
[2022-11-10] MEDS: Polyethylene Glycol 3350 17 GM Packet PO SCH (08:11)
[2022-11-10] MEDS: Potassium Chloride 20 MEQ/100 ML PREMIX BAG IVPB PRN (08:11)
[2022-11-10] MEDS: Magnesium 2 GM/50 ML(in water) 2 GM in Premix Bag 1 BAG IVPB SCH (08:11)
[2022-11-10] MEDS: Famotidine/PF 20 mg/2ml Vial SLOW IVP SCH ×2 (08:11→20:38)
[2022-11-10] MEDS: Aspirin Chewable 81 MG TAB PO SCH (08:11)
[2022-11-10] MEDS: Ondansetron PF 4 MG/2 ML Vial IVP PRN (14:48)
[2022-11-10] MEDS ORDERED: Insulin Glargine 30 UNITS/0.3 ML VIAL SC PRN (15:39)
[2022-11-10] MEDS: fentaNYL 50 mcg/mL 1 mL Vial SLOW IVP PRN (18:17)
[2022-11-10] MEDS: Atorvastatin Calcium 40 MG TAB PO SCH (20:38)
[2022-11-10] MEDS: QUEtiapine 100 MG TAB PO SCH (20:38)
[2022-11-10] MEDS: Insulin Regular 300 UNITS/3 ML VIAL SC PRN ×2 (20:55→23:20)
[2022-11-11 04:44] LABS: #Lymphocytes 1.2 thou/uL (1.20-3.40); #Monocytes 0.5 thou/uL (0.11-0.59); %Basophils 0.6 % (0.0-1.0); %Eosinophils 0.6 % (0.0-10.0); %Lymphocytes 14.9 % (21.0-51.0); %Monocytes 6.1 % (0.0-10.0); %Neutrophils 77.9 % (42.0-75.0); Hemoglobin 10.4 g/dL (14.0-18.0); Mean Corpuscular HGB CONC 36.6 g/dL (32.0-36.0); Mean Corpuscular Hemoglobin 37.1 pg (27.0-31.0); Mean Platelet Volume 9.3 fL (7.4-10.4); Platelet Count 101 10x3/uL (130-400); RBC Distribution Width 11.8 % (11.5-14.5); Red Blood Cell (RBC) Count 2.81 mill/uL (4.70-6.10); White Blood Cell (WBC) Count 7.7 10x3/uL (4.8-10.8)
[2022-11-11 05:00] LABS: Anion Gap 11 mmol/L (10-20); BUN (Urea Nitrogen) 16 mg/dL (8.4-25.7); Calc. Creatinine Clearance 98 mL/min (70-130); Calcium 8.2 mg/dL (7.8-10.44); Carbon Dioxide 23 mmol/L (23-31); Chloride 107 mmol/L (98-107); Estimated GFR 96; Glucose 113 mg/dL (80-115); Potassium 3.8 mmol/L (3.5-5.1); Sodium 137 mmol/L (136-145)
[2022-11-11] MEDS: Ketorolac Tromethamine 30 MG/ML VIAL IVP SCH ×4 (06:01→23:54)
[2022-11-11] MEDS: HYDROcodone/Acetaminophen 5/325 mg Tablet PO PRN ×4 (06:01→20:57)
[2022-11-11] MEDS ORDERED: Dextrose 50% Abboject 50 ML SYRINGE SLOW IVP PRN (07:03)
[2022-11-11] MEDS ORDERED: Dextrose 5% in Water 1,000 ML IV PRN (07:03)
[2022-11-11] MEDS: busPIRone HCl 5 MG TAB PO SCH (08:46)
[2022-11-11] MEDS: Empagliflozin 25 MG TAB PO SCH (08:47)
[2022-11-11] MEDS: Furosemide 40 MG TAB PO SCH (08:47)
[2022-11-11] MEDS: Magnesium 2 GM/50 ML(in water) 2 GM in Premix Bag 1 BAG IVPB SCH (08:47)
[2022-11-11] MEDS: Potassium Chloride 10 MEQ TAB PO SCH (08:47)
[2022-11-11] MEDS: Aspirin Chewable 81 MG TAB PO SCH (08:47)
[2022-11-11] MEDS: Polyethylene Glycol 3350 17 GM Packet PO SCH (08:47)
[2022-11-11] MEDS: Ondansetron PF 4 MG/2 ML Vial IVP PRN ×2 (10:54→19:43)
[2022-11-11] MEDS: Ipratropium/Albuterol 3 ML NEB EZPAP SCH ×3 (13:34→23:09)
[2022-11-11] MEDS: HumaLOG 300 UNITS/3 ML VIAL SC PRN (15:53)
[2022-11-11] MEDS: Potassium Chloride 20 MEQ/100 ML PREMIX BAG IVPB PRN (15:59)
[2022-11-11] MEDS: QUEtiapine 100 MG TAB PO SCH (20:57)
[2022-11-11] MEDS: Atorvastatin Calcium 40 MG TAB PO SCH (20:57)
[2022-11-12 04:14] LABS: #Eosinphils 0.1 thou/uL (0.0-0.7); #Lymphocytes 1.3 thou/uL (1.20-3.40); #Monocytes 0.5 thou/uL (0.11-0.59); #Neutrophils 5.1 thou/uL (1.40-6.50); %Basophils 0.1 % (0.0-1.0); %Eosinophils 0.8 % (0.0-10.0); %Lymphocytes 18.8 % (21.0-51.0); %Monocytes 6.9 % (0.0-10.0); %Neutrophils 73.4 % (42.0-75.0); Hemoglobin 10.3 g/dL (14.0-18.0); Mean Corpuscular Hemoglobin 36.5 pg (27.0-31.0); Mean Platelet Volume 8.8 fL (7.4-10.4); Platelet Count 110 10x3/uL (130-400); RBC Distribution Width 11.6 % (11.5-14.5); Red Blood Cell (RBC) Count 2.82 mill/uL (4.70-6.10); White Blood Cell (WBC) Count 6.9 10x3/uL (4.8-10.8)
[2022-11-12 04:26] LABS: Anion Gap 14 mmol/L (10-20); BUN (Urea Nitrogen) 23 mg/dL (8.4-25.7); Calc. Creatinine Clearance 78 mL/min (70-130); Calcium 8.4 mg/dL (7.8-10.44); Carbon Dioxide 22 mmol/L (23-31); Chloride 103 mmol/L (98-107); Estimated GFR 77; Glucose 138 mg/dL (80-115); Potassium 4.3 mmol/L (3.5-5.1); Sodium 135 mmol/L (136-145)
[2022-11-12] MEDS: Ketorolac Tromethamine 30 MG/ML VIAL IVP SCH ×3 (05:45→17:17)
[2022-11-12] MEDS: HYDROcodone/Acetaminophen 5/325 mg Tablet PO PRN ×5 (05:46→23:18)
[2022-11-12] MEDS: Ipratropium/Albuterol 3 ML NEB EZPAP SCH ×3 (07:01→18:29)
[2022-11-12] MEDS: Furosemide 40 MG TAB PO SCH (09:04)
[2022-11-12] MEDS: Polyethylene Glycol 3350 17 GM Packet PO SCH (09:04)
[2022-11-12] MEDS: Empagliflozin 25 MG TAB PO SCH (09:04)
[2022-11-12] MEDS: Aspirin Chewable 81 MG TAB PO SCH (09:04)
[2022-11-12] MEDS: Potassium Chloride 10 MEQ TAB PO SCH (09:04)
[2022-11-12] MEDS: busPIRone HCl 5 MG TAB PO SCH (09:04)
[2022-11-12] MEDS: HumaLOG 300 UNITS/3 ML VIAL SC PRN (12:05)
[2022-11-12 17:00] VITALS: BMI 26.4
[2022-11-12] MEDS: QUEtiapine 100 MG TAB PO SCH (21:25)
[2022-11-12] MEDS: Atorvastatin Calcium 40 MG TAB PO SCH (21:25)
[2022-11-13] MEDS: Ipratropium/Albuterol 3 ML NEB EZPAP SCH ×4 (00:04→18:52)
[2022-11-13] MEDS: HYDROcodone/Acetaminophen 5/325 mg Tablet PO PRN ×4 (08:14→20:24)
[2022-11-13] MEDS: Polyethylene Glycol 3350 17 GM Packet PO SCH (08:14)
[2022-11-13] MEDS: Potassium Chloride 10 MEQ TAB PO SCH (08:14)
[2022-11-13] MEDS: Furosemide 40 MG TAB PO SCH (08:14)
[2022-11-13] MEDS: busPIRone HCl 5 MG TAB PO SCH (08:15)
[2022-11-13] MEDS: Aspirin Chewable 81 MG TAB PO SCH (08:15)
[2022-11-13] MEDS: Empagliflozin 25 MG TAB PO SCH (08:24)
[2022-11-13] MEDS: HumaLOG 300 UNITS/3 ML VIAL SC PRN (11:52)
[2022-11-13] MEDS: Ondansetron PF 4 MG/2 ML Vial IVP PRN (16:51)
[2022-11-13] MEDS: Metoprolol Tartrate 25 MG TAB PO SCH (20:15)
[2022-11-13] MEDS: QUEtiapine 100 MG TAB PO SCH (20:16)
[2022-11-13] MEDS: Atorvastatin Calcium 40 MG TAB PO SCH (20:16)
[2022-11-14] MEDS: HYDROcodone/Acetaminophen 5/325 mg Tablet PO PRN ×3 (02:53→14:14)
[2022-11-14 05:12] LABS: #Eosinphils 0.1 thou/uL (0.0-0.7); #Lymphocytes 1.2 thou/uL (1.20-3.40); #Monocytes 0.6 thou/uL (0.11-0.59); #Neutrophils 3.4 thou/uL (1.40-6.50); %Eosinophils 1.3 % (0.0-10.0); %Lymphocytes 22.6 % (21.0-51.0); %Monocytes 10.4 % (0.0-10.0); %Neutrophils 65.6 % (42.0-75.0); Hemoglobin 10.4 g/dL (14.0-18.0); Mean Corpuscular HGB CONC 35.3 g/dL (32.0-36.0); Mean Corpuscular Hemoglobin 35.5 pg (27.0-31.0); Mean Platelet Volume 8.2 fL (7.4-10.4); Platelet Count 174 10x3/uL (130-400); RBC Distribution Width 11.5 % (11.5-14.5); Red Blood Cell (RBC) Count 2.93 mill/uL (4.70-6.10); White Blood Cell (WBC) Count 5.2 10x3/uL (4.8-10.8)
[2022-11-14 05:34] LABS: Anion Gap 17 mmol/L (10-20); BUN (Urea Nitrogen) 23 mg/dL (8.4-25.7); Calc. Creatinine Clearance 90 mL/min (70-130); Calcium 8.6 mg/dL (7.8-10.44); Carbon Dioxide 23 mmol/L (23-31); Chloride 100 mmol/L (98-107); Estimated GFR 95; Glucose 123 mg/dL (80-115); Potassium 4.1 mmol/L (3.5-5.1); Sodium 136 mmol/L (136-145)
[2022-11-14] MEDS: Potassium Chloride 10 MEQ TAB PO SCH (06:53)
[2022-11-14] MEDS: Furosemide 40 MG TAB PO SCH (07:04)
[2022-11-14] MEDS: Ipratropium/Albuterol 3 ML NEB EZPAP SCH ×3 (08:00→14:28)
[2022-11-14] MEDS: Metoprolol Tartrate 25 MG TAB PO SCH (08:47)
[2022-11-14] MEDS: busPIRone HCl 5 MG TAB PO SCH (08:47)
[2022-11-14] MEDS: Polyethylene Glycol 3350 17 GM Packet PO SCH (08:47)
[2022-11-14] MEDS: Aspirin Chewable 81 MG TAB PO SCH (08:47)
[2022-11-14] MEDS: Empagliflozin 25 MG TAB PO SCH (08:47)
[2022-11-14] MEDS ORDERED: Clopidogrel Bisulfate 75 MG TAB PO SCH (09:00)
[2022-11-14] MEDS: HumaLOG 300 UNITS/3 ML VIAL SC PRN (12:23)
[2022-11-14 17:33] VITALS: BP 128/64; TEMP 97.9
== END 2022-11-14 16:35 | disposition home or self-care (01) | DRG 234 ==
LOC: ERS 17:07 → ERHOLD 21:37 → 2SW 11-07 15:08 → OBSVTOIN 11-07 15:19 → CCU 11-09 09:52 → 2NO 11-13 00:44
PROVIDERS: ADMIT Internal Medicine; ATTEND Emergency Medicine
PROC: 4A023N7 Measurement of Cardiac Sampling and Pressure, Left Heart, Percutaneous Approach (ICD-10-PCS; principal; 2022-11-07)
PROC: B2151ZZ Fluoroscopy of Left Heart using Low Osmolar Contrast (ICD-10-PCS; 2022-11-07)
PROC: B2111ZZ Fluoroscopy of Multiple Coronary Arteries using Low Osmolar Contrast (ICD-10-PCS; 2022-11-07)
PROC: 3E033XZ Introduction of Vasopressor into Peripheral Vein, Percutaneous Approach (ICD-10-PCS; 2022-11-07)
PROC: 021009W Bypass Coronary Artery, One Artery from Aorta with Autologous Venous Tissue, Open Approach (ICD-10-PCS; 2022-11-09)
PROC: 02100Z9 Bypass Coronary Artery, One Artery from Left Internal Mammary, Open Approach (ICD-10-PCS; 2022-11-09)
PROC: 06BQ0ZZ Excision of Left Saphenous Vein, Open Approach (ICD-10-PCS; 2022-11-09)
PROC: 5A1221Z Performance of Cardiac Output, Continuous (ICD-10-PCS; 2022-11-09)
PROC: 02L70ZK Occlusion of Left Atrial Appendage, Open Approach (ICD-10-PCS; 2022-11-09)
DX: I25.110 Atherosclerotic heart disease of native coronary artery with unstable angina pectoris (principal); I50.32 Chronic diastolic (congestive) heart failure; I13.0 Hypertensive heart and chronic kidney disease with heart failure and stage 1 through stage 4 chronic kidney disease, or unspecified chronic kidney disease; J45.909 Unspecified asthma, uncomplicated; M06.9 Rheumatoid arthritis, unspecified; F41.9 Anxiety disorder, unspecified; F31.9 Bipolar disorder, unspecified; E11.22 Type 2 diabetes mellitus with diabetic chronic kidney disease; N18.2 Chronic kidney disease, stage 2 (mild); Z88.0 Allergy status to penicillin; Z88.5 Allergy status to narcotic agent; Z88.8 Allergy status to other drugs, medicaments and biological substances; Z79.82 Long term (current) use of aspirin; Z79.4 Long term (current) use of insulin; Z79.899 Other long term (current) drug therapy; Z87.891 Personal history of nicotine dependence
CPT/HCPCS: 36415; 36416; 36430; 71045; 74177; 80048; 80053; 80061; 82805; 83036; 83690; 83735; 83880; 84484; 85025; 85610; 85730; 86850; 86900; 86901; 93005; 93010; 93458; 93798; 94002; 94640; 96372; 96374; 96376; 97139; 99152; 99153; C1751; C1769; G0378; J1642; J1644; J1650; J1815; J1885; J1956; J2001; J2150; J2250; J2405; J2440; J2720; J3010; J3370; J3475; J3480; J3490; J7050; J7120; J7620; P9045; Q9967; S0017; S0028

== ENCOUNTER 2023-02-25 20:49 | Emergency (ER) | payer OTHER | END 2023-02-25 21:43 | disposition home or self-care (01) | LOC: ERS 20:49 | DX: E11.40 Type 2 diabetes mellitus with diabetic neuropathy, unspecified (principal); I10 Essential (primary) hypertension | CPT/HCPCS: 99283 ==

== ENCOUNTER 2023-03-09 19:03 | Emergency (ER) | payer OTHER ==
[2023-03-09] MEDS ORDERED: Acetaminophen 500 MG TAB ONE (20:18)
== END 2023-03-09 20:21 | disposition home or self-care (01) ==
LOC: ERS 19:03
DX: M54.42 Lumbago with sciatica, left side (principal); E11.9 Type 2 diabetes mellitus without complications; I10 Essential (primary) hypertension; I25.10 Atherosclerotic heart disease of native coronary artery without angina pectoris
CPT/HCPCS: 99283

== ENCOUNTER 2023-03-27 18:29 | Inpatient (IN) | payer OTHER, MEDICAID ==
[2023-03-27] MEDS ORDERED: methylPREDNISolone Sod Succ/PF 125 MG/2 ML VIAL ONE (20:20)
[2023-03-27] MEDS ORDERED: Ketorolac Tromethamine 30 MG/ML VIAL ONE (20:32)
[2023-03-27 20:33] LABS: #Neutrophils 9.2 thou/uL (1.40-6.50); %Basophils 0.3 % (0.0-1.0); %Eosinophils 0.2 % (0.0-10.0); %Lymphocytes 12.4 % (21.0-51.0); %Monocytes 8.2 % (0.0-10.0); %Neutrophils 78.6 % (42.0-75.0); Hematocrit 45.7 % (42.0-52.0); Hemoglobin 16.1 g/dL (14.0-18.0); Mean Corpuscular HGB CONC 35.2 g/dL (32.0-36.0); Mean Corpuscular Hemoglobin 31.8 pg (27.0-31.0); Mean Corpuscular Volume 90.1 fl (78.0-98.0); Mean Platelet Volume 10.5 fL (7.4-10.4); Platelet Count 171 10x3/uL (130-400); RBC Distribution Width 14.4 % (11.5-14.5); Red Blood Cell (RBC) Count 5.07 mill/uL (4.70-6.10); White Blood Cell (WBC) Count 11.7 10x3/uL (4.8-10.8)
[2023-03-27 20:37] LABS: Bacteria/HPF None Seen HPF (None Seen); Bilirubin Negative (Negative); Blood, Urine Trace (Negative); CAUTI Indications for Culture Pelvic or flank pain; Clarity Clear (Clear); Glucose, Urine (Dipstick) >=1000 mg/dL (Negative); Ketone, Urine 40 mg/dL (Negative); Leukocyte 75 Leu/uL (Negative); Nitrite Negative (Negative); Protein, Urine (Dipstick) 200 mg/dL (Neg-Trace); RBC/HPF 0-3 HPF (0-3); Specific Gravity, Urine 1.027 (1.002-1.036)
[2023-03-27 20:40] LABS: Urine Culture Reflex No No
[2023-03-27 20:54] LABS: ALT (SGPT) 17 U/L (8-55); AST (SGOT) 10 U/L (5-34); Albumin 4.4 g/dL (3.4-4.8); Alkaline Phosphatase 80 U/L (40-110); Anion Gap 17 mmol/L (10-20); BUN (Urea Nitrogen) 11 mg/dL (8.4-25.7); Bilirubin, Total 2.8 mg/dL (0.2-1.2); Calc. Creatinine Clearance 0 mL/min (70-130); Calcium 10.1 mg/dL (7.8-10.44); Carbon Dioxide 25 mmol/L (23-31); Chloride 93 mmol/L (98-107); Estimated GFR 69; Globulin 4.1 g/dL (2.4-3.5); Glucose 275 mg/dL (80-115); Potassium 3.9 mmol/L (3.5-5.1); Protein, Total 8.5 g/dL (5.8-8.1); Sodium 131 mmol/L (136-145)
[2023-03-27] MEDS ORDERED: Vancomycin 1.5 GRAM/300 ML BAG 1.5 GM in Premix Bag 1 BAG IVPB SCH (21:30)
[2023-03-27] MEDS ORDERED: Ondansetron PF 4 MG/2 ML Vial IVP PRN (22:13)
[2023-03-27] MEDS ORDERED: HYDROcodone/Acetaminophen 5/325 mg Tablet PO PRN (22:13)
[2023-03-27] MEDS ORDERED: Dextrose 50% Abboject 50 ML SYRINGE SLOW IVP PRN (22:43)
[2023-03-27] MEDS ORDERED: HumaLOG 300 UNITS/3 ML VIAL SC PRN (22:43)
[2023-03-27] MEDS ORDERED: Glucagon 1 MG/ML KIT IM PRN (22:43)
[2023-03-27] MEDS ORDERED: Dextrose 5% in Water 1,000 ML IV PRN (22:43)
[2023-03-27] MEDS ORDERED: Cyclobenzaprine 10 MG TAB PO PRN (22:46)
[2023-03-27] MEDS ORDERED: fentaNYL 50 mcg/mL 1 mL Vial ONE (23:03)
[2023-03-27] MEDS ORDERED: Cefepime 2 GM VIAL ONE (23:18)
[2023-03-27 23:24] LABS: Lactic Acid 1.1 mmol/L (0.5-2.2)
[2023-03-28] MEDS: Sodium Chloride 0.9% 1,000 ML IV SCH ×3 (01:56→21:00)
[2023-03-28] MEDS: methylPREDNISolone Sod Succ 40 MG VIAL IVP SCH ×4 (01:57→17:04)
[2023-03-28 02:50] VITALS: BMI 24.8
[2023-03-28] MEDS ORDERED: QUEtiapine 200 MG TAB PO SCH (04:30)
[2023-03-28 05:22] LABS: #Monocytes 0.2 thou/uL (0.11-0.59); #Neutrophils 7.1 thou/uL (1.40-6.50); %Basophils 0.3 % (0.0-1.0); %Lymphocytes 6.2 % (21.0-51.0); %Monocytes 2.1 % (0.0-10.0); %Neutrophils 91.1 % (42.0-75.0); Hematocrit 38.3 % (42.0-52.0); Hemoglobin 13.5 g/dL (14.0-18.0); Mean Corpuscular HGB CONC 35.2 g/dL (32.0-36.0); Mean Corpuscular Volume 90.8 fl (78.0-98.0); Mean Platelet Volume 11.8 fL (7.4-10.4); Platelet Count 133 10x3/uL (130-400); RBC Distribution Width 14.2 % (11.5-14.5); Red Blood Cell (RBC) Count 4.22 mill/uL (4.70-6.10); White Blood Cell (WBC) Count 7.8 10x3/uL (4.8-10.8)
[2023-03-28 05:55] LABS: Anion Gap 16 mmol/L (10-20); BUN (Urea Nitrogen) 19 mg/dL (8.4-25.7); Calc. Creatinine Clearance 71 mL/min (70-130); Calcium 8.8 mg/dL (7.8-10.44); Carbon Dioxide 20 mmol/L (23-31); Chloride 96 mmol/L (98-107); Estimated GFR 74; Potassium 4.3 mmol/L (3.5-5.1); Sodium 128 mmol/L (136-145)
[2023-03-28 06:07] LABS: Glucose 464 mg/dL (80-115)
[2023-03-28] MEDS: HumaLOG 300 UNITS/3 ML VIAL SC PRN ×3 (06:12→17:03)
[2023-03-28] MEDS: Metoprolol Tartrate 25 MG TAB PO SCH ×2 (08:53→20:52)
[2023-03-28] MEDS: Famotidine 20 MG TAB PO SCH ×2 (08:53→20:52)
[2023-03-28] MEDS: Insulin Glargine 30 UNITS/0.3 ML VIAL SC SCH ×2 (08:54→20:52)
[2023-03-28] MEDS: Empagliflozin 25 MG TAB PO SCH (08:57)
[2023-03-28] MEDS ORDERED: Insulin Glargine 30 UNITS/0.3 ML VIAL SC SCH (09:00)
[2023-03-28] MEDS ORDERED: Cefepime 1 GM in Sodium Chloride 0.9% 100 ML IVPB SCH (09:00)
[2023-03-28] MEDS ORDERED: Vancomycin 1 GM in Premix Bag 1 BAG IVPB SCH (10:00)
[2023-03-28] MEDS: HYDROcodone/Acetaminophen 5/325 mg Tablet PO PRN ×3 (10:22→20:53)
[2023-03-28] MEDS ORDERED: Albuterol 200 PUFF (6.7GM INHALER) INH PRN (18:00)
[2023-03-28] MEDS ORDERED: QUEtiapine 100 MG TAB PO SCH (21:00)
[2023-03-28] MEDS ORDERED: Atorvastatin Calcium 40 MG TAB PO SCH (21:00)
[2023-03-29] MEDS: methylPREDNISolone Sod Succ 40 MG VIAL IVP SCH ×3 (00:54→12:38)
[2023-03-29] MEDS: HYDROcodone/Acetaminophen 5/325 mg Tablet PO PRN ×2 (02:50→08:32)
[2023-03-29] MEDS: HumaLOG 300 UNITS/3 ML VIAL SC PRN ×2 (05:34→12:37)
[2023-03-29] MEDS: Empagliflozin 25 MG TAB PO SCH (08:24)
[2023-03-29] MEDS: Famotidine 20 MG TAB PO SCH (08:24)
[2023-03-29] MEDS: Insulin Glargine 30 UNITS/0.3 ML VIAL SC SCH (08:25)
[2023-03-29] MEDS ORDERED: risperiDONE 0.25 MG TAB PO SCH (09:00)
[2023-03-29] MEDS ORDERED: Aspirin 325 MG TAB PO SCH (09:00)
[2023-03-29 11:54] VITALS: TEMP 97.4
[2023-03-29 14:08] VITALS: BP 127/60
== END 2023-03-29 15:40 | disposition home or self-care (01) | DRG 552 ==
LOC: ERS 18:29 → 2NO 22:17
PROVIDERS: ADMIT Hospitalist; ATTEND Internal Medicine Critical Care Medicine
DX: M54.16 Radiculopathy, lumbar region (principal); G89.29 Other chronic pain; M54.50 Low back pain, unspecified; I10 Essential (primary) hypertension; M10.9 Gout, unspecified; F41.9 Anxiety disorder, unspecified; F31.9 Bipolar disorder, unspecified; J45.909 Unspecified asthma, uncomplicated; E78.2 Mixed hyperlipidemia; E11.65 Type 2 diabetes mellitus with hyperglycemia; T38.0X5A Adverse effect of glucocorticoids and synthetic analogues, initial encounter; M19.90 Unspecified osteoarthritis, unspecified site; I25.10 Atherosclerotic heart disease of native coronary artery without angina pectoris; Z95.1 Presence of aortocoronary bypass graft; Z98.890 Other specified postprocedural states; Z95.810 Presence of automatic (implantable) cardiac defibrillator; Z88.0 Allergy status to penicillin; Z88.8 Allergy status to other drugs, medicaments and biological substances; Z79.82 Long term (current) use of aspirin; Z79.51 Long term (current) use of inhaled steroids; Z79.899 Other long term (current) drug therapy; Z79.4 Long term (current) use of insulin
CPT/HCPCS: 36415; 36416; 71045; 72126; 72129; 72132; 80048; 80053; 81001; 83605; 85025; 86140; 87040; 96365; 96366; 96367; 96375; J0692; J1650; J1815; J1885; J2920; J2930; J3010; J3370; J3370-JW; J3490; J7050

== ENCOUNTER 2023-06-11 14:11 | Emergency (ER) | payer OTHER ==
[2023-06-11 16:53] LABS: #Monocytes 0.8 thou/uL (0.11-0.59); #Neutrophils 5.3 thou/uL (1.40-6.50); %Basophils 0.3 % (0.0-1.0); %Eosinophils 0.1 % (0.0-10.0); %Lymphocytes 19.6 % (21.0-51.0); %Monocytes 9.9 % (0.0-10.0); Hematocrit 43.5 % (42.0-52.0); Hemoglobin 15.3 g/dL (14.0-18.0); Mean Corpuscular HGB CONC 35.2 g/dL (32.0-36.0); Mean Corpuscular Hemoglobin 34.1 pg (27.0-31.0); Mean Corpuscular Volume 96.9 fl (78.0-98.0); Mean Platelet Volume 10.7 fL (7.4-10.4); Platelet Count 174 10x3/uL (130-400); RBC Distribution Width 12.7 % (11.5-14.5); Red Blood Cell (RBC) Count 4.49 mill/uL (4.70-6.10); White Blood Cell (WBC) Count 7.5 10x3/uL (4.8-10.8)
[2023-06-11] MEDS ORDERED: Ketorolac Tromethamine 30 MG/ML VIAL ONE (17:02)
[2023-06-11 17:15] LABS: ALT (SGPT) 12 U/L (8-55); AST (SGOT) 10 U/L (5-34); Albumin 4.1 g/dL (3.4-4.8); Alkaline Phosphatase 84 U/L (40-110); Anion Gap 18 mmol/L (10-20); BUN (Urea Nitrogen) 19 mg/dL (8.4-25.7); Bilirubin, Total 2.6 mg/dL (0.2-1.2); Calc. Creatinine Clearance 0 mL/min (70-130); Calcium 9.9 mg/dL (7.8-10.44); Carbon Dioxide 24 mmol/L (23-31); Chloride 97 mmol/L (98-107); Estimated GFR 71; Globulin 3.8 g/dL (2.4-3.5); Glucose 308 mg/dL (80-115); Lipase 6 U/L (8-78); Potassium 4.6 mmol/L (3.5-5.1); Protein, Total 7.9 g/dL (5.8-8.1); Sodium 134 mmol/L (136-145)
[2023-06-11 18:26] LABS: Bacteria/HPF None Seen HPF (None Seen); Bilirubin Negative (Negative); Blood, Urine Negative (Negative); CAUTI Indications for Culture Dysuria,urgency,freq; Clarity Clear (Clear); Glucose, Urine (Dipstick) Greater than 1000 mg/dL (Negative); Ketone, Urine Negative (Negative); Leukocyte Negative Leu/uL (Negative); Nitrite Negative (Negative); Protein, Urine (Dipstick) 50 mg/dL (Neg-Trace); RBC/HPF 0-3 HPF (0-3); Specific Gravity, Urine 1.035 (1.002-1.036); WBC/HPF 0-3 HPF (0-3)
[2023-06-11 18:27] LABS: Urine Culture Reflex No No
== END 2023-06-11 19:38 | disposition home or self-care (01) ==
LOC: ERS 14:11
DX: M54.41 Lumbago with sciatica, right side (principal); M51.36 Other intervertebral disc degeneration, lumbar region; E11.9 Type 2 diabetes mellitus without complications; I10 Essential (primary) hypertension
CPT/HCPCS: 36415; 74176; 80053; 81001; 83690; 85025; 96374; J1885

== ENCOUNTER 2023-06-20 14:38 | Emergency (ER) | payer OTHER, MEDICAID ==
[2023-06-20] MEDS ORDERED: Acetaminophen 500 MG TAB ONE (15:24)
== END 2023-06-20 16:49 | disposition home or self-care (01) ==
LOC: ERS 14:38
DX: M79.672 Pain in left foot (principal); E11.9 Type 2 diabetes mellitus without complications; I10 Essential (primary) hypertension; I25.10 Atherosclerotic heart disease of native coronary artery without angina pectoris; Z95.5 Presence of coronary angioplasty implant and graft; Z87.891 Personal history of nicotine dependence; Z79.899 Other long term (current) drug therapy

== ENCOUNTER 2023-07-04 01:02 | Observation (INO) | payer OTHER, MEDICAID ==
[2023-07-04] MEDS ORDERED: Ketorolac Tromethamine 30 MG/ML VIAL ONE (01:47)
[2023-07-04 01:53] LABS: #Eosinphils 0.1 thou/uL (0.0-0.7); #Monocytes 0.3 thou/uL (0.11-0.59); #Neutrophils 3.6 thou/uL (1.40-6.50); %Basophils 0.5 % (0.0-1.0); %Lymphocytes 32.1 % (21.0-51.0); %Monocytes 5.8 % (0.0-10.0); %Neutrophils 60.6 % (42.0-75.0); Hematocrit 40.8 % (42.0-52.0); Hemoglobin 14.2 g/dL (14.0-18.0); Mean Corpuscular HGB CONC 34.8 g/dL (32.0-36.0); Mean Corpuscular Hemoglobin 33.5 pg (27.0-31.0); Mean Corpuscular Volume 96.2 fl (78.0-98.0); Mean Platelet Volume 10.9 fL (7.4-10.4); Platelet Count 182 10x3/uL (130-400); RBC Distribution Width 12.8 % (11.5-14.5); Red Blood Cell (RBC) Count 4.24 mill/uL (4.70-6.10); White Blood Cell (WBC) Count 5.9 10x3/uL (4.8-10.8)
[2023-07-04 02:18] LABS: ALT (SGPT) 13 U/L (8-55); AST (SGOT) 14 U/L (5-34); Albumin 4.2 g/dL (3.4-4.8); Alkaline Phosphatase 69 U/L (40-110); Anion Gap 15 mmol/L (10-20); BUN (Urea Nitrogen) 21 mg/dL (8.4-25.7); Bilirubin, Total 0.9 mg/dL (0.2-1.2); Calc. Creatinine Clearance 0 mL/min (70-130); Calcium 9.1 mg/dL (7.8-10.44); Carbon Dioxide 24 mmol/L (23-31); Chloride 106 mmol/L (98-107); Estimated GFR 74; Globulin 3.3 g/dL (2.4-3.5); Glucose 115 mg/dL (80-115); Magnesium 2.3 mg/dL (1.6-2.6); Potassium 4.3 mmol/L (3.5-5.1); Protein, Total 7.5 g/dL (5.8-8.1); Sodium 141 mmol/L (136-145)
[2023-07-04 02:21] LABS: Troponin I Less than 0.010 ng/mL (< 0.028)
[2023-07-04 03:24] LABS: SARS-CoV-2 NAA Rapid Test Not Detected (NotDetected)
[2023-07-04 04:54] LABS: Lactic Acid 0.7 mmol/L (0.5-2.2)
[2023-07-04] MEDS ORDERED: Ondansetron PF 4 MG/2 ML Vial ONE (05:08)
[2023-07-04 05:58] LABS: Troponin I Less than 0.010 ng/mL (< 0.028)
[2023-07-04] MEDS ORDERED: Ondansetron ODT 4 MG TAB PO PRN (07:17)
[2023-07-04] MEDS ORDERED: Ondansetron PF 4 MG/2 ML Vial IVP PRN (07:17)
[2023-07-04] MEDS ORDERED: Acetaminophen 325 MG TAB PO PRN (07:17)
[2023-07-04] MEDS ORDERED: HYDROcodone/Acetaminophen 5/325 mg Tablet PO PRN (07:28)
[2023-07-04] MEDS ORDERED: Albuterol 200 PUFF (6.7GM INHALER) INH PRN (07:28)
[2023-07-04] MEDS ORDERED: Cyclobenzaprine 10 MG TAB PO PRN (07:28)
[2023-07-04] MEDS ORDERED: Glucagon 1 MG/ML KIT IM PRN (07:30)
[2023-07-04] MEDS ORDERED: Dextrose 5% in Water 1,000 ML IV PRN (07:30)
[2023-07-04] MEDS ORDERED: Dextrose 50% Abboject 50 ML SYRINGE SLOW IVP PRN (07:30)
[2023-07-04] MEDS ORDERED: HumaLOG 300 UNITS/3 ML VIAL SC PRN ×2 (07:30)
[2023-07-04 08:21] LABS: Troponin I Less than 0.010 ng/mL (< 0.028)
[2023-07-04 09:59] VITALS: BMI 23.8
[2023-07-04] MEDS: Empagliflozin 25 MG TAB PO SCH (10:02)
[2023-07-04] MEDS: Aspirin 325 MG TAB PO SCH (10:02)
[2023-07-04] MEDS ORDERED: QUEtiapine 100 MG TAB PO SCH (21:00)
[2023-07-04] MEDS ORDERED: Atorvastatin Calcium 40 MG TAB PO SCH (21:00)
[2023-07-05 04:38] LABS: #Basophils 0.1 thou/uL (0.0-0.2); #Eosinphils 0.1 thou/uL (0.0-0.7); #Monocytes 0.6 thou/uL (0.11-0.59); #Neutrophils 4.6 thou/uL (1.40-6.50); %Basophils 0.6 % (0.0-1.0); %Eosinophils 1.3 % (0.0-10.0); %Lymphocytes 31.7 % (21.0-51.0); %Monocytes 7.2 % (0.0-10.0); %Neutrophils 59.1 % (42.0-75.0); Hematocrit 43.2 % (42.0-52.0); Hemoglobin 14.9 g/dL (14.0-18.0); Mean Corpuscular HGB CONC 34.5 g/dL (32.0-36.0); Mean Corpuscular Hemoglobin 33.6 pg (27.0-31.0); Mean Corpuscular Volume 97.5 fl (78.0-98.0); Mean Platelet Volume 10.8 fL (7.4-10.4); Platelet Count 169 10x3/uL (130-400); RBC Distribution Width 12.9 % (11.5-14.5); Red Blood Cell (RBC) Count 4.43 mill/uL (4.70-6.10); White Blood Cell (WBC) Count 7.8 10x3/uL (4.8-10.8)
[2023-07-05 05:02] LABS: Anion Gap 11 mmol/L (10-20); BUN (Urea Nitrogen) 17 mg/dL (8.4-25.7); Calc. Creatinine Clearance 75 mL/min (70-130); Calcium 9.3 mg/dL (7.8-10.44); Carbon Dioxide 26 mmol/L (23-31); Chloride 105 mmol/L (98-107); Estimated GFR 83; Glucose 151 mg/dL (80-115); Sodium 138 mmol/L (136-145)
[2023-07-05] MEDS ORDERED: Sodium Chloride 0.65% Nasal 44 ML BOT EA NARE PRN (07:06)
[2023-07-05] MEDS ORDERED: Regadenoson 0.4 MG/5 ML SYRINGE ONE (08:32)
[2023-07-05] MEDS ORDERED: FLU VACC QS2023(65UP)/MF59C/PF 60 MCG/0.5 ML SYRINGE IM ONE (09:00)
[2023-07-05] MEDS ORDERED: risperiDONE 0.25 MG TAB PO SCH (09:00)
[2023-07-05] MEDS: Empagliflozin 25 MG TAB PO SCH (09:51)
[2023-07-05] MEDS: Aspirin 325 MG TAB PO SCH (09:51)
[2023-07-05 12:21] VITALS: BP 129/72; TEMP 96.3
== END 2023-07-05 14:15 | disposition home or self-care (01) ==
LOC: ERS 01:02 → 2NO 05:03
PROVIDERS: ADMIT Internal Medicine; ATTEND Internal Medicine
DX: R07.89 Other chest pain (principal); I25.10 Atherosclerotic heart disease of native coronary artery without angina pectoris; I11.0 Hypertensive heart disease with heart failure; I50.1 Left ventricular failure, unspecified; E11.9 Type 2 diabetes mellitus without complications; F31.9 Bipolar disorder, unspecified; I47.20 Ventricular tachycardia, unspecified; E03.9 Hypothyroidism, unspecified; J45.909 Unspecified asthma, uncomplicated; R74.02 Elevation of levels of lactic acid dehydrogenase [LDH]; F41.9 Anxiety disorder, unspecified; Z88.8 Allergy status to other drugs, medicaments and biological substances; Z95.810 Presence of automatic (implantable) cardiac defibrillator; Z79.899 Other long term (current) drug therapy; Z88.5 Allergy status to narcotic agent; Z88.6 Allergy status to analgesic agent; Z79.51 Long term (current) use of inhaled steroids; Z79.4 Long term (current) use of insulin; Z79.82 Long term (current) use of aspirin; Z98.890 Other specified postprocedural states; Z87.891 Personal history of nicotine dependence; Z20.822 Contact with and (suspected) exposure to COVID-19
CPT/HCPCS: 0240U; 71045; 78452; 80048; 82962 ×2; 83605; 83735; 83880; 84484 ×2; 85025; 85379; 93005; 93017; 96374; 96375; 99285; A9502; G0378 ×2; J2785; 36415; 36416; 80053; 84443; J1885; J2405

== ENCOUNTER 2023-07-09 11:58 | Observation (INO) | payer OTHER, MEDICAID ==
[2023-07-09 12:52] LABS: #Monocytes 0.4 thou/uL (0.11-0.59); #Neutrophils 3.7 thou/uL (1.40-6.50); %Basophils 0.5 % (0.0-1.0); %Eosinophils 0.5 % (0.0-10.0); %Lymphocytes 25.5 % (21.0-51.0); %Monocytes 6.5 % (0.0-10.0); Hematocrit 39.8 % (42.0-52.0); Hemoglobin 14.1 g/dL (14.0-18.0); Mean Corpuscular HGB CONC 35.4 g/dL (32.0-36.0); Mean Corpuscular Hemoglobin 33.7 pg (27.0-31.0); Mean Corpuscular Volume 95.2 fl (78.0-98.0); Platelet Count 161 10x3/uL (130-400); RBC Distribution Width 12.7 % (11.5-14.5); Red Blood Cell (RBC) Count 4.18 mill/uL (4.70-6.10); White Blood Cell (WBC) Count 5.6 10x3/uL (4.8-10.8)
[2023-07-09 13:11] LABS: ALT (SGPT) 12 U/L (8-55); AST (SGOT) 13 U/L (5-34); Albumin 4.2 g/dL (3.4-4.8); Alkaline Phosphatase 65 U/L (40-110); Anion Gap 13 mmol/L (10-20); BUN (Urea Nitrogen) 25 mg/dL (8.4-25.7); Bilirubin, Total 1.2 mg/dL (0.2-1.2); Calc. Creatinine Clearance 0 mL/min (70-130); Carbon Dioxide 25 mmol/L (23-31); Chloride 103 mmol/L (98-107); Estimated GFR 80; Globulin 3.2 g/dL (2.4-3.5); Glucose 221 mg/dL (80-115); Lipase 103 U/L (8-78); Potassium 3.9 mmol/L (3.5-5.1); Protein, Total 7.4 g/dL (5.8-8.1); Sodium 137 mmol/L (136-145)
[2023-07-09] MEDS ORDERED: Ondansetron PF 4 MG/2 ML Vial ONE (14:28)
[2023-07-09] MEDS ORDERED: fentaNYL 50 mcg/mL 1 mL Vial ONE (14:28)
[2023-07-09] MEDS ORDERED: Aspirin Chewable 81 MG TAB ONE (14:29)
[2023-07-09] MEDS ORDERED: Nitroglycerin 0.4 MG TAB (25 Tab Bottle) ONE (14:29)
[2023-07-09] MEDS ORDERED: Cyclobenzaprine 10 MG TAB PO PRN (15:22)
[2023-07-09] MEDS ORDERED: Dextrose 5% in Water 1,000 ML IV PRN (15:24)
[2023-07-09] MEDS ORDERED: Dextrose 50% Abboject 50 ML SYRINGE SLOW IVP PRN (15:24)
[2023-07-09] MEDS ORDERED: Ondansetron PF 4 MG/2 ML Vial IVP PRN (15:24)
[2023-07-09] MEDS ORDERED: Acetaminophen 325 MG TAB PO PRN (15:24)
[2023-07-09] MEDS ORDERED: Glucagon 1 MG/ML KIT IM PRN (15:24)
[2023-07-09] MEDS ORDERED: HumaLOG 300 UNITS/3 ML VIAL SC PRN ×2 (15:24)
[2023-07-09] MEDS ORDERED: Enoxaparin 40 MG (0.4 mL) SYRINGE SC SCH (15:30)
[2023-07-09 16:38] VITALS: BMI 24.7
[2023-07-09] MEDS ORDERED: Enoxaparin 40 MG (0.4 mL) SYRINGE ONE (16:54)
[2023-07-09] MEDS: Nitroglycerin 0.4 MG TAB (25 Tab Bottle) SL PRN (18:03)
[2023-07-09 18:59] LABS: Troponin I 0.034 ng/mL (< 0.028)
[2023-07-09] MEDS: Atorvastatin Calcium 40 MG TAB PO SCH (20:31)
[2023-07-09] MEDS: HYDROcodone/Acetaminophen 5/325 mg Tablet PO PRN (20:31)
[2023-07-09] MEDS: QUEtiapine 100 MG TAB PO SCH (20:31)
[2023-07-09] MEDS: Famotidine 20 MG TAB PO SCH (20:31)
[2023-07-09] MEDS: Insulin Glargine 30 UNITS/0.3 ML VIAL SC SCH (20:32)
[2023-07-10] MEDS: HYDROcodone/Acetaminophen 5/325 mg Tablet PO PRN ×3 (04:55→17:33)
[2023-07-10 05:34] LABS: #Eosinphils 0.1 thou/uL (0.0-0.7); #Monocytes 0.4 thou/uL (0.11-0.59); #Neutrophils 1.7 thou/uL (1.40-6.50); %Basophils 0.7 % (0.0-1.0); %Eosinophils 1.6 % (0.0-10.0); %Lymphocytes 49.4 % (21.0-51.0); %Monocytes 9.4 % (0.0-10.0); %Neutrophils 38.7 % (42.0-75.0); Hematocrit 40.4 % (42.0-52.0); Hemoglobin 13.9 g/dL (14.0-18.0); Mean Corpuscular HGB CONC 34.4 g/dL (32.0-36.0); Mean Corpuscular Hemoglobin 33.2 pg (27.0-31.0); Mean Corpuscular Volume 96.4 fl (78.0-98.0); Mean Platelet Volume 10.7 fL (7.4-10.4); Platelet Count 153 10x3/uL (130-400); RBC Distribution Width 12.8 % (11.5-14.5); Red Blood Cell (RBC) Count 4.19 mill/uL (4.70-6.10); White Blood Cell (WBC) Count 4.5 10x3/uL (4.8-10.8)
[2023-07-10 05:49] LABS: Anion Gap 12 mmol/L (10-20); BUN (Urea Nitrogen) 18 mg/dL (8.4-25.7); Calc. Creatinine Clearance 89 mL/min (70-130); Calcium 8.7 mg/dL (7.8-10.44); Carbon Dioxide 24 mmol/L (23-31); Chloride 104 mmol/L (98-107); Estimated GFR 95; Glucose 179 mg/dL (80-115); Potassium 3.6 mmol/L (3.5-5.1); Sodium 136 mmol/L (136-145)
[2023-07-10 05:53] LABS: Troponin I 0.018 ng/mL (< 0.028)
[2023-07-10] MEDS: Nitroglycerin 0.4 MG TAB (25 Tab Bottle) SL PRN (07:56)
[2023-07-10] MEDS: Empagliflozin 25 MG TAB PO SCH (08:25)
[2023-07-10] MEDS: Famotidine 20 MG TAB PO SCH ×2 (08:25→20:31)
[2023-07-10] MEDS: Aspirin 325 MG TAB PO SCH (08:25)
[2023-07-10] MEDS: Enoxaparin 40 MG (0.4 mL) SYRINGE SC SCH (08:26)
[2023-07-10] MEDS: Ketorolac Tromethamine 30 MG (1 mL) VIAL IVP PRN ×2 (08:26→16:35)
[2023-07-10] MEDS: risperiDONE 0.25 MG TAB PO SCH (08:26)
[2023-07-10] MEDS: Insulin Glargine 30 UNITS/0.3 ML VIAL SC SCH ×2 (08:30→20:30)
[2023-07-10] MEDS ORDERED: Albuterol 200 PUFF (6.7GM INHALER) INH SCH (09:00)
[2023-07-10] MEDS ORDERED: Ketorolac Tromethamine 30 MG (1 mL) VIAL IVP SCH (12:00)
[2023-07-10] MEDS: QUEtiapine 100 MG TAB PO SCH (20:31)
[2023-07-10] MEDS: Atorvastatin Calcium 40 MG TAB PO SCH (20:31)
[2023-07-11] MEDS: HYDROcodone/Acetaminophen 5/325 mg Tablet PO PRN ×2 (00:02→09:00)
[2023-07-11 04:44] VITALS: TEMP 98
[2023-07-11 05:12] LABS: #Eosinphils 0.1 thou/uL (0.0-0.7); #Monocytes 0.5 thou/uL (0.11-0.59); #Neutrophils 2.6 thou/uL (1.40-6.50); %Basophils 0.6 % (0.0-1.0); %Eosinophils 0.9 % (0.0-10.0); %Lymphocytes 40.4 % (21.0-51.0); %Neutrophils 48.9 % (42.0-75.0); Hematocrit 38.9 % (42.0-52.0); Hemoglobin 13.8 g/dL (14.0-18.0); Mean Corpuscular HGB CONC 35.5 g/dL (32.0-36.0); Mean Corpuscular Hemoglobin 33.7 pg (27.0-31.0); Mean Corpuscular Volume 95.1 fl (78.0-98.0); Platelet Count 152 10x3/uL (130-400); RBC Distribution Width 12.2 % (11.5-14.5); Red Blood Cell (RBC) Count 4.09 mill/uL (4.70-6.10); White Blood Cell (WBC) Count 5.3 10x3/uL (4.8-10.8)
[2023-07-11 05:37] LABS: Anion Gap 13 mmol/L (10-20); BUN (Urea Nitrogen) 23 mg/dL (8.4-25.7); Calc. Creatinine Clearance 79 mL/min (70-130); Calcium 8.6 mg/dL (7.8-10.44); Carbon Dioxide 23 mmol/L (23-31); Chloride 105 mmol/L (98-107); Estimated GFR 85; Glucose 119 mg/dL (80-115); Potassium 3.6 mmol/L (3.5-5.1); Sodium 137 mmol/L (136-145)
[2023-07-11 08:35] VITALS: BP 142/83
[2023-07-11] MEDS: Insulin Glargine 30 UNITS/0.3 ML VIAL SC SCH (08:59)
[2023-07-11] MEDS: risperiDONE 0.25 MG TAB PO SCH (09:00)
[2023-07-11] MEDS: Empagliflozin 25 MG TAB PO SCH (09:00)
[2023-07-11] MEDS: Enoxaparin 40 MG (0.4 mL) SYRINGE SC SCH (09:00)
[2023-07-11] MEDS: Aspirin 325 MG TAB PO SCH (09:00)
[2023-07-11] MEDS: Famotidine 20 MG TAB PO SCH (09:01)
[2023-07-12] MEDS ORDERED: Albuterol 200 PUFF (6.7GM INHALER) INH SCH (07:00)
== END 2023-07-11 11:43 | disposition home or self-care (01) ==
LOC: ERS 11:58 → ERHOLD 14:52 → 2SW 17:45
PROVIDERS: ADMIT Hospitalist; ATTEND Internal Medicine
DX: R07.89 Other chest pain (principal); Z45.02 Encounter for adjustment and management of automatic implantable cardiac defibrillator; I47.20 Ventricular tachycardia, unspecified; I25.10 Atherosclerotic heart disease of native coronary artery without angina pectoris; E11.9 Type 2 diabetes mellitus without complications; I11.0 Hypertensive heart disease with heart failure; I50.32 Chronic diastolic (congestive) heart failure; F31.9 Bipolar disorder, unspecified; E78.5 Hyperlipidemia, unspecified; E03.9 Hypothyroidism, unspecified; F41.9 Anxiety disorder, unspecified; J45.909 Unspecified asthma, uncomplicated; Z95.810 Presence of automatic (implantable) cardiac defibrillator; Z88.8 Allergy status to other drugs, medicaments and biological substances; Z88.5 Allergy status to narcotic agent; Z88.0 Allergy status to penicillin; F17.200 Nicotine dependence, unspecified, uncomplicated; Z98.890 Other specified postprocedural states; Z88.6 Allergy status to analgesic agent; Z79.51 Long term (current) use of inhaled steroids; Z79.4 Long term (current) use of insulin; Z79.82 Long term (current) use of aspirin; Z79.899 Other long term (current) drug therapy; Z86.73 Personal history of transient ischemic attack (TIA), and cerebral infarction without residual deficits
CPT/HCPCS: 70450; 71045; 71275; 72125; 74174; 80048 ×2; 80053; 82962 ×3; 83605; 83690; 84484 ×2; 85025 ×3; 93005; 96372 ×3; 96374; 96375 ×2; 96376; 99285; G0378 ×4; J3010; 36415; 36416; J1650; J1815; J1885; J2405; Q9967

== ENCOUNTER 2023-08-08 16:02 | Observation (INO) | payer OTHER, MEDICAID ==
[2023-08-08 16:44] LABS: #Monocytes 0.3 thou/uL (0.11-0.59); #Neutrophils 3.2 thou/uL (1.40-6.50); %Basophils 0.2 % (0.0-1.0); %Eosinophils 0.4 % (0.0-10.0); %Lymphocytes 29.2 % (21.0-51.0); %Monocytes 5.3 % (0.0-10.0); %Neutrophils 64.7 % (42.0-75.0); Hematocrit 38.5 % (42.0-52.0); Hemoglobin 13.9 g/dL (14.0-18.0); Mean Corpuscular HGB CONC 36.1 g/dL (32.0-36.0); Mean Corpuscular Hemoglobin 33.9 pg (27.0-31.0); Mean Corpuscular Volume 93.9 fl (78.0-98.0); Mean Platelet Volume 11.1 fL (7.4-10.4); Platelet Count 142 10x3/uL (130-400); RBC Distribution Width 12.6 % (11.5-14.5); White Blood Cell (WBC) Count 4.9 10x3/uL (4.8-10.8)
[2023-08-08 17:10] LABS: ALT (SGPT) 19 U/L (8-55); AST (SGOT) 13 U/L (5-34); Albumin 4.1 g/dL (3.4-4.8); Alkaline Phosphatase 67 U/L (40-110); Anion Gap 16 mmol/L (10-20); BUN (Urea Nitrogen) 21 mg/dL (8.4-25.7); Bilirubin, Total 1.1 mg/dL (0.2-1.2); Calc. Creatinine Clearance 0 mL/min (70-130); Carbon Dioxide 23 mmol/L (23-31); Chloride 102 mmol/L (98-107); Estimated GFR 59; Globulin 2.9 g/dL (2.4-3.5); Glucose 364 mg/dL (80-115); Lipase 15 U/L (8-78); Magnesium 1.9 mg/dL (1.6-2.6); Potassium 4.1 mmol/L (3.5-5.1); Sodium 137 mmol/L (136-145)
[2023-08-08 17:12] LABS: Troponin I Less than 0.010 ng/mL (< 0.028)
[2023-08-08] MEDS ORDERED: Nitroglycerin 2% Ointment 1 INCH/1 GM Packet ONE (18:15)
[2023-08-08] MEDS ORDERED: Labetalol HCl 100 MG/20 ML VIAL ONE (19:31)
[2023-08-08] MEDS ORDERED: fentaNYL 50 mcg/mL 1 mL Vial ONE (20:42)
[2023-08-08] MEDS ORDERED: Dextrose 5% in Water 1,000 ML IV PRN (20:45)
[2023-08-08] MEDS ORDERED: Acetaminophen 650 MG Suppository PR PRN (20:45)
[2023-08-08] MEDS ORDERED: Glucagon 1 MG/ML KIT IM PRN (20:45)
[2023-08-08] MEDS ORDERED: Acetaminophen 325 MG TAB PO PRN (20:45)
[2023-08-08] MEDS ORDERED: Ondansetron ODT 4 MG TAB PO PRN (20:45)
[2023-08-08] MEDS ORDERED: Dextrose 50% Abboject 50 ML SYRINGE SLOW IVP PRN (20:45)
[2023-08-08] MEDS ORDERED: Ondansetron PF 4 MG/2 ML Vial IVP PRN (20:45)
[2023-08-08] MEDS ORDERED: HumaLOG 300 UNITS/3 ML VIAL SC PRN ×2 (20:45)
[2023-08-08 21:17] LABS: Troponin I Less than 0.010 ng/mL (< 0.028)
[2023-08-08] MEDS ORDERED: fentaNYL 50 mcg/mL 1 mL Vial SLOW IVP SCH (21:30)
[2023-08-08] MEDS ORDERED: Nitroglycerin 0.4 MG TAB (25 Tab Bottle) SL PRN (21:56)
[2023-08-08] MEDS ORDERED: Ipratropium/Albuterol 3 ML NEB NEB PRN (21:59)
[2023-08-08 22:29] VITALS: BMI 24.3
[2023-08-08] MEDS ORDERED: QUEtiapine 100 MG TAB PO SCH (23:06)
[2023-08-08] MEDS ORDERED: Insulin Glargine 30 UNITS/0.3 ML VIAL SC SCH (23:06)
[2023-08-09 00:37] LABS: Troponin I Less than 0.010 ng/mL (< 0.028)
[2023-08-09] MEDS ORDERED: fentaNYL 50 mcg/mL 1 mL Vial SLOW IVP SCH (03:15)
[2023-08-09 04:54] LABS: #Eosinphils 0.1 thou/uL (0.0-0.7); #Monocytes 0.4 thou/uL (0.11-0.59); #Neutrophils 2.1 thou/uL (1.40-6.50); %Basophils 0.4 % (0.0-1.0); %Eosinophils 1.6 % (0.0-10.0); %Lymphocytes 46.9 % (21.0-51.0); %Monocytes 8.2 % (0.0-10.0); %Neutrophils 42.7 % (42.0-75.0); Hematocrit 36.1 % (42.0-52.0); Hemoglobin 12.8 g/dL (14.0-18.0); Mean Corpuscular HGB CONC 35.5 g/dL (32.0-36.0); Mean Corpuscular Hemoglobin 33.6 pg (27.0-31.0); Mean Corpuscular Volume 94.8 fl (78.0-98.0); Mean Platelet Volume 10.7 fL (7.4-10.4); Platelet Count 131 10x3/uL (130-400); RBC Distribution Width 12.5 % (11.5-14.5); Red Blood Cell (RBC) Count 3.81 mill/uL (4.70-6.10); White Blood Cell (WBC) Count 4.9 10x3/uL (4.8-10.8)
[2023-08-09 05:20] LABS: Anion Gap 11 mmol/L (10-20); BUN (Urea Nitrogen) 18 mg/dL (8.4-25.7); Calc. Creatinine Clearance 94 mL/min (70-130); Calcium 8.5 mg/dL (7.8-10.44); Carbon Dioxide 24 mmol/L (23-31); Chloride 106 mmol/L (98-107); Estimated GFR 97; Glucose 236 mg/dL (80-115); Potassium 3.6 mmol/L (3.5-5.1); Sodium 137 mmol/L (136-145)
[2023-08-09] MEDS ORDERED: Ranolazine 500 MG ER.TAB PO SCH (09:00)
[2023-08-09] MEDS ORDERED: Aspirin 325 MG TAB PO SCH (09:00)
[2023-08-09] MEDS ORDERED: Aspirin Chewable 81 MG TAB PO SCH (09:00)
[2023-08-09 09:45] LABS: Cardiac Risk 3.1 (Less than 4.5)
[2023-08-09] MEDS ORDERED: HYDROcodone/Acetaminophen 5/325 mg Tablet PO PRN (11:02)
[2023-08-09] MEDS ORDERED: Ipratropium/Albuterol 3 ML NEB NEB PRN (11:10)
[2023-08-09 11:19] VITALS: BP 136/84; TEMP 98.5
== END 2023-08-09 13:43 | disposition home or self-care (01) ==
LOC: ERS 16:02 → 2SW 20:17
PROVIDERS: ADMIT Student in an Organized Health Care Education/Training Program; ATTEND Nurse Practitioner Family
DX: R07.89 Other chest pain (principal); I11.0 Hypertensive heart disease with heart failure; I16.0 Hypertensive urgency; I50.32 Chronic diastolic (congestive) heart failure; N17.9 Acute kidney failure, unspecified; E11.9 Type 2 diabetes mellitus without complications; J45.909 Unspecified asthma, uncomplicated; M10.9 Gout, unspecified; I25.10 Atherosclerotic heart disease of native coronary artery without angina pectoris; Z95.1 Presence of aortocoronary bypass graft; Z95.810 Presence of automatic (implantable) cardiac defibrillator; Z79.4 Long term (current) use of insulin; Z88.8 Allergy status to other drugs, medicaments and biological substances; Z88.5 Allergy status to narcotic agent; Z88.0 Allergy status to penicillin; Z79.82 Long term (current) use of aspirin; Z79.899 Other long term (current) drug therapy; Z87.891 Personal history of nicotine dependence
CPT/HCPCS: 70450; 71045; 71275; 74174; 80048; 80061; 82962; 83690; 83735; 83880; 84484 ×3; 85025; 93005; 94760; 96374; 96375; 99285; J3010 ×2; 36415; 36416; 80053; 84443; 96376; G0378; J1815; Q9967

== ENCOUNTER 2024-01-30 18:41 | Observation (INO) | payer MEDICARE, MEDICAID ==
[2024-01-30 18:59] LABS: #Basophils Less than 0.03 10x3/uL (0.0-0.2); %Basophils 0.5 % (0.0-1.0); %Eosinophils 1.2 % (0.0-10.0); %Monocytes 7.1 % (0.0-10.0); %Neutrophils 55.7 % (42.0-75.0); Hemoglobin 12.9 g/dL (14.0-18.0); Mean Corpuscular HGB CONC 36.9 g/dL (32.0-36.0); Mean Corpuscular Hemoglobin 34.6 pg (27.0-31.0); Mean Corpuscular Volume 93.8 fL (78.0-98.0); Mean Platelet Volume 11.2 fL (7.4-10.4); Platelet Count 130 10x3/uL (130-400); Red Blood Cell (RBC) Count 3.73 mill/uL (4.70-6.10)
[2024-01-30 19:15] LABS: ALT (SGPT) 16 U/L (8-55); AST (SGOT) 13 U/L (5-34); Albumin 3.8 g/dL (3.4-4.8); Alkaline Phosphatase 63 U/L (40-110); Anion Gap 14 mmol/L (10-20); BUN (Urea Nitrogen) 19 mg/dL (8.4-25.7); Bilirubin, Total 0.7 mg/dL (0.2-1.2); Calc. Creatinine Clearance 0 mL/min (70-130); Calcium 8.6 mg/dL (7.8-10.44); Carbon Dioxide 22 mmol/L (23-31); Chloride 105 mmol/L (98-107); Estimated GFR 63; Globulin 2.8 g/dL (2.4-3.5); Glucose 387 mg/dL (80-115); Potassium 3.9 mmol/L (3.5-5.1); Protein, Total 6.6 g/dL (5.8-8.1); Sodium 137 mmol/L (136-145)
[2024-01-30 19:18] LABS: Troponin I Less than 0.010 ng/mL (< 0.028)
[2024-01-30] MEDS ORDERED: Aspirin Chewable 81 MG TAB ONE (19:49)
[2024-01-30] MEDS ORDERED: Dextrose 50% Abboject 50 ML SYRINGE SLOW IVP PRN (21:21)
[2024-01-30] MEDS ORDERED: Dextrose 5% in Water 1,000 ML IV PRN (21:21)
[2024-01-30] MEDS ORDERED: Glucagon 1 MG/ML KIT IM PRN (21:21)
[2024-01-30] MEDS ORDERED: Ondansetron ODT 4 MG TAB PO PRN (21:22)
[2024-01-30] MEDS ORDERED: Ondansetron PF 4 MG/2 ML Vial IVP PRN (21:22)
[2024-01-30] MEDS ORDERED: fentaNYL 50 mcg/mL 1 mL Vial ONE (21:44)
[2024-01-30 21:55] VITALS: BMI 24.7
[2024-01-30 23:05] LABS: Troponin I Less than 0.010 ng/mL (< 0.028)
[2024-01-31] MEDS: Pantoprazole 40 MG VIAL IVP SCH (00:05)
[2024-01-31] MEDS: Acetaminophen 325 MG TAB PO SCH (00:08)
[2024-01-31] MEDS ORDERED: Pantoprazole 40 MG VIAL ONE ×2 (00:10→09:36)
[2024-01-31] MEDS ORDERED: Acetaminophen 325 MG TAB ONE ×2 (00:10→09:36)
[2024-01-31] MEDS ORDERED: HumaLOG 300 UNITS/3 ML VIAL ONE (06:11)
[2024-01-31] MEDS: Insulin Lispro 100 UNIT/ML 10 ML VIAL SC PRN ×2 (06:12→21:08)
[2024-01-31 07:23] LABS: Troponin I Less than 0.010 ng/mL (< 0.028)
[2024-01-31 08:04] LABS: ALT (SGPT) 16 U/L (8-55); AST (SGOT) 13 U/L (5-34); Albumin 3.5 g/dL (3.4-4.8); Alkaline Phosphatase 57 U/L (40-110); Anion Gap 9 mmol/L (10-20); BUN (Urea Nitrogen) 14 mg/dL (8.4-25.7); Calc. Creatinine Clearance 79 mL/min (70-130); Calcium 8.7 mg/dL (7.8-10.44); Carbon Dioxide 28 mmol/L (23-31); Chloride 105 mmol/L (98-107); Estimated GFR 86; Globulin 2.6 g/dL (2.4-3.5); Glucose 202 mg/dL (80-115); Potassium 4.2 mmol/L (3.5-5.1); Protein, Total 6.1 g/dL (5.8-8.1); Sodium 138 mmol/L (136-145)
[2024-01-31 08:08] LABS: #Basophils Less than 0.03 10x3/uL (0.0-0.2); %Basophils 0.3 % (0.0-1.0); %Eosinophils 2.6 % (0.0-10.0); %Lymphocytes 50.1 % (21.0-51.0); %Monocytes 7.4 % (0.0-10.0); %Neutrophils 39.3 % (42.0-75.0); Hematocrit 38.1 % (42.0-52.0); Hemoglobin 13.6 g/dL (14.0-18.0); Mean Corpuscular HGB CONC 35.7 g/dL (32.0-36.0); Mean Corpuscular Hemoglobin 34.5 pg (27.0-31.0); Mean Corpuscular Volume 96.7 fL (78.0-98.0); Mean Platelet Volume 10.9 fL (7.4-10.4); Platelet Count 125 10x3/uL (130-400); RBC Distribution Width 12.1 % (11.5-14.5); Red Blood Cell (RBC) Count 3.94 mill/uL (4.70-6.10)
[2024-01-31] MEDS ORDERED: Aspirin 325 MG TAB PO SCH (09:00)
[2024-01-31] MEDS ORDERED: Labetalol HCl 100 MG/20 ML VIAL SLOW IVP PRN ×2 (09:07→09:46)
[2024-01-31] MEDS ORDERED: Aspirin Chewable 81 MG TAB ONE (09:36)
[2024-01-31] MEDS ORDERED: Atorvastatin Calcium 40 MG TAB ONE (09:36)
[2024-01-31] MEDS: Ranolazine ER 500 MG TAB PO SCH (10:28)
[2024-01-31] MEDS: Aspirin Chewable 81 MG TAB PO SCH (10:29)
[2024-01-31] MEDS: Atorvastatin Calcium 40 MG TAB PO SCH (10:29)
[2024-01-31] MEDS ORDERED: Enoxaparin 40 MG (0.4 mL) SYRINGE ONE (10:32)
[2024-01-31] MEDS: Enoxaparin 40 MG (0.4 mL) SYRINGE SC SCH (10:33)
[2024-01-31] MEDS ORDERED: Regadenoson 0.4 MG/5 ML SYRINGE ONE (11:46)
[2024-01-31] MEDS: fentaNYL 50 mcg/mL 1 mL Vial SLOW IVP PRN (19:26)
[2024-01-31] MEDS: QUEtiapine 100 MG TAB PO SCH (20:15)
[2024-02-01 12:08] VITALS: BP 174/87; TEMP 97.5
== END 2024-02-01 15:35 | disposition home or self-care (01) ==
LOC: ERS 18:41 → ERHOLD 21:15 → 2SW 01-31 15:40
PROVIDERS: ADMIT Internal Medicine; ATTEND Internal Medicine
DX: R07.82 Intercostal pain (principal); E11.9 Type 2 diabetes mellitus without complications; F31.9 Bipolar disorder, unspecified; M25.579 Pain in unspecified ankle and joints of unspecified foot; I25.810 Atherosclerosis of coronary artery bypass graft(s) without angina pectoris; I10 Essential (primary) hypertension; E78.2 Mixed hyperlipidemia; Z95.1 Presence of aortocoronary bypass graft; Z88.8 Allergy status to other drugs, medicaments and biological substances; Z88.5 Allergy status to narcotic agent; Z88.6 Allergy status to analgesic agent; Z79.899 Other long term (current) drug therapy; Z79.4 Long term (current) use of insulin; Z79.82 Long term (current) use of aspirin; Z88.0 Allergy status to penicillin
CPT/HCPCS: 71045; 78452; 80053 ×2; 82962; 84484 ×3; 85025 ×2; 85379; 93005; 93017; 94760 ×2; 96374; 99285; A9502; C9113 ×2; J1650 ×2; J1815 ×2; J2785 ×2; J3010 ×3; 36415; 36416; 96372; 96375; 96376; G0378

== ENCOUNTER 2024-08-11 13:35 | Inpatient (IN) | payer MEDICARE, MEDICAID ==
[2024-08-11 14:57] LABS: #Basophils Less than 0.03 10x3/uL (0.0-0.2); %Basophils 0.6 % (0.0-1.0); %Lymphocytes 30.6 % (21.0-51.0); %Monocytes 7.1 % (0.0-10.0); %Neutrophils 60.1 % (42.0-75.0); Hematocrit 33.2 % (42.0-52.0); Hemoglobin 12.2 g/dL (14.0-18.0); Mean Corpuscular HGB CONC 36.7 g/dL (32.0-36.0); Mean Corpuscular Hemoglobin 33.8 pg (27.0-31.0); Mean Platelet Volume 10.9 fL (7.4-10.4); Platelet Count 131 10x3/uL (130-400); RBC Distribution Width 12.4 % (11.5-14.5); Red Blood Cell (RBC) Count 3.61 mill/uL (4.70-6.10)
[2024-08-11 15:18] LABS: ALT (SGPT) 13 U/L (Less than 45); AST (SGOT) 17 U/L (11-34); Albumin 3.5 g/dL (3.1-4.5); Alkaline Phosphatase 57 U/L (40-110); Anion Gap 11 mmol/L (10-20); BUN (Urea Nitrogen) 19 mg/dL (8.4-25.7); Bilirubin, Total 0.9 mg/dL (0.3-1.2); Calc. Creatinine Clearance 0 mL/min (70-130); Calcium 8.3 mg/dL (7.8-10.44); Carbon Dioxide 25 mmol/L (23-31); Chloride 102 mmol/L (98-107); Estimated GFR 87; Globulin 2.7 g/dL (2.4-3.5); Glucose 289 mg/dL (80-115); Potassium 4.6 mmol/L (3.5-5.1); Protein, Total 6.2 g/dL (5.8-8.1); Sodium 133 mmol/L (136-145)
[2024-08-11 15:20] LABS: Troponin I Less than 0.010 ng/mL (< 0.028)
[2024-08-11] MEDS ORDERED: Acetaminophen 500 MG TAB ONE (16:28)
[2024-08-11] MEDS ORDERED: Ketorolac Tromethamine 30 MG (1 mL) VIAL ONE (16:28)
[2024-08-11] MEDS ORDERED: Dextrose 5% in Water 1,000 ML IV PRN (18:30)
[2024-08-11] MEDS ORDERED: Ondansetron PF 4 MG/2 ML Vial IVP PRN (18:30)
[2024-08-11] MEDS ORDERED: Calcium Carbonate 500 MG ChewTAB PO PRN (18:30)
[2024-08-11] MEDS ORDERED: Glucagon 1 MG/ML KIT IM PRN (18:30)
[2024-08-11] MEDS ORDERED: Acetaminophen 650 MG Suppository PR PRN (18:30)
[2024-08-11] MEDS ORDERED: Dextrose 50% Abboject 50 ML SYRINGE SLOW IVP PRN (18:30)
[2024-08-11] MEDS ORDERED: Senokot S 8.6-50 MG TAB PO PRN (18:30)
[2024-08-11] MEDS ORDERED: hydrALAZINE 20 MG/ML VIAL SLOW IVP PRN (19:04)
[2024-08-11] MEDS ORDERED: Metoprolol Succinate XL 50 MG ER.TAB ONE (19:05)
[2024-08-11 20:43] VITALS: BMI 25.4
[2024-08-11] MEDS: Nitroglycerin 0.4 MG TAB (25 Tab Bottle) SL PRN (21:20)
[2024-08-11] MEDS: QUEtiapine 200 MG TAB PO SCH (21:21)
[2024-08-11] MEDS: Insulin Glargine 30 UNITS/0.3 ML VIAL SC SCH (21:21)
[2024-08-11] MEDS: Atorvastatin Calcium 40 MG TAB PO SCH (21:21)
[2024-08-11] MEDS: Ketorolac Tromethamine 30 MG (1 mL) VIAL IVP SCH (22:37)
[2024-08-12 00:09] LABS: Troponin I Less than 0.010 ng/mL (< 0.028)
[2024-08-12 00:11] LABS: Troponin I Less than 0.010 ng/mL (< 0.028)
[2024-08-12] MEDS: Ranolazine ER 500 MG TAB PO SCH ×2 (00:25→08:59)
[2024-08-12 05:49] LABS: #Basophils Less than 0.03 10x3/uL (0.0-0.2); %Basophils 0.5 % (0.0-1.0); %Eosinophils 1.5 % (0.0-10.0); %Lymphocytes 50.9 % (21.0-51.0); %Neutrophils 39.8 % (42.0-75.0); Hematocrit 36.8 % (42.0-52.0); Mean Corpuscular HGB CONC 35.3 g/dL (32.0-36.0); Mean Corpuscular Hemoglobin 33.2 pg (27.0-31.0); Mean Corpuscular Volume 94.1 fL (78.0-98.0); Mean Platelet Volume 10.8 fL (7.4-10.4); Platelet Count 129 10x3/uL (130-400); RBC Distribution Width 12.6 % (11.5-14.5); Red Blood Cell (RBC) Count 3.91 mill/uL (4.70-6.10)
[2024-08-12 05:58] LABS: Hemoglobin A1c 11.1 % (4.0-6.0)
[2024-08-12 06:01] LABS: Calcium 8.5 mg/dL (7.8-10.44); Chloride 107 mmol/L (98-107); Potassium 3.6 mmol/L (3.5-5.1); Sodium 138 mmol/L (136-145)
[2024-08-12 06:02] LABS: Glucose 246 mg/dL (80-115)
[2024-08-12 06:03] LABS: Anion Gap 12 mmol/L (10-20); Carbon Dioxide 23 mmol/L (23-31)
[2024-08-12 06:05] LABS: Calc. Creatinine Clearance 75 mL/min (70-130); Estimated GFR 89
[2024-08-12 06:06] LABS: BUN (Urea Nitrogen) 22 mg/dL (8.4-25.7)
[2024-08-12] MEDS: Clopidogrel Bisulfate 75 MG TAB PO SCH (08:59)
[2024-08-12] MEDS: Aspirin 81 mg Enteric Coated Tablet PO SCH (08:59)
[2024-08-12] MEDS ORDERED: Metoprolol Succinate XL 50 MG ER.TAB PO SCH (09:00)
[2024-08-12] MEDS ORDERED: Insulin Glargine 30 UNITS/0.3 ML VIAL SC SCH (09:00)
[2024-08-12] MEDS ORDERED: Amlodipine 10 MG TAB PO SCH (09:15)
[2024-08-12] MEDS: Amlodipine 5 MG TAB PO SCH (10:04)
[2024-08-12] MEDS: Acetaminophen 325 MG TAB PO PRN (10:05)
[2024-08-12] MEDS: Insulin Glargine 30 UNITS/0.3 ML VIAL SC SCH (10:05)
[2024-08-12] MEDS: Nitroglycerin 2% Ointment 1 INCH/1 GM Packet TOP SCH (11:38)
[2024-08-12] MEDS: Pantoprazole 40 MG DR.TAB PO SCH (11:38)
[2024-08-12] MEDS: Insulin Lispro 100 UNIT/ML 10 ML VIAL SC PRN ×2 (13:57→20:51)
[2024-08-12] MEDS: Ketorolac Tromethamine 30 MG (1 mL) VIAL IVP SCH (17:39)
[2024-08-13 05:51] LABS: #Basophils 0.03 10x3/uL (0.0-0.2); %Basophils 0.6 % (0.0-1.0); %Eosinophils 1.1 % (0.0-10.0); %Lymphocytes 41.6 % (21.0-51.0); %Monocytes 6.6 % (0.0-10.0); %Neutrophils 49.7 % (42.0-75.0); Hematocrit 41.9 % (42.0-52.0); Hemoglobin 14.9 g/dL (14.0-18.0); Mean Corpuscular HGB CONC 35.6 g/dL (32.0-36.0); Mean Corpuscular Hemoglobin 33.4 pg (27.0-31.0); Mean Corpuscular Volume 93.9 fL (78.0-98.0); Mean Platelet Volume 10.7 fL (7.4-10.4); Platelet Count 169 10x3/uL (130-400); RBC Distribution Width 12.9 % (11.5-14.5); Red Blood Cell (RBC) Count 4.46 mill/uL (4.70-6.10)
[2024-08-13 06:26] LABS: Anion Gap 13 mmol/L (10-20); BUN (Urea Nitrogen) 20 mg/dL (8.4-25.7); Calc. Creatinine Clearance 70 mL/min (70-130); Calcium 8.8 mg/dL (7.8-10.44); Carbon Dioxide 24 mmol/L (23-31); Chloride 107 mmol/L (98-107); Estimated GFR 83; Glucose 127 mg/dL (80-115); Potassium 3.9 mmol/L (3.5-5.1); Sodium 140 mmol/L (136-145)
[2024-08-13] MEDS: Amlodipine 5 MG TAB PO SCH (08:42)
[2024-08-13] MEDS: Empagliflozin 25 MG TAB PO SCH (08:42)
[2024-08-13] MEDS: Pantoprazole 40 MG DR.TAB PO SCH (08:42)
[2024-08-13] MEDS: hydrALAZINE 25 MG TAB PO SCH ×2 (10:52→16:37)
[2024-08-13] MEDS: Ondansetron ODT 4 MG TAB PO PRN (10:53)
[2024-08-14] MEDS: Sodium Chloride 0.9% 500 ML IV SCH (02:43)
[2024-08-14 04:36] LABS: #Basophils 0.03 10x3/uL (0.0-0.2); %Basophils 0.6 % (0.0-1.0); %Lymphocytes 37.6 % (21.0-51.0); %Monocytes 6.9 % (0.0-10.0); %Neutrophils 53.7 % (42.0-75.0); Hematocrit 37.5 % (42.0-52.0); Hemoglobin 13.3 g/dL (14.0-18.0); Mean Corpuscular HGB CONC 35.5 g/dL (32.0-36.0); Mean Corpuscular Hemoglobin 33.3 pg (27.0-31.0); Mean Corpuscular Volume 93.8 fL (78.0-98.0); Platelet Count 141 10x3/uL (130-400); RBC Distribution Width 12.9 % (11.5-14.5)
[2024-08-14 05:24] LABS: Anion Gap 12 mmol/L (10-20); BUN (Urea Nitrogen) 21 mg/dL (8.4-25.7); Calc. Creatinine Clearance 72 mL/min (70-130); Calcium 8.3 mg/dL (7.8-10.44); Carbon Dioxide 22 mmol/L (23-31); Chloride 109 mmol/L (98-107); Estimated GFR 86; Glucose 123 mg/dL (80-115); Potassium 3.6 mmol/L (3.5-5.1); Sodium 139 mmol/L (136-145)
[2024-08-14 11:52] VITALS: BP 175/95; TEMP 97.9
== END 2024-08-14 13:47 | disposition home or self-care (01) | DRG 65 ==
LOC: ERS 13:35 → OBS 18:33 → OBSVTOIN 08-12 09:14
PROVIDERS: ADMIT Internal Medicine; ATTEND Internal Medicine
DX: I63.89 Other cerebral infarction (principal); G81.94 Hemiplegia, unspecified affecting left nondominant side; I50.32 Chronic diastolic (congestive) heart failure; I13.0 Hypertensive heart and chronic kidney disease with heart failure and stage 1 through stage 4 chronic kidney disease, or unspecified chronic kidney disease; R29.810 Facial weakness; R29.703 NIHSS score 3; G89.29 Other chronic pain; R07.89 Other chest pain; D63.1 Anemia in chronic kidney disease; N18.9 Chronic kidney disease, unspecified; E11.22 Type 2 diabetes mellitus with diabetic chronic kidney disease; F31.9 Bipolar disorder, unspecified; R68.84 Jaw pain; K21.9 Gastro-esophageal reflux disease without esophagitis; E78.5 Hyperlipidemia, unspecified; I25.10 Atherosclerotic heart disease of native coronary artery without angina pectoris; Z79.899 Other long term (current) drug therapy; Z95.5 Presence of coronary angioplasty implant and graft
CPT/HCPCS: 36415; 36416; 70450; 70496; 70498; 71045; 80048; 80053; 83036; 83735; 84443; 84484; 85025; 93005; 96374; J1815; J1885; Q0162; Q9967

== ENCOUNTER 2025-02-06 00:07 | Inpatient (IN) | payer OTHER, MEDICAID ==
[2025-02-06 00:52] LABS: #Basophils 0.03 10x3/uL (0.0-0.2); #Eosinophils 0.04 10x3/uL (0.0-0.7); #Monocytes 0.31 10x3/uL (0.11-0.59); #Neutrophils 2.49 10x3/uL (1.40-6.50); %Basophils 0.7 % (0.0-1.0); %Eosinophils 1.0 % (0.0-10.0); %Lymphocytes 30.6 % (21.0-51.0); %Monocytes 7.5 % (0.0-10.0); %Neutrophils 60.0 % (42.0-75.0); Hematocrit 36.6 % (42.0-52.0); Hemoglobin 13.2 g/dL (14.0-18.0); Mean Corpuscular Hemoglobin 33.8 pg (27.0-31.0); Mean Corpuscular Volume 93.6 fL (78.0-98.0); Platelet Count 133 10x3/uL (130-400); Red Blood Cell (RBC) Count 3.91 mill/uL (4.70-6.10); White Blood Cell (WBC) Count 4.15 10x3/uL (4.8-10.8)
[2025-02-06] MEDS ORDERED: Mag-Al 1200 mg/1200 mg/30 ML UDCUP ONE (01:13)
[2025-02-06] MEDS ORDERED: Lidocaine Viscous Sol 2% 15 ml UD Cup ONE (01:13)
[2025-02-06 01:19] LABS: Troponin I Less than 0.010 ng/mL (< 0.028)
[2025-02-06 01:22] LABS: ALT (SGPT) 16 U/L (Less than 45); AST (SGOT) 14 U/L (11-34); Albumin 3.6 g/dL (3.1-4.5); Alkaline Phosphatase 65 U/L (40-110); Anion Gap 13 mmol/L (10-20); BUN (Urea Nitrogen) 26 mg/dL (8.4-25.7); Bilirubin, Total 0.8 mg/dL (0.3-1.2); Calc. Creatinine Clearance 0 mL/min (70-130); Calcium 8.3 mg/dL (7.8-10.44); Carbon Dioxide 23 mmol/L (23-31); Chloride 100 mmol/L (98-107); Globulin 2.9 g/dL (2.4-3.5); Glucose 495 mg/dL (80-115); Potassium 4.4 mmol/L (3.5-5.1); Sodium 132 mmol/L (136-145)
[2025-02-06] MEDS ORDERED: Aspirin Chewable 81 MG TAB ONE (02:26)
[2025-02-06] MEDS ORDERED: hydrALAZINE 20 MG/ML VIAL SLOW IVP PRN (03:16)
[2025-02-06] MEDS ORDERED: Ondansetron PF 4 MG/2 ML Vial IVP PRN (03:16)
[2025-02-06] MEDS ORDERED: Dextrose 50% Abboject 50 ML SYRINGE SLOW IVP PRN (03:18)
[2025-02-06] MEDS ORDERED: Glucagon 1 MG/ML KIT IM PRN (03:18)
[2025-02-06 03:56] LABS: #Basophils 0.03 10x3/uL (0.0-0.2); #Eosinophils 0.09 10x3/uL (0.0-0.7); #Monocytes 0.59 10x3/uL (0.11-0.59); #Neutrophils 2.69 10x3/uL (1.40-6.50); %Basophils 0.5 % (0.0-1.0); %Eosinophils 1.4 % (0.0-10.0); %Lymphocytes 48.6 % (21.0-51.0); %Monocytes 8.9 % (0.0-10.0); %Neutrophils 40.4 % (42.0-75.0); Hematocrit 38.6 % (42.0-52.0); Hemoglobin 13.6 g/dL (14.0-18.0); Mean Corpuscular Hemoglobin 33.5 pg (27.0-31.0); Mean Corpuscular Volume 95.1 fL (78.0-98.0); Platelet Count 146 10x3/uL (130-400); Red Blood Cell (RBC) Count 4.06 mill/uL (4.70-6.10); White Blood Cell (WBC) Count 6.63 10x3/uL (4.8-10.8)
[2025-02-06 04:40] LABS: Anion Gap 15 mmol/L (10-20); BUN (Urea Nitrogen) 24 mg/dL (8.4-25.7); Calc. Creatinine Clearance 0 mL/min (70-130); Calcium 8.4 mg/dL (7.8-10.44); Carbon Dioxide 24 mmol/L (23-31); Cardiac Risk 5.5 (Less than 4.5); Chloride 106 mmol/L (98-107); Cholesterol 170 mg/dl (< 200 Desired); Glucose 75 mg/dL (80-115); HDL Cholesterol 31 mg/dL (>60 Neg Risk); Potassium 3.7 mmol/L (3.5-5.1); Sodium 141 mmol/L (136-145); Triglycerides 510 mg/dL (Less than 150)
[2025-02-06 05:14] VITALS: BMI 25.4
[2025-02-06 05:45] LABS: Troponin I 0.018 ng/mL (< 0.028)
[2025-02-06 08:14] LABS: Troponin I 0.018 ng/mL (< 0.028)
[2025-02-06] MEDS ORDERED: Nitroglycerin 0.4 MG TAB (25 Tab Bottle) SL PRN (08:43)
[2025-02-06] MEDS ORDERED: Non-Formulary Item 1 EACH (Mirtazapine [Mirtazapine] 15 MG Tab) PO SCH (09:00)
[2025-02-06] MEDS ORDERED: Gabapentin 300 MG CAP PO SCH (09:00)
[2025-02-06] MEDS ORDERED: Non-Formulary Item 1 EACH (Vortioxetine Hydrobromide [Trintellix] 10 MG Tablet) PO SCH (09:00)
[2025-02-06] MEDS ORDERED: Vortioxetine Hydrobromide [Trintellix] 10 MG Tablet PO SCH (09:00)
[2025-02-06] MEDS: Aspirin 81 mg Enteric Coated Tablet PO SCH (09:31)
[2025-02-06] MEDS: Gabapentin 300 MG CAP PO SCH (09:32)
[2025-02-06] MEDS: Pantoprazole 40 MG DR.TAB PO SCH (09:32)
[2025-02-06] MEDS: Insulin Glargine 30 UNITS/0.3 ML VIAL SC SCH ×2 (09:32→21:31)
[2025-02-06] MEDS ORDERED: MEMANTINE HCL 14 MG PO SCH (21:00)
[2025-02-06] MEDS: Mirtazapine 15 MG TAB PO SCH (21:30)
[2025-02-07 04:36] LABS: Anion Gap 14 mmol/L (10-20); BUN (Urea Nitrogen) 18 mg/dL (8.4-25.7); Calc. Creatinine Clearance 67 mL/min (70-130); Calcium 8.9 mg/dL (7.8-10.44); Carbon Dioxide 26 mmol/L (23-31); Chloride 104 mmol/L (98-107); Glucose 194 mg/dL (80-115); Potassium 4.1 mmol/L (3.5-5.1); Sodium 140 mmol/L (136-145)
[2025-02-07 04:53] LABS: Hematocrit 42.3 % (42.0-52.0); Hemoglobin 14.7 g/dL (14.0-18.0); Mean Corpuscular Hemoglobin 32.8 pg (27.0-31.0); Mean Corpuscular Volume 94.4 fL (78.0-98.0); Platelet Count 138 10x3/uL (130-400); Red Blood Cell (RBC) Count 4.48 mill/uL (4.70-6.10); White Blood Cell (WBC) Count 4.62 10x3/uL (4.8-10.8)
[2025-02-07] MEDS: Gabapentin 300 MG CAP PO SCH ×2 (05:42→14:36)
[2025-02-07 06:01] LABS: Macrocytosis SLIGHT = 6-15 cells HPF (0-5); Platelet Adequacy Comment Platelets Normal; Polychromasia SLIGHT = 2-3 cells HPF (0-2); Smudge Cells 15.8 %
[2025-02-07] MEDS: cefTRIAXone\\ROCEPHIN 2 GM in Sodium Chloride 0.9% 100 ML IVPB SCH (17:36)
[2025-02-07 22:41] LABS: Bacteria/HPF None Seen HPF (None Seen); CAUTI Indications for Culture Acute Hematuria; Glucose, Urine (Dipstick) Greater than 1000 mg/dL (Negative); Leukocyte 25 Leu/uL (Negative); Protein, Urine (Dipstick) Negative (Neg-Trace); RBC/HPF 0-3 HPF (0-3); Specific Gravity, Urine 1.025 (1.002-1.036)
[2025-02-07 22:45] LABS: Urine Culture Reflex No No
[2025-02-08 05:10] LABS: #Basophils 0.03 10x3/uL (0.0-0.2); #Eosinophils 0.08 10x3/uL (0.0-0.7); #Monocytes 0.67 10x3/uL (0.11-0.59); #Neutrophils 4.45 10x3/uL (1.40-6.50); %Basophils 0.4 % (0.0-1.0); %Eosinophils 1.2 % (0.0-10.0); %Lymphocytes 23.6 % (21.0-51.0); %Monocytes 9.8 % (0.0-10.0); %Neutrophils 64.7 % (42.0-75.0); Hematocrit 40.2 % (42.0-52.0); Hemoglobin 14.2 g/dL (14.0-18.0); Mean Corpuscular Hemoglobin 33.2 pg (27.0-31.0); Mean Corpuscular Volume 93.9 fL (78.0-98.0); Platelet Count 130 10x3/uL (130-400); Red Blood Cell (RBC) Count 4.28 mill/uL (4.70-6.10); White Blood Cell (WBC) Count 6.87 10x3/uL (4.8-10.8)
[2025-02-08 05:30] LABS: Anion Gap 13 mmol/L (10-20); BUN (Urea Nitrogen) 23 mg/dL (8.4-25.7); Calc. Creatinine Clearance 79 mL/min (70-130); Calcium 8.4 mg/dL (7.8-10.44); Carbon Dioxide 25 mmol/L (23-31); Chloride 102 mmol/L (98-107); Glucose 196 mg/dL (80-115); Potassium 4.1 mmol/L (3.5-5.1); Sodium 136 mmol/L (136-145)
[2025-02-08] MEDS: cefTRIAXone\\ROCEPHIN 1 GM in Sodium Chloride 0.9% 100 ML IVPB SCH (09:21)
[2025-02-09 05:03] LABS: Anion Gap 14 mmol/L (10-20); BUN (Urea Nitrogen) 20 mg/dL (8.4-25.7); Calc. Creatinine Clearance 73 mL/min (70-130); Calcium 8.7 mg/dL (7.8-10.44); Carbon Dioxide 26 mmol/L (23-31); Chloride 101 mmol/L (98-107); Glucose 188 mg/dL (80-115); Potassium 4.3 mmol/L (3.5-5.1); Sodium 137 mmol/L (136-145)
[2025-02-09 05:35] LABS: #Basophils Less than 0.03 10x3/uL (0.0-0.2); #Eosinophils 0.09 10x3/uL (0.0-0.7); #Monocytes 0.68 10x3/uL (0.11-0.59); #Neutrophils 3.92 10x3/uL (1.40-6.50); %Basophils 0.3 % (0.0-1.0); %Eosinophils 1.4 % (0.0-10.0); %Lymphocytes 28.2 % (21.0-51.0); %Monocytes 10.3 % (0.0-10.0); %Neutrophils 59.5 % (42.0-75.0); Hematocrit 41.4 % (42.0-52.0); Hemoglobin 14.5 g/dL (14.0-18.0); Mean Corpuscular Hemoglobin 33.9 pg (27.0-31.0); Mean Corpuscular Volume 96.7 fL (78.0-98.0); Platelet Count 134 10x3/uL (130-400); Red Blood Cell (RBC) Count 4.28 mill/uL (4.70-6.10); White Blood Cell (WBC) Count 6.59 10x3/uL (4.8-10.8)
[2025-02-09] MEDS: Acetaminophen 325 MG TAB PO PRN (09:20)
[2025-02-09] MEDS: Gabapentin 300 MG CAP PO SCH (22:33)
[2025-02-10] MEDS: Gabapentin 300 MG CAP PO SCH (10:00)
[2025-02-10] MEDS: Memantine 5 MG TAB PO SCH (10:01)
[2025-02-10 11:49] VITALS: BP 155/88; TEMP 98.3
== END 2025-02-10 15:15 | DRG 74 ==
LOC: ERS 00:07 → 2NO 03:40 → OBSVTOIN 02-08 08:16
PROVIDERS: ADMIT Internal Medicine; ATTEND Internal Medicine
DX: E11.42 Type 2 diabetes mellitus with diabetic polyneuropathy (principal); I13.0 Hypertensive heart and chronic kidney disease with heart failure and stage 1 through stage 4 chronic kidney disease, or unspecified chronic kidney disease; I50.32 Chronic diastolic (congestive) heart failure; R45.851 Suicidal ideations; I69.354 Hemiplegia and hemiparesis following cerebral infarction affecting left non-dominant side; F03.93 Unspecified dementia, unspecified severity, with mood disturbance; F03.94 Unspecified dementia, unspecified severity, with anxiety; R47.81 Slurred speech; E78.5 Hyperlipidemia, unspecified; N18.9 Chronic kidney disease, unspecified; D63.1 Anemia in chronic kidney disease; I25.10 Atherosclerotic heart disease of native coronary artery without angina pectoris; E11.22 Type 2 diabetes mellitus with diabetic chronic kidney disease; F31.9 Bipolar disorder, unspecified; E11.65 Type 2 diabetes mellitus with hyperglycemia; M10.9 Gout, unspecified; Z95.1 Presence of aortocoronary bypass graft; Z95.818 Presence of other cardiac implants and grafts; Z88.0 Allergy status to penicillin; Z88.8 Allergy status to other drugs, medicaments and biological substances; Z88.5 Allergy status to narcotic agent; Z95.810 Presence of automatic (implantable) cardiac defibrillator; Z95.5 Presence of coronary angioplasty implant and graft; Z87.891 Personal history of nicotine dependence
CPT/HCPCS: 36415; 36416; 70450; 71045; 80048; 80053; 80061; 81001; 83036; 83880; 84443; 84484; 85025; 93005; 96374; G0378; J0696; J1815